=== PATIENT | male | born 1940 | race Caucasian/White ===

== ENCOUNTER → 2017-11-07 15:56 | Outpatient (CLI) | payer MEDICARE, OTHER, SELFPAY ==
[2017-11-07 17:24] LABS: Absolute Lymphocyte Count 2.11 X10^3/ul (0.83-4.51); Absolute Neutrophil Count 5.2 X10^3/uL (2.0-7.7); Basophil# 0.04 X10^3/uL; Basophil% 0.5 % (0-1); Eosinophil# 0.24 X10^3/uL; Eosinophils% 2.9 % (0-5); Hematocrit 46.5 % (40-54); Hemoglobin 14.9 g/dl (13.0-16.5); Lymphocyte # 2.11 X10^3/ul (4.0); Lymphocyte % 25.1 % (19-41); Mean Corpuscular Hgb 30.9 pg (27.0-32.0); Mean Corpuscular Volume 96.5 fL (80-94); Mean Platelet Vol. 9.5 fl (6.2-12.0); Monocyte# 0.76 X10^3/uL; Monocyte% 9.1 % (0-10); Neutrophil # 5.21 X10^3/uL (2.7-7.7); Platelet Count 233 K/mm3 (150-450); RBC Distribution Width CV 13.3 % (11.6-14.6); RBC Distribution Width SD 46.8 fl (35.1-43.9); Red Blood Count 4.82 M/mm3 (4.6-6.2); White Blood Count 8.4 K/mm3 (4.4-11.0)
[2017-11-07 17:25] LABS: POSITIVE COUNT NO; POSITIVE DIFFERENTIAL NO; POSITIVE MORPHOLOGY NO
[2017-11-07 17:57] LABS: ALB/GLOB Ratio 1.1 RATIO (0.9-2.4); AST(SGOT) 28 U/L (15-37); Alanine Aminotransfer ALT/SGPT 36 U/L (16-61); Alkaline Phosphatase 60 U/L (45-117); Anion Gap 10 (5-15); BUN 22 mg/dL (7-18); BUN/Creat Ratio 15.6 RATIO (10-20); Calcium,Total 8.9 mg/dL (8.5-10.1); Chloride 104 mmol/L (98-107); Creatinine, Serum 1.41 mg/dL (0.70-1.30); EST Glomerular Filtration Rate 52 mL/min (>60); Est Glom Filt Rate - Afr Amer 62 mL/min (>60); Globulin 3.5 g/dL (2.2-4.2); Glucose 99 mg/dL (74-106); Potassium 4.7 mmol/L (3.5-5.1); Protein, Total 7.5 g/dL (6.4-8.2); Sodium Level 141 mmol/L (136-145); Thyroid Stim Hormone (TSH) 1.13 uIU/mL (0.358-3.74)
[2017-11-07 19:33] LABS: Vitamin D,25 Hydroxy 5.4 ng/mL (19.95-100.01)
== END ==
PROVIDERS: Family Provider Family Medicine Geriatric Medicine; PCP Family Medicine Geriatric Medicine; Visit Provider Family Medicine Geriatric Medicine
DX: E11.9 Type 2 diabetes mellitus without complications (principal); I10 Essential (primary) hypertension; E55.9 Vitamin D deficiency, unspecified; E23.6 Other disorders of pituitary gland
CPT/HCPCS: 36415; 80053; 82306; 84403; 84443; 85025

== ENCOUNTER → 2018-07-03 10:30 | Outpatient (CLI) | payer MEDICARE, OTHER, SELFPAY ==
[2018-07-03 12:44] LABS: Absolute Lymphocyte Count 1.38 X10^3/ul (0.83-4.51); Absolute Neutrophil Count 4.3 X10^3/uL (2.0-7.7); Basophil# 0.04 X10^3/uL; Basophil% 0.6 % (0-1); Eosinophil# 0.33 X10^3/uL; Hemoglobin 14.7 g/dl (13.0-16.5); Lymphocyte # 1.38 X10^3/ul (4.0); Mean Corp Hgb Conc 33.4 g/gl (32-36); Mean Corpuscular Hgb 31.5 pg (27.0-32.0); Mean Corpuscular Volume 94.4 fL (80-94); Mean Platelet Vol. 9.3 fl (6.2-12.0); Monocyte# 0.44 X10^3/uL; Monocyte% 6.7 % (0-10); Neutrophil # 4.34 X10^3/uL (2.7-7.7); Neutrophil % 66.1 % (47-70); Platelet Count 223 K/mm3 (150-450); RBC Distribution Width CV 13.4 % (11.6-14.6); RBC Distribution Width SD 44.9 fl (35.1-43.9); Red Blood Count 4.66 M/mm3 (4.6-6.2); White Blood Count 6.6 K/mm3 (4.4-11.0)
[2018-07-03 12:50] LABS: POSITIVE COUNT NO; POSITIVE DIFFERENTIAL NO; POSITIVE MORPHOLOGY NO
[2018-07-03 12:59] LABS: Vitamin D,25 Hydroxy 18.7 ng/mL (29.95-100.01)
[2018-07-03 13:13] LABS: AST(SGOT) 30 U/L (15-37); Alanine Aminotransfer ALT/SGPT 30 U/L (16-61); Alkaline Phosphatase 62 U/L (45-117); Anion Gap 8 (5-15); BUN 22 mg/dL (7-18); BUN/Creat Ratio 15.3 RATIO (10-20); Calcium,Total 8.9 mg/dL (8.5-10.1); Chloride 103 mmol/L (98-107); Creatinine, Serum 1.44 mg/dL (0.70-1.30); EST Glomerular Filtration Rate 50 mL/min (>60); Est Glom Filt Rate - Afr Amer 61 mL/min (>60); Glucose 141 mg/dL (74-106); Potassium 4.6 mmol/L (3.5-5.1); Sodium Level 136 mmol/L (136-145); Thyroid Stim Hormone (TSH) 1.03 uIU/mL (0.358-3.74)
== END ==
PROVIDERS: Family Provider Family Medicine Geriatric Medicine; PCP Family Medicine Geriatric Medicine; Visit Provider Family Medicine Geriatric Medicine
DX: E11.9 Type 2 diabetes mellitus without complications (principal); E55.9 Vitamin D deficiency, unspecified; E23.6 Other disorders of pituitary gland; I10 Essential (primary) hypertension
CPT/HCPCS: 36415; 80053; 82306; 84403; 84443; 85025

== ENCOUNTER 2018-07-12 16:39 | Inpatient (IN) | payer MEDICARE, OTHER, SELFPAY ==
[2018-07-12 16:48] VITALS: BP 166/76; PULSE 84; RESP 18; TEMP 36.9; O2SAT 94; BMI 38.0; BMI 38.1
[2018-07-12] MEDS: oxyCODONE 5 MG Tablet PO (19:15)
[2018-07-12 19:49] VITALS: BP 162/73; PULSE 90; RESP 16; TEMP 37.1; O2SAT 95
[2018-07-12 21:16] LABS: Bedside Glucose 186 mg/dL (70-110)
[2018-07-12 22:09] VITALS: BP 162/73; PULSE 90
[2018-07-12] MEDS: Magnesium Oxide 400 MG Tablet PO (22:09)
[2018-07-12] MEDS: Nortriptyline 25 MG Capsule PO (22:09)
[2018-07-12] MEDS: Acetaminophen 500 MG Tablet 1000 MG PO (22:09)
[2018-07-12] MEDS: Senna/Docusate Sodium 1 Tablet 2 TABLET PO (22:09)
[2018-07-12] MEDS: Gabapentin 600 MG Tablet PO (22:09)
[2018-07-12] MEDS: Metoprolol Tartrate 50 MG Tablet PO (22:09)
[2018-07-12] MEDS: Donepezil HCl 10 MG Tablet PO (22:10)
[2018-07-12] MEDS: Atorvastatin Calcium 40 MG Tablet PO (22:10)
[2018-07-12] MEDS: Meclizine HCl 25 MG Tablet PO (22:10)
[2018-07-12] MEDS: LORazepam 1 MG Tablet PO (23:01)
[2018-07-13 06:31] LABS: Bedside Glucose 182 mg/dL (70-110)
[2018-07-13] MEDS: Enoxaparin 40 MG/0.4 ML Syringe SC (06:50)
[2018-07-13] MEDS: Gabapentin 600 MG Tablet PO ×3 (06:51→21:04)
[2018-07-13] MEDS: oxyCODONE 5 MG Tablet PO ×3 (07:31→17:10)
[2018-07-13 07:32] VITALS: PULSE 80
[2018-07-13] MEDS: Metoprolol Tartrate 50 MG Tablet PO ×2 (07:32→21:04)
[2018-07-13] MEDS: Aspirin 81 MG TAB.CHEW PO (07:32)
[2018-07-13] MEDS: Magnesium Oxide 400 MG Tablet PO ×2 (07:33→21:05)
[2018-07-13] MEDS: Escitalopram Oxalate 10 MG Tablet PO (07:34)
[2018-07-13] MEDS: Glimepiride 4 MG Tablet PO ×2 (07:34→17:10)
[2018-07-13] MEDS: Pantoprazole Sodium 20 MG Tablet PO (07:34)
[2018-07-13] MEDS: hydroCHLOROthiazide 25 MG Tablet PO (07:35)
[2018-07-13] MEDS: Clopidogrel Bisulfate 75 MG Tablet PO (07:35)
[2018-07-13 07:36] VITALS: BP 123/64; PULSE 85; RESP 20; TEMP 36.8; O2SAT 95
[2018-07-13] MEDS: Lisinopril 20 MG Tablet PO (07:36)
[2018-07-13] MEDS: Meclizine HCl 25 MG Tablet PO ×2 (07:36→21:04)
[2018-07-13 07:40] LABS: Hematocrit 42.4 % (40-54); Hemoglobin 13.6 g/dl (13.0-16.5); Mean Corp Hgb Conc 32.1 g/gl (32-36); Mean Corpuscular Hgb 30.8 pg (27.0-32.0); Mean Corpuscular Volume 96.1 fL (80-94); Mean Platelet Vol. 8.7 fl (6.2-12.0); Platelet Count 198 K/mm3 (150-450); RBC Distribution Width CV 13.8 % (11.6-14.6); RBC Distribution Width SD 48.5 fl (35.1-43.9); Red Blood Count 4.41 M/mm3 (4.6-6.2); White Blood Count 13.1 K/mm3 (4.4-11.0)
[2018-07-13 07:45] LABS: Scan Indicated on CBC? Y/N NO
[2018-07-13 07:53] VITALS: O2SAT 95
[2018-07-13 08:34] LABS: Anion Gap 13 (5-15); BUN 23 mg/dL (7-18); BUN/Creat Ratio 14.4 RATIO (10-20); Calcium,Total 8.9 mg/dL (8.5-10.1); Chloride 97 mmol/L (98-107); EST Glomerular Filtration Rate 45 mL/min (>60); Est Glom Filt Rate - Afr Amer 54 mL/min (>60); Estimated Creatinine Clearance 43.53 ml/min; Glucose 180 mg/dL (74-106); Potassium 3.9 mmol/L (3.5-5.1); Sodium Level 135 mmol/L (136-145)
[2018-07-13] MEDS: Acetaminophen 500 MG Tablet 1000 MG PO ×2 (09:31→21:04)
[2018-07-13] MEDS: Senna/Docusate Sodium 1 Tablet 2 TABLET PO ×2 (09:31→21:04)
[2018-07-13 12:20] LABS: Bedside Glucose 176 mg/dL (70-110)
--- NOTE | 2018-07-13 15:35 | PCM.HP.STD ---
History of Present Illness Date of Admission: 07/12/18 The patient is a 77 year old male with a history of osteoarthritis as well as hypertension, hyperlipidemia, coronary artery disease, diabetes and peripheral neuropathy as well as obstructive sleep apnea on CPAP, and atrial flutter who presents to the [facility] acute rehab unit for rehabilitation after having undergone a right total knee replacement surgery for osteoarthritis performed by Dr. Cy Perez at [facility] 07/10/18. His hospitalization, surgery and postoperative course was benign. He lives at home with his daughter and son-in-law. The house is a one-story house with a ramp set up. He normally walks with a walker at home but is independent and continues to drive. Goal of therapy is rastafarian of his prior level of functional independence. He denies any complaints of pain at this point, denies any GI or complaints, no fevers, chills or sweats. 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) Medical History: Medical History (Last Reviewed 07/13/18 @ 15:36 by Javy Diop MD) Old myocardial infarction (Resolved) I25.2 NSTEMI 03/24/17 Atherosclerotic heart disease of [place] coronary artery without angina pectoris (Chronic) I25.10 Hypertension (Chronic) I10 Hyperlipemia (Chronic) E78.5 Dyspnea R06.00 Allergies No Known Allergies Allergy (Verified 01/10/18 13:04) Home Medications: Ambulatory Orders Medication Instructions Recorded Aspirin [Aspirin, Baby] 81 mg PO DAILY@0800 07/18/13 Gabapentin [Neurontin] 600 mg PO TID 07/18/13 Lorazepam [Ativan] 1 mg PO QHS 07/18/13 Meclizine HCl [Antivert] 25 mg PO BID 07/18/13 Rosuvastatin Calcium [Crestor] 20 mg PO DAILY 07/18/13 Metformin HCl [Glucophage] 500 mg PO DAILY 01/03/14 Donepezil HCl [Aricept] 10 mg PO QHS 11/16/14 Magnesium Oxide [Mag-Ox 400] 400 mg PO BID 11/16/14 Nortriptyline HCl 25 mg PO QHS 03/16/17 glimepiride 4 mg tablet 4 mg PO BID tab 01/08/18 acetaminophen 500 mg capsule 1,000 mg PO BID 01/10/18 nitroglycerin 0.4 mg sublingual 0.4 mg SUBLINGUAL Q5M PRN #25 tab 01/10/18 tablet Clopidogrel Bisulfate [Clopidogrel] 75 mg PO QDAY 07/12/18 Ergocalciferol [Vitamin D] 50,000 unit PO Q7D 07/12/18 Escitalopram Oxalate [Lexapro] 10 mg PO DAILY 07/12/18 Hyoscyamine Sulfate [Hyoscyamine 0.375 mg PO DAILY 07/12/18 Sulfate Sr] Isosorbide Mononitrate [Imdur] 120 mg PO DAILY 07/12/18 Lisinopril/Hydrochlorothiazide 1 tablet PO DAILY 07/12/18 [Zestoretic Tablet] Metoprolol Tartrate [Lopressor 50 mg PO BID 07/12/18 (beta chyna)] Omeprazole [Prilosec] 20 mg PO DAILY 07/12/18 Surgical History: Surgical History (Last Reviewed 07/13/18 @ 15:36 by Javy Diop MD) Hx of sinus surgery (Resolved) Z98.890 History of prostate surgery (Resolved) Z98.890 H/O repair of rotator cuff (Resolved) Z98.890 x2 H/O percutaneous transluminal coronary angioplasty (Resolved) Z98.61 PTCA of mid RCA 08/06, PTCA/LETICIA to LAD and diag with bifurcating stents 11/26/14 Surgical History: rotator cuff repair, TURP Smoking Status: Never smoker - *Family History Sibling Family History: Family History (Last Reviewed 07/13/18 @ 15:37 by Javy Diop MD) Son CAD (coronary artery disease) Myocardial infarction Mother Heart disease Father Addisons disease History Items: Heart Disease Maternal Family History: Family History (Last Reviewed 07/13/18 @ 15:37 by Javy Diop MD) Son CAD (coronary artery disease) Myocardial infarction Mother Heart disease Father Addisons disease History Items: Diabetes Offspring Family History: Family History (Last Reviewed 07/13/18 @ 15:37 by Javy Diop MD) Son CAD (coronary artery disease) Myocardial infarction Mother Heart disease Father Addisons disease History Items: Heart Disease Review of Systems Constitutional: Denies: Chills, Fever, Night Sweats Eyes: Denies: Blurred vision, Double vision HEENT: Denies: Difficulty Hearing, Head Aches, Sore Throat Cardiovascular: Denies: Chest Pain, Chest Pressure, Light Headedness Respiratory: Denies: Cough, Shortness of Breath Gastrointestinal: Denies: Abdominal Pain, Constipation, Diarrhea, Dyspepsia, Vomiting Genitourinary: Denies: Dysuria, Frequency, Incontinence, Nocturia, Retention, Urgency Musculoskeletal: Reports: Joint Pain - Right knee Neurological: Reports: Balance problems - Chronic due to neuropathy. Denies: Blurred vision, Double vision, Change in Speech, Slurred speech, Confusion, Difficulty swallowing, Focal weakness, Headaches Psychiatric: Denies: Anxiety VTE Information - Inpt Only VTE Present on Admission: Yes VTE Pharm Prophylaxis ordered?: Yes - Physical Exam General: Alert, Oriented x3, Cooperative HEENT: Atraumatic, PERRLA, EOMI, Normocephalic Lungs: Clear to auscultation, Normal air movement Cardiovascular: Regular rate, No murmurs Abdomen: Bowel Sounds Present, Soft, Non Tender, Non-Distended Extremities: No clubbing, No edema, No Calf Tenderness Neurological: Cranial nerves II-XII grossly intact Psych/Mental Status: Normal Affect Vital Signs Temp Pulse Resp BP Pulse Ox 36.8 C 85 20 H 123/64 H 95 07/13/18 07:36 07/13/18 07:36 07/13/18 07:36 07/13/18 07:36 07/13/18 07:53 Oxygen Delivery Method Room Air Weight: 134.6 kg Body Mass Index (BMI) 38.0 Finger Stick Blood Glucose 150 Intake and Output for Last 24 Hours 07/11/18 07/12/18 07/13/18 23:59 23:59 23:59 Output Total 250 / 250 Balance -250 / -250 Laboratory Tests Past 24 Hrs 07/13/18 07/13/18 07:25 07:25 WBC 13.1 H RBC 4.41 L Hgb 13.6 Hct 42.4 MCV 96.1 H MCH 30.8 MCHC 32.1 RDW 13.8 RDW Differential 48.5 H Plt Count 198 MPV 8.7 Sodium 135 L Potassium 3.9 Chloride 97 L Carbon Dioxide 25.0 Anion Gap 13 BUN 23 H Creatinine 1.60 H Estim Creat Clear Calc 43.53 Est GFR (MDRD) Af Amer 54 L Est GFR (MDRD) Non-Af 45 L BUN/Creatinine Ratio 14.4 Glucose 180 H Calcium 8.9 POC Glucose 07/13/18 07/13/18 07/12/18 12:13 06:24 21:09 POC Glucose 176 H 182 H 186 H Current Home Med List Medication Instructions Recorded Confirmed Type Aspirin [Aspirin, Baby] 81 mg PO DAILY@0800 07/18/13 07/12/18 History Gabapentin [Neurontin] 600 mg PO TID 07/18/13 07/12/18 History Lorazepam [Ativan] 1 mg PO QHS 07/18/13 07/12/18 History Meclizine HCl [Antivert] 25 mg PO BID 07/18/13 07/12/18 History Rosuvastatin Calcium [Crestor] 20 mg PO DAILY 07/18/13 07/12/18 History Metformin HCl [Glucophage] 500 mg PO DAILY 01/03/14 07/12/18 History Donepezil HCl [Aricept] 10 mg PO QHS 11/16/14 07/12/18 History Magnesium Oxide [Mag-Ox 400] 400 mg PO BID 11/16/14 07/12/18 History Nortriptyline HCl 25 mg PO QHS 03/16/17 07/12/18 History glimepiride 4 mg tablet 4 mg PO BID tab 01/08/18 07/12/18 History acetaminophen 500 mg capsule 1,000 mg PO BID 01/10/18 07/12/18 History nitroglycerin 0.4 mg sublingual 0.4 mg SUBLINGUAL Q5M PRN #25 tab 01/10/18 07/12/18 Rx tablet Clopidogrel Bisulfate [Clopidogrel] 75 mg PO QDAY 07/12/18 07/12/18 History Ergocalciferol [Vitamin D] 50,000 unit PO Q7D 07/12/18 07/12/18 History Escitalopram Oxalate [Lexapro] 10 mg PO DAILY 07/12/18 07/12/18 History Hyoscyamine Sulfate [Hyoscyamine 0.375 mg PO DAILY 07/12/18 07/12/18 History Sulfate Sr] Isosorbide Mononitrate [Imdur] 120 mg PO DAILY 07/12/18 07/12/18 History Lisinopril/Hydrochlorothiazide 1 tablet PO DAILY 07/12/18 07/12/18 History [Zestoretic Tablet] Metoprolol Tartrate [Lopressor 50 mg PO BID 07/12/18 07/12/18 History (beta chyna)] Omeprazole [Prilosec] 20 mg PO DAILY 07/12/18 07/12/18 History Current Medications Generic Name Dose Route Start Last Admin Trade Name Freq PRN Reason Stop Dose Admin Acetaminophen 1,000 mg 07/12/18 22:00 07/13/18 09:31 Tylenol PO 1,000 mg BID GABRIELA Administration Aspirin 81 mg 07/13/18 08:00 07/13/18 07:32 Aspirin, Baby PO 81 mg DAILY@0800 GABRIELA Administration Atorvastatin Calcium 40 mg 07/12/18 22:00 07/12/18 22:10 Lipitor PO 40 mg QHS [facility] Administration Bisacodyl 10 mg 07/12/18 18:30 Dulcolax RECTAL .PRN X 1 PRN Constipation Clopidogrel Bisulfate 75 mg 07/13/18 10:00 07/13/18 07:35 Plavix PO 75 mg DAILY GABRIELA Administration Donepezil HCl 10 mg 07/12/18 22:00 07/12/18 22:10 Aricept PO 10 mg QHS [facility] Administration Enoxaparin Sodium 40 mg 07/13/18 06:00 07/13/18 06:50 Lovenox SC 40 mg DAILY@0600 [facility] Administration Ergocalciferol 50,000 unit 07/12/18 19:00 07/12/18 22:10 Vitamin D PO 50,000 unit Q7D@1000 GABRIELA Administration Escitalopram Oxalate 10 mg 07/13/18 10:00 07/13/18 07:34 Lexapro PO 10 mg DAILY GABRIELA Administration Gabapentin 600 mg 07/12/18 22:00 07/13/18 13:58 Neurontin PO 600 mg TID GABRIELA Administration Glimepiride 4 mg 07/13/18 08:00 07/13/18 07:34 Amaryl PO 4 mg BIDCM GABRIELA Administration Hydrochlorothiazide 25 mg 07/13/18 10:00 07/13/18 07:35 Hctz PO 25 mg DAILY GABRIELA Administration Hyoscyamine Sulfate 0.375 mg 07/13/18 10:00 07/13/18 07:32 Levsinex PO 0.375 mg DAILY GABRIELA Administration Isosorbide Mononitrate 120 mg 07/13/18 10:00 07/13/18 07:35 Imdur PO 120 mg DAILY GABRIELA Administration Lisinopril 20 mg 07/13/18 10:00 07/13/18 07:36 Zestril PO 20 mg DAILY [facility] Administration Lorazepam 1 mg 07/12/18 22:00 07/12/18 23:01 Ativan PO 1 mg QHS GABRIELA Administration Magnesium Hydroxide 30 ml 07/12/18 18:30 Milk Of Magnesia PO .PRN X 1 PRN Constipation Magnesium Oxide 400 mg 07/12/18 22:00 07/13/18 07:33 Mag-Ox 400 PO 400 mg BID [facility] Administration Meclizine HCl 25 mg 07/12/18 22:00 07/13/18 07:36 Antivert PO 25 mg BID [facility] Administration Metformin HCl 500 mg 07/13/18 08:00 07/13/18 07:33 [facility] Administration Metoprolol Tartrate 50 mg 07/12/18 22:00 07/13/18 07:32 Lopressor (Beta Chyna) PO 50 mg BID [facility] Administration Nitroglycerin 0.4 mg 07/12/18 18:07 Nitrostat SUBLINGUAL Q5M PRN Chest Pain Nortriptyline HCl 25 mg 07/12/18 22:00 07/12/18 22:09 Pamelor PO 25 mg QHS [facility] Administration Oxycodone HCl 5 - 10 mg 07/12/18 18:29 07/13/18 11:39 Oxyir PO 10 mg Q4H PRN PRN Administration SEVERE PAIN (6-10/10) Pantoprazole Sodium 20 mg 07/13/18 10:00 07/13/18 07:34 Protonix PO 20 mg DAILY [facility] Administration Senna/Docusate Sodium 2 tablet 07/12/18 22:00 07/13/18 09:31 Senokot-S, Ana-Colace PO 2 tablet BID GABRIELA Administration Assessment/Plan All Active Problems (Last Updated 01/08/18 @ 08:39 by Nory Jones) Hx of sinus surgery (Resolved) History of prostate surgery (Resolved) H/O repair of rotator cuff (Resolved) H/O percutaneous transluminal coronary angioplasty (Resolved) Old myocardial infarction (Resolved) Unstable angina (Acute) Debility status post right total knee replacement performed 07/10/[address] Perez at [facility]. Complicated by diabetes, peripheral neuropathy, coronary artery disease and obstructive sleep apnea as well as atrial flutter. Goal of rehab is rastafarian of prior level functional independence. Plan: Physical therapy for gait and balance Occupational Therapy for ADLs Continue oral agents for diabetes and monitor sugars Continue antihypertensive therapy Continue home CPAP therapy Bowel protocol PRN analgesics DVT prophylaxis
--- NOTE | 2018-07-13 15:51 | HP.PCM_ITS ---
History of Present Illness Date of Admission: 07/12/18 The patient is a 77 year old male with a history of osteoarthritis as well as hypertension, hyperlipidemia, coronary artery disease, diabetes and peripheral neuropathy as well as obstructive sleep apnea on CPAP, and atrial flutter who presents to the [facility] acute rehab unit for rehabilitation after having undergone a right total knee replacement surgery for osteoarthritis performed by Dr. Cy Perez at [facility] 07/10/18. His hospitalization, surgery and postoperative course was benign. He lives at home with his daughter and son-in-law. The house is a one-story house with a ramp set up. He normally walks with a walker at home but is independent and continues to drive. Goal of therapy is gnosticism of his prior level of functional independence. He denies any complaints of pain at this point, denies any GI or complaints, no fevers, chills or sweats. 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) Medical History: Medical History (Last Reviewed 07/13/18 @ 15:36 by Javy Diop MD) Old myocardial infarction (Resolved) I25.2 NSTEMI 03/24/17 Atherosclerotic heart disease of [place] coronary artery without angina pectoris (Chronic) I25.10 Hypertension (Chronic) I10 Hyperlipemia (Chronic) E78.5 Dyspnea R06.00 Allergies No Known Allergies Allergy (Verified 01/10/18 13:04) Home Medications: Ambulatory Orders Medication Instructions Recorded Aspirin [Aspirin, Baby] 81 mg PO DAILY@0800 07/18/13 Gabapentin [Neurontin] 600 mg PO TID 07/18/13 Lorazepam [Ativan] 1 mg PO QHS 07/18/13 Meclizine HCl [Antivert] 25 mg PO BID 07/18/13 Rosuvastatin Calcium [Crestor] 20 mg PO DAILY 07/18/13 Metformin HCl [Glucophage] 500 mg PO DAILY 01/03/14 Donepezil HCl [Aricept] 10 mg PO QHS 11/16/14 Magnesium Oxide [Mag-Ox 400] 400 mg PO BID 11/16/14 Nortriptyline HCl 25 mg PO QHS 03/16/17 glimepiride 4 mg tablet 4 mg PO BID tab 01/08/18 acetaminophen 500 mg capsule 1,000 mg PO BID 01/10/18 nitroglycerin 0.4 mg sublingual 0.4 mg SUBLINGUAL Q5M PRN #25 tab 01/10/18 tablet Clopidogrel Bisulfate [Clopidogrel] 75 mg PO QDAY 07/12/18 Ergocalciferol [Vitamin D] 50,000 unit PO Q7D 07/12/18 Escitalopram Oxalate [Lexapro] 10 mg PO DAILY 07/12/18 Hyoscyamine Sulfate [Hyoscyamine 0.375 mg PO DAILY 07/12/18 Sulfate Sr] Isosorbide Mononitrate [Imdur] 120 mg PO DAILY 07/12/18 Lisinopril/Hydrochlorothiazide 1 tablet PO DAILY 07/12/18 [Zestoretic Tablet] Metoprolol Tartrate [Lopressor 50 mg PO BID 07/12/18 (beta chyna)] Omeprazole [Prilosec] 20 mg PO DAILY 07/12/18 Surgical History: Surgical History (Last Reviewed 07/13/18 @ 15:36 by Javy Diop MD) Hx of sinus surgery (Resolved) Z98.890 History of prostate surgery (Resolved) Z98.890 H/O repair of rotator cuff (Resolved) Z98.890 x2 H/O percutaneous transluminal coronary angioplasty (Resolved) Z98.61 PTCA of mid RCA 08/06, PTCA/LETICIA to LAD and diag with bifurcating stents 11/26/14 Surgical History: rotator cuff repair, TURP Smoking Status: Never smoker - *Family History Sibling Family History: Family History (Last Reviewed 07/13/18 @ 15:37 by Javy Diop MD) Son CAD (coronary artery disease) Myocardial infarction Mother Heart disease Father Addisons disease History Items: Heart Disease Maternal Family History: Family History (Last Reviewed 07/13/18 @ 15:37 by Javy Diop MD) Son CAD (coronary artery disease) Myocardial infarction Mother Heart disease Father Addisons disease History Items: Diabetes Offspring Family History: Family History (Last Reviewed 07/13/18 @ 15:37 by Javy Diop MD) Son CAD (coronary artery disease) Myocardial infarction Mother Heart disease Father Addisons disease History Items: Heart Disease Review of Systems Constitutional: Denies: Chills, Fever, Night Sweats Eyes: Denies: Blurred vision, Double vision HEENT: Denies: Difficulty Hearing, Head Aches, Sore Throat Cardiovascular: Denies: Chest Pain, Chest Pressure, Light Headedness Respiratory: Denies: Cough, Shortness of Breath Gastrointestinal: Denies: Abdominal Pain, Constipation, Diarrhea, Dyspepsia, Vomiting Genitourinary: Denies: Dysuria, Frequency, Incontinence, Nocturia, Retention, Urgency Musculoskeletal: Reports: Joint Pain - Right knee Neurological: Reports: Balance problems - Chronic due to neuropathy. Denies: Blurred vision, Double vision, Change in Speech, Slurred speech, Confusion, Difficulty swallowing, Focal weakness, Headaches Psychiatric: Denies: Anxiety VTE Information - Inpt Only VTE Present on Admission: Yes VTE Pharm Prophylaxis ordered?: Yes - Physical Exam General: Alert, Oriented x3, Cooperative HEENT: Atraumatic, PERRLA, EOMI, Normocephalic Lungs: Clear to auscultation, Normal air movement Cardiovascular: Regular rate, No murmurs Abdomen: Bowel Sounds Present, Soft, Non Tender, Non-Distended Extremities: No clubbing, No edema, No Calf Tenderness Neurological: Cranial nerves II-XII grossly intact Psych/Mental Status: Normal Affect Vital Signs Temp Pulse Resp BP Pulse Ox 36.8 C 85 20 H 123/64 H 95 07/13/18 07:36 07/13/18 07:36 07/13/18 07:36 07/13/18 07:36 07/13/18 07:53 Oxygen Delivery Method Room Air Weight: 134.6 kg Body Mass Index (BMI) 38.0 Finger Stick Blood Glucose 150 Intake and Output for Last 24 Hours 07/11/18 07/12/18 07/13/18 23:59 23:59 23:59 Output Total 250 / 250 Balance -250 / -250 Laboratory Tests Past 24 Hrs 07/13/18 07/13/18 07:25 07:25 WBC 13.1 H RBC 4.41 L Hgb 13.6 Hct 42.4 MCV 96.1 H MCH 30.8 MCHC 32.1 RDW 13.8 RDW Differential 48.5 H Plt Count 198 MPV 8.7 Sodium 135 L Potassium 3.9 Chloride 97 L Carbon Dioxide 25.0 Anion Gap 13 BUN 23 H Creatinine 1.60 H Estim Creat Clear Calc 43.53 Est GFR (MDRD) Af Amer 54 L Est GFR (MDRD) Non-Af 45 L BUN/Creatinine Ratio 14.4 Glucose 180 H Calcium 8.9 POC Glucose 07/13/18 07/13/18 07/12/18 12:13 06:24 21:09 POC Glucose 176 H 182 H 186 H Current Home Med List Medication Instructions Recorded Confirmed Type Aspirin [Aspirin, Baby] 81 mg PO DAILY@0800 07/18/13 07/12/18 History Gabapentin [Neurontin] 600 mg PO TID 07/18/13 07/12/18 History Lorazepam [Ativan] 1 mg PO QHS 07/18/13 07/12/18 History Meclizine HCl [Antivert] 25 mg PO BID 07/18/13 07/12/18 History Rosuvastatin Calcium [Crestor] 20 mg PO DAILY 07/18/13 07/12/18 History Metformin HCl [Glucophage] 500 mg PO DAILY 01/03/14 07/12/18 History Donepezil HCl [Aricept] 10 mg PO QHS 11/16/14 07/12/18 History Magnesium Oxide [Mag-Ox 400] 400 mg PO BID 11/16/14 07/12/18 History Nortriptyline HCl 25 mg PO QHS 03/16/17 07/12/18 History glimepiride 4 mg tablet 4 mg PO BID tab 01/08/18 07/12/18 History acetaminophen 500 mg capsule 1,000 mg PO BID 01/10/18 07/12/18 History nitroglycerin 0.4 mg sublingual 0.4 mg SUBLINGUAL Q5M PRN #25 tab 01/10/18 07/12/18 Rx tablet Clopidogrel Bisulfate [Clopidogrel] 75 mg PO QDAY 07/12/18 07/12/18 History Ergocalciferol [Vitamin D] 50,000 unit PO Q7D 07/12/18 07/12/18 History Escitalopram Oxalate [Lexapro] 10 mg PO DAILY 07/12/18 07/12/18 History Hyoscyamine Sulfate [Hyoscyamine 0.375 mg PO DAILY 07/12/18 07/12/18 History Sulfate Sr] Isosorbide Mononitrate [Imdur] 120 mg PO DAILY 07/12/18 07/12/18 History Lisinopril/Hydrochlorothiazide 1 tablet PO DAILY 07/12/18 07/12/18 History [Zestoretic Tablet] Metoprolol Tartrate [Lopressor 50 mg PO BID 07/12/18 07/12/18 History (beta chyna)] Omeprazole [Prilosec] 20 mg PO DAILY 07/12/18 07/12/18 History Current Medications Generic Name Dose Route Start Last Admin Trade Name Freq PRN Reason Stop Dose Admin Acetaminophen 1,000 mg 07/12/18 22:00 07/13/18 09:31 Tylenol PO 1,000 mg BID GABRIELA Administration Aspirin 81 mg 07/13/18 08:00 07/13/18 07:32 Aspirin, Baby PO 81 mg DAILY@0800 GABRIELA Administration Atorvastatin Calcium 40 mg 07/12/18 22:00 07/12/18 22:10 Lipitor PO 40 mg QHS [facility] Administration Bisacodyl 10 mg 07/12/18 18:30 Dulcolax RECTAL .PRN X 1 PRN Constipation Clopidogrel Bisulfate 75 mg 07/13/18 10:00 07/13/18 07:35 Plavix PO 75 mg DAILY GABRIELA Administration Donepezil HCl 10 mg 07/12/18 22:00 07/12/18 22:10 Aricept PO 10 mg QHS [facility] Administration Enoxaparin Sodium 40 mg 07/13/18 06:00 07/13/18 06:50 Lovenox SC 40 mg DAILY@0600 [facility] Administration Ergocalciferol 50,000 unit 07/12/18 19:00 07/12/18 22:10 Vitamin D PO 50,000 unit Q7D@1000 GABRIELA Administration Escitalopram Oxalate 10 mg 07/13/18 10:00 07/13/18 07:34 Lexapro PO 10 mg DAILY GABRIELA Administration Gabapentin 600 mg 07/12/18 22:00 07/13/18 13:58 Neurontin PO 600 mg TID GABRIELA Administration Glimepiride 4 mg 07/13/18 08:00 07/13/18 07:34 Amaryl PO 4 mg BIDCM GABRIELA Administration Hydrochlorothiazide 25 mg 07/13/18 10:00 07/13/18 07:35 Hctz PO 25 mg DAILY GABRIELA Administration Hyoscyamine Sulfate 0.375 mg 07/13/18 10:00 07/13/18 07:32 Levsinex PO 0.375 mg DAILY GABRIELA Administration Isosorbide Mononitrate 120 mg 07/13/18 10:00 07/13/18 07:35 Imdur PO 120 mg DAILY GABRIELA Administration Lisinopril 20 mg 07/13/18 10:00 07/13/18 07:36 Zestril PO 20 mg DAILY [facility] Administration Lorazepam 1 mg 07/12/18 22:00 07/12/18 23:01 Ativan PO 1 mg QHS GABRIELA Administration Magnesium Hydroxide 30 ml 07/12/18 18:30 Milk Of Magnesia PO .PRN X 1 PRN Constipation Magnesium Oxide 400 mg 07/12/18 22:00 07/13/18 07:33 Mag-Ox 400 PO 400 mg BID [facility] Administration Meclizine HCl 25 mg 07/12/18 22:00 07/13/18 07:36 Antivert PO 25 mg BID [facility] Administration Metformin HCl 500 mg 07/13/18 08:00 07/13/18 07:33 [facility] Metoprolol Tartrate 50 mg 07/12/18 22:00 07/13/18 07:32 Lopressor (Beta Chyna) PO 50 mg BID [facility] Administration Nitroglycerin 0.4 mg 07/12/18 18:07 Nitrostat SUBLINGUAL Q5M PRN Chest Pain Nortriptyline HCl 25 mg 07/12/18 22:00 07/12/18 22:09 Pamelor PO 25 mg QHS [facility] Administration Oxycodone HCl 5 - 10 mg 07/12/18 18:29 07/13/18 11:39 Oxyir PO 10 mg Q4H PRN PRN Administration SEVERE PAIN (6-10/10) Pantoprazole Sodium 20 mg 07/13/18 10:00 07/13/18 07:34 Protonix PO 20 mg DAILY [facility] Administration Senna/Docusate Sodium 2 tablet 07/12/18 22:00 07/13/18 09:31 Senokot-S, Ana-Colace PO 2 tablet BID [facility]ELA Administration Assessment/Plan All Active Problems (Last Updated 01/08/18 @ 08:39 by Nory Jones) Hx of sinus surgery (Resolved) History of prostate surgery (Resolved) H/O repair of rotator cuff (Resolved) H/O percutaneous transluminal coronary angioplasty (Resolved) Old myocardial infarction (Resolved) Unstable angina (Acute) Debility status post right total knee replacement performed 07/10/[address] Perez at [facility]. Complicated by diabetes, peripheral neuropathy, coronary artery disease and obstructive sleep apnea as well as atrial flutter. Goal of rehab is gnosticism of prior level functional independence. Plan: Physical therapy for gait and balance Occupational Therapy for ADLs Continue oral agents for diabetes and monitor sugars Continue antihypertensive therapy Continue home CPAP therapy Bowel protocol PRN analgesics DVT prophylaxis
--- NOTE | 2018-07-13 15:55 | PCM.RU.PYE ---
Admission Information Status Changes from Prescreening?: No changes Identified Actual Problem List:: Pain, ALteration in Cmfrt, Mobility Impaired, Self Care Deficit, Diabetes, Hyperglycemia, BP, Hypertension, Ineffect.D/C Plan r/t Psy Potential Problem List:: DVT, Bleeding, Infection, UTI, Aspiration, Falls, Skin Integrity, Depression Risk of Complications DVT: LMWH, LACHO Hose, Sequential Compression Device Bleeding: Monitor Lab Values, Nursing to Teach Precautions for anti-coagulation therapy., Wound, if applicable, to be assessed every shift., Stroke patients assessed for lethargy or change in status. Infection: Clinical Staff to Monitor for S/S of infection:, S/S of infection include fever, redness, warmth, etc. Urinary Tract Infection: Monitor for frequency, burning, discomfort, or incontinence., Nursing will obtain urine sample for urinalysis and C&S when ordered. Aspiration: Clinical staff will monitor for coughing, drooling, congestion., Speech will evaluate swallowing and dsyphasia., Nursing will monitor patient swallowing during meals. Falls: Patient will be evaluated for Fall Precautions, Patient will be placed on Fall Precautions as indicated per protocol. Skin Breakdown: Nursing will assess skin daily using assessment tool., Nursing will place on Skin Breakdown Precautions as indicated. Pain: Clinical staff will assess patient's pain level per protocol., Medications will be given, if needed, and the pain level reassessed., Other methods: Massage, distraction, decrease stimulus, etc. used PRN. Plan of Care Patient requires physician specializing in physical medicine and rehab oversight to provide close medical supervision of rehab issues including: Pain Management, Sleep Problems, Bowel and Bladder, Medical and co-morbidity Management, DVT prophylaxis, Rehabilitation Leadership, Coordination of treatment team Patient needs Physical Therapy: For a minimum of 1 hour, At least 5 out of 7 days Patient needs Physical Therapy to improve:: Mobility, Mobility, Mobility, Strengthening, Transfers, Stretching, ROM, Endurance, Stairs, Gait, Balance Patient needs Occupational Therapy: For a minimum of 1 hour, At least 5 out of 7 days Patient needs Occupational Therapy to improve ADL's incl.: Eating, Grooming, Bathing, Dressing, Toileting, Toilet transfers, Community Reintegration, Higher functioning activities, Household tasks, Adaptive Equipment, Splinting, Other activities as determined Patient requires 24/ Rehabilitation Nursing for: Pain Issues, Identifying and preventing risk factors, Monitoring and reporting current medical conditions, Assisting with ambulation, transfer, and all ADL's, Teaching patients about disease process and medications, Family teaching, Providing safe environment, Bowel and Bladder Issues, Skin integrity, Medication Management Patient needs Chief Design Engineer/ Case Management for: Discharge Planning, Arranging Home Equipment or Services, Family Interventions Patient needs Dietary and Nutrition Services for: Adequate Nutrition, Nutritional Supplements, Nutritional Education Goals Patient will remain: free from falls, or injury at time of discharge. Patient will perform bed mobility at: MOD I level of assist. Patient will complete transfers from bed to chair at: MOD I level of assist. Patient will ambulate: 100 feet, with MOD I assist, with LRD Patient will complete upper body dressing at: MOD I level of assist. Patient will complete lower body dressing at: MOD I level of assist. Patient will complete toileting at: MOD I level of assist. Patient will perform bathing at: MOD I level of assist. Patient will complete grooming at: MOD I level of assist. Patient will complete home management skills at: MOD I level of assist. Patient will achieve: 12 stairs, at MOD I assist Patient will have pain level of: of 3 or less Patient's skin will: remain intact, free from infection. Patient will receive: adequate nutrition. Discharge Planning Pt Prognosis for Sig. Practical Improv. w/in Reasonable Time: Good Anticipated D/C Destination: Home with Outpt Therapy Was Preadmission Assessment Accurate?: Yes
--- NOTE | 2018-07-13 16:53 | PCM.PN.HOSP ---
Subjective: 77 yo M with a h/o CAD s/p 6 stents, HTN, HLD, ARMANDO, DM2, BPH presenting from [facility] after a right total knee replacement for rehab. He surgery and post-operative course was benign and he states that he is at his baseline for health. He states that his knee pain is controlled currently. No Chest pain or SOB. Denies fevers, chills. He currently has no complaints. Vitals/I&O's: Vital Signs Temp Pulse Resp BP Pulse Ox 98.2 F 85 20 H 123/64 H 95 07/13/18 07:36 07/13/18 07:36 07/13/18 07:36 07/13/18 07:36 07/13/18 07:53 Oxygen Delivery Method Room Air Weight: 296 lb 11.875 oz Body Mass Index (BMI) 38.0 Finger Stick Blood Glucose 150 Intake and Output for Last 24 Hours 07/11/18 07/12/18 07/13/18 23:59 23:59 23:59 Output Total 250 / 250 Balance -250 / -250 General: Alert, Oriented x3, Cooperative, No apparent distress HEENT: Atraumatic, EOMI, Normocephalic Oral: Moist Mucosa Neck: Supple, No JVD Lungs: Clear to auscultation, Normal air movement, No rhonchi, No wheeze, No rales Cardiovascular: Regular rate, Regular Rhythm, Normal S1, Normal S2, No murmurs Abdomen: Soft, Non Tender, Non-Distended, No Hepato-splenomegaly Extremities: No edema, Capillary Refill Less than 3 Seconds Skin: Incision - CDI with silver dressing in place Neurological: Neuro grossly intact, Sensory exam intact to light touch and pain Psych/Mental Status: Normal Affect, Appropriate Laboratory Results 07/12/18 21:09: POC Glucose 186 H 07/13/18 06:24: POC Glucose 182 H 07/13/18 07:25: WBC 13.1 H, RBC 4.41 L, Hgb 13.6, Hct 42.4, MCV 96.1 H, MCH 30.8, MCHC 32.1, RDW 13.8, RDW Differential 48.5 H, Plt Count 198, MPV 8.7 07/13/18 07:25: Sodium 135 L, Potassium 3.9, Chloride 97 L, Carbon Dioxide 25.0, Anion Gap 13, BUN 23 H, Creatinine 1.60 H, Estim Creat Clear Calc 43.53, Est GFR (MDRD) Af Amer 54 L, Est GFR (MDRD) Non-Af 45 L, BUN/Creatinine Ratio 14.4, Glucose 180 H, Calcium 8.9 07/13/18 12:13: POC Glucose 176 H Current Medications Acetaminophen (Tylenol) 1,000 mg PO BID [facility] Last Admin: 07/13/18 09:31 Dose: 1,000 mg Aspirin (Aspirin, Baby) 81 mg PO DAILY@0800 [facility] Last Admin: 07/13/18 07:32 Dose: 81 mg Atorvastatin Calcium (Lipitor) 40 mg PO QHS [facility] Last Admin: 07/12/18 22:10 Dose: 40 mg Bisacodyl (Dulcolax) 10 mg RECTAL .PRN X 1 PRN PRN Reason: Constipation Clopidogrel Bisulfate (Plavix) 75 mg PO DAILY [facility] Last Admin: 07/13/18 07:35 Dose: 75 mg Donepezil HCl (Aricept) 10 mg PO QHS [facility] Last Admin: 07/12/18 22:10 Dose: 10 mg Enoxaparin Sodium (Lovenox) 40 mg SC DAILY@0600 [facility] Last Admin: 07/13/18 06:50 Dose: 40 mg Ergocalciferol (Vitamin D) 50,000 unit PO Q7D@1000 [facility] Last Admin: 07/12/18 22:10 Dose: 50,000 unit Escitalopram Oxalate (Lexapro) 10 mg PO DAILY [facility] Last Admin: 07/13/18 07:34 Dose: 10 mg Gabapentin (Neurontin) 600 mg PO TID [facility] Last Admin: 07/13/18 13:58 Dose: 600 mg Glimepiride (Amaryl) 4 mg PO BIDCM [facility] Last Admin: 07/13/18 07:34 Dose: 4 mg Hydrochlorothiazide (Hctz) 25 mg PO DAILY [facility] Last Admin: 07/13/18 07:35 Dose: 25 mg Hyoscyamine Sulfate (Levsinex) 0.375 mg PO DAILY [facility] Last Admin: 07/13/18 07:32 Dose: 0.375 mg Isosorbide Mononitrate (Imdur) 120 mg PO DAILY [facility] Last Admin: 07/13/18 07:35 Dose: 120 mg Lisinopril (Zestril) 20 mg PO DAILY [facility] Last Admin: 07/13/18 07:36 Dose: 20 mg Lorazepam (Ativan) 1 mg PO QHS [facility] Last Admin: 07/12/18 23:01 Dose: 1 mg Magnesium Hydroxide (Milk Of Magnesia) 30 ml PO .PRN X 1 PRN PRN Reason: Constipation Magnesium Oxide (Mag-Ox 400) 400 mg PO BID [facility] Last Admin: 07/13/18 07:33 Dose: 400 mg Meclizine HCl (Antivert) 25 mg PO BID [facility] Last Admin: 07/13/18 07:36 Dose: 25 mg [facility] Admin: 07/13/18 07:33 Dose: 500 mg Metoprolol Tartrate (Lopressor (Beta Chyna)) 50 mg PO BID [facility] Last Admin: 07/13/18 07:32 Dose: 50 mg Nitroglycerin (Nitrostat) 0.4 mg SUBLINGUAL Q5M PRN PRN Reason: Chest Pain Nortriptyline HCl (Pamelor) 25 mg PO QHS [facility] Last Admin: 07/12/18 22:09 Dose: 25 mg Oxycodone HCl (Oxyir) 5 - 10 mg PO Q4H PRN PRN PRN Reason: SEVERE PAIN (6-10/10) Last Admin: 07/13/18 11:39 Dose: 10 mg Pantoprazole Sodium (Protonix) 20 mg PO DAILY [facility] Last Admin: 07/13/18 07:34 Dose: 20 mg Senna/Docusate Sodium (Senokot-S, Ana-Colace) 2 tablet PO BID [facility] Last Admin: 07/13/18 09:31 Dose: 2 tablet Medical Necessity - Tobacco Use Smoking Status: Never smoker Assessment/Plan All Active Problems (Last Reviewed 07/13/18 @ 15:36 by Javy Diop MD) Hx of sinus surgery (Resolved) History of prostate surgery (Resolved) H/O repair of rotator cuff (Resolved) H/O percutaneous transluminal coronary angioplasty (Resolved) Old myocardial infarction (Resolved) Unstable angina (Acute) 1. S/p Right total knee on 07/10 - Oxycodone for pain - Dulcolax and sennokot for bowel regimen - PT/OT - Lovenox 40 mg Daily 2. CAD s/p 6 stents/HTN/HLD - c/w asa and plavix - C/w Crestor - C/w Imdur, Lisinopril/HCTZ, and metoprolol - Everything appears stable at the moment 3. 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 Depression/Anxiety - stable - Lexapro and ativan 6. GERD - stable - c/w Prilosec DVT: Lovenox Code Visit Inpatient E&M: [id number] [facility] Hosp L3
--- NOTE | 2018-07-13 16:58 | PN_ITS ---
Subjective: 77 yo M with a h/o CAD s/p 6 stents, HTN, HLD, ARMANDO, DM2, BPH presenting from [facility] after a right total knee replacement for rehab. He surgery and post-operative course was benign and he states that he is at his baseline for health. He states that his knee pain is controlled currently. No Chest pain or SOB. Denies fevers, chills. He currently has no complaints. Vitals/I&O's: Vital Signs Temp Pulse Resp BP Pulse Ox 98.2 F 85 20 H 123/64 H 95 07/13/18 07:36 07/13/18 07:36 07/13/18 07:36 07/13/18 07:36 07/13/18 07:53 Oxygen Delivery Method Room Air Weight: 296 lb 11.875 oz Body Mass Index (BMI) 38.0 Finger Stick Blood Glucose 150 Intake and Output for Last 24 Hours 07/11/18 07/12/18 07/13/18 23:59 23:59 23:59 Output Total 250 / 250 Balance -250 / -250 General: Alert, Oriented x3, Cooperative, No apparent distress HEENT: Atraumatic, EOMI, Normocephalic Oral: Moist Mucosa Neck: Supple, No JVD Lungs: Clear to auscultation, Normal air movement, No rhonchi, No wheeze, No rales Cardiovascular: Regular rate, Regular Rhythm, Normal S1, Normal S2, No murmurs Abdomen: Soft, Non Tender, Non-Distended, No Hepato-splenomegaly Extremities: No edema, Capillary Refill Less than 3 Seconds Skin: Incision - CDI with silver dressing in place Neurological: Neuro grossly intact, Sensory exam intact to light touch and pain Psych/Mental Status: Normal Affect, Appropriate Laboratory Results 07/12/18 21:09: POC Glucose 186 H 07/13/18 06:24: POC Glucose 182 H 07/13/18 07:25: WBC 13.1 H, RBC 4.41 L, Hgb 13.6, Hct 42.4, MCV 96.1 H, MCH 30.8, MCHC 32.1, RDW 13.8, RDW Differential 48.5 H, Plt Count 198, MPV 8.7 07/13/18 07:25: Sodium 135 L, Potassium 3.9, Chloride 97 L, Carbon Dioxide 25.0, Anion Gap 13, BUN 23 H, Creatinine 1.60 H, Estim Creat Clear Calc 43.53, Est GFR (MDRD) Af Amer 54 L, Est GFR (MDRD) Non-Af 45 L, BUN/Creatinine Ratio 14.4, Glucose 180 H, Calcium 8.9 07/13/18 12:13: POC Glucose 176 H Current Medications Acetaminophen (Tylenol) 1,000 mg PO BID [facility] Last Admin: 07/13/18 09:31 Dose: 1,000 mg Aspirin (Aspirin, Baby) 81 mg PO DAILY@0800 [facility] Last Admin: 07/13/18 07:32 Dose: 81 mg Atorvastatin Calcium (Lipitor) 40 mg PO QHS [facility] Last Admin: 07/12/18 22:10 Dose: 40 mg Bisacodyl (Dulcolax) 10 mg RECTAL .PRN X 1 PRN PRN Reason: Constipation Clopidogrel Bisulfate (Plavix) 75 mg PO DAILY [facility] Last Admin: 07/13/18 07:35 Dose: 75 mg Donepezil HCl (Aricept) 10 mg PO QHS [facility] Last Admin: 07/12/18 22:10 Dose: 10 mg Enoxaparin Sodium (Lovenox) 40 mg SC DAILY@0600 [facility] Last Admin: 07/13/18 06:50 Dose: 40 mg Ergocalciferol (Vitamin D) 50,000 unit PO Q7D@1000 [facility] Last Admin: 07/12/18 22:10 Dose: 50,000 unit Escitalopram Oxalate (Lexapro) 10 mg PO DAILY [facility] Last Admin: 07/13/18 07:34 Dose: 10 mg Gabapentin (Neurontin) 600 mg PO TID [facility] Last Admin: 07/13/18 13:58 Dose: 600 mg Glimepiride (Amaryl) 4 mg PO BIDCM [facility] Last Admin: 07/13/18 07:34 Dose: 4 mg Hydrochlorothiazide (Hctz) 25 mg PO DAILY [facility] Last Admin: 07/13/18 07:35 Dose: 25 mg Hyoscyamine Sulfate (Levsinex) 0.375 mg PO DAILY [facility] Last Admin: 07/13/18 07:32 Dose: 0.375 mg Isosorbide Mononitrate (Imdur) 120 mg PO DAILY [facility] Last Admin: 07/13/18 07:35 Dose: 120 mg Lisinopril (Zestril) 20 mg PO DAILY [facility] Last Admin: 07/13/18 07:36 Dose: 20 mg Lorazepam (Ativan) 1 mg PO QHS [facility] Last Admin: 07/12/18 23:01 Dose: 1 mg Magnesium Hydroxide (Milk Of Magnesia) 30 ml PO .PRN X 1 PRN PRN Reason: Constipation Magnesium Oxide (Mag-Ox 400) 400 mg PO BID [facility] Last Admin: 07/13/18 07:33 Dose: 400 mg Meclizine HCl (Antivert) 25 mg PO BID [facility] Last Admin: 07/13/18 07:36 Dose: 25 mg [facility] ([facility]) [facility] Last Admin: 07/13/18 07:33 Dose: 500 mg Metoprolol Tartrate (Lopressor (Beta Chyna)) 50 mg PO BID [facility] Last Admin: 07/13/18 07:32 Dose: 50 mg Nitroglycerin (Nitrostat) 0.4 mg SUBLINGUAL Q5M PRN PRN Reason: Chest Pain Nortriptyline HCl (Pamelor) 25 mg PO QHS [facility] Last Admin: 07/12/18 22:09 Dose: 25 mg Oxycodone HCl (Oxyir) 5 - 10 mg PO Q4H PRN PRN PRN Reason: SEVERE PAIN (6-10/10) Last Admin: 07/13/18 11:39 Dose: 10 mg Pantoprazole Sodium (Protonix) 20 mg PO DAILY [facility] Last Admin: 07/13/18 07:34 Dose: 20 mg Senna/Docusate Sodium (Senokot-S, Ana-Colace) 2 tablet PO BID [facility] Last Admin: 07/13/18 09:31 Dose: 2 tablet Medical Necessity - Tobacco Use Smoking Status: Never smoker Assessment/Plan All Active Problems (Last Reviewed 07/13/18 @ 15:36 by Javy Diop MD) Hx of sinus surgery (Resolved) History of prostate surgery (Resolved) H/O repair of rotator cuff (Resolved) H/O percutaneous transluminal coronary angioplasty (Resolved) Old myocardial infarction (Resolved) Unstable angina (Acute) 1. S/p Right total knee on 07/10 - Oxycodone for pain - Dulcolax and sennokot for bowel regimen - PT/OT - Lovenox 40 mg Daily 2. CAD s/p 6 stents/HTN/HLD - c/w asa and plavix - C/w Crestor - C/w Imdur, Lisinopril/HCTZ, and metoprolol - Everything appears stable at the moment 3. 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 Depression/Anxiety - stable - Lexapro and ativan 6. GERD - stable - c/w Prilosec DVT: Lovenox Code Visit Inpatient E&M: [id number] [facility] Hosp L3
[2018-07-13 17:20] LABS: Bedside Glucose 174 mg/dL (70-110)
[2018-07-13 20:50] VITALS: BP 112/49; PULSE 90; RESP 20; TEMP 36.7; O2SAT 95
[2018-07-13 21:04] VITALS: BP 112/59; PULSE 90
[2018-07-13] MEDS: Atorvastatin Calcium 40 MG Tablet PO (21:04)
[2018-07-13] MEDS: Donepezil HCl 10 MG Tablet PO (21:04)
[2018-07-13] MEDS: Nortriptyline 25 MG Capsule PO (21:05)
[2018-07-13] MEDS: LORazepam 1 MG Tablet PO (21:05)
[2018-07-13 23:10] LABS: Bedside Glucose 175 mg/dL (70-110)
[2018-07-14] MEDS: Enoxaparin 40 MG/0.4 ML Syringe SC (06:03)
[2018-07-14] MEDS: oxyCODONE 5 MG Tablet PO ×4 (06:03→23:07)
[2018-07-14] MEDS: Gabapentin 600 MG Tablet PO ×3 (06:04→20:45)
[2018-07-14 07:44] VITALS: BP 107/57; PULSE 82; RESP 16; TEMP 36.9; O2SAT 96
[2018-07-14 10:12] VITALS: BP 101/62; PULSE 80
[2018-07-14] MEDS: Meclizine HCl 25 MG Tablet PO ×2 (10:23→20:45)
[2018-07-14] MEDS: Acetaminophen 500 MG Tablet 1000 MG PO ×2 (10:23→20:44)
[2018-07-14] MEDS: Aspirin 81 MG TAB.CHEW PO (10:23)
[2018-07-14] MEDS: Pantoprazole Sodium 20 MG Tablet PO (10:24)
[2018-07-14] MEDS: Senna/Docusate Sodium 1 Tablet 2 TABLET PO ×2 (10:24→20:44)
[2018-07-14] MEDS: Magnesium Oxide 400 MG Tablet PO ×2 (10:24→20:45)
[2018-07-14] MEDS: Clopidogrel Bisulfate 75 MG Tablet PO (10:24)
[2018-07-14] MEDS: Glimepiride 4 MG Tablet PO ×2 (10:24→17:36)
[2018-07-14] MEDS: Escitalopram Oxalate 10 MG Tablet PO (10:24)
[2018-07-14 10:47] VITALS: BP 101/62; PULSE 80
[2018-07-14] MEDS: Metoprolol Tartrate 50 MG Tablet PO ×2 (10:47→20:45)
[2018-07-14 12:20] VITALS: O2SAT 94
[2018-07-14 20:38] VITALS: BP 132/79; PULSE 82; RESP 18; TEMP 36.6; O2SAT 95
[2018-07-14 20:45] VITALS: BP 130/79; PULSE 82
[2018-07-14] MEDS: Nortriptyline 25 MG Capsule PO (20:45)
[2018-07-14] MEDS: Atorvastatin Calcium 40 MG Tablet PO (20:45)
[2018-07-14] MEDS: Donepezil HCl 10 MG Tablet PO (20:45)
[2018-07-14] MEDS: LORazepam 1 MG Tablet PO (20:45)
--- NOTE | 2018-07-14 22:39 | NURSING ---
SCDs on. Pt calls out after 30 min that the SCDs were bothering him. SCDs loosened. 15 min later pt states SCDs keep waking him up. SCDs taken off, will let MD know in am. PT remains on daily lovenox and thi hi teds.
[2018-07-15] MEDS: Enoxaparin 40 MG/0.4 ML Syringe SC (06:19)
[2018-07-15] MEDS: oxyCODONE 5 MG Tablet PO ×3 (06:30→17:52)
[2018-07-15] MEDS: Gabapentin 600 MG Tablet PO ×3 (06:31→20:57)
[2018-07-15] MEDS: hydroCHLOROthiazide 25 MG Tablet PO (07:55)
[2018-07-15] MEDS: Aspirin 81 MG TAB.CHEW PO (07:55)
[2018-07-15] MEDS: Glimepiride 4 MG Tablet PO ×2 (07:55→17:50)
[2018-07-15 07:56] VITALS: BP 122/62; PULSE 83
[2018-07-15] MEDS: Lisinopril 20 MG Tablet PO (07:56)
[2018-07-15] MEDS: Escitalopram Oxalate 10 MG Tablet PO (07:56)
[2018-07-15] MEDS: Clopidogrel Bisulfate 75 MG Tablet PO (07:56)
[2018-07-15] MEDS: Pantoprazole Sodium 20 MG Tablet PO (07:56)
[2018-07-15] MEDS: Metoprolol Tartrate 50 MG Tablet PO ×2 (07:56→21:02)
[2018-07-15] MEDS: Meclizine HCl 25 MG Tablet PO ×2 (07:57→20:58)
[2018-07-15] MEDS: Magnesium Oxide 400 MG Tablet PO ×2 (07:57→20:57)
[2018-07-15] MEDS: Senna/Docusate Sodium 1 Tablet 2 TABLET PO ×2 (07:57→20:56)
[2018-07-15] MEDS: Acetaminophen 500 MG Tablet 1000 MG PO ×2 (07:57→20:57)
[2018-07-15 08:13] VITALS: O2SAT 95
--- NOTE | 2018-07-15 09:00 | PCM.PN.NEU ---
Subjective: Patient lying in bed resting from his Physical therapy session. No new complaints. Tolerating therapy, pain is well controlled on current medications. No issues with GI/. - Physical Exam General: Alert, Oriented x3, Cooperative HEENT: Atraumatic, PERRLA, EOMI, Normocephalic Neck: Supple, No JVD, Negative Carotid Bruits Lungs: Clear to auscultation, Normal air movement Cardiovascular: Regular rate, No murmurs Abdomen: Bowel Sounds Present, Soft, Non Tender Extremities: No edema, Capillary Refill Less than 3 Seconds Skin: No rashes, No breakdown Musculoskeletal: No Tenderness to Palpation of Joints or Extremities Neurological: Cranial nerves II-XII grossly intact Psych/Mental Status: Normal Affect, Appropriate, Alert and oriented to time, place, person, mood and affect Vital Signs Temp Pulse Resp BP Pulse Ox 98 F 83 18 122/62 H 95 07/14/18 20:38 07/15/18 07:56 07/14/18 20:38 07/15/18 07:56 07/15/18 08:13 Oxygen Delivery Method Room Air Weight: 134.6 kg Body Mass Index (BMI) 38.0 Finger Stick Blood Glucose 150 Intake and Output for Last 24 Hours 07/13/18 07/14/18 07/15/18 23:59 23:59 23:59 Output Total 250 / 250 325 / 325 Balance -250 / -250 -325 / -325 Active Medications Acetaminophen (Tylenol) 1,000 mg PO BID [facility] Last Admin: 07/15/18 07:57 Dose: 1,000 mg Albuterol Sulfate (Ventolin Aerosols) 2.5 mg INHALATION Q4HWA.RT [facility] Last Admin: 07/15/18 15:18 Dose: Not Given Aspirin (Aspirin, Baby) 81 mg PO DAILY@0800 [facility] Last Admin: 07/15/18 07:55 Dose: 81 mg Atorvastatin Calcium (Lipitor) 40 mg PO QHS [facility] Last Admin: 07/14/18 20:45 Dose: 40 mg Bisacodyl (Dulcolax) 10 mg RECTAL .PRN X 1 PRN PRN Reason: Constipation Clopidogrel Bisulfate (Plavix) 75 mg PO DAILY [facility] Last Admin: 07/15/18 07:56 Dose: 75 mg Donepezil HCl (Aricept) 10 mg PO QHS [facility] Last Admin: 07/14/18 20:45 Dose: 10 mg Enoxaparin Sodium (Lovenox) 40 mg SC DAILY@0600 [facility] Last Admin: 07/15/18 06:19 Dose: 40 mg Ergocalciferol (Vitamin D) 50,000 unit PO Q7D@1000 [facility] Last Admin: 07/12/18 22:10 Dose: 50,000 unit Escitalopram Oxalate (Lexapro) 10 mg PO DAILY [facility] Last Admin: 07/15/18 07:56 Dose: 10 mg Gabapentin (Neurontin) 600 mg PO TID [facility] Last Admin: 07/15/18 13:44 Dose: 600 mg [facility]l) [facility] Last Admin: 07/15/18 07:55 Dose: 4 mg Hydrochlorothiazide (Hctz) 25 mg PO DAILY [facility] Last Admin: 07/15/18 07:55 Dose: 25 mg Hyoscyamine Sulfate (Levsinex) 0.375 mg PO DAILY [facility] Last Admin: 07/15/18 07:55 Dose: 0.375 mg Isosorbide Mononitrate (Imdur) 120 mg PO DAILY [facility] Last Admin: 07/15/18 07:55 Dose: 120 mg Lisinopril (Zestril) 20 mg PO DAILY [facility] Last Admin: 07/15/18 07:56 Dose: 20 mg Lorazepam (Ativan) 1 mg PO QHS [facility] Last Admin: 07/14/18 20:45 Dose: 1 mg Magnesium Hydroxide (Milk Of Magnesia) 30 ml PO .PRN X 1 PRN PRN Reason: Constipation Magnesium Oxide (Mag-Ox 400) 400 mg PO BID [facility] Last Admin: 07/15/18 07:57 Dose: 400 mg Meclizine HCl (Antivert) 25 mg PO BID [facility] Last Admin: 07/15/18 07:57 Dose: 25 mg Metformin [facility] (Glucophage) [facility] Last Admin: 07/15/18 07:55 Dose: 500 mg Metoprolol Tartrate (Lopressor (Beta Chyna)) 50 mg PO BID [facility] Last Admin: 07/15/18 07:56 Dose: 50 mg Nitroglycerin (Nitrostat) 0.4 mg SUBLINGUAL Q5M PRN PRN Reason: Chest Pain Nortriptyline HCl (Pamelor) 25 mg PO QHS [facility] Last Admin: 07/14/18 20:45 Dose: 25 mg Oxycodone HCl (Oxyir) 5 - 10 mg PO Q4H PRN PRN PRN Reason: SEVERE PAIN (6-07/03) Last Admin: 07/15/18 13:46 Dose: 10 mg Pantoprazole Sodium (Protonix) 20 mg PO DAILY [facility] Last Admin: 07/15/18 07:56 Dose: 20 mg Senna/Docusate Sodium (Senokot-S, Ana-Colace) 2 tablet PO BID [facility] Last Admin: 07/15/18 07:57 Dose: 2 tablet Medical Necessity - Tobacco Use Smoking Status: Never smoker Assessment/Plan All Active Problems (Last Reviewed 07/13/18 @ 15:36 by Javy Diop MD) Hx of sinus surgery (Resolved) History of prostate surgery (Resolved) H/O repair of rotator cuff (Resolved) H/O percutaneous transluminal coronary angioplasty (Resolved) Old myocardial infarction (Resolved) Unstable angina (Acute) Debility status post right total knee replacement performed 07/10/[address] Perez at [facility]. Complicated by diabetes, peripheral neuropathy, coronary artery disease and obstructive sleep apnea as well as atrial flutter. Goal of rehab is zoroastrian of prior level functional independence. Plan: Physical therapy for gait and balance Occupational Therapy for ADLs Continue oral agents for diabetes and monitor sugars Continue antihypertensive therapy Continue home CPAP therapy Bowel protocol PRN analgesics DVT prophylaxis
[2018-07-15 09:04] VITALS: BP 122/62; PULSE 83; RESP 18; TEMP 36.5; O2SAT 95
--- NOTE | 2018-07-15 09:10 | RAD_ITS ---
STUDY: X-RAY CHEST REASON FOR EXAM: Male, 77 years old. Shortness of breath, dyspnea. TECHNIQUE: Portable chest upright COMPARISON: 05/04/2017 chest x-ray and 02/07/2016 chest x-ray, 09/11/2014 chest x-ray. FINDINGS: The lungs are clear and expanded. Normal cardiomediastinal silhouette, avelina and pleural margins. No acute osseous or upper abdominal process. RAD/Chest 1 View (Portable) IMPRESSION: No acute cardiopulmonary process. Electronically Signed: Bishop Hutchins, at 12:58 EDT Tel , Service support ,
--- NOTE | 2018-07-15 14:24 | SLEEP ---
Replaced the pt's current home CPAP mask with a brand new set up (cushion, frame, headgear). He wears a medium [employer] full face mask. His current mask was soiled and not usable. Nursing aware. Nursing may call the sleep center and/or respiratory if the pt needs help putting his mask on tonight. I will make the sure the stereotyper sleep staff are aware.
--- NOTE | 2018-07-15 16:30 | CASEMGMT ---
Reviewed and approved case management social worker student attached documentation. Digna UMANZOR, QUALITY CONTROL DIRECTOR
[2018-07-15] MEDS: Nortriptyline 25 MG Capsule PO (20:56)
[2018-07-15] MEDS: Donepezil HCl 10 MG Tablet PO (20:58)
[2018-07-15] MEDS: Atorvastatin Calcium 40 MG Tablet PO (20:58)
[2018-07-15] MEDS: LORazepam 1 MG Tablet PO (21:01)
[2018-07-15 21:02] VITALS: BP 128/76; PULSE 78
[2018-07-15 22:00] VITALS: BP 128/76; PULSE 80; RESP 19; TEMP 36.6; O2SAT 94
[2018-07-16] MEDS: Enoxaparin 40 MG/0.4 ML Syringe SC (05:46)
[2018-07-16] MEDS: Gabapentin 600 MG Tablet PO ×3 (05:46→20:57)
[2018-07-16] MEDS: Glimepiride 4 MG Tablet PO ×2 (07:41→17:53)
[2018-07-16] MEDS: oxyCODONE 5 MG Tablet PO ×2 (07:41→22:14)
[2018-07-16] MEDS: Aspirin 81 MG TAB.CHEW PO (07:42)
[2018-07-16] MEDS: Meclizine HCl 25 MG Tablet PO (07:42)
[2018-07-16] MEDS: hydroCHLOROthiazide 25 MG Tablet PO (07:42)
[2018-07-16 07:43] VITALS: BP 122/74; PULSE 80
[2018-07-16] MEDS: Metoprolol Tartrate 50 MG Tablet PO ×2 (07:43→20:57)
[2018-07-16] MEDS: Pantoprazole Sodium 20 MG Tablet PO (07:43)
[2018-07-16] MEDS: Escitalopram Oxalate 10 MG Tablet PO (07:43)
[2018-07-16] MEDS: Magnesium Oxide 400 MG Tablet PO ×2 (07:43→20:56)
[2018-07-16] MEDS: Clopidogrel Bisulfate 75 MG Tablet PO (07:43)
[2018-07-16] MEDS: Senna/Docusate Sodium 1 Tablet 2 TABLET PO ×2 (07:44→20:57)
[2018-07-16] MEDS: Acetaminophen 500 MG Tablet 1000 MG PO ×2 (07:44→20:59)
[2018-07-16] MEDS: Lisinopril 20 MG Tablet PO (07:44)
[2018-07-16] MEDS: Magnesium Hydroxide 30 ML UDC PO (07:49)
--- NOTE | 2018-07-16 08:00 | NURSING ---
Respiratory tel. asked if breathing tx can be made PRN d/t pt refusing. Pt. denies refusing respiratory tx. Pt stated to this RN that he would take a tx when respiratory comes to administer.
[2018-07-16 08:15] VITALS: PULSE 80; RESP 18
[2018-07-16] MEDS: Albuterol 2.5 MG/3 ML VIAL.NEB. INHALATION (08:15)
[2018-07-16 08:24] VITALS: BP 122/74; PULSE 80; RESP 18; TEMP 36.6; O2SAT 94
--- NOTE | 2018-07-16 13:03 | PCM.PN.NEU ---
Subjective: Patient seen during Physical therapy session, he is doing well and tolerating therapy. Was able to go up and down three steps at contact guard, walked greater than 75 feet with wheel walker at contact guard. No new complaints, pain is well controlled. Incision is C/D/I, no redness or edema noted. - Physical Exam General: Alert, Oriented x3, Cooperative HEENT: Atraumatic, PERRLA, EOMI, Normocephalic Neck: Supple, No JVD, Negative Carotid Bruits Lungs: Clear to auscultation, Normal air movement Cardiovascular: Regular rate, No murmurs Abdomen: Bowel Sounds Present, Soft, Non Tender Extremities: No edema, Capillary Refill Less than 3 Seconds Skin: No rashes, No breakdown Musculoskeletal: No Tenderness to Palpation of Joints or Extremities Neurological: Cranial nerves II-XII grossly intact Psych/Mental Status: Normal Affect, Appropriate, Alert and oriented to time, place, person, mood and affect Vital Signs Temp Pulse Resp BP Pulse Ox 97.8 F 80 18 122/74 H 94 07/16/18 08:24 07/16/18 08:24 07/16/18 08:24 07/16/18 08:24 07/16/18 08:24 Oxygen Delivery Method Room Air Weight: 134.6 kg Body Mass Index (BMI) 38.0 Finger Stick Blood Glucose 150 Intake and Output for Last 24 Hours 07/14/18 07/15/18 07/16/18 23:59 23:59 23:59 Intake Total 440 / 440 Output Total 325 / 325 Balance -325 / -325 440 / 440 Active Medications Acetaminophen (Tylenol) 1,000 mg PO BID [facility] Last Admin: 07/16/18 07:44 Dose: 1,000 mg Albuterol Sulfate (Ventolin Aerosols) 2.5 mg INHALATION Q4HWA.RT PRN PRN Reason: SHORTNESS OF BREATH Aspirin (Aspirin, Baby) 81 mg PO DAILY@0800 [facility] Last Admin: 07/16/18 07:42 Dose: 81 mg Atorvastatin Calcium (Lipitor) 40 mg PO QHS [facility] Last Admin: 07/15/18 20:58 Dose: 40 mg Bisacodyl (Dulcolax) 10 mg RECTAL .PRN X 1 PRN PRN Reason: Constipation Clopidogrel Bisulfate (Plavix) 75 mg PO DAILY [facility] Last Admin: 07/16/18 07:43 Dose: 75 mg Donepezil HCl (Aricept) 10 mg PO QHS [facility] Last Admin: 07/15/18 20:58 Dose: 10 mg Enoxaparin Sodium (Lovenox) 40 mg SC DAILY@0600 [facility] Last Admin: 07/16/18 05:46 Dose: 40 mg Ergocalciferol (Vitamin D) 50,000 unit PO Q7D@1000 [facility] Last Admin: 07/12/18 22:10 Dose: 50,000 unit Escitalopram Oxalate (Lexapro) 10 mg PO DAILY [facility] Last Admin: 07/16/18 07:43 Dose: 10 mg Gabapentin (Neurontin) 600 mg PO TID [facility] Last Admin: 07/16/18 05:46 Dose: 600 [facility] Last Admin: 07/16/18 07:41 Dose: 4 mg Hydrochlorothiazide (Hctz) 25 mg PO DAILY [facility] Last Admin: 07/16/18 07:42 Dose: 25 mg Hyoscyamine Sulfate (Levsinex) 0.375 mg PO DAILY [facility] Last Admin: 07/16/18 07:42 Dose: 0.375 mg Isosorbide Mononitrate (Imdur) 120 mg PO DAILY [facility] Last Admin: 07/16/18 07:42 Dose: 120 mg Lisinopril (Zestril) 20 mg PO DAILY [facility] Last Admin: 07/16/18 07:44 Dose: 20 mg Lorazepam (Ativan) 1 mg PO QHS [facility] Last Admin: 07/15/18 21:01 Dose: 1 mg Magnesium Hydroxide (Milk Of Magnesia) 30 ml PO .PRN X 1 PRN PRN Reason: Constipation Last Admin: 07/16/18 07:49 Dose: 30 ml Magnesium Oxide (Mag-Ox 400) 400 mg PO BID [facility] Last Admin: 07/16/18 07:43 Dose: 400 mg Meclizine HCl (Antivert) 25 mg PO BID [facility] Last Admin: 07/16/18 07:42 Dose: 25 mg Metformin [facility] ([facility]uc[facility]) [facility] Last Admin: 07/16/18 07:42 Dose: 500 mg Metoprolol Tartrate (Lopressor (Beta Chyna)) 50 mg PO BID [facility] Last Admin: 07/16/18 07:43 Dose: 50 mg Nitroglycerin (Nitrostat) 0.4 mg SUBLINGUAL Q5M PRN PRN Reason: Chest Pain Nortriptyline HCl (Pamelor) 25 mg PO QHS [facility] Last Admin: 07/15/18 20:56 Dose: 25 mg Oxycodone HCl (Oxyir) 5 - 10 mg PO Q4H PRN PRN PRN Reason: SEVERE PAIN (6-10/10) Last Admin: 07/16/18 07:41 Dose: 10 mg Pantoprazole Sodium (Protonix) 20 mg PO DAILY [facility] Last Admin: 07/16/18 07:43 Dose: 20 mg Senna/Docusate Sodium (Senokot-S, Ana-Colace) 2 tablet PO BID [facility] Last Admin: 07/16/18 07:44 Dose: 2 tablet Medical Necessity - Tobacco Use Smoking Status: Never smoker Assessment/Plan All Active Problems (Last Reviewed 07/13/18 @ 15:36 by Javy Diop MD) Hx of sinus surgery (Resolved) History of prostate surgery (Resolved) H/O repair of rotator cuff (Resolved) H/O percutaneous transluminal coronary angioplasty (Resolved) Old myocardial infarction (Resolved) Unstable angina (Acute) Debility status post right total knee replacement performed 07/10/[address] Perez at [facility]. Complicated by diabetes, peripheral neuropathy, coronary artery disease and obstructive sleep apnea as well as atrial flutter. Goal of rehab is latter-day of prior level functional independence. Plan: Physical therapy for gait and balance Occupational Therapy for ADLs Continue oral agents for diabetes and monitor sugars Continue antihypertensive therapy Continue home CPAP therapy Bowel protocol PRN analgesics DVT prophylaxis
--- NOTE | 2018-07-16 13:06 | PN.NEURO_ITS ---
Subjective: Patient seen during Physical therapy session, he is doing well and tolerating therapy. Was able to go up and down three steps at contact guard, walked greater than 75 feet with wheel walker at contact guard. No new complaints, pain is well controlled. Incision is C/D/I, no redness or edema noted. - Physical Exam General: Alert, Oriented x3, Cooperative HEENT: Atraumatic, PERRLA, EOMI, Normocephalic Neck: Supple, No JVD, Negative Carotid Bruits Lungs: Clear to auscultation, Normal air movement Cardiovascular: Regular rate, No murmurs Abdomen: Bowel Sounds Present, Soft, Non Tender Extremities: No edema, Capillary Refill Less than 3 Seconds Skin: No rashes, No breakdown Musculoskeletal: No Tenderness to Palpation of Joints or Extremities Neurological: Cranial nerves II-XII grossly intact Psych/Mental Status: Normal Affect, Appropriate, Alert and oriented to time, place, person, mood and affect Vital Signs Temp Pulse Resp BP Pulse Ox 97.8 F 80 18 122/74 H 94 07/16/18 08:24 07/16/18 08:24 07/16/18 08:24 07/16/18 08:24 07/16/18 08:24 Oxygen Delivery Method Room Air Weight: 134.6 kg Body Mass Index (BMI) 38.0 Finger Stick Blood Glucose 150 Intake and Output for Last 24 Hours 07/14/18 07/15/18 07/16/18 23:59 23:59 23:59 Intake Total 440 / 440 Output Total 325 / 325 Balance -325 / -325 440 / 440 Active Medications Acetaminophen (Tylenol) 1,000 mg PO BID [facility] Last Admin: 07/16/18 07:44 Dose: 1,000 mg Albuterol Sulfate (Ventolin Aerosols) 2.5 mg INHALATION Q4HWA.RT PRN PRN Reason: SHORTNESS OF BREATH Aspirin (Aspirin, Baby) 81 mg PO DAILY@0800 [facility] Last Admin: 07/16/18 07:42 Dose: 81 mg Atorvastatin Calcium (Lipitor) 40 mg PO QHS [facility] Last Admin: 07/15/18 20:58 Dose: 40 mg Bisacodyl (Dulcolax) 10 mg RECTAL .PRN X 1 PRN PRN Reason: Constipation Clopidogrel Bisulfate (Plavix) 75 mg PO DAILY [facility] Last Admin: 07/16/18 07:43 Dose: 75 mg Donepezil HCl (Aricept) 10 mg PO QHS [facility] Last Admin: 07/15/18 20:58 Dose: 10 mg Enoxaparin Sodium (Lovenox) 40 mg SC DAILY@0600 [facility] Last Admin: 07/16/18 05:46 Dose: 40 mg Ergocalciferol (Vitamin D) 50,000 unit PO Q7D@1000 [facility] Last Admin: 07/12/18 22:10 Dose: 50,000 unit Escitalopram Oxalate (Lexapro) 10 mg PO DAILY [facility] Last Admin: 07/16/18 07:43 Dose: 10 mg Gabapentin (Neurontin) 600 mg PO TID [facility] Last Admin: 07/16/18 05:46 Dose: 600 mg [facility] ([facility]l) [facility] Last Admin: 07/16/18 07:41 Dose: 4 mg Hydrochlorothiazide (Hctz) 25 mg PO DAILY [facility] Last Admin: 07/16/18 07:42 Dose: 25 mg Hyoscyamine Sulfate (Levsinex) 0.375 mg PO DAILY [facility] Last Admin: 07/16/18 07:42 Dose: 0.375 mg Isosorbide Mononitrate (Imdur) 120 mg PO DAILY [facility] Last Admin: 07/16/18 07:42 Dose: 120 mg Lisinopril (Zestril) 20 mg PO DAILY [facility] Last Admin: 07/16/18 07:44 Dose: 20 mg Lorazepam (Ativan) 1 mg PO QHS [facility] Last Admin: 07/15/18 21:01 Dose: 1 mg Magnesium Hydroxide (Milk Of Magnesia) 30 ml PO .PRN X 1 PRN PRN Reason: Constipation Last Admin: 07/16/18 07:49 Dose: 30 ml Magnesium Oxide (Mag-Ox 400) 400 mg PO BID [facility] Last Admin: 07/16/18 07:43 Dose: 400 mg Meclizine HCl (Antivert) 25 mg PO BID [facility] Last Admin: 07/16/18 07:42 Dose: 25 mg Metformin HCl (Glucophage) [facility] Last Admin: 07/16/18 07:42 Dose: 500 mg Metoprolol Tartrate (Lopressor (Beta Chyna)) 50 mg PO BID [facility] Last Admin: 07/16/18 07:43 Dose: 50 mg Nitroglycerin (Nitrostat) 0.4 mg SUBLINGUAL Q5M PRN PRN Reason: Chest Pain Nortriptyline HCl (Pamelor) 25 mg PO QHS [facility] Last Admin: 07/15/18 20:56 Dose: 25 mg Oxycodone HCl (Oxyir) 5 - 10 mg PO Q4H PRN PRN PRN Reason: SEVERE PAIN (6-10/10) Last Admin: 07/16/18 07:41 Dose: 10 mg Pantoprazole Sodium (Protonix) 20 mg PO DAILY [facility] Last Admin: 07/16/18 07:43 Dose: 20 mg Senna/Docusate Sodium (Senokot-S, Ana-Colace) 2 tablet PO BID [facility] Last Admin: 07/16/18 07:44 Dose: 2 tablet Medical Necessity - Tobacco Use Smoking Status: Never smoker Assessment/Plan All Active Problems (Last Reviewed 07/13/18 @ 15:36 by Javy Diop MD) Hx of sinus surgery (Resolved) History of prostate surgery (Resolved) H/O repair of rotator cuff (Resolved) H/O percutaneous transluminal coronary angioplasty (Resolved) Old myocardial infarction (Resolved) Unstable angina (Acute) Debility status post right total knee replacement performed 07/10/[address] Perez at [facility]. Complicated by diabetes, peripheral neuropathy, coronary artery disease and obstructive sleep apnea as well as atrial flutter. Goal of rehab is confucianism of prior level functional independence. Plan: Physical therapy for gait and balance Occupational Therapy for ADLs Continue oral agents for diabetes and monitor sugars Continue antihypertensive therapy Continue home CPAP therapy Bowel protocol PRN analgesics DVT prophylaxis
--- NOTE | 2018-07-16 16:43 | NURSING ---
Dr. Malone here to see pt. DC'd order for Meclizine will monitor pt.
--- NOTE | 2018-07-16 16:56 | PCM.PN.HOSP ---
Subjective: Feels much better, pain is better Vitals/I&O's: Vital Signs Temp Pulse Resp BP Pulse Ox 97.8 F 80 18 122/74 H 94 07/16/18 08:24 07/16/18 08:24 07/16/18 08:24 07/16/18 08:24 07/16/18 08:24 Oxygen Delivery Method Room Air Weight: 296 lb 11.875 oz Body Mass Index (BMI) 38.0 Finger Stick Blood Glucose 150 Intake and Output for Last 24 Hours 07/14/18 07/15/18 07/16/18 23:59 23:59 23:59 Intake Total 440 / 440 Output Total 325 / 325 Balance -325 / -325 440 / 440 General: Alert, Oriented x3, Cooperative, No apparent distress HEENT: Atraumatic, EOMI, Normocephalic Oral: Moist Mucosa Neck: Supple, No JVD Lungs: Clear to auscultation, Normal air movement, No rhonchi, No wheeze, No rales Cardiovascular: Regular rate, Regular Rhythm, Normal S1, Normal S2, No murmurs Abdomen: Soft, Non Tender, Non-Distended, No Hepato-splenomegaly Extremities: No edema, Capillary Refill Less than 3 Seconds Skin: Incision - CDI with silver dressing in place Neurological: Neuro grossly intact, Sensory exam intact to light touch and pain Psych/Mental Status: Normal Affect, Appropriate Current Medications Acetaminophen (Tylenol) 1,000 mg PO BID [facility] Last Admin: 07/16/18 07:44 Dose: 1,000 mg Albuterol Sulfate (Ventolin Aerosols) 2.5 mg INHALATION Q4HWA.RT PRN PRN Reason: SHORTNESS OF BREATH Aspirin (Aspirin, Baby) 81 mg PO DAILY@0800 [facility] Last Admin: 07/16/18 07:42 Dose: 81 mg Atorvastatin Calcium (Lipitor) 40 mg PO QHS [facility] Last Admin: 07/15/18 20:58 Dose: 40 mg Bisacodyl (Dulcolax) 10 mg RECTAL .PRN X 1 PRN PRN Reason: Constipation Clopidogrel Bisulfate (Plavix) 75 mg PO DAILY [facility] Last Admin: 07/16/18 07:43 Dose: 75 mg Donepezil HCl (Aricept) 10 mg PO QHS [facility] Last Admin: 07/15/18 20:58 Dose: 10 mg Enoxaparin Sodium (Lovenox) 40 mg SC DAILY@0600 [facility] Last Admin: 07/16/18 05:46 Dose: 40 mg Ergocalciferol (Vitamin D) 50,000 unit PO Q7D@1000 [facility] Last Admin: 07/12/18 22:10 Dose: 50,000 unit Escitalopram Oxalate (Lexapro) 10 mg PO DAILY [facility] Last Admin: 07/16/18 07:43 Dose: 10 mg Gabapentin (Neurontin) 600 mg PO TID [facility] Last Admin: 07/16/18 14:49 Dose: 600 mg [facility] ([facility]l) [facility] Last Admin: 07/16/18 07:41 Dose: 4 mg Hydrochlorothiazide (Hctz) 25 mg PO DAILY [facility] Last Admin: 07/16/18 07:42 Dose: 25 mg Hyoscyamine Sulfate (Levsinex) 0.375 mg PO DAILY [facility] Last Admin: 07/16/18 07:42 Dose: 0.375 mg Isosorbide Mononitrate (Imdur) 120 mg PO DAILY [facility] Last Admin: 07/16/18 07:42 Dose: 120 mg Lisinopril (Zestril) 20 mg PO DAILY [facility] Last Admin: 07/16/18 07:44 Dose: 20 mg Lorazepam (Ativan) 1 mg PO QHS [facility] Last Admin: 07/15/18 21:01 Dose: 1 mg Magnesium Hydroxide (Milk Of Magnesia) 30 ml PO .PRN X 1 PRN PRN Reason: Constipation Last Admin: 07/16/18 07:49 Dose: 30 ml Magnesium Oxide (Mag-Ox 400) 400 mg PO BID [facility] Last Admin: 07/16/18 07:43 Dose: 400 mg Metformin [facility] (Glucophage) [facility] Last Admin: 07/16/18 07:42 Dose: 500 mg Metoprolol Tartrate (Lopressor (Beta Chyna)) 50 mg PO BID [facility] Last Admin: 07/16/18 07:43 Dose: 50 mg Nitroglycerin (Nitrostat) 0.4 mg SUBLINGUAL Q5M PRN PRN Reason: Chest Pain Nortriptyline HCl (Pamelor) 25 mg PO QHS [facility] Last Admin: 07/15/18 20:56 Dose: 25 mg Oxycodone HCl (Oxyir) 5 - 10 mg PO Q4H PRN PRN PRN Reason: SEVERE PAIN (-07/03) Last Admin: 07/16/18 07:41 Dose: 10 mg Pantoprazole Sodium (Protonix) 20 mg PO DAILY [facility] Last Admin: 07/16/18 07:43 Dose: 20 mg Senna/Docusate Sodium (Senokot-S, Ana-Colace) 2 tablet PO BID [facility] Last Admin: 07/16/18 07:44 Dose: 2 tablet Medical Necessity - Tobacco Use Smoking Status: Never smoker Assessment/Plan All Active Problems (Last Reviewed 07/13/18 @ 15:36 by Javy Diop MD) Hx of sinus surgery (Resolved) History of prostate surgery (Resolved) H/O repair of rotator cuff (Resolved) H/O percutaneous transluminal coronary angioplasty (Resolved) Old myocardial infarction (Resolved) Unstable angina (Acute) 1. S/p Right total knee on 07/10 - Oxycodone for pain - Dulcolax and sennokot for bowel regimen - PT/OT - Lovenox 40 mg Daily 2. CAD s/p 6 stents/HTN/HLD - c/w asa and plavix - C/w Crestor - C/w Imdur, Lisinopril/HCTZ, and metoprolol - Everything appears stable at the moment 3. 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 Depression/Anxiety - stable - Lexapro and ativan 6. GERD - stable - c/w Prilosec DVT: Lovenox Code Visit Inpatient E&M: 57033 Subs Hosp L2
[2018-07-16 19:11] VITALS: BP 131/85; PULSE 83; RESP 20; TEMP 36.7; O2SAT 96
--- NOTE | 2018-07-16 20:53 | NURSING ---
pt refused suppository till a.m. Pt states he's too tired to mess with that now. BS present in all quadrants and pt is passing gas.
[2018-07-16] MEDS: Donepezil HCl 10 MG Tablet PO (20:56)
[2018-07-16] MEDS: Atorvastatin Calcium 40 MG Tablet PO (20:56)
[2018-07-16] MEDS: LORazepam 1 MG Tablet PO (20:56)
[2018-07-16 20:57] VITALS: BP 114/67; PULSE 83
[2018-07-16] MEDS: Nortriptyline 25 MG Capsule PO (20:58)
--- NOTE | 2018-07-17 03:03 | NURSING ---
Pt repositioned to recliner after having SCDs removed d/t pain to bilat feet. Oxyir PRN provided for pain. Pt had increased anxiety. Pt asked to return to bed within 30 minutes after getting comfortable in recliner. Pt was once again asked about suppository, to possibly to make pt more comfortable. Pt flatly refused. [employer] CABLE & RN repositioned pt in bed. Polar care ice replaced and repositioned to rt knee. Pt fell asleep and resting.
[2018-07-17] MEDS: Enoxaparin 40 MG/0.4 ML Syringe SC (06:08)
[2018-07-17] MEDS: Bisacodyl 10 MG Suppository RECTAL (06:12)
[2018-07-17] MEDS: Gabapentin 600 MG Tablet PO ×3 (06:19→20:30)
--- NOTE | 2018-07-17 06:40 | NURSING ---
Suppository administered to pt. Pt tolerated well and will alert staff with urgency .
[2018-07-17 08:00] VITALS: BP 120/63; PULSE 78; RESP 18; TEMP 36.7; O2SAT 95
[2018-07-17] MEDS: hydroCHLOROthiazide 25 MG Tablet PO (08:12)
[2018-07-17] MEDS: Lisinopril 20 MG Tablet PO (08:12)
[2018-07-17 08:13] VITALS: PULSE 78
[2018-07-17] MEDS: Magnesium Oxide 400 MG Tablet PO ×2 (08:13→20:29)
[2018-07-17] MEDS: Clopidogrel Bisulfate 75 MG Tablet PO (08:13)
[2018-07-17] MEDS: Aspirin 81 MG TAB.CHEW PO (08:13)
[2018-07-17] MEDS: Metoprolol Tartrate 50 MG Tablet PO ×2 (08:13→20:29)
[2018-07-17] MEDS: Pantoprazole Sodium 20 MG Tablet PO (08:13)
[2018-07-17] MEDS: Escitalopram Oxalate 10 MG Tablet PO (08:13)
[2018-07-17] MEDS: Glimepiride 4 MG Tablet PO ×2 (08:13→17:52)
[2018-07-17] MEDS: oxyCODONE 5 MG Tablet PO ×3 (08:14→17:54)
[2018-07-17] MEDS: Senna/Docusate Sodium 1 Tablet 2 TABLET PO (08:14)
--- NOTE | 2018-07-17 09:01 | PCM.PN.NEU ---
Subjective: Continues to make good progress, tolerating therapy. Pain is well controlled on current medications. Incision is C/D/I, Silvadene Mepilex intact. - Physical Exam General: Alert, Oriented x3, Cooperative HEENT: Atraumatic, PERRLA, EOMI, Normocephalic Neck: Supple, No JVD, Negative Carotid Bruits Lungs: Clear to auscultation, Normal air movement Cardiovascular: Regular rate, No murmurs Abdomen: Bowel Sounds Present, Soft, Non Tender Extremities: No edema, Capillary Refill Less than 3 Seconds Skin: No rashes, No breakdown Musculoskeletal: No Tenderness to Palpation of Joints or Extremities Neurological: Cranial nerves II-XII grossly intact Psych/Mental Status: Normal Affect, Appropriate, Alert and oriented to time, place, person, mood and affect Vital Signs Temp Pulse Resp BP Pulse Ox 98.1 F 78 20 H 114/67 96 07/16/18 19:11 07/17/18 08:13 07/16/18 19:11 07/16/18 20:57 07/16/18 19:11 Oxygen Delivery Method CPAP Weight: 134.6 kg Body Mass Index (BMI) 38.0 Finger Stick Blood Glucose 150 Intake and Output for Last 24 Hours 07/15/18 07/16/18 07/17/18 23:59 23:59 23:59 Intake Total 440 / 440 Balance 440 / 440 Active Medications Acetaminophen (Tylenol) 1,000 mg PO BID [facility] Last Admin: 07/16/18 20:59 Dose: 1,000 mg Albuterol Sulfate (Ventolin Aerosols) 2.5 mg INHALATION Q4HWA.RT PRN PRN Reason: SHORTNESS OF BREATH Aspirin (Aspirin, Baby) 81 mg PO DAILY@0800 [facility] Last Admin: 07/17/18 08:13 Dose: 81 mg Atorvastatin Calcium (Lipitor) 40 mg PO QHS [facility] Last Admin: 07/16/18 20:56 Dose: 40 mg Bisacodyl (Dulcolax) 10 mg RECTAL .PRN X 1 PRN PRN Reason: Constipation Last Admin: 07/17/18 06:12 Dose: 10 mg Clopidogrel Bisulfate (Plavix) 75 mg PO DAILY [facility] Last Admin: 07/17/18 08:13 Dose: 75 mg Donepezil HCl (Aricept) 10 mg PO QHS [facility] Last Admin: 07/16/18 20:56 Dose: 10 mg Enoxaparin Sodium (Lovenox) 40 mg SC DAILY@0600 [facility] Last Admin: 07/17/18 06:08 Dose: 40 mg Ergocalciferol (Vitamin D) 50,000 unit PO Q7D@1000 [facility] Last Admin: 07/12/18 22:10 Dose: 50,000 unit Escitalopram Oxalate (Lexapro) 10 mg PO DAILY [facility] Last Admin: 07/17/18 08:13 Dose: 10 mg Gabapentin (Neurontin) 600 mg PO TID [facility] Last Admin: 07/17/18 06:19 Dose: 600 mg [facility]imepiride (Amaryl) [facility] Last Admin: 07/17/18 08:13 Dose: 4 mg Hydrochlorothiazide (Hctz) 25 mg PO DAILY [facility] Last Admin: 07/17/18 08:12 Dose: 25 mg Hyoscyamine Sulfate (Levsinex) 0.375 mg PO DAILY [facility] Last Admin: 07/17/18 08:12 Dose: 0.375 mg Isosorbide Mononitrate (Imdur) 120 mg PO DAILY [facility] Last Admin: 07/17/18 08:12 Dose: 120 mg Lisinopril (Zestril) 20 mg PO DAILY [facility] Last Admin: 07/17/18 08:12 Dose: 20 mg Lorazepam (Ativan) 1 mg PO QHS [facility] Last Admin: 07/16/18 20:56 Dose: 1 mg Magnesium Hydroxide (Milk Of Magnesia) 30 ml PO .PRN X 1 PRN PRN Reason: Constipation Last Admin: 07/16/18 07:49 Dose: 30 ml Magnesium Oxide (Mag-Ox 400) 400 mg PO BID [facility] Last Admin: 07/17/18 08:13 Dose: 400 mg Metformin HCl (Glucophage) [facility] Last Admin: 07/17/18 08:13 Dose: 500 mg Metoprolol Tartrate (Lopressor (Beta Chyna)) 50 mg PO BID [facility] Last Admin: 07/17/18 08:13 Dose: 50 mg Nitroglycerin (Nitrostat) 0.4 mg SUBLINGUAL Q5M PRN PRN Reason: Chest Pain Nortriptyline HCl (Pamelor) 25 mg PO QHS [facility] Last Admin: 07/16/18 20:58 Dose: 25 mg Oxycodone HCl (Oxyir) 5 - 10 mg PO Q4H PRN PRN PRN Reason: SEVERE PAIN (6-07/03) Last Admin: 07/17/18 08:14 Dose: 10 mg Pantoprazole Sodium (Protonix) 20 mg PO DAILY [facility] Last Admin: 07/17/18 08:13 Dose: 20 mg Senna/Docusate Sodium (Senokot-S, Ana-Colace) 2 tablet PO BID [facility] Last Admin: 07/17/18 08:14 Dose: 2 tablet Medical Necessity - Tobacco Use Smoking Status: Never smoker Assessment/Plan All Active Problems (Last Reviewed 07/13/18 @ 15:36 by Javy Diop MD) Hx of sinus surgery (Resolved) History of prostate surgery (Resolved) H/O repair of rotator cuff (Resolved) H/O percutaneous transluminal coronary angioplasty (Resolved) Old myocardial infarction (Resolved) Unstable angina (Acute) Debility status post right total knee replacement performed 07/10/[address] Perez at [facility]. Complicated by diabetes, peripheral neuropathy, coronary artery disease and obstructive sleep apnea as well as atrial flutter. Goal of rehab is methodist of prior level functional independence. Plan: - Physical therapy for gait and balance - Occupational Therapy for ADLs - Continue oral agents for diabetes and monitor sugars - Continue antihypertensive therapy - Continue home CPAP therapy - Bowel protocol - PRN analgesics - DVT prophylaxis - Incision C/D/I, remove Silvadene Mepilex on Friday 07/20
--- NOTE | 2018-07-17 09:06 | PN.NEURO_ITS ---
Subjective: Continues to make good progress, tolerating therapy. Pain is well controlled on current medications. Incision is C/D/I, Silvadene Mepilex intact. - Physical Exam General: Alert, Oriented x3, Cooperative HEENT: Atraumatic, PERRLA, EOMI, Normocephalic Neck: Supple, No JVD, Negative Carotid Bruits Lungs: Clear to auscultation, Normal air movement Cardiovascular: Regular rate, No murmurs Abdomen: Bowel Sounds Present, Soft, Non Tender Extremities: No edema, Capillary Refill Less than 3 Seconds Skin: No rashes, No breakdown Musculoskeletal: No Tenderness to Palpation of Joints or Extremities Neurological: Cranial nerves II-XII grossly intact Psych/Mental Status: Normal Affect, Appropriate, Alert and oriented to time, place, person, mood and affect Vital Signs Temp Pulse Resp BP Pulse Ox 98.1 F 78 20 H 114/67 96 07/16/18 19:11 07/17/18 08:13 07/16/18 19:11 07/16/18 20:57 07/16/18 19:11 Oxygen Delivery Method CPAP Weight: 134.6 kg Body Mass Index (BMI) 38.0 Finger Stick Blood Glucose 150 Intake and Output for Last 24 Hours 07/15/18 07/16/18 07/17/18 23:59 23:59 23:59 Intake Total 440 / 440 Balance 440 / 440 Active Medications Acetaminophen (Tylenol) 1,000 mg PO BID [facility] Last Admin: 07/16/18 20:59 Dose: 1,000 mg Albuterol Sulfate (Ventolin Aerosols) 2.5 mg INHALATION Q4HWA.RT PRN PRN Reason: SHORTNESS OF BREATH Aspirin (Aspirin, Baby) 81 mg PO DAILY@0800 [facility] Last Admin: 07/17/18 08:13 Dose: 81 mg Atorvastatin Calcium (Lipitor) 40 mg PO QHS [facility] Last Admin: 07/16/18 20:56 Dose: 40 mg Bisacodyl (Dulcolax) 10 mg RECTAL .PRN X 1 PRN PRN Reason: Constipation Last Admin: 07/17/18 06:12 Dose: 10 mg Clopidogrel Bisulfate (Plavix) 75 mg PO DAILY [facility] Last Admin: 07/17/18 08:13 Dose: 75 mg Donepezil HCl (Aricept) 10 mg PO QHS [facility] Last Admin: 07/16/18 20:56 Dose: 10 mg Enoxaparin Sodium (Lovenox) 40 mg SC DAILY@0600 [facility] Last Admin: 07/17/18 06:08 Dose: 40 mg Ergocalciferol (Vitamin D) 50,000 unit PO Q7D@1000 [facility] Last Admin: 07/12/18 22:10 Dose: 50,000 unit Escitalopram Oxalate (Lexapro) 10 mg PO DAILY [facility] Last Admin: 07/17/18 08:13 Dose: 10 mg Gabapentin (Neurontin) 600 mg PO TID [facility] Last Admin: 07/17/18 06:19 Dose: 600 mg Glimepiride (Amaryl) [facility] Last Admin: 07/17/18 08:13 Dose: 4 mg Hydrochlorothiazide (Hctz) 25 mg PO DAILY [facility] Last Admin: 07/17/18 08:12 Dose: 25 mg Hyoscyamine Sulfate (Levsinex) 0.375 mg PO DAILY [facility] Last Admin: 07/17/18 08:12 Dose: 0.375 mg Isosorbide Mononitrate (Imdur) 120 mg PO DAILY [facility] Last Admin: 07/17/18 08:12 Dose: 120 mg Lisinopril (Zestril) 20 mg PO DAILY [facility] Last Admin: 07/17/18 08:12 Dose: 20 mg Lorazepam (Ativan) 1 mg PO QHS [facility] Last Admin: 07/16/18 20:56 Dose: 1 mg Magnesium Hydroxide (Milk Of Magnesia) 30 ml PO .PRN X 1 PRN PRN Reason: Constipation Last Admin: 07/16/18 07:49 Dose: 30 ml Magnesium Oxide (Mag-Ox 400) 400 mg PO BID [facility] Last Admin: 07/17/18 08:13 Dose: 400 mg Metformin HCl (Glucophage) [facility] Last Admin: 07/17/18 08:13 Dose: 500 mg Metoprolol Tartrate (Lopressor (Beta Chyna)) 50 mg PO BID [facility] Last Admin: 07/17/18 08:13 Dose: 50 mg Nitroglycerin (Nitrostat) 0.4 mg SUBLINGUAL Q5M PRN PRN Reason: Chest Pain Nortriptyline HCl (Pamelor) 25 mg PO QHS [facility] Last Admin: 07/16/18 20:58 Dose: 25 mg Oxycodone HCl (Oxyir) 5 - 10 mg PO Q4H PRN PRN PRN Reason: SEVERE PAIN (6-07/03) Last Admin: 07/17/18 08:14 Dose: 10 mg Pantoprazole Sodium (Protonix) 20 mg PO DAILY [facility] Last Admin: 07/17/18 08:13 Dose: 20 mg Senna/Docusate Sodium (Senokot-S, Ana-Colace) 2 tablet PO BID [facility] Last Admin: 07/17/18 08:14 Dose: 2 tablet Medical Necessity - Tobacco Use Smoking Status: Never smoker Assessment/Plan All Active Problems (Last Reviewed 07/13/18 @ 15:36 by Javy Diop MD) Hx of sinus surgery (Resolved) History of prostate surgery (Resolved) H/O repair of rotator cuff (Resolved) H/O percutaneous transluminal coronary angioplasty (Resolved) Old myocardial infarction (Resolved) Unstable angina (Acute) Debility status post right total knee replacement performed 07/10/[address] Perez at [facility]. Complicated by diabetes, peripheral neuropathy, coronary artery disease and obstructive sleep apnea as well as atrial flutter. Goal of rehab is jainism of prior level functional independence. Plan: - Physical therapy for gait and balance - Occupational Therapy for ADLs - Continue oral agents for diabetes and monitor sugars - Continue antihypertensive therapy - Continue home CPAP therapy - Bowel protocol - PRN analgesics - DVT prophylaxis - Incision C/D/I, remove Silvadene Mepilex on Friday 07/20
[2018-07-17] MEDS: Acetaminophen 500 MG Tablet 1000 MG PO ×2 (10:03→20:30)
[2018-07-17 20:29] VITALS: BP 125/63; PULSE 79
[2018-07-17] MEDS: LORazepam 1 MG Tablet PO (20:29)
[2018-07-17] MEDS: Donepezil HCl 10 MG Tablet PO (20:29)
[2018-07-17] MEDS: Atorvastatin Calcium 40 MG Tablet PO (20:29)
[2018-07-17] MEDS: Nortriptyline 25 MG Capsule PO (20:30)
[2018-07-17 20:33] VITALS: BP 125/63; PULSE 79; RESP 18; TEMP 36.6; O2SAT 99
--- NOTE | 2018-07-17 20:40 | NURSING ---
upon assessing pt this shift, redness was noted to rt inner knee near incision. redness was noted to be warm. pt temperature within normal limits at this time. this nurse notified RN. RN came to assess- line marked around redness at this time. will continue to monitor.
--- NOTE | 2018-07-17 23:22 | NURSING ---
Reviewed and agree with DESKTOP ENGINEER Documentation and FIMS charting.
[2018-07-18] MEDS: Enoxaparin 40 MG/0.4 ML Syringe SC (05:21)
[2018-07-18] MEDS: Gabapentin 600 MG Tablet PO ×3 (05:22→20:37)
[2018-07-18] MEDS: oxyCODONE 5 MG Tablet PO ×3 (05:22→17:18)
--- NOTE | 2018-07-18 06:24 | NURSING ---
pt incontinent of XL BM in Attends/bed linens. Bed linens changed and staff cleansed pt. Pt dribbled urine on floor and staff cleaned pt and floor of incontinence.
[2018-07-18 07:21] VITALS: BP 155/68; PULSE 86; RESP 20; TEMP 36.2; O2SAT 95
[2018-07-18] MEDS: Glimepiride 4 MG Tablet PO ×2 (08:29→17:18)
[2018-07-18] MEDS: Aspirin 81 MG TAB.CHEW PO (08:29)
[2018-07-18] MEDS: hydroCHLOROthiazide 25 MG Tablet PO (08:29)
[2018-07-18 08:30] VITALS: PULSE 70
[2018-07-18] MEDS: Metoprolol Tartrate 50 MG Tablet PO ×2 (08:30→20:36)
[2018-07-18] MEDS: Clopidogrel Bisulfate 75 MG Tablet PO (08:30)
[2018-07-18] MEDS: Lisinopril 20 MG Tablet PO (08:30)
[2018-07-18] MEDS: Magnesium Oxide 400 MG Tablet PO ×2 (08:30→20:36)
[2018-07-18] MEDS: Pantoprazole Sodium 20 MG Tablet PO (08:30)
[2018-07-18] MEDS: Escitalopram Oxalate 10 MG Tablet PO (08:30)
[2018-07-18] MEDS: Acetaminophen 500 MG Tablet 1000 MG PO ×2 (10:08→20:37)
[2018-07-18] MEDS: LORazepam 0.5 MG Tablet PO (10:08)
--- NOTE | 2018-07-18 10:21 | CASEMGMT ---
Team meeting held. Patient present as well as patient daughter. No discharge date set at this time. Patient to discharge to home where patient daughter lives with patient. Patient to continue with further care and treatment on the Inpatient Rehab Unit at this time. Support given. Plan is to re-team patient next week. Will continue to follow. Digna UMANZOR, PEDIATRIC CRITICAL CARE NURSE
--- NOTE | 2018-07-18 10:28 | PN.NEURO_ITS ---
Subjective: Staffed in team meeting. Family at bedside, questions answered. With Physical therapy, he is able to go from a sitting to a standing position with minimal assistance. He requires moderate assistance with getting in and out of the bed, mostly assistance with his leg. He is walking 135 to 150 feet using a walking, his endurance has improved greatly. He is able to go up and down 3 steps at minimal assistance. With Occupational therapy, he is able to do his upper body dressing and washing without difficulty. He requires assistance with his lower body, he is using adaptive equipment which is helping a great deal, he stills require assistance with putting his shoes on and off. He is able to transfer to the bedside commode with minimal assistance but requires total assistance for toileting hygiene. He requires minimal assistance with getting in and out of the shower for safety reasons. With Nursing, pain is well controlled, he is having an increase in his anxiety level he normally take Ativan twice a day and here he is only taking it at bedtime will add an additional dose in the morning. His incision dressing will be discontinued on Friday 07/20, and he is scheduled with the surgeon on July 25 to have his igor removed, will coordinate with the surgeon for the unit staff to remove the igor. - Physical Exam General: Alert, Oriented x3, Cooperative HEENT: Atraumatic, PERRLA, EOMI, Normocephalic Neck: Supple, No JVD, Negative Carotid Bruits Lungs: Clear to auscultation, Normal air movement Cardiovascular: Regular rate, No murmurs Abdomen: Bowel Sounds Present, Soft, Non Tender Extremities: No edema, Capillary Refill Less than 3 Seconds Skin: No rashes, No breakdown Musculoskeletal: No Tenderness to Palpation of Joints or Extremities Neurological: Cranial nerves II-XII grossly intact Psych/Mental Status: Normal Affect, Appropriate Vital Signs Temp Pulse Resp BP Pulse Ox 97.1 F L 70 20 H 155/68 H 95 07/18/18 07:21 07/18/18 08:30 07/18/18 07:21 07/18/18 07:21 07/18/18 07:21 Oxygen Delivery Method Room Air Weight: 135.624 kg Body Mass Index (BMI) 38.0 Finger Stick Blood Glucose 150 Intake and Output for Last 24 Hours 07/16/18 07/17/18 07/18/18 23:59 23:59 23:59 Intake Total 600 / 600 Balance 600 / 600 Medical Necessity - Tobacco Use Smoking Status: Never smoker Assessment/Plan All Active Problems (Last Reviewed 07/13/18 @ 15:36 by Javy Diop MD) Hx of sinus surgery (Resolved) History of prostate surgery (Resolved) H/O repair of rotator cuff (Resolved) H/O percutaneous transluminal coronary angioplasty (Resolved) Old myocardial infarction (Resolved) Unstable angina (Acute) Debility status post right total knee replacement performed 07/10/[address] Perez at [facility]. Complicated by diabetes, peripheral neuropathy, coronary artery disease and obstructive sleep apnea as well as atrial flutter. Goal of rehab is lutheran of prior level functional independence. Plan: - Physical therapy for gait and balance - Occupational Therapy for ADLs - Continue oral agents for diabetes and monitor sugars - Continue antihypertensive therapy - Continue home CPAP therapy - Bowel protocol - PRN analgesics - DVT prophylaxis - Incision C/D/I, remove Silvadene Mepilex on Friday 07/20 and igor on July 25.
--- NOTE | 2018-07-18 20:30 | NURSING ---
upon assessing pt at hs, the area adjacent to glans of penis noted to be reddened; along with small area of glans reddened. wes care performed at this time. aloe vesta applied, brief left open for hs, will continue to monitor. note left for Ramakrishna to assess in am.
[2018-07-18 20:36] VITALS: BP 146/74; PULSE 77
[2018-07-18] MEDS: Atorvastatin Calcium 40 MG Tablet PO (20:36)
[2018-07-18] MEDS: LORazepam 1 MG Tablet PO (20:36)
[2018-07-18] MEDS: Donepezil HCl 10 MG Tablet PO (20:36)
[2018-07-18] MEDS: Nortriptyline 25 MG Capsule PO (20:37)
[2018-07-18 20:45] VITALS: BP 146/74; PULSE 77; RESP 18; TEMP 36.7; O2SAT 94
--- NOTE | 2018-07-19 03:19 | NURSING ---
REVIEWED AND AGREE WITH MOBILE MANAGER'S FIM AND HANDOFF CHARTING.
[2018-07-19] MEDS: Enoxaparin 40 MG/0.4 ML Syringe SC (05:38)
[2018-07-19] MEDS: Gabapentin 600 MG Tablet PO ×3 (05:38→20:16)
[2018-07-19] MEDS: Glimepiride 4 MG Tablet PO ×2 (07:33→17:17)
[2018-07-19] MEDS: Aspirin 81 MG TAB.CHEW PO (07:33)
[2018-07-19] MEDS: hydroCHLOROthiazide 25 MG Tablet PO (07:34)
[2018-07-19 07:37] VITALS: BP 125/65; PULSE 70
[2018-07-19] MEDS: Escitalopram Oxalate 10 MG Tablet PO (07:37)
[2018-07-19] MEDS: Metoprolol Tartrate 50 MG Tablet PO ×2 (07:37→20:16)
[2018-07-19] MEDS: Magnesium Oxide 400 MG Tablet PO ×2 (07:37→20:15)
[2018-07-19] MEDS: Clopidogrel Bisulfate 75 MG Tablet PO (07:38)
[2018-07-19] MEDS: Pantoprazole Sodium 20 MG Tablet PO (07:38)
[2018-07-19] MEDS: Lisinopril 20 MG Tablet PO (07:38)
[2018-07-19] MEDS: oxyCODONE 5 MG Tablet PO ×2 (07:38→13:11)
[2018-07-19 07:54] VITALS: BP 125/65; PULSE 72; RESP 16; TEMP 36.6; O2SAT 96
[2018-07-19 09:05] VITALS: PULSE 85; RESP 24; O2SAT 94
[2018-07-19] MEDS: Albuterol 2.5 MG/3 ML VIAL.NEB. INHALATION (09:05)
[2018-07-19] MEDS: Acetaminophen 500 MG Tablet 1000 MG PO ×2 (09:46→20:15)
[2018-07-19] MEDS: LORazepam 0.5 MG Tablet PO (09:47)
--- NOTE | 2018-07-19 13:43 | PCM.PN.NEU ---
Subjective: Patient seen, lying quietly in bed, easily aroused. Tolerating therapy, No issues with GI/ - Physical Exam General: Alert, Oriented x3, Cooperative HEENT: Atraumatic, PERRLA, EOMI, Normocephalic Neck: Supple, No JVD, Negative Carotid Bruits Lungs: Clear to auscultation, Normal air movement Cardiovascular: Regular rate, No murmurs Abdomen: Bowel Sounds Present, Soft, Non Tender Extremities: No edema, Capillary Refill Less than 3 Seconds Skin: No rashes, No breakdown Musculoskeletal: No Tenderness to Palpation of Joints or Extremities Neurological: Cranial nerves II-XII grossly intact Psych/Mental Status: Normal Affect, Appropriate, Alert and oriented to time, place, person, mood and affect Vital Signs Temp Pulse Resp BP Pulse Ox 98 F 85 24 H 125/65 H 94 07/19/18 07:54 07/19/18 09:05 07/19/18 09:05 07/19/18 07:54 07/19/18 09:05 Oxygen Delivery Method CPAP Weight: 135.624 kg Body Mass Index (BMI) 38.0 Finger Stick Blood Glucose 150 Intake and Output for Last 24 Hours 07/17/18 07/18/18 07/19/18 23:59 23:59 23:59 Intake Total 600 / 600 600 / 600 480 / 480 Balance 600 / 600 600 / 600 480 / 480 Active Medications Acetaminophen (Tylenol) 1,000 mg PO BID [facility] Last Admin: 07/19/18 09:46 Dose: 1,000 mg Albuterol Sulfate (Ventolin Aerosols) 2.5 mg INHALATION Q4HWA.RT PRN PRN Reason: SHORTNESS OF BREATH Last Admin: 07/19/18 09:05 Dose: 2.5 mg Aspirin (Aspirin, Baby) 81 mg PO DAILY@0800 [facility] Last Admin: 07/19/18 07:33 Dose: 81 mg Atorvastatin Calcium (Lipitor) 40 mg PO QHS [facility] Last Admin: 07/18/18 20:36 Dose: 40 mg Bisacodyl (Dulcolax) 10 mg RECTAL .PRN X 1 PRN PRN Reason: Constipation Last Admin: 07/17/18 06:12 Dose: 10 mg Clopidogrel Bisulfate (Plavix) 75 mg PO DAILY [facility] Last Admin: 07/19/18 07:38 Dose: 75 mg Donepezil HCl (Aricept) 10 mg PO QHS [facility] Last Admin: 07/18/18 20:36 Dose: 10 mg Enoxaparin Sodium (Lovenox) 40 mg SC DAILY@0600 [facility] Last Admin: 07/19/18 05:38 Dose: 40 mg Ergocalciferol (Vitamin D) 50,000 unit PO Q7D@1000 [facility] Last Admin: 07/19/18 07:38 Dose: 50,000 unit Escitalopram Oxalate (Lexapro) 10 mg PO DAILY [facility] Last Admin: 07/19/18 07:37 Dose: 10 mg Gabapentin (Neurontin) 600 mg PO TID [facility] Last Admin: 07/19/18 13:11 Dose: 600 mg [facility] ([facility]l) [facility] Last Admin: 07/19/18 07:33 Dose: 4 mg Hydrochlorothiazide (Hctz) 25 mg PO DAILY [facility] Last Admin: 07/19/18 07:34 Dose: 25 mg Hyoscyamine Sulfate (Levsinex) 0.375 mg PO DAILY [facility] Last Admin: 07/19/18 07:35 Dose: 0.3749 mg Isosorbide Mononitrate (Imdur) 120 mg PO DAILY [facility] Last Admin: 07/19/18 07:34 Dose: 120 mg Lisinopril (Zestril) 20 mg PO DAILY [facility] Last Admin: 07/19/18 07:38 Dose: 20 mg Lorazepam (Ativan) 1 mg PO QHS [facility] Last Admin: 07/18/18 20:36 Dose: 1 mg Lorazepam (Ativan) 0.5 mg PO DAILY [facility] Last Admin: 07/19/18 09:47 Dose: 0.5 mg Magnesium Hydroxide (Milk Of Magnesia) 30 ml PO .PRN X 1 PRN PRN Reason: Constipation Last Admin: 07/16/18 07:49 Dose: 30 ml Magnesium Oxide (Mag-Ox 400) 400 mg PO BID [facility] Last Admin: 07/19/18 07:37 Dose: 400 mg Metformin [facility] (Glucophage) [facility] Last Admin: 07/19/18 07:34 Dose: 500 mg Metoprolol Tartrate (Lopressor (Beta Chyna)) 50 mg PO BID [facility] Last Admin: 07/19/18 07:37 Dose: 50 mg Nitroglycerin (Nitrostat) 0.4 mg SUBLINGUAL Q5M PRN PRN Reason: Chest Pain Nortriptyline HCl (Pamelor) 25 mg PO QHS [facility] Last Admin: 07/18/18 20:37 Dose: 25 mg Oxycodone HCl (Oxyir) 5 - 10 mg PO Q4H PRN PRN PRN Reason: SEVERE PAIN (6-10/10) Last Admin: 07/19/18 13:11 Dose: 10 mg Pantoprazole Sodium (Protonix) 20 mg PO DAILY [facility] Last Admin: 07/19/18 07:38 Dose: 20 mg Senna/Docusate Sodium (Senokot-S, Ana-Colace) 2 tablet PO BID [facility] Last Admin: 07/19/18 07:38 Dose: Not Given Medical Necessity - Tobacco Use Smoking Status: Never smoker Assessment/Plan All Active Problems (Last Reviewed 07/13/18 @ 15:36 by Javy Diop MD) Hx of sinus surgery (Resolved) History of prostate surgery (Resolved) H/O repair of rotator cuff (Resolved) H/O percutaneous transluminal coronary angioplasty (Resolved) Old myocardial infarction (Resolved) Unstable angina (Acute) Debility status post right total knee replacement performed 07/10/[address] Perez at [facility]. Complicated by diabetes, peripheral neuropathy, coronary artery disease and obstructive sleep apnea as well as atrial flutter. Goal of rehab is adventism of prior level functional independence. Plan: - Physical therapy for gait and balance - Occupational Therapy for ADLs - Continue oral agents for diabetes and monitor sugars - Continue antihypertensive therapy - Continue home CPAP therapy - Bowel protocol - PRN analgesics - DVT prophylaxis - Incision C/D/I, remove Silvadene Mepilex on Friday 07/20 and igor on July 25.
[2018-07-19 14:15] LABS: Anion Gap 6 (5-15); BUN 34 mg/dL (7-18); BUN/Creat Ratio 24.1 RATIO (10-20); Calcium,Total 8.8 mg/dL (8.5-10.1); Chloride 100 mmol/L (98-107); Creatinine, Serum 1.41 mg/dL (0.70-1.30); EST Glomerular Filtration Rate 52 mL/min (>60); Est Glom Filt Rate - Afr Amer 62 mL/min (>60); Estimated Creatinine Clearance 49.39 ml/min; Glucose 169 mg/dL (74-106); Potassium 4.7 mmol/L (3.5-5.1); Sodium Level 135 mmol/L (136-145)
--- NOTE | 2018-07-19 17:28 | NURSING ---
small open areas that are reddened to anterior glansarea and behind glands on shaft. 2 small fluid filled blisters noted this am during shift change to anterior glans area, but now reddened without fluid. per patient it comes and goes and was not sure how long he has had these blisters. denies pain to area. 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
[2018-07-19 20:10] VITALS: BP 138/77; PULSE 85; RESP 20; TEMP 36.4; O2SAT 96
[2018-07-19] MEDS: Acyclovir 200 MG Capsule 400 MG PO (20:15)
[2018-07-19] MEDS: LORazepam 1 MG Tablet PO (20:15)
[2018-07-19] MEDS: Atorvastatin Calcium 40 MG Tablet PO (20:15)
[2018-07-19 20:16] VITALS: PULSE 85
[2018-07-19] MEDS: Nortriptyline 25 MG Capsule PO (20:16)
[2018-07-19] MEDS: Donepezil HCl 10 MG Tablet PO (20:16)
[2018-07-20] MEDS: oxyCODONE 5 MG Tablet PO ×2 (06:09→12:12)
[2018-07-20] MEDS: Enoxaparin 40 MG/0.4 ML Syringe SC (06:10)
[2018-07-20] MEDS: Gabapentin 600 MG Tablet PO ×3 (06:10→21:27)
[2018-07-20] MEDS: Acyclovir 200 MG Capsule 400 MG PO ×3 (06:10→21:25)
[2018-07-20] MEDS: Magnesium Oxide 400 MG Tablet PO ×2 (07:38→21:27)
[2018-07-20] MEDS: Clopidogrel Bisulfate 75 MG Tablet PO (07:38)
[2018-07-20] MEDS: Escitalopram Oxalate 10 MG Tablet PO (07:38)
[2018-07-20 07:39] VITALS: BP 138/67; PULSE 82; RESP 16; TEMP 36.4; O2SAT 98
[2018-07-20] MEDS: Glimepiride 4 MG Tablet PO ×2 (07:56→17:11)
[2018-07-20] MEDS: Lisinopril 20 MG Tablet PO (07:56)
[2018-07-20] MEDS: hydroCHLOROthiazide 25 MG Tablet PO (07:56)
[2018-07-20] MEDS: Aspirin 81 MG TAB.CHEW PO (07:56)
[2018-07-20 07:58] VITALS: PULSE 80
[2018-07-20] MEDS: Metoprolol Tartrate 50 MG Tablet PO ×2 (07:58→21:27)
[2018-07-20] MEDS: Pantoprazole Sodium 20 MG Tablet PO (07:58)
[2018-07-20] MEDS: LORazepam 0.5 MG Tablet PO (09:41)
[2018-07-20] MEDS: Acetaminophen 500 MG Tablet 1000 MG PO ×2 (09:41→21:25)
[2018-07-20 21:24] VITALS: BP 154/80; PULSE 90; RESP 19; TEMP 36.6; O2SAT 93
[2018-07-20 21:27] VITALS: BP 154/80; PULSE 90
[2018-07-20] MEDS: Atorvastatin Calcium 40 MG Tablet PO (21:27)
[2018-07-20] MEDS: Nortriptyline 25 MG Capsule PO (21:27)
[2018-07-20] MEDS: LORazepam 1 MG Tablet PO (21:27)
[2018-07-20] MEDS: Donepezil HCl 10 MG Tablet PO (21:28)
[2018-07-21] MEDS: oxyCODONE 5 MG Tablet PO ×2 (06:21→15:15)
[2018-07-21] MEDS: Gabapentin 600 MG Tablet PO ×3 (06:22→22:11)
[2018-07-21] MEDS: Acyclovir 200 MG Capsule 400 MG PO ×3 (06:22→22:09)
[2018-07-21] MEDS: Enoxaparin 40 MG/0.4 ML Syringe SC (06:22)
[2018-07-21 07:03] VITALS: BP 136/70; PULSE 74; RESP 20; TEMP 36.9; O2SAT 94
[2018-07-21] MEDS: Pantoprazole Sodium 20 MG Tablet PO (08:08)
[2018-07-21] MEDS: Aspirin 81 MG TAB.CHEW PO (08:08)
[2018-07-21] MEDS: hydroCHLOROthiazide 25 MG Tablet PO (08:08)
[2018-07-21] MEDS: Clopidogrel Bisulfate 75 MG Tablet PO (08:08)
[2018-07-21] MEDS: Escitalopram Oxalate 10 MG Tablet PO (08:09)
[2018-07-21] MEDS: Glimepiride 4 MG Tablet PO ×2 (08:09→16:53)
[2018-07-21] MEDS: Magnesium Oxide 400 MG Tablet PO ×2 (08:09→22:11)
[2018-07-21] MEDS: LORazepam 0.5 MG Tablet PO (11:04)
[2018-07-21] MEDS: Senna/Docusate Sodium 1 Tablet 2 TABLET PO ×2 (11:05→22:10)
[2018-07-21] MEDS: Acetaminophen 500 MG Tablet 1000 MG PO ×2 (11:05→22:09)
[2018-07-21] MEDS: Lisinopril 20 MG Tablet PO (11:05)
[2018-07-21 11:06] VITALS: PULSE 77
[2018-07-21] MEDS: Metoprolol Tartrate 50 MG Tablet PO ×2 (11:06→22:11)
[2018-07-21 19:58] VITALS: BP 152/78; PULSE 86; RESP 20; TEMP 36.6; O2SAT 95
[2018-07-21 22:11] VITALS: BP 152/78; PULSE 86
[2018-07-21] MEDS: Nortriptyline 25 MG Capsule PO (22:11)
[2018-07-21] MEDS: Atorvastatin Calcium 40 MG Tablet PO (22:11)
[2018-07-21] MEDS: Hydrocortisone 2.5% Crm 1 APPLIC TOPICAL (22:11)
[2018-07-21] MEDS: LORazepam 1 MG Tablet PO (22:12)
[2018-07-21] MEDS: Donepezil HCl 10 MG Tablet PO (22:12)
[2018-07-22] MEDS: Enoxaparin 40 MG/0.4 ML Syringe SC (06:51)
[2018-07-22] MEDS: Acyclovir 200 MG Capsule 400 MG PO ×3 (06:51→20:48)
[2018-07-22] MEDS: Hydrocortisone 2.5% Crm 1 APPLIC TOPICAL ×3 (06:51→20:49)
[2018-07-22] MEDS: Gabapentin 600 MG Tablet PO ×3 (06:51→20:49)
[2018-07-22 07:57] VITALS: BP 155/82; PULSE 82; RESP 20; TEMP 27.7; O2SAT 95
[2018-07-22] MEDS: Pantoprazole Sodium 20 MG Tablet PO (08:23)
[2018-07-22 08:24] VITALS: BP 155/82; PULSE 82
[2018-07-22] MEDS: Senna/Docusate Sodium 1 Tablet 2 TABLET PO ×2 (08:24→20:48)
[2018-07-22] MEDS: Lisinopril 20 MG Tablet PO (08:24)
[2018-07-22] MEDS: Acetaminophen 500 MG Tablet 1000 MG PO ×2 (08:24→20:50)
[2018-07-22] MEDS: Clopidogrel Bisulfate 75 MG Tablet PO (08:24)
[2018-07-22] MEDS: Metoprolol Tartrate 50 MG Tablet PO ×2 (08:24→20:48)
[2018-07-22] MEDS: Glimepiride 4 MG Tablet PO ×2 (08:25→17:41)
[2018-07-22] MEDS: hydroCHLOROthiazide 25 MG Tablet PO (08:25)
[2018-07-22] MEDS: Aspirin 81 MG TAB.CHEW PO (08:25)
[2018-07-22] MEDS: oxyCODONE 5 MG Tablet PO ×2 (08:26→17:41)
[2018-07-22] MEDS: Escitalopram Oxalate 10 MG Tablet PO (08:26)
[2018-07-22] MEDS: Magnesium Oxide 400 MG Tablet PO ×2 (08:26→20:47)
--- NOTE | 2018-07-22 09:38 | PCM.PN.NEU ---
Subjective: Patient seen lying quietly in bed. Tolerating therapy. No new complaints. He feels he is doing well, his pain is controlled, and according to him he is ready to go home. - Physical Exam General: Alert, Oriented x3, Cooperative HEENT: Atraumatic, PERRLA, EOMI, Normocephalic Neck: Supple, No JVD, Negative Carotid Bruits Lungs: Clear to auscultation, Normal air movement Cardiovascular: Regular rate, No murmurs Abdomen: Bowel Sounds Present, Soft, Non Tender Extremities: No edema, Capillary Refill Less than 3 Seconds Skin: No rashes, No breakdown Musculoskeletal: No Tenderness to Palpation of Joints or Extremities Neurological: Cranial nerves II-XII grossly intact Psych/Mental Status: Normal Affect, Appropriate, Alert and oriented to time, place, person, mood and affect Vital Signs Temp Pulse Resp BP Pulse Ox 82 F L 82 20 H 155/82 H 95 07/22/18 07:57 07/22/18 08:24 07/22/18 07:57 07/22/18 08:24 07/22/18 07:57 Oxygen Delivery Method Room Air Weight: 135.624 kg Body Mass Index (BMI) 38.0 Finger Stick Blood Glucose 150 Intake and Output for Last 24 Hours 07/20/18 07/21/18 07/22/18 23:59 23:59 23:59 Intake Total 240 / 240 840 / 840 360 / 360 Balance 240 / 240 840 / 840 360 / 360 Active Medications Acetaminophen (Tylenol) 1,000 mg PO BID [facility] Last Admin: 07/22/18 08:24 Dose: 1,000 mg Acyclovir (Zovirax) 400 mg PO TID [facility] Stop: 07/24/18 22:01 Last Admin: 07/22/18 06:51 Dose: 400 mg Albuterol Sulfate (Ventolin Aerosols) 2.5 mg INHALATION Q4HWA.RT PRN PRN Reason: SHORTNESS OF BREATH Last Admin: 07/19/18 09:05 Dose: 2.5 mg Aspirin (Aspirin, Baby) 81 mg PO DAILY@0800 [facility] Last Admin: 07/22/18 08:25 Dose: 81 mg Atorvastatin Calcium (Lipitor) 40 mg PO QHS [facility] Last Admin: 07/21/18 22:11 Dose: 40 mg Bisacodyl (Dulcolax) 10 mg RECTAL .PRN X 1 PRN PRN Reason: Constipation Last Admin: 07/17/18 06:12 Dose: 10 mg Clopidogrel Bisulfate (Plavix) 75 mg PO DAILY [facility] Last Admin: 07/22/18 08:24 Dose: 75 mg Donepezil HCl (Aricept) 10 mg PO QHS [facility] Last Admin: 07/21/18 22:12 Dose: 10 mg Enoxaparin Sodium (Lovenox) 40 mg SC DAILY@0600 [facility] Last Admin: 07/22/18 06:51 Dose: 40 mg Ergocalciferol (Vitamin D) 50,000 unit PO Q7D@1000 [facility] Last Admin: 07/19/18 07:38 Dose: 50,000 unit Escitalopram Oxalate (Lexapro) 10 mg PO DAILY [facility] Last Admin: 07/22/18 08:26 Dose: 10 mg Gabapentin (Neurontin) 600 mg PO TID [facility] Last Admin: 07/22/18 06:51 Dose: 600 [facility] Last Admin: 07/22/18 08:25 Dose: 4 mg Hydrochlorothiazide (Hctz) 25 mg PO DAILY [facility] Last Admin: 07/22/18 08:25 Dose: 25 mg Hydrocortisone (Hytone) 1 applic TOPICAL TID [facility]; Protocol Last Admin: 07/22/18 06:51 Dose: 1 applicatio Hyoscyamine Sulfate (Levsinex) 0.375 mg PO DAILY [facility] Last Admin: 07/22/18 08:25 Dose: 0.375 mg Isosorbide Mononitrate (Imdur) 120 mg PO DAILY [facility] Last Admin: 07/22/18 08:26 Dose: 120 mg Lisinopril (Zestril) 20 mg PO DAILY [facility] Last Admin: 07/22/18 08:24 Dose: 20 mg Lorazepam (Ativan) 1 mg PO QHS [facility] Last Admin: 07/21/18 22:12 Dose: 1 mg Lorazepam (Ativan) 0.5 mg PO DAILY [facility] Last Admin: 07/21/18 11:04 Dose: 0.5 mg Magnesium Hydroxide (Milk Of Magnesia) 30 ml PO .PRN X 1 PRN PRN Reason: Constipation Last Admin: 07/16/18 07:49 Dose: 30 ml Magnesium Oxide (Mag-Ox 400) 400 mg PO BID [facility] Last Admin: 07/22/18 08:26 Dose: 400 mg [facility] ([facility]) [facility] Last Admin: 07/22/18 08:25 Dose: 500 mg Metoprolol Tartrate (Lopressor (Beta Chyna)) 50 mg PO BID [facility] Last Admin: 07/22/18 08:24 Dose: 50 mg Nitroglycerin (Nitrostat) 0.4 mg SUBLINGUAL Q5M PRN PRN Reason: Chest Pain Nortriptyline HCl (Pamelor) 25 mg PO QHS [facility] Last Admin: 07/21/18 22:11 Dose: 25 mg Oxycodone HCl (Oxyir) 5 - 10 mg PO Q4H PRN PRN PRN Reason: SEVERE PAIN (6-1010) Last Admin: 07/22/18 08:26 Dose: 10 mg Pantoprazole Sodium (Protonix) 20 mg PO DAILY [facility] Last Admin: 07/22/18 08:23 Dose: 20 mg Senna/Docusate Sodium (Senokot-S, Ana-Colace) 2 tablet PO BID [facility] Last Admin: 07/22/18 08:24 Dose: 1 tablet Medical Necessity - Tobacco Use Smoking Status: Never smoker Assessment/Plan All Active Problems (Last Reviewed 07/13/18 @ 15:36 by Javy Diop MD) Hx of sinus surgery (Resolved) History of prostate surgery (Resolved) H/O repair of rotator cuff (Resolved) H/O percutaneous transluminal coronary angioplasty (Resolved) Old myocardial infarction (Resolved) Unstable angina (Acute) Debility status post right total knee replacement performed 07/10/[address] Perez at [facility]. Complicated by diabetes, peripheral neuropathy, coronary artery disease and obstructive sleep apnea as well as atrial flutter. Goal of rehab is voodoo of prior level functional independence. Plan: - Physical therapy for gait and balance - Occupational Therapy for ADLs - Continue oral agents for diabetes and monitor sugars - Continue antihypertensive therapy - Continue home CPAP therapy - Bowel protocol - PRN analgesics - DVT prophylaxis - Incision C/D/I, remove Silvadene Mepilex on Friday 07/20 and igor on July 25. Mepilex was removed on Sunday
--- NOTE | 2018-07-22 09:43 | PN.NEURO_ITS ---
Subjective: Patient seen lying quietly in bed. Tolerating therapy. No new complaints. He feels he is doing well, his pain is controlled, and according to him he is ready to go home. - Physical Exam General: Alert, Oriented x3, Cooperative HEENT: Atraumatic, PERRLA, EOMI, Normocephalic Neck: Supple, No JVD, Negative Carotid Bruits Lungs: Clear to auscultation, Normal air movement Cardiovascular: Regular rate, No murmurs Abdomen: Bowel Sounds Present, Soft, Non Tender Extremities: No edema, Capillary Refill Less than 3 Seconds Skin: No rashes, No breakdown Musculoskeletal: No Tenderness to Palpation of Joints or Extremities Neurological: Cranial nerves II-XII grossly intact Psych/Mental Status: Normal Affect, Appropriate, Alert and oriented to time, place, person, mood and affect Vital Signs Temp Pulse Resp BP Pulse Ox 82 F L 82 20 H 155/82 H 95 07/22/18 07:57 07/22/18 08:24 07/22/18 07:57 07/22/18 08:24 07/22/18 07:57 Oxygen Delivery Method Room Air Weight: 135.624 kg Body Mass Index (BMI) 38.0 Finger Stick Blood Glucose 150 Intake and Output for Last 24 Hours 07/20/18 07/21/18 07/22/18 23:59 23:59 23:59 Intake Total 240 / 240 840 / 840 360 / 360 Balance 240 / 240 840 / 840 360 / 360 Active Medications Acetaminophen (Tylenol) 1,000 mg PO BID [facility] Last Admin: 07/22/18 08:24 Dose: 1,000 mg Acyclovir (Zovirax) 400 mg PO TID [facility] Stop: 07/24/18 22:01 Last Admin: 07/22/18 06:51 Dose: 400 mg Albuterol Sulfate (Ventolin Aerosols) 2.5 mg INHALATION Q4HWA.RT PRN PRN Reason: SHORTNESS OF BREATH Last Admin: 07/19/18 09:05 Dose: 2.5 mg Aspirin (Aspirin, Baby) 81 mg PO DAILY@0800 [facility] Last Admin: 07/22/18 08:25 Dose: 81 mg Atorvastatin Calcium (Lipitor) 40 mg PO QHS [facility] Last Admin: 07/21/18 22:11 Dose: 40 mg Bisacodyl (Dulcolax) 10 mg RECTAL .PRN X 1 PRN PRN Reason: Constipation Last Admin: 07/17/18 06:12 Dose: 10 mg Clopidogrel Bisulfate (Plavix) 75 mg PO DAILY [facility] Last Admin: 07/22/18 08:24 Dose: 75 mg Donepezil HCl (Aricept) 10 mg PO QHS [facility] Last Admin: 07/21/18 22:12 Dose: 10 mg Enoxaparin Sodium (Lovenox) 40 mg SC DAILY@0600 [facility] Last Admin: 07/22/18 06:51 Dose: 40 mg Ergocalciferol (Vitamin D) 50,000 unit PO Q7D@1000 [facility] Last Admin: 07/19/18 07:38 Dose: 50,000 unit Escitalopram Oxalate (Lexapro) 10 mg PO DAILY [facility] Last Admin: 07/22/18 08:26 Dose: 10 mg Gabapentin (Neurontin) 600 mg PO TID [facility] Last Admin: 07/22/18 06:51 Dose: 600 [facility] Admin: 07/22/18 08:25 Dose: 4 mg Hydrochlorothiazide (Hctz) 25 mg PO DAILY [facility] Last Admin: 07/22/18 08:25 Dose: 25 mg Hydrocortisone (Hytone) 1 applic TOPICAL TID [facility]; Protocol Last Admin: 07/22/18 06:51 Dose: 1 applicatio Hyoscyamine Sulfate (Levsinex) 0.375 mg PO DAILY [facility] Last Admin: 07/22/18 08:25 Dose: 0.375 mg Isosorbide Mononitrate (Imdur) 120 mg PO DAILY [facility] Last Admin: 07/22/18 08:26 Dose: 120 mg Lisinopril (Zestril) 20 mg PO DAILY [facility] Last Admin: 07/22/18 08:24 Dose: 20 mg Lorazepam (Ativan) 1 mg PO QHS [facility] Last Admin: 07/21/18 22:12 Dose: 1 mg Lorazepam (Ativan) 0.5 mg PO DAILY [facility] Last Admin: 07/21/18 11:04 Dose: 0.5 mg Magnesium Hydroxide (Milk Of Magnesia) 30 ml PO .PRN X 1 PRN PRN Reason: Constipation Last Admin: 07/16/18 07:49 Dose: 30 ml Magnesium Oxide (Mag-Ox 400) 400 mg PO BID [facility] Last Admin: 07/22/18 08:26 Dose: 400 mg [facility] Last Admin: 07/22/18 08:25 Dose: 500 mg Metoprolol Tartrate (Lopressor (Beta Chyna)) 50 mg PO BID [facility] Last Admin: 07/22/18 08:24 Dose: 50 mg Nitroglycerin (Nitrostat) 0.4 mg SUBLINGUAL Q5M PRN PRN Reason: Chest Pain Nortriptyline HCl (Pamelor) 25 mg PO QHS [facility] Last Admin: 07/21/18 22:11 Dose: 25 mg Oxycodone HCl (Oxyir) 5 - 10 mg PO Q4H PRN PRN PRN Reason: SEVERE PAIN (6-1010) Last Admin: 07/22/18 08:26 Dose: 10 mg Pantoprazole Sodium (Protonix) 20 mg PO DAILY [facility] Last Admin: 07/22/18 08:23 Dose: 20 mg Senna/Docusate Sodium (Senokot-S, Ana-Colace) 2 tablet PO BID [facility] Last Admin: 07/22/18 08:24 Dose: 1 tablet Medical Necessity - Tobacco Use Smoking Status: Never smoker Assessment/Plan All Active Problems (Last Reviewed 07/13/18 @ 15:36 by Javy Diop MD) Hx of sinus surgery (Resolved) History of prostate surgery (Resolved) H/O repair of rotator cuff (Resolved) H/O percutaneous transluminal coronary angioplasty (Resolved) Old myocardial infarction (Resolved) Unstable angina (Acute) Debility status post right total knee replacement performed 07/10/[address] Perez at [facility]. Complicated by diabetes, peripheral neuropathy, coronary artery disease and obstructive sleep apnea as well as atrial flutter. Goal of rehab is gnosticist of prior level functional independence. Plan: - Physical therapy for gait and balance - Occupational Therapy for ADLs - Continue oral agents for diabetes and monitor sugars - Continue antihypertensive therapy - Continue home CPAP therapy - Bowel protocol - PRN analgesics - DVT prophylaxis - Incision C/D/I, remove Silvadene Mepilex on Friday 07/20 and igor on July 25. Mepilex was removed on Sunday
[2018-07-22] MEDS: LORazepam 0.5 MG Tablet PO (10:11)
--- NOTE | 2018-07-22 10:40 | CASEMGMT ---
Social Work Collaborating with team and patient, discharge date set for 07/25/18. Patient plans to discharge to home with daughter at time of discharge. Patient reporting to have a walker already set up within the home. Physical therapy recommending for patient to have continued therapy through outpatient physical therapy. Patient daughter aware of discharge date and plan. Will continue to follow up with patient to set up continued physical therapy. Support given. Proposed discharge date: 07/25/18 PLAN: Discharge to home with daughter and outpatient physical therapy. NOÉ Benedict, MATHEMATICS ACADEMIC CHAIR
--- NOTE | 2018-07-22 16:14 | CHAPLAIN ---
Type of Pastoral Visit _x__ Initial Visit ___ Follow-up Visit ___ On-call Visit ___ General Patient Visit ___ Spiritual Assessment ___ Family Conference ___ Bereavement ___ Rapid Response ___ Code Blue ___ Other (describe below) Pastoral Care Referral From _x__ Patient ___ Family ___ Nurse ___ Physician ___ Building Maintenance Repairer ___ Systematic Theology Professor ___ Other (describe below) Sacrament/Intervention _x__ Active listening ___ Anointing ___ Muslim ___ Bereavement ___ Communion ___ Yvette exploration ___ _x__ Life review _x__ Prayer ___ Reconciliation ___ Sacrament of Sick ___ Supportive presence ___ Wedding ___ Other (describe below) Pastoral Comments met this patient when his was admitted to hospital in 2017; pt remembers visits to and recalls those visits and gives updates on his life since her ; pt has plans to remarry and expresses justin at his future; pt requests prayer for a son that has cancer; pt is very talkative and gives more life story
[2018-07-22 20:41] VITALS: BP 126/63; PULSE 90; RESP 16; TEMP 36.6; O2SAT 96
[2018-07-22] MEDS: LORazepam 1 MG Tablet PO (20:47)
[2018-07-22 20:48] VITALS: BP 126/63; PULSE 90
[2018-07-22] MEDS: Donepezil HCl 10 MG Tablet PO (20:48)
[2018-07-22] MEDS: Atorvastatin Calcium 40 MG Tablet PO (20:48)
[2018-07-22] MEDS: Nortriptyline 25 MG Capsule PO (20:50)
[2018-07-23] MEDS: Acyclovir 200 MG Capsule 400 MG PO ×3 (05:42→20:20)
[2018-07-23] MEDS: Gabapentin 600 MG Tablet PO ×3 (05:43→20:18)
[2018-07-23] MEDS: Hydrocortisone 2.5% Crm 1 APPLIC TOPICAL ×3 (05:43→20:15)
[2018-07-23] MEDS: Enoxaparin 40 MG/0.4 ML Syringe SC (05:43)
[2018-07-23] MEDS: Glimepiride 4 MG Tablet PO ×2 (08:01→17:37)
[2018-07-23] MEDS: Aspirin 81 MG TAB.CHEW PO (08:01)
[2018-07-23] MEDS: Pantoprazole Sodium 20 MG Tablet PO (08:01)
[2018-07-23] MEDS: Magnesium Oxide 400 MG Tablet PO ×2 (08:01→20:17)
[2018-07-23] MEDS: Lisinopril 20 MG Tablet PO (08:01)
[2018-07-23] MEDS: hydroCHLOROthiazide 25 MG Tablet PO (08:01)
[2018-07-23 08:02] VITALS: PULSE 78
[2018-07-23] MEDS: Escitalopram Oxalate 10 MG Tablet PO (08:02)
[2018-07-23] MEDS: Clopidogrel Bisulfate 75 MG Tablet PO (08:02)
[2018-07-23] MEDS: Metoprolol Tartrate 50 MG Tablet PO ×2 (08:02→20:17)
[2018-07-23] MEDS: oxyCODONE 5 MG Tablet PO ×2 (08:05→17:37)
[2018-07-23 09:16] VITALS: BP 128/62; PULSE 84; RESP 16; TEMP 36.8; O2SAT 95
--- NOTE | 2018-07-23 09:35 | PCM.PN.NEU ---
Subjective: Patient seen and examined. No new complaints. Tolerating therapy, he is MOD I today in preparation for discharge home on 07/25 with Outpatient Physical therapy and Occupational therapy. - Physical Exam General: Alert, Oriented x3, Cooperative HEENT: Atraumatic, PERRLA, EOMI, Normocephalic Neck: Supple, No JVD, Negative Carotid Bruits Lungs: Clear to auscultation, Normal air movement Cardiovascular: Regular rate, No murmurs Abdomen: Bowel Sounds Present, Soft, Non Tender Extremities: No edema, Capillary Refill Less than 3 Seconds Skin: No rashes, No breakdown Musculoskeletal: No Tenderness to Palpation of Joints or Extremities Neurological: Cranial nerves II-XII grossly intact Psych/Mental Status: Normal Affect, Appropriate, Alert and oriented to time, place, person, mood and affect Vital Signs Temp Pulse Resp BP Pulse Ox 98.2 F 84 16 128/62 H 95 07/23/18 09:16 07/23/18 09:16 07/23/18 09:16 07/23/18 09:16 07/23/18 09:16 Oxygen Delivery Method Room Air Weight: 135.624 kg Body Mass Index (BMI) 38.0 Finger Stick Blood Glucose 150 Intake and Output for Last 24 Hours 07/21/18 07/22/18 07/23/18 23:59 23:59 23:59 Intake Total 840 / 840 360 / 360 240 / 240 Balance 840 / 840 360 / 360 240 / 240 Laboratory Tests Past 24 Hrs 07/19/18 13:50 Herpes Simplex Culture Active Medications Acetaminophen (Tylenol) 1,000 mg PO BID [facility] Last Admin: 07/22/18 20:50 Dose: 1,000 mg Acyclovir (Zovirax) 400 mg PO TID [facility] Stop: 07/24/18 22:01 Last Admin: 07/23/18 05:42 Dose: 400 mg Albuterol Sulfate (Ventolin Aerosols) 2.5 mg INHALATION Q4HWA.RT PRN PRN Reason: SHORTNESS OF BREATH Last Admin: 07/19/18 09:05 Dose: 2.5 mg Aspirin (Aspirin, Baby) 81 mg PO DAILY@0800 [facility] Last Admin: 07/23/18 08:01 Dose: 81 mg Atorvastatin Calcium (Lipitor) 40 mg PO QHS [facility] Last Admin: 07/22/18 20:48 Dose: 40 mg Bisacodyl (Dulcolax) 10 mg RECTAL .PRN X 1 PRN PRN Reason: Constipation Last Admin: 07/17/18 06:12 Dose: 10 mg Clopidogrel Bisulfate (Plavix) 75 mg PO DAILY [facility] Last Admin: 07/23/18 08:02 Dose: 75 mg Donepezil HCl (Aricept) 10 mg PO QHS [facility] Last Admin: 07/22/18 20:48 Dose: 10 mg Enoxaparin Sodium (Lovenox) 40 mg SC DAILY@0600 [facility] Last Admin: 07/23/18 05:43 Dose: 40 mg Ergocalciferol (Vitamin D) 50,000 unit PO Q7D@1000 [facility] Last Admin: 07/19/18 07:38 Dose: 50,000 unit Escitalopram Oxalate (Lexapro) 10 mg PO DAILY [facility] Last Admin: 07/23/18 08:02 Dose: 10 mg Gabapentin (Neurontin) 600 mg PO TID [facility] Last Admin: 07/23/18 05:43 Dose: 600 mg Glimepiride (Amaryl) 4 mg PO BIDCM [facility] Last Admin: 07/23/18 08:01 Dose: 4 mg Hydrochlorothiazide (Hctz) 25 mg PO DAILY [facility] Last Admin: 07/23/18 08:01 Dose: 25 mg Hydrocortisone (Hytone) 1 applic TOPICAL TID [facility]; Protocol Last Admin: 07/23/18 05:43 Dose: 1 applicatio Hyoscyamine Sulfate (Levsinex) 0.375 mg PO DAILY [facility] Last Admin: 07/23/18 08:01 Dose: 0.375 mg Isosorbide Mononitrate (Imdur) 120 mg PO DAILY [facility] Last Admin: 07/23/18 08:02 Dose: 120 mg Lisinopril (Zestril) 20 mg PO DAILY [facility] Last Admin: 07/23/18 08:01 Dose: 20 mg Lorazepam (Ativan) 1 mg PO QHS [facility] Last Admin: 07/22/18 20:47 Dose: 1 mg Lorazepam (Ativan) 0.5 mg PO DAILY [facility] Last Admin: 07/22/18 10:11 Dose: 0.5 mg Magnesium Hydroxide (Milk Of Magnesia) 30 ml PO .PRN X 1 PRN PRN Reason: Constipation Last Admin: 07/16/18 07:49 Dose: 30 ml Magnesium Oxide (Mag-Ox 400) 400 mg PO BID [facility] Last Admin: 07/23/18 08:01 Dose: 400 mg [facility] Last Admin: 07/23/18 08:01 Dose: 500 mg Metoprolol Tartrate (Lopressor (Beta Chyna)) 50 mg PO BID [facility] Last Admin: 07/23/18 08:02 Dose: 50 mg Nitroglycerin (Nitrostat) 0.4 mg SUBLINGUAL Q5M PRN PRN Reason: Chest Pain Nortriptyline HCl (Pamelor) 25 mg PO QHS [facility] Last Admin: 07/22/18 20:50 Dose: 25 mg Oxycodone HCl (Oxyir) 5 - 10 mg PO Q4H PRN PRN PRN Reason: SEVERE PAIN (6-10/10) Last Admin: 07/23/18 08:05 Dose: 10 mg Pantoprazole Sodium (Protonix) 20 mg PO DAILY [facility] Last Admin: 07/23/18 08:01 Dose: 20 mg Senna/Docusate Sodium (Senokot-S, Ana-Colace) 2 tablet PO BID [facility] Last Admin: 07/22/18 20:48 Dose: 1 tablet Medical Necessity - Tobacco Use Smoking Status: Never smoker Assessment/Plan All Active Problems (Last Reviewed 07/13/18 @ 15:36 by Javy Diop MD) Hx of sinus surgery (Resolved) History of prostate surgery (Resolved) H/O repair of rotator cuff (Resolved) H/O percutaneous transluminal coronary angioplasty (Resolved) Old myocardial infarction (Resolved) Unstable angina (Acute) Debility status post right total knee replacement performed 07/10/[address] Perez at [facility]. Complicated by diabetes, peripheral neuropathy, coronary artery disease and obstructive sleep apnea as well as atrial flutter. Goal of rehab is restorationism of prior level functional independence. Plan: - Physical therapy for gait and balance - Occupational Therapy for ADLs - Continue oral agents for diabetes and monitor sugars - Continue antihypertensive therapy - Continue home CPAP therapy - Bowel protocol - PRN analgesics - DVT prophylaxis - Incision C/D/I, remove Silvadene Mepilex on Friday 07/20 and igor on July 25. Mepilex was removed on Sunday - MOD I in preparation for discharge home home on July 25 with Outpatient Physical therapy and Occupational therapy
[2018-07-23] MEDS: Acetaminophen 500 MG Tablet 1000 MG PO ×2 (09:57→20:18)
[2018-07-23] MEDS: LORazepam 0.5 MG Tablet PO ×2 (09:57→20:24)
[2018-07-23 20:10] VITALS: BP 134/77; PULSE 79; RESP 16; TEMP 37.2; O2SAT 94
[2018-07-23 20:17] VITALS: PULSE 79
[2018-07-23] MEDS: Donepezil HCl 10 MG Tablet PO (20:17)
[2018-07-23] MEDS: Atorvastatin Calcium 40 MG Tablet PO (20:17)
[2018-07-23] MEDS: Nortriptyline 25 MG Capsule PO (20:18)
[2018-07-24] MEDS: Gabapentin 600 MG Tablet PO ×3 (05:47→22:01)
[2018-07-24] MEDS: Enoxaparin 40 MG/0.4 ML Syringe SC (05:47)
[2018-07-24] MEDS: Acyclovir 200 MG Capsule 400 MG PO ×3 (05:48→22:00)
[2018-07-24] MEDS: Hydrocortisone 2.5% Crm 1 APPLIC TOPICAL ×3 (05:48→22:01)
[2018-07-24 07:29] VITALS: BP 124/71; PULSE 79; RESP 18; TEMP 36.6; O2SAT 94
[2018-07-24] MEDS: Lisinopril 20 MG Tablet PO (07:55)
[2018-07-24] MEDS: Glimepiride 4 MG Tablet PO ×2 (07:55→17:14)
[2018-07-24] MEDS: hydroCHLOROthiazide 25 MG Tablet PO (07:55)
[2018-07-24] MEDS: Clopidogrel Bisulfate 75 MG Tablet PO (07:55)
[2018-07-24] MEDS: Pantoprazole Sodium 20 MG Tablet PO (07:55)
[2018-07-24] MEDS: Magnesium Oxide 400 MG Tablet PO ×2 (07:55→22:01)
[2018-07-24] MEDS: Escitalopram Oxalate 10 MG Tablet PO (07:55)
[2018-07-24 07:56] VITALS: PULSE 70
[2018-07-24] MEDS: Aspirin 81 MG TAB.CHEW PO (07:56)
[2018-07-24] MEDS: Metoprolol Tartrate 50 MG Tablet PO ×2 (07:56→22:01)
[2018-07-24] MEDS: Acetaminophen 500 MG Tablet 1000 MG PO ×2 (08:53→22:00)
[2018-07-24] MEDS: oxyCODONE 5 MG Tablet PO ×2 (09:14→13:35)
[2018-07-24] MEDS: LORazepam 0.5 MG Tablet PO (10:21)
--- NOTE | 2018-07-24 11:31 | PCM.PN.NEU ---
Subjective: Patient seen and examined. Is doing well, pain is well controlled. He is MOD I in preparation for d/c home tomorrow July 25. - Physical Exam General: Alert, Oriented x3, Cooperative HEENT: Atraumatic, PERRLA, EOMI, Normocephalic Neck: Supple, No JVD, Negative Carotid Bruits Lungs: Clear to auscultation, Normal air movement Cardiovascular: Regular rate, No murmurs Abdomen: Bowel Sounds Present, Soft, Non Tender Extremities: No edema, Capillary Refill Less than 3 Seconds Skin: No rashes, No breakdown Musculoskeletal: No Tenderness to Palpation of Joints or Extremities Neurological: Cranial nerves II-XII grossly intact Psych/Mental Status: Normal Affect, Appropriate, Alert and oriented to time, place, person, mood and affect Vital Signs Temp Pulse Resp BP Pulse Ox 97.8 F 70 18 124/71 H 94 07/24/18 07:29 07/24/18 07:56 07/24/18 07:29 07/24/18 07:29 07/24/18 07:29 Oxygen Delivery Method Room Air Weight: 134 kg Body Mass Index (BMI) 38.0 Finger Stick Blood Glucose 150 Intake and Output for Last 24 Hours 07/22/18 07/23/18 07/24/18 23:59 23:59 23:59 Intake Total 360 / 360 500 / 500 400 / 400 Balance 360 / 360 500 / 500 400 / 400 Active Medications Acetaminophen (Tylenol) 1,000 mg PO BID [facility] Last Admin: 07/24/18 08:53 Dose: 1,000 mg Acyclovir (Zovirax) 400 mg PO TID [facility] Stop: 07/24/18 22:01 Last Admin: 07/24/18 05:48 Dose: 400 mg Albuterol Sulfate (Ventolin Aerosols) 2.5 mg INHALATION Q4HWA.RT PRN PRN Reason: SHORTNESS OF BREATH Last Admin: 07/19/18 09:05 Dose: 2.5 mg Aspirin (Aspirin, Baby) 81 mg PO DAILY@0800 [facility] Last Admin: 07/24/18 07:56 Dose: 81 mg Atorvastatin Calcium (Lipitor) 40 mg PO QHS [facility] Last Admin: 07/23/18 20:17 Dose: 40 mg Bisacodyl (Dulcolax) 10 mg RECTAL .PRN X 1 PRN PRN Reason: Constipation Last Admin: 07/17/18 06:12 Dose: 10 mg Clopidogrel Bisulfate (Plavix) 75 mg PO DAILY [facility] Last Admin: 07/24/18 07:55 Dose: 75 mg Donepezil HCl (Aricept) 10 mg PO QHS [facility] Last Admin: 07/23/18 20:17 Dose: 10 mg Enoxaparin Sodium (Lovenox) 40 mg SC DAILY@0600 [facility] Last Admin: 07/24/18 05:47 Dose: 40 mg Ergocalciferol (Vitamin D) 50,000 unit PO Q7D@1000 [facility] Last Admin: 07/19/18 07:38 Dose: 50,000 unit Escitalopram Oxalate (Lexapro) 10 mg PO DAILY [facility] Last Admin: 07/24/18 07:55 Dose: 10 mg Gabapentin (Neurontin) 600 mg PO TID [facility] Last Admin: 07/24/18 05:47 Dose: 600 mg Glimepiride (Amaryl) 4 mg PO BIDCM [facility] Last Admin: 07/24/18 07:55 Dose: 4 mg Hydrochlorothiazide (Hctz) 25 mg PO DAILY [facility] Last Admin: 07/24/18 07:55 Dose: 25 mg Hydrocortisone (Hytone) 1 applic TOPICAL TID [facility]; Protocol Last Admin: 07/24/18 05:48 Dose: 1 applicatio Hyoscyamine Sulfate (Levsinex) 0.375 mg PO DAILY [facility] Last Admin: 07/24/18 07:55 Dose: 0.375 mg Isosorbide Mononitrate (Imdur) 120 mg PO DAILY [facility] Last Admin: 07/24/18 07:56 Dose: 120 mg Lisinopril (Zestril) 20 mg PO DAILY [facility] Last Admin: 07/24/18 07:55 Dose: 20 mg Lorazepam (Ativan) 1 mg PO QHS [facility] Last Admin: 07/23/18 22:15 Dose: Not Given Lorazepam (Ativan) 0.5 mg PO DAILY [facility] Last Admin: 07/24/18 10:21 Dose: 0.5 mg Magnesium Hydroxide (Milk Of Magnesia) 30 ml PO .PRN X 1 PRN PRN Reason: Constipation Last Admin: 07/16/18 07:49 Dose: 30 ml Magnesium Oxide (Mag-Ox 400) 400 mg PO BID [facility] Last Admin: 07/24/18 07:55 Dose: 400 mg [facility]) [facility] Admin: 07/24/18 07:56 Dose: 500 mg Metoprolol Tartrate (Lopressor (Beta Chyna)) 50 mg PO BID [facility] Last Admin: 07/24/18 07:56 Dose: 50 mg Nitroglycerin (Nitrostat) 0.4 mg SUBLINGUAL Q5M PRN PRN Reason: Chest Pain Nortriptyline HCl (Pamelor) 25 mg PO QHS [facility] Last Admin: 07/23/18 20:18 Dose: 25 mg Oxycodone HCl (Oxyir) 5 - 10 mg PO Q4H PRN PRN PRN Reason: SEVERE PAIN (6-1010) Last Admin: 07/24/18 09:14 Dose: 5 mg Pantoprazole Sodium (Protonix) 20 mg PO DAILY [facility] Last Admin: 07/24/18 07:55 Dose: 20 mg Senna/Docusate Sodium (Senokot-S, Ana-Colace) 2 tablet PO BID [facility] Last Admin: 07/24/18 07:57 Dose: Not Given Medical Necessity - Tobacco Use Smoking Status: Never smoker Assessment/Plan All Active Problems (Last Reviewed 07/13/18 @ 15:36 by Javy Diop MD) Hx of sinus surgery (Resolved) History of prostate surgery (Resolved) H/O repair of rotator cuff (Resolved) H/O percutaneous transluminal coronary angioplasty (Resolved) Old myocardial infarction (Resolved) Unstable angina (Acute) Debility status post right total knee replacement performed 07/10/[address] Perez at [facility]. Complicated by diabetes, peripheral neuropathy, coronary artery disease and obstructive sleep apnea as well as atrial flutter. Goal of rehab is amish of prior level functional independence. Plan: - Physical therapy for gait and balance - Occupational Therapy for ADLs - Continue oral agents for diabetes and monitor sugars - Continue antihypertensive therapy - Continue home CPAP therapy - Bowel protocol - PRN analgesics - DVT prophylaxis - Incision C/D/I, remove Silvadene Mepilex on Friday 07/20 and igor on July 25. Mepilex was removed on Sunday - MOD I in preparation for discharge home home on July 25 with Outpatient Physical therapy and Occupational therapy - Plan is for discharge home on with outpatient PT/OT
--- NOTE | 2018-07-24 11:36 | PN.NEURO_ITS ---
Subjective: Patient seen and examined. Is doing well, pain is well controlled. He is MOD I in preparation for d/c home tomorrow July 25. - Physical Exam General: Alert, Oriented x3, Cooperative HEENT: Atraumatic, PERRLA, EOMI, Normocephalic Neck: Supple, No JVD, Negative Carotid Bruits Lungs: Clear to auscultation, Normal air movement Cardiovascular: Regular rate, No murmurs Abdomen: Bowel Sounds Present, Soft, Non Tender Extremities: No edema, Capillary Refill Less than 3 Seconds Skin: No rashes, No breakdown Musculoskeletal: No Tenderness to Palpation of Joints or Extremities Neurological: Cranial nerves II-XII grossly intact Psych/Mental Status: Normal Affect, Appropriate, Alert and oriented to time, place, person, mood and affect Vital Signs Temp Pulse Resp BP Pulse Ox 97.8 F 70 18 124/71 H 94 07/24/18 07:29 07/24/18 07:56 07/24/18 07:29 07/24/18 07:29 07/24/18 07:29 Oxygen Delivery Method Room Air Weight: 134 kg Body Mass Index (BMI) 38.0 Finger Stick Blood Glucose 150 Intake and Output for Last 24 Hours 07/22/18 07/23/18 07/24/18 23:59 23:59 23:59 Intake Total 360 / 360 500 / 500 400 / 400 Balance 360 / 360 500 / 500 400 / 400 Active Medications Acetaminophen (Tylenol) 1,000 mg PO BID [facility] Last Admin: 07/24/18 08:53 Dose: 1,000 mg Acyclovir (Zovirax) 400 mg PO TID [facility] Stop: 07/24/18 22:01 Last Admin: 07/24/18 05:48 Dose: 400 mg Albuterol Sulfate (Ventolin Aerosols) 2.5 mg INHALATION Q4HWA.RT PRN PRN Reason: SHORTNESS OF BREATH Last Admin: 07/19/18 09:05 Dose: 2.5 mg Aspirin (Aspirin, Baby) 81 mg PO DAILY@0800 [facility] Last Admin: 07/24/18 07:56 Dose: 81 mg Atorvastatin Calcium (Lipitor) 40 mg PO QHS [facility] Last Admin: 07/23/18 20:17 Dose: 40 mg Bisacodyl (Dulcolax) 10 mg RECTAL .PRN X 1 PRN PRN Reason: Constipation Last Admin: 07/17/18 06:12 Dose: 10 mg Clopidogrel Bisulfate (Plavix) 75 mg PO DAILY [facility] Last Admin: 07/24/18 07:55 Dose: 75 mg Donepezil HCl (Aricept) 10 mg PO QHS [facility] Last Admin: 07/23/18 20:17 Dose: 10 mg Enoxaparin Sodium (Lovenox) 40 mg SC DAILY@0600 [facility] Last Admin: 07/24/18 05:47 Dose: 40 mg Ergocalciferol (Vitamin D) 50,000 unit PO Q7D@1000 [facility] Last Admin: 07/19/18 07:38 Dose: 50,000 unit Escitalopram Oxalate (Lexapro) 10 mg PO DAILY [facility] Last Admin: 07/24/18 07:55 Dose: 10 mg Gabapentin (Neurontin) 600 mg PO TID [facility] Last Admin: 07/24/18 05:47 Dose: 600 mg Glimepiride (Amaryl) 4 mg PO BIDCM [facility] Last Admin: 07/24/18 07:55 Dose: 4 mg Hydrochlorothiazide (Hctz) 25 mg PO DAILY [facility] Last Admin: 07/24/18 07:55 Dose: 25 mg Hydrocortisone (Hytone) 1 applic TOPICAL TID [facility]; Protocol Last Admin: 07/24/18 05:48 Dose: 1 applicatio Hyoscyamine Sulfate (Levsinex) 0.375 mg PO DAILY [facility] Last Admin: 07/24/18 07:55 Dose: 0.375 mg Isosorbide Mononitrate (Imdur) 120 mg PO DAILY [facility] Last Admin: 07/24/18 07:56 Dose: 120 mg Lisinopril (Zestril) 20 mg PO DAILY [facility] Last Admin: 07/24/18 07:55 Dose: 20 mg Lorazepam (Ativan) 1 mg PO QHS [facility] Last Admin: 07/23/18 22:15 Dose: Not Given Lorazepam (Ativan) 0.5 mg PO DAILY [facility] Last Admin: 07/24/18 10:21 Dose: 0.5 mg Magnesium Hydroxide (Milk Of Magnesia) 30 ml PO .PRN X 1 PRN PRN Reason: Constipation Last Admin: 07/16/18 07:49 Dose: 30 ml Magnesium Oxide (Mag-Ox 400) 400 mg PO BID [facility] Last Admin: 07/24/18 07:55 Dose: 400 mg [facility] Last Admin: 07/24/18 07:56 Dose: 500 mg Metoprolol Tartrate (Lopressor (Beta Chyna)) 50 mg PO BID [facility] Last Admin: 07/24/18 07:56 Dose: 50 mg Nitroglycerin (Nitrostat) 0.4 mg SUBLINGUAL Q5M PRN PRN Reason: Chest Pain Nortriptyline HCl (Pamelor) 25 mg PO QHS [facility] Last Admin: 07/23/18 20:18 Dose: 25 mg Oxycodone HCl (Oxyir) 5 - 10 mg PO Q4H PRN PRN PRN Reason: SEVERE PAIN (6-1010) Last Admin: 07/24/18 09:14 Dose: 5 mg Pantoprazole Sodium (Protonix) 20 mg PO DAILY [facility] Last Admin: 07/24/18 07:55 Dose: 20 mg Senna/Docusate Sodium (Senokot-S, Ana-Colace) 2 tablet PO BID [facility] Last Admin: 07/24/18 07:57 Dose: Not Given Medical Necessity - Tobacco Use Smoking Status: Never smoker Assessment/Plan All Active Problems (Last Reviewed 07/13/18 @ 15:36 by Javy Diop MD) Hx of sinus surgery (Resolved) History of prostate surgery (Resolved) H/O repair of rotator cuff (Resolved) H/O percutaneous transluminal coronary angioplasty (Resolved) Old myocardial infarction (Resolved) Unstable angina (Acute) Debility status post right total knee replacement performed 07/10/[address] Perez at [facility]. Complicated by diabetes, peripheral neuropathy, coronary artery disease and obstructive sleep apnea as well as atrial flutter. Goal of rehab is cheondoism of prior level functional independence. Plan: - Physical therapy for gait and balance - Occupational Therapy for ADLs - Continue oral agents for diabetes and monitor sugars - Continue antihypertensive therapy - Continue home CPAP therapy - Bowel protocol - PRN analgesics - DVT prophylaxis - Incision C/D/I, remove Silvadene Mepilex on Friday 07/20 and igor on July 25. Mepilex was removed on Sunday - MOD I in preparation for discharge home home on July 25 with Outpatient Physical therapy and Occupational therapy - Plan is for discharge home on with outpatient PT/OT
--- NOTE | 2018-07-24 12:51 | PN_ITS ---
Subjective: Chief complaint: Follow-up after consultation for medical management after admission to inpatient rehabilitation unit. Patient seen and examined. No acute events overnight. He mentioned his right knee pain is well controlled. Has been doing well with physical therapy. Plan to go home tomorrow morning. His vital signs are stable. - Physical Exam General: Alert, Oriented x3, Cooperative, No apparent distress HEENT: Atraumatic, PERRLA, EOMI, Normocephalic Oral: Moist Mucosa, No Gingival or Mucosal Lesions/ Ulcerations Neck: Supple, No JVD, Negative Carotid Bruits, Trachea Midline, Thyroid Normal Size and Texture Lungs: Clear to auscultation, Normal air movement, No rhonchi, No wheeze, No rales Cardiovascular: Regular rate, Regular Rhythm, Normal S1, Normal S2, PMI Normal Abdomen: Bowel Sounds Present, Soft, Non Tender, Non-Distended, No Hepato- splenomegaly, Obese Extremities: No clubbing, No cyanosis, No edema Skin: No rashes, No breakdown Neurological: Cranial nerves II-XII grossly intact, Motor Exam 5/5 strength throughout Psych/Mental Status: Normal Affect, Appropriate, Alert and oriented to time, place, person, mood and affect Vital Signs Temp Pulse Resp BP Pulse Ox 97.8 F 70 18 124/71 H 94 07/24/18 07:29 07/24/18 07:56 07/24/18 07:29 07/24/18 07:29 07/24/18 07:29 Oxygen Delivery Method Room Air Weight: 295 lb 6.711 oz Body Mass Index (BMI) 38.0 Finger Stick Blood Glucose 150 Intake and Output for Last 24 Hours 07/22/18 07/23/18 07/24/18 23:59 23:59 23:59 Intake Total 360 / 360 500 / 500 400 / 400 Balance 360 / 360 500 / 500 400 / 400 Medical Necessity - Tobacco Use Smoking Status: Never smoker Assessment/Plan This is a 77 years old male patient admitted to inpatient rehabilitation unit after he underwent total right knee replacement and I am seeing this patient for follow-up after consultation for medical management. #1 status post total right knee replacement: Right knee pain is well controlled, patient is doing well with physical therapy. His vital signs are stable. Plan to go home tomorrow morning. #2 CAD status post stents: Stable, no acute issues, continue aspirin, statins, nitrates, Plavix, lisinopril and metoprolol. #3 hypertension: Blood pressure stable, continue HCTZ, isosorbide mononitrate, lisinopril and metoprolol. #4 type 2 diabetes mellitus: Blood sugar stable, continue glimepiride and metformin. #5 hyperlipidemia: Stable, continue statins. #6 GERD: Continue Protonix. #7 DVT prophylaxis: Subcu Lovenox. This note was generated with enymotion dictation software. It may contain incorrect words, spelling, and punctuation that were not noted in checking the note before signing. Code Visit Inpatient E&M: 10854 Subs Hosp L2
--- NOTE | 2018-07-24 14:53 | CASEMGMT ---
Social Work Spoke with patient in room. This social media executive communicating that physical therapy is recommending for patient to have continued services through outpatient physical therapy at time of discharge. Patient voicing understanding and agreeable to recommendation. Patient requesting for outpatient physical therapy to be set up through [facility]. Patient educated that [facility] will contact patient to set up appointment. Patient reporting to already have a walker set up within the home. Patient daughter to provide transportation home for patient. Patient daughter aware and agreeable to all discharge planning. Support given. Will fax order to [facility] when obtained. Proposed discharge date: 07/25/18 PLAN: Discharge to home with daughter and outpatient physical therapy. NOÉ Benedict, SUPPORTIVE EMPLOYMENT CASE MANAGER
[2018-07-24 20:26] VITALS: BP 148/83; PULSE 86; RESP 18; TEMP 36.8; O2SAT 98
[2018-07-24 22:01] VITALS: BP 148/83; PULSE 86
[2018-07-24] MEDS: Nortriptyline 25 MG Capsule PO (22:01)
[2018-07-24] MEDS: Atorvastatin Calcium 40 MG Tablet PO (22:01)
[2018-07-24] MEDS: LORazepam 1 MG Tablet PO (22:02)
[2018-07-24] MEDS: Donepezil HCl 10 MG Tablet PO (22:02)
[2018-07-25] MEDS: Gabapentin 600 MG Tablet PO ×2 (06:27→13:58)
[2018-07-25] MEDS: Hydrocortisone 2.5% Crm 1 APPLIC TOPICAL (06:27)
[2018-07-25] MEDS: Enoxaparin 40 MG/0.4 ML Syringe SC (06:27)
[2018-07-25 07:18] VITALS: BP 114/63; PULSE 72; RESP 16; TEMP 36.4; O2SAT 97
[2018-07-25] MEDS: LORazepam 0.5 MG Tablet PO (07:39)
[2018-07-25] MEDS: Aspirin 81 MG TAB.CHEW PO (07:39)
[2018-07-25] MEDS: hydroCHLOROthiazide 25 MG Tablet PO (07:39)
[2018-07-25] MEDS: Lisinopril 20 MG Tablet PO (07:39)
[2018-07-25] MEDS: Clopidogrel Bisulfate 75 MG Tablet PO (07:39)
[2018-07-25] MEDS: Magnesium Oxide 400 MG Tablet PO (07:39)
[2018-07-25] MEDS: Pantoprazole Sodium 20 MG Tablet PO (07:39)
[2018-07-25 07:40] VITALS: PULSE 72
[2018-07-25] MEDS: Metoprolol Tartrate 50 MG Tablet PO (07:40)
[2018-07-25] MEDS: Glimepiride 4 MG Tablet PO (07:40)
[2018-07-25] MEDS: Escitalopram Oxalate 10 MG Tablet PO (07:40)
[2018-07-25] MEDS: Acetaminophen 500 MG Tablet 1000 MG PO (07:41)
--- NOTE | 2018-07-25 08:35 | PCM.RU.DC ---
Rehab Discharge Summary DATE OF ADMISSION: 07/12/18 DATE OF DISCHARGE: 07/25/18 - Rehab Diagnosis RTKR - Physical Exam Psych/Mental Status: Alert and oriented to time, place, person, mood and affect Vital Signs Temp Pulse Resp BP Pulse Ox 97.6 F L 72 16 114/63 97 07/25/18 07:18 07/25/18 07:40 07/25/18 07:18 07/25/18 07:18 07/25/18 07:18 Oxygen Delivery Method Room Air Weight: 134 kg Body Mass Index (BMI) 38.0 Finger Stick Blood Glucose 150 Intake and Output for Last 24 Hours 07/23/18 07/24/18 07/25/18 23:59 23:59 23:59 Intake Total 500 / 500 1100 / 1100 Balance 500 / 500 1100 / 1100 Active Medications Acetaminophen (Tylenol) 1,000 mg PO BID [facility] Last Admin: 07/25/18 07:41 Dose: 1,000 mg Albuterol Sulfate (Ventolin Aerosols) 2.5 mg INHALATION Q4HWA.RT PRN PRN Reason: SHORTNESS OF BREATH Last Admin: 07/19/18 09:05 Dose: 2.5 mg Aspirin (Aspirin, Baby) 81 mg PO DAILY@0800 [facility] Last Admin: 07/25/18 07:39 Dose: 81 mg Atorvastatin Calcium (Lipitor) 40 mg PO QHS [facility] Last Admin: 07/24/18 22:01 Dose: 40 mg Bisacodyl (Dulcolax) 10 mg RECTAL .PRN X 1 PRN PRN Reason: Constipation Last Admin: 07/17/18 06:12 Dose: 10 mg Clopidogrel Bisulfate (Plavix) 75 mg PO DAILY [facility] Last Admin: 07/25/18 07:39 Dose: 75 mg Donepezil HCl (Aricept) 10 mg PO QHS [facility] Last Admin: 07/24/18 22:02 Dose: 10 mg Enoxaparin Sodium (Lovenox) 40 mg SC DAILY@0600 [facility] Last Admin: 07/25/18 06:27 Dose: 40 mg Ergocalciferol (Vitamin D) 50,000 unit PO Q7D@1000 [facility] Last Admin: 07/19/18 07:38 Dose: 50,000 unit Escitalopram Oxalate (Lexapro) 10 mg PO DAILY [facility] Last Admin: 11/01/18 07:40 Dose: 10 mg Gabapentin (Neurontin) 600 mg PO TID [facility] Last Admin: 07/25/18 06:27 Dose: 600 mg [facility] ([facility]maryl) [facility] Last Admin: 07/25/18 07:40 Dose: 4 mg Hydrochlorothiazide (Hctz) 25 mg PO DAILY [facility] Last Admin: 07/25/18 07:39 Dose: 25 mg Hydrocortisone (Hytone) 1 applic TOPICAL TID [facility]; Protocol Last Admin: 07/25/18 06:27 Dose: 1 applicatio Hyoscyamine Sulfate (Levsinex) 0.375 mg PO DAILY [facility] Last Admin: 07/25/18 07:41 Dose: 0.375 mg Isosorbide Mononitrate (Imdur) 120 mg PO DAILY [facility] Last Admin: 07/25/18 07:39 Dose: 120 mg Lisinopril (Zestril) 20 mg PO DAILY [facility] Last Admin: 07/25/18 07:39 Dose: 20 mg Lorazepam (Ativan) 1 mg PO QHS [facility] Last Admin: 07/24/18 22:02 Dose: 1 mg Lorazepam (Ativan) 0.5 mg PO DAILY [facility] Last Admin: 07/25/18 07:39 Dose: 0.5 mg Magnesium Hydroxide (Milk Of Magnesia) 30 ml PO .PRN X 1 PRN PRN Reason: Constipation Last Admin: 07/16/18 07:49 Dose: 30 ml Magnesium Oxide (Mag-Ox 400) 400 mg PO BID [facility] Last Admin: 07/25/18 07:39 Dose: 400 mg Metformin HCl (Glucophage) [facility] Last Admin: 07/25/18 07:40 Dose: 500 mg Metoprolol Tartrate (Lopressor (Beta Chyna)) 50 mg PO BID [facility] Last Admin: 07/25/18 07:40 Dose: 50 mg Nitroglycerin (Nitrostat) 0.4 mg SUBLINGUAL Q5M PRN PRN Reason: Chest Pain Nortriptyline HCl (Pamelor) 25 mg PO QHS [facility] Last Admin: 07/24/18 22:01 Dose: 25 mg Oxycodone HCl (Oxyir) 5 - 10 mg PO Q4H PRN PRN PRN Reason: SEVERE PAIN (6-10/10) Last Admin: 07/24/18 13:35 Dose: 5 mg Pantoprazole Sodium (Protonix) 20 mg PO DAILY [facility] Last Admin: 07/25/18 07:39 Dose: 20 mg Senna/Docusate Sodium (Senokot-S, Ana-Colace) 2 tablet PO BID [facility] Last Admin: 07/25/18 07:42 Dose: Not Given Discharge Diet: No Restrictions Discharge Activity: May Not Drive, May not drive while taking narcotic pain medications., May Shower, Use Walker, - - Do not soak in a tub bath until cleared by Surgeon Weight Bearing Status: Weight bearing as tolerated Keep extremity elevated above heart level: Right Leg Call your doctor if your incision/area has: Increased Pain/ Swelling, Increased Redness, Foul Smelling Discharge, Swelling at the incision site Call your doctor if you observe: Fever of 101 or Higher, Coldness, Increased Pain, Numbness or Tingling, Change in Color, Inability to urinate, Inability to have a bowel movement, Using more than one pad per hour, Shortness of breath, Dizziness, Fainting spells, Swelling in the ankles, Chest pain, Prolonged hiccoughing, Increased palpitations (irregular heartbeat), Calf discomfort, Uncontrolled pain Home Medications: Medications to take at Discharge Aspirin [Aspirin, Baby] 81 mg PO DAILY@0800 07/18/13 Gabapentin [Neurontin] 600 mg PO TID 07/18/13 Lorazepam [Ativan] 1 mg PO QHS 07/18/13 Meclizine HCl [Antivert] 25 mg PO BID 07/18/13 Rosuvastatin Calcium [Crestor] 20 mg PO DAILY 07/18/13 Metformin HCl [Glucophage] 500 mg PO DAILY 01/03/14 Donepezil HCl [Aricept] 10 mg PO QHS 11/16/14 Magnesium Oxide [Mag-Ox 400] 400 mg PO BID 11/16/14 Nortriptyline HCl 25 mg PO QHS 03/16/17 glimepiride 4 mg tablet 4 mg PO BID tab 01/08/18 acetaminophen 500 mg capsule 1,000 mg PO BID 01/10/18 nitroglycerin 0.4 mg sublingual tablet 0.4 mg SUBLINGUAL Q5M PRN #25 tab 01/10/18 Clopidogrel Bisulfate [Clopidogrel] 75 mg PO QDAY 07/12/18 Ergocalciferol [Vitamin D] 50,000 unit PO Q7D 07/12/18 Escitalopram Oxalate [Lexapro] 10 mg PO DAILY 07/12/18 Hyoscyamine Sulfate [Hyoscyamine Sulfate Sr] 0.375 mg PO DAILY 07/12/18 Isosorbide Mononitrate [Imdur] 120 mg PO DAILY 07/12/18 Lisinopril/Hydrochlorothiazide [Zestoretic 20/25 Tablet] 1 tablet PO DAILY 07/12/18 Metoprolol Tartrate [Lopressor (beta chyna)] 50 mg PO BID 07/12/18 Omeprazole [Prilosec] 20 mg PO DAILY 07/12/18 Hydrocortisone 2.5% Crm [Hytone] 1 applic TOPICAL TID tube 07/24/18 Oxycodone [Oxyir] 5 - 10 mg PO Q4H PRN PRN 7 Days #42 tab 07/24/18 Following Prescrptions Were Given to Patient: Oxycodone [Oxyir] 5 - 10 mg PO Q4H PRN PRN 7 Days #42 tab PRN Reason: Severe Pain (-07/03) Primary Care Physician: Antonio Louis Chi, MD [Primary Care Provider] - Please Follow Up With: Dr. Perez Please Follow Up With: Dr. Perez Please Follow Up With: Antonio Louis Chi, MD Minutes spent on discharge:: 40 Patient Condition:: Good Rehab Course The patient is a 77 year old male with a history of osteoarthritis as well as hypertension, hyperlipidemia, coronary artery disease, diabetes and peripheral neuropathy as well as obstructive sleep apnea on CPAP, and atrial flutter who presents to the [facility] acute rehab unit for rehabilitation after having undergone a right total knee replacement surgery for osteoarthritis performed by Dr. Cy Perez at [facility] 07/10/18. His hospitalization, surgery and postoperative course was benign. He lives at home with his daughter and son-in-law. The house is a one-story house with a ramp set up. He normally walks with a walker at home but is independent and continues to drive. Goal of therapy is pentecostalism of his prior level of functional independence. He denies any complaints of pain at this point, denies any GI or complaints, no fevers, chills or sweats. Summary of care: Debility status post right total knee replacement performed 07/10/[address] Perez at [facility]. Complicated by diabetes, peripheral neuropathy, coronary artery disease and obstructive sleep apnea as well as atrial flutter. Goal of rehab is pentecostalism of prior level functional independence. Plan: - Physical therapy for gait and balance - Occupational Therapy for ADLs - Continue oral agents for diabetes and monitor sugars - Continue antihypertensive therapy - Continue home CPAP therapy - Bowel protocol - PRN analgesics - DVT prophylaxis - Incision C/D/I, remove Silvadene Mepilex on Friday 07/20 and igor on July 25. Mepilex was removed on Sunday - MOD I in preparation for discharge home home on July 25 with Outpatient Physical therapy and Occupational therapy - Plan is for discharge home on with outpatient PT/OT Summary of therapy sessions: With Physical therapy, he is able to go from a sitting to a standing position at stand by assist. He requires no assistance with getting in and out of the bed, he is able to use assistive devices with his leg if he requires help with getting out of bed. He is walking 135 to 150 feet using a cane, he also walked in the community without any difficulty, his endurance has improved greatly. He is able to go up and down 3 steps at stand by assistance. With Occupational therapy, he is able to do his upper body dressing and washing without difficulty. He requires occasional assistance with his lower body, he is using adaptive equipment which is helping a great deal, he stills require assistance with putting his shoes on and off. He is able to transfer to the bedside commode with minimal to no assistance requires no assistance for toileting hygiene. He was able to get in and out of the shower with out any assistance. With Nursing, pain is well controlled, His incision looks good no redness, edema or swelling noted has a follow up appointment with his Surgeon today following his discharge from rehab. He will have Outpatient [facility] at [facility]. Meaningful Use Info Meaningful Use Diagnoses (Choose all that apply): None applicable
--- NOTE | 2018-07-25 08:38 | DS.PCM_ITS ---
Rehab Discharge Summary DATE OF ADMISSION: 07/12/18 DATE OF DISCHARGE: 07/25/18 - Rehab Diagnosis RTKR - Physical Exam Psych/Mental Status: Alert and oriented to time, place, person, mood and affect Vital Signs Temp Pulse Resp BP Pulse Ox 97.6 F L 72 16 114/63 97 07/25/18 07:18 07/25/18 07:40 07/25/18 07:18 07/25/18 07:18 07/25/18 07:18 Oxygen Delivery Method Room Air Weight: 134 kg Body Mass Index (BMI) 38.0 Finger Stick Blood Glucose 150 Intake and Output for Last 24 Hours 07/23/18 07/24/18 07/25/18 23:59 23:59 23:59 Intake Total 500 / 500 1100 / 1100 Balance 500 / 500 1100 / 1100 Active Medications Acetaminophen (Tylenol) 1,000 mg PO BID [facility] Last Admin: 07/25/18 07:41 Dose: 1,000 mg Albuterol Sulfate (Ventolin Aerosols) 2.5 mg INHALATION Q4HWA.RT PRN PRN Reason: SHORTNESS OF BREATH Last Admin: 07/19/18 09:05 Dose: 2.5 mg Aspirin (Aspirin, Baby) 81 mg PO DAILY@0800 [facility] Last Admin: 07/25/18 07:39 Dose: 81 mg Atorvastatin Calcium (Lipitor) 40 mg PO QHS [facility] Last Admin: 07/24/18 22:01 Dose: 40 mg Bisacodyl (Dulcolax) 10 mg RECTAL .PRN X 1 PRN PRN Reason: Constipation Last Admin: 07/17/18 06:12 Dose: 10 mg Clopidogrel Bisulfate (Plavix) 75 mg PO DAILY [facility] Last Admin: 07/25/18 07:39 Dose: 75 mg Donepezil HCl (Aricept) 10 mg PO QHS [facility] Last Admin: 07/24/18 22:02 Dose: 10 mg Enoxaparin Sodium (Lovenox) 40 mg SC DAILY@0600 [facility] Last Admin: 07/25/18 06:27 Dose: 40 mg Ergocalciferol (Vitamin D) 50,000 unit PO Q7D@1000 [facility] Last Admin: 07/19/18 07:38 Dose: 50,000 unit Escitalopram Oxalate (Lexapro) 10 mg PO DAILY [facility] Last Admin: 11/01/18 07:40 Dose: 10 mg Gabapentin (Neurontin) 600 mg PO TID [facility] Last Admin: 07/25/18 06:27 Dose: 600 [facility] Last Admin: 07/25/18 07:40 Dose: 4 mg Hydrochlorothiazide (Hctz) 25 mg PO DAILY [facility] Last Admin: 07/25/18 07:39 Dose: 25 mg Hydrocortisone (Hytone) 1 applic TOPICAL TID [facility]; Protocol Last Admin: 07/25/18 06:27 Dose: 1 applicatio Hyoscyamine Sulfate (Levsinex) 0.375 mg PO DAILY [facility] Last Admin: 07/25/18 07:41 Dose: 0.375 mg Isosorbide Mononitrate (Imdur) 120 mg PO DAILY [facility] Last Admin: 07/25/18 07:39 Dose: 120 mg Lisinopril (Zestril) 20 mg PO DAILY [facility] Last Admin: 07/25/18 07:39 Dose: 20 mg Lorazepam (Ativan) 1 mg PO QHS [facility] Last Admin: 07/24/18 22:02 Dose: 1 mg Lorazepam (Ativan) 0.5 mg PO DAILY [facility] Last Admin: 07/25/18 07:39 Dose: 0.5 mg Magnesium Hydroxide (Milk Of Magnesia) 30 ml PO .PRN X 1 PRN PRN Reason: Constipation Last Admin: 07/16/18 07:49 Dose: 30 ml Magnesium Oxide (Mag-Ox 400) 400 mg PO BID [facility] Last Admin: 07/25/18 07:39 Dose: 400 mg [facility] Last Admin: 07/25/18 07:40 Dose: 500 mg Metoprolol Tartrate (Lopressor (Beta Chyna)) 50 mg PO BID [facility] Last Admin: 07/25/18 07:40 Dose: 50 mg Nitroglycerin (Nitrostat) 0.4 mg SUBLINGUAL Q5M PRN PRN Reason: Chest Pain Nortriptyline HCl (Pamelor) 25 mg PO QHS [facility] Last Admin: 07/24/18 22:01 Dose: 25 mg Oxycodone HCl (Oxyir) 5 - 10 mg PO Q4H PRN PRN PRN Reason: SEVERE PAIN (6-10/10) Last Admin: 07/24/18 13:35 Dose: 5 mg Pantoprazole Sodium (Protonix) 20 mg PO DAILY [facility] Last Admin: 07/25/18 07:39 Dose: 20 mg Senna/Docusate Sodium (Senokot-S, Ana-Colace) 2 tablet PO BID [facility] Last Admin: 07/25/18 07:42 Dose: Not Given Discharge Diet: No Restrictions Discharge Activity: May Not Drive, May not drive while taking narcotic pain medications., May Shower, Use Walker, - - Do not soak in a tub bath until cl eared by Surgeon Weight Bearing Status: Weight bearing as tolerated Keep extremity elevated above heart level: Right Leg Call your doctor if your incision/area has: Increased Pain/ Swelling, Increased Redness, Foul Smelling Discharge, Swelling at the incision site Call your doctor if you observe: Fever of 101 or Higher, Coldness, Increased Pain, Numbness or Tingling, Change in Color, Inability to urinate, Inability to have a bowel movement, Using more than one pad per hour, Shortness of breath, Dizziness, Fainting spells, Swelling in the ankles, Chest pain, Prolonged hiccoughing, Increased palpitations (irregular heartbeat), Calf discomfort, Uncontrolled pain Home Medications: Medications to take at Discharge Aspirin [Aspirin, Baby] 81 mg PO DAILY@0800 07/18/13 Gabapentin [Neurontin] 600 mg PO TID 07/18/13 Lorazepam [Ativan] 1 mg PO QHS 07/18/13 Meclizine HCl [Antivert] 25 mg PO BID 07/18/13 Rosuvastatin Calcium [Crestor] 20 mg PO DAILY 07/18/13 Metformin HCl [Glucophage] 500 mg PO DAILY 01/03/14 Donepezil HCl [Aricept] 10 mg PO QHS 11/16/14 Magnesium Oxide [Mag-Ox 400] 400 mg PO BID 11/16/14 Nortriptyline HCl 25 mg PO QHS 03/16/17 glimepiride 4 mg tablet 4 mg PO BID tab 01/08/18 acetaminophen 500 mg capsule 1,000 mg PO BID 01/10/18 nitroglycerin 0.4 mg sublingual tablet 0.4 mg SUBLINGUAL Q5M PRN #25 tab 01/10/18 Clopidogrel Bisulfate [Clopidogrel] 75 mg PO QDAY 07/12/18 Ergocalciferol [Vitamin D] 50,000 unit PO Q7D 07/12/18 Escitalopram Oxalate [Lexapro] 10 mg PO DAILY 07/12/18 Hyoscyamine Sulfate [Hyoscyamine Sulfate Sr] 0.375 mg PO DAILY 07/12/18 Isosorbide Mononitrate [Imdur] 120 mg PO DAILY 07/12/18 Lisinopril/Hydrochlorothiazide [Zestoretic 20/25 Tablet] 1 tablet PO DAILY 07/12/18 Metoprolol Tartrate [Lopressor (beta chyna)] 50 mg PO BID 07/12/18 Omeprazole [Prilosec] 20 mg PO DAILY 07/12/18 Hydrocortisone 2.5% Crm [Hytone] 1 applic TOPICAL TID tube 07/24/18 Oxycodone [Oxyir] 5 - 10 mg PO Q4H PRN PRN 7 Days #42 tab 07/24/18 Following Prescrptions Were Given to Patient: Oxycodone [Oxyir] 5 - 10 mg PO Q4H PRN PRN 7 Days #42 tab PRN Reason: Severe Pain (-07/03) Primary Care Physician: Antonio Louis Chi, MD [Primary Care Provider] - Please Follow Up With: Dr. Perez Please Follow Up With: Dr. Perez Please Follow Up With: Antonio Louis Chi, MD Minutes spent on discharge:: 40 Patient Condition:: Good Rehab Course The patient is a 77 year old male with a history of osteoarthritis as well as hypertension, hyperlipidemia, coronary artery disease, diabetes and peripheral neuropathy as well as obstructive sleep apnea on CPAP, and atrial flutter who presents to the [facility] acute rehab unit for rehabilitation after having undergone a right total knee replacement surgery for osteoarthritis performed by Dr. Cy Perez at [facility] 07/10/18. His hospitalization, surgery and postoperative course was benign. He lives at home with his daughter and son-in-law. The house is a one-story house with a ramp set up. He normally walks with a walker at home but is independent and continues to drive. Goal of therapy is moravian of his prior level of functional independence. He denies any complaints of pain at this point, denies any GI or complaints, no fevers, chills or sweats. Summary of care: Debility status post right total knee replacement performed 07/10/[address] Perez at [facility]. Complicated by diabetes, peripheral neuropathy, coronary artery disease and obstructive sleep apnea as well as atrial flutter. Goal of rehab is moravian of prior level functional independence. Plan: - Physical therapy for gait and balance - Occupational Therapy for ADLs - Continue oral agents for diabetes and monitor sugars - Continue antihypertensive therapy - Continue home CPAP therapy - Bowel protocol - PRN analgesics - DVT prophylaxis - Incision C/D/I, remove Silvadene Mepilex on Friday 07/20 and igor on July 25. Mepilex was removed on Sunday - MOD I in preparation for discharge home home on July 25 with Outpatient Physical therapy and Occupational therapy - Plan is for discharge home on with outpatient PT/OT Summary of therapy sessions: With Physical therapy, he is able to go from a sitting to a standing position at stand by assist. He requires no assistance with getting in and out of the bed, he is able to use assistive devices with his leg if he requires help with getting out of bed. He is walking 135 to 150 feet using a cane, he also walked in the community without any difficulty, his endurance has improved greatly. He is able to go up and down 3 steps at stand by assistance. With Occupational therapy, he is able to do his upper body dressing and washing without difficulty. He requires occasional assistance with his lower body, he is using adaptive equipment which is helping a great deal, he stills require assistance with putting his shoes on and off. He is able to transfer to the bedside commode with minimal to no assistance requires no assistance for toileting hygiene. He was able to get in and out of the shower with out any assistance. With Nursing, pain is well controlled, His incision looks good no redness, edema or swelling noted has a follow up appointment with his Surgeon today following his discharge from rehab. [facility] Meaningful Use Info Meaningful Use Diagnoses (Choose all that apply): None applicable
--- NOTE | 2018-07-25 08:40 | DCINST_ITS ---
- Discharge Diagnoses Reason(s) for Visit for Discharge Instructions: RTKR You will use the following diet at home:: Regular Your food should be the consistency of: Regular Your liquids should be the consistency of: Regular/Thin Discharge Activity: May Not Drive, May not drive while taking narcotic pain medications., May Shower, Use Walker, - - Do not soak in a tub bath until cleared by Surgeon Weight Bearing Status: Weight bearing as tolerated Keep extremity elevated above heart level: Right Leg Call your doctor if your incision/area has: Increased Pain/ Swelling, Increased Redness, Foul Smelling Discharge, Swelling at the incision site Call your doctor if you observe: Fever of 101 or Higher, Coldness, Increased Pain, Numbness or Tingling, Change in Color, Inability to urinate, Inability to have a bowel movement, Using more than one pad per hour, Shortness of breath, Dizziness, Fainting spells, Swelling in the ankles, Chest pain, Prolonged hiccoughing, Increased palpitations (irregular heartbeat), Calf discomfort, Uncontrolled pain Allergies/Adverse Reactions: Allergies No Known Allergies Allergy (Verified 01/10/18 13:04) Medications to take at Discharge Aspirin [Aspirin, Baby] 81 mg PO DAILY@0800 07/18/13 Gabapentin [Neurontin] 600 mg PO TID 07/18/13 Lorazepam [Ativan] 1 mg PO QHS 07/18/13 Meclizine HCl [Antivert] 25 mg PO BID 07/18/13 Rosuvastatin Calcium [Crestor] 20 mg PO DAILY 07/18/13 Metformin HCl [Glucophage] 500 mg PO DAILY 01/03/14 Donepezil HCl [Aricept] 10 mg PO QHS 11/16/14 Magnesium Oxide [Mag-Ox 400] 400 mg PO BID 11/16/14 Nortriptyline HCl 25 mg PO QHS 03/16/17 glimepiride 4 mg tablet 4 mg PO BID tab 01/08/18 acetaminophen 500 mg capsule 1,000 mg PO BID 01/10/18 nitroglycerin 0.4 mg sublingual tablet 0.4 mg SUBLINGUAL Q5M PRN #25 tab 01/10/18 Clopidogrel Bisulfate [Clopidogrel] 75 mg PO QDAY 07/12/18 Ergocalciferol [Vitamin D] 50,000 unit PO Q7D 07/12/18 Escitalopram Oxalate [Lexapro] 10 mg PO DAILY 07/12/18 Hyoscyamine Sulfate [Hyoscyamine Sulfate Sr] 0.375 mg PO DAILY 07/12/18 Isosorbide Mononitrate [Imdur] 120 mg PO DAILY 07/12/18 Lisinopril/Hydrochlorothiazide [Zestoretic / Tablet] 1 tablet PO DAILY 07/12/18 Metoprolol Tartrate [Lopressor (beta marcin)] 50 mg PO BID 07/12/18 Omeprazole [Prilosec] 20 mg PO DAILY 07/12/18 Hydrocortisone 2.5% Crm [Hytone] 1 applic TOPICAL TID tube 07/24/18 Oxycodone [Oxyir] 5 - 10 mg PO Q4H PRN PRN 7 Days #42 tab 07/24/18 The following prescriptions were given: Oxycodone [Oxyir] 5 - 10 mg PO Q4H PRN PRN 7 Days #42 tab PRN Reason: Severe Pain (6-07/03) Primary Care Physician: Antonio Louis Chi, MD [Primary Care Provider] - Test Results: Test results from this visit will be discussed in further detail at your follow- up appointment, if applicable. Please Follow Up With: Dr. Perez Please Follow Up With: Dr. Perez Please Follow Up With: Antonio Louis Chi, MD Proposed Discharge Date: 07/25/18
--- NOTE | 2018-07-25 10:18 | CASEMGMT ---
Social Work Faxed order for outpatient physical therapy. Proposed discharge date: 07/25/18 PLAN: Discharge to home with daughter. NOÉ Benedict, WELL TESTING OPERATOR
--- NOTE | 2018-07-25 10:18 | CASEMGMT ---
Team meeting held. Patient present. Patient to discharge on 07/25/18 to home with daughter. Patient has needed durable medical equipment and will have outpatient physical therapy. Patient daughter to provide transportation home for patient at time of discharge. Support given. Proposed discharge date: 07/25/18 PLAN: Discharge to home with daughter and outpatient physical therapy. NOÉ Benedict, PROPERTY ADMINISTRATOR
--- NOTE | 2018-07-25 13:59 | NURSING ---
patient and daughter verbalized understanding of discharge instructions, denied any further questions.
== END 2018-07-25 14:03 | disposition home or self-care (01) | DRG 560 ==
PROVIDERS: Family Medicine; Nurse Practitioner Acute Care; Admitting Provider Psychiatry & Neurology Neurology; Family Provider Family Medicine Geriatric Medicine; PCP Family Medicine Geriatric Medicine; Referring Provider Psychiatry & Neurology Neurology; Visit Provider Hospitalist
DX: Z47.1 Aftercare following joint replacement surgery (principal); I48.92 Unspecified atrial flutter; Z96.651 Presence of right artificial knee joint; I25.10 Atherosclerotic heart disease of native coronary artery without angina pectoris; I25.2 Old myocardial infarction; G47.33 Obstructive sleep apnea (adult) (pediatric); E78.5 Hyperlipidemia, unspecified; K21.9 Gastro-esophageal reflux disease without esophagitis; E11.42 Type 2 diabetes mellitus with diabetic polyneuropathy; M19.90 Unspecified osteoarthritis, unspecified site; N40.0 Benign prostatic hyperplasia without lower urinary tract symptoms; F41.9 Anxiety disorder, unspecified; F32.9 Major depressive disorder, single episode, unspecified; I12.9 Hypertensive chronic kidney disease with stage 1 through stage 4 chronic kidney disease, or unspecified chronic kidney disease; E11.22 Type 2 diabetes mellitus with diabetic chronic kidney disease; N18.3 Chronic kidney disease, stage 3 (moderate); Z95.5 Presence of coronary angioplasty implant and graft
CPT/HCPCS: 36415; 71045; 80048; 82962; 85027; 87255; 94640; 97110; 97116; 97162; 97166; 97530; 97535; 97802

== ENCOUNTER 2018-08-31 11:13 | Emergency (ER) | payer MEDICARE, OTHER, SELFPAY ==
[2018-08-31 11:14] VITALS: BP 147/79; PULSE 74; RESP 16; TEMP 36.4; O2SAT 95; BMI 36.6
--- NOTE | 2018-08-31 11:46 | RAD_ITS ---
STUDY: X-RAY - RIGHT KNEE REASON FOR EXAM: Male, 77 years old. Pain since Sunday. Total knee replacement July 10, 2018. No known injury. TECHNIQUE: 4 view(s) of the knee. COMPARISON: 2 views of the right knee December 29, 2014. FINDINGS: Since the previous exam, the patient has undergone right total knee arthroplasty. Metal prostheses overlying the femoral condyles and tibial plateau appear well seated, and in anatomic alignment. Normal visualized proximal fibula. Deformity along the posterior patella related to radiolucent prosthesis at that site. There is no demonstrated destructive osseous lesion or acute fracture. Normal medial femorotibial compartment. Normal lateral femorotibial compartment. There is atypical widening of the medial patellofemoral joint space, producing a laterally angulated position of the patella on the sunrise view. There is a moderate volume joint effusion. There is notable peripatellar soft tissue swelling. There are scattered focal atherosclerotic calcifications. RAD/Knee 4 or More Views IMPRESSION: 1. Status post right total knee arthroplasty, as described. There is expected postsurgical peripatellar soft tissue swelling. 2. [id number] joint effusion present. There is a widened medial femoral patellar joint space producing a laterally angulated position of the patella on the sunrise view. Electronically Signed: Ang Taipa MD at 12:44 EST , Service support ,
[2018-08-31 12:29] LABS: Absolute Lymphocyte Count 1.47 X10^3/ul (0.83-4.51); Absolute Neutrophil Count 4.7 X10^3/uL (2.0-7.7); Basophil# 0.03 X10^3/uL; Basophil% 0.4 % (0-1); Eosinophil# 0.33 X10^3/uL; Eosinophils% 4.6 % (0-5); Erythrocyte Sedimentation Rate 12 mm/hr (0-20); Hematocrit 40.1 % (40-54); Hemoglobin 12.7 g/dl (13.0-16.5); Lymphocyte # 1.47 X10^3/ul (4.0); Lymphocyte % 20.5 % (19-41); Mean Corp Hgb Conc 31.7 g/gl (32-36); Mean Corpuscular Hgb 30.6 pg (27.0-32.0); Mean Corpuscular Volume 96.6 fL (80-94); Mean Platelet Vol. 8.7 fl (6.2-12.0); Monocyte# 0.62 X10^3/uL; Monocyte% 8.6 % (0-10); Neutrophil # 4.72 X10^3/uL (2.7-7.7); Neutrophil % 65.8 % (47-70); POSITIVE COUNT NO; POSITIVE DIFFERENTIAL NO; POSITIVE MORPHOLOGY NO; Platelet Count 191 K/mm3 (150-450); RBC Distribution Width CV 13.7 % (11.6-14.6); RBC Distribution Width SD 48.6 fl (35.1-43.9); Red Blood Count 4.15 M/mm3 (4.6-6.2); White Blood Count 7.2 K/mm3 (4.4-11.0)
[2018-08-31 12:32] LABS: Anion Gap 7 (5-15); BUN 20 mg/dL (7-18); BUN/Creat Ratio 16.8 RATIO (10-20); Calcium,Total 8.8 mg/dL (8.5-10.1); Chloride 107 mmol/L (98-107); Creatinine, Serum 1.19 mg/dL (0.70-1.30); EST Glomerular Filtration Rate 63 mL/min (>60); Est Glom Filt Rate - Afr Amer 76 mL/min (>60); Estimated Creatinine Clearance 58.52 ml/min; Glucose 136 mg/dL (74-106); Potassium 4.5 mmol/L (3.5-5.1); Sodium Level 142 mmol/L (136-145)
--- NOTE | 2018-08-31 13:57 | ED.VISSUMM ---
- ER Visit Summary Date of Service: 08/31/18 Chief Complaint: Right knee pain History of Present Illness: The patient is a [address] Louis, Dr. Pickens, and Dr. Perez. Patient had a right total knee replacement by Dr. Perez on July 10. States that he has done very well following this. He has been using just Tylenol for pain. However, he reports that he began having increasing pain in his right knee 3 days ago. States the pain is now a sharp pain is 6 out of 10 when he stands up and 2 out of 10 when he is at rest. Reports pain is so severe that he cannot even move his leg out of bed himself. Patient denies any recent trauma. No fall or MVA. Review of systems: General: No fever, chills, cold sweats. Cardiovascular: No chest pain, palpitations. Respiratory: No cough, shortness of breath, dyspnea on exertion. Gastrointestinal: No abdominal pain, nausea, vomiting, diarrhea, melena, or hematochezia. Genitourinary: No dysuria, frequency, hematuria. Skin: No rash. Neuro: No headache, numbness, weakness. Physical Examination: Vitals: Stable. Afebrile. General: Well-nourished and well-developed. Head: Normocephalic atraumatic. Neck: Supple, no lymphadenopathy. No JVD. Nontender. Cardiovascular: Regular rate and rhythm. No murmurs. Respiratory: No respiratory distress. Clear to auscultation bilaterally. Abdominal: Soft, nontender, nondistended, normal bowel sounds. No guarding, rebound, or peritoneal signs. Back: Nontender. Extremities: Minimal swelling overlying his right knee with minimal effusion. The incision has approximately 5 mm scab at the top. Otherwise it is well-healed. No erythema. However, it is warm to the touch. Greatly decreased range of motion secondary to pain. He is unable to even lift his leg off to the bed secondary to pain. Skin: Normal color, no rash. Neurologic: Alert and oriented ?3. Cranial nerves II through XII are intact. Normal strength and sensation. Psych: Normal affect. Test Results: CBC is remarkable for hemoglobin of 12.7. Chem-7 is remarkable for a BUN of 20 and glucose 136. Sed rate is 12. Clinical Impression(s) from Imaging Studies Knee X-Ray 08/31/18 11:46 IMPRESSION: 1. Status post right total knee arthroplasty, as described. There is expected postsurgical peripatellar soft tissue swelling. 2. Iigvt-ks-nxytvazn joint effusion present. There is a widened medial femoral patellar joint space producing a laterally angulated position of the patella on the sunrise view. Electronically Signed: Ang Tapia MD at 12:44 EST , Service support , Emergency Department Course and Treatment: Patient is resting comfortably and refused pain medications. Treatment Plan: Patient was discussed with Dr. Perez. Given how fresh this knee replacement is he does not want arthrocentesis performed. He has the patient be transferred to [facility] [place] for further evaluation and treatment. Disposition: Transferred in stable condition. Impression: 1. Right knee pain. 2. Status post right knee total knee arthroplasty July 10, 2018. This note was generated with [employer] dictation software. It may contain incorrect words, spelling, and punctuation that were not noted in review of the chart prior to signing ED Disposition - Plan for ED Patient: Chief Complaint: Lower Extremity Injury Referrals: Antonio Louis Chi, MD [Primary Care Provider] -
--- NOTE | 2018-08-31 14:01 | ED.DCSUM_ITS ---
- ER Visit Summary Date of Service: 08/31/18 Chief Complaint: Right knee pain History of Present Illness: The patient is a [address] Louis, Dr. Pickens, and Dr. Perez. Patient had a right total knee replacement by Dr. Perez on July 10. States that he has done very well following this. He has been using just Tylenol for pain. However, he reports that he began having increasing pain in his right knee 3 days ago. States the pain is now a sharp pain is 6 out of 10 when he stands up and 2 out of 10 when he is at rest. Reports pain is so severe that he cannot even move his leg out of bed himself. Patient denies any recent trauma. No fall or MVA. Review of systems: General: No fever, chills, cold sweats. Cardiovascular: No chest pain, palpitations. Respiratory: No cough, shortness of breath, dyspnea on exertion. Gastrointestinal: No abdominal pain, nausea, vomiting, diarrhea, melena, or hematochezia. Genitourinary: No dysuria, frequency, hematuria. Skin: No rash. Neuro: No headache, numbness, weakness. Physical Examination: Vitals: Stable. Afebrile. General: Well-nourished and well-developed. Head: Normocephalic atraumatic. Neck: Supple, no lymphadenopathy. No JVD. Nontender. Cardiovascular: Regular rate and rhythm. No murmurs. Respiratory: No respiratory distress. Clear to auscultation bilaterally. Abdominal: Soft, nontender, nondistended, normal bowel sounds. No guarding, rebound, or peritoneal signs. Back: Nontender. Extremities: Minimal swelling overlying his right knee with minimal effusion. The incision has approximately 5 mm scab at the top. Otherwise it is well- healed. No erythema. However, it is warm to the touch. Greatly decreased range of motion secondary to pain. He is unable to even lift his leg off to the bed secondary to pain. Skin: Normal color, no rash. Neurologic: Alert and oriented ?3. Cranial nerves II through XII are intact. Normal strength and sensation. Psych: Normal affect. Test Results: CBC is remarkable for hemoglobin of 12.7. Chem-7 is remarkable for a BUN of 20 and glucose 136. Sed rate is 12. Clinical Impression(s) from Imaging Studies Knee X-Ray 08/31/18 11:46 IMPRESSION: 1. Status post right total knee arthroplasty, as described. There is expected postsurgical peripatellar soft tissue swelling. 2. Ctcbs-ph-bkjjfmca joint effusion present. There is a widened medial femoral patellar joint space producing a laterally angulated position of the patella on the sunrise view. Electronically Signed: Ang Tapia MD at 12:44 EST , Service support , Emergency Department Course and Treatment: Patient is resting comfortably and refused pain medications. Treatment Plan: Patient was discussed with Dr. Perez. Given how fresh this knee replacement is he does not want arthrocentesis performed. He has the patient be transferred to [facility] for further evaluation and treatment. Disposition: Transferred in stable condition. Impression: 1. Right knee pain. 2. Status post right knee total knee arthroplasty July 10, 2018. This note was generated with [employer] dictation software. It may contain incorrect words, spelling, and punctuation that were not noted in review of the chart prior to signing ED Disposition - Plan for ED Patient: Chief Complaint: Lower Extremity Injury Referrals: Antonio Louis Chi, MD [Primary Care Provider] -
[2018-08-31 14:37] VITALS: BP 157/72; PULSE 72; RESP 18
== END 2018-08-31 14:56 | disposition short-term general hospital (02) ==
LOC: ED 12:11
PROVIDERS: Emergency Provider Emergency Medicine; Family Provider Family Medicine Geriatric Medicine; PCP Family Medicine Geriatric Medicine
DX: M25.561 Pain in right knee (principal); Z96.651 Presence of right artificial knee joint; G47.33 Obstructive sleep apnea (adult) (pediatric)
CPT/HCPCS: 73564; 80048; 85025; 85652; 99284; A4216

== ENCOUNTER 2018-10-18 09:00 | Outpatient (RCR) | payer MEDICARE, OTHER, SELFPAY ==
--- NOTE | 2018-07-29 08:56 | HP.PTEVAL_ITS ---
Patient's Visit Information MARYANN REYES is a 77 year old M referred to Physical Therapy by Javy Diop MD with a diagnosis of R TKA. Date of Evaluation: 07/29/18 Physical Therapist: Walt Guerrero DPT, OC - Visit Plan Frequency: 3x /Week Duration: 4-6 Weeks Plan: 3x/week for 3-6 weeks for. 1. patellar mobs and R knee ROM. 2. R LE strength. 3. Gait/steps, transfers. 4. Progression of HEP. 5. ice if needed. - Subjective Subjective: 07/10/[address] Perez on R. Hurt it 2.5 yrs ago falling on ice. Has stents in heart in last couple years. Using wh walker to get around and used it prior to surgery for safety. Has 2-3/10 pain. Doesn't anticipate needing walker for ever but will use it in the house for safety. Could go without it at home prior. Was in rehab for 2 weeks. Sleeps well. ROM feels good. Has steps at home, has ramp at main entrance. Two steps out back with rail. Has basement but does not use it. Lives with daughter adn granddaughter. New in 12 days. Dressing self, cooiking and cleaning. In and out of shower tub OK. Put sock and shoe in without difficulty. Drive when doctor OKs him(4-5 weeks). 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 - Pain R knee Pain Intensity (Out of 10): 2 Pain Intensity Range: 0, 4 - Objective Walks with wh walker safe and I with good B knee flexion, Slow but steady without assistive device. Increased pain after 200 feet to 5/10 adn slight SOB, sweaty. Trasnfers chair I with UE. Bed transfers I. Steps needs rail and can use R ascending but painful, descending with L LE only. 0-107 AROM R knee, 0- 118 L knee. r patella stiff in distal movement. Incision is anterior and dry, healing, no signs of exccessive redness or heat or swelling. - homans.SLR with 5 degree ext lag R. Ankle ROM WFL with brace on R LE, strength ankles 4-/5 B. Hip AROM WFL and strengtgh at 4-. - Goals Goal 1:: 0-115 AROM R to facilitate steps without pain. Goal Time Frame: 4-6 Weeks Goal 2:: Walk 200 feet without AD I without SOB ro increased pain. Goal Time Frame: 4-6 Weeks Goal 3:: Exit chair without need for UE Goal Time Frame: 4-6 Weeks Goal 4:: I approp HEP Goal Time Frame: 4-6 Weeks - Rehabilitation Potential Physical Therapy Diagnosis: R TKA Rehabilitation Potential: Good - Anticipated Interventions Patient/Client Instruction: Educate patient on: Condition, Plan of Care For the Purpose of:: To decrease pain, To increase ROM, To increase tolerance to activity/condition/position Therapeutic Exercise to Include: Strength training, Gait and locomotor training, Passive ROM, Active ROM For the Purpose of:: To decrease pain, To increase ROM, To improve gait and locomotor functions Manual Therapy Techniques to Include: Mobilization Comment: patella For the Purpose of:: To increase ROM Cryotherapy (ice pack, ice massage): Yes For the Purpose of:: To decrease swelling/inflammation Thank you for the opportunity to evaluate your patient. For Medicare and Medicare HMO plans, please review the plan of care and approve it. It will need to be FAXED BACK to us at [phone] for Medicare purposes. Please let me know if there are questions or concerns regarding this plan of care. Physician Signature: Date:
--- NOTE | 2018-08-21 09:38 | HP.PTREVAL ---
Javy Diop MD, It has been my pleasure to treat MARYANN REYES over the last 10 visits for R TKA. Please see the progress note below for an update on the physical therapy plan of care! Subjective: Hanging in there. Getting better. Doing more things like 3 flights of steps. Exercises are going smoother. 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 3/10 knee pain. sleep is OK. To doctor Perez in one week. Basic ADLs are going well. Activities Are pretty normal. Pt feels like he needs more PT to get stronger to taek care of . Doing SLR adn ROM at home. Objective/Function: 30 breaths per minute after steps, no SOB after 200 feet walking until we got to steps. Walks well with neuropathic gait pattern but no other asymmetries. Steps are one rail and reciprocal. R knee pain would like it to be lower but it is progressing. AROM R knee 0-120. OVERALL IMPROVING BUT NEEDS TO BE STRONGER TO TAKE CARE OF IF SHE IS TO BE BROUGHT HOME FROM [place]. Plan Plan: 3x/week for 3 weeks to work on Functional LE strength and progress home program and work on compliance. Give pics and list. May use ex bike as patient has one at home. Goals Goal 1:: 0-115 AROM R to facilitate steps without pain. Goal Time Frame: 4-6 Weeks Goal Progress: Goal Met Goal 2:: Walk 200 feet without AD I without SOB ro increased pain. Goal Time Frame: 4-6 Weeks Goal Progress: Goal Met Goal 3:: Exit chair without need for UE Goal Time Frame: 4-6 Weeks Goal Progress: Min A. approp. Goal 4:: I approp HEP Goal Time Frame: 4-6 Weeks Goal Progress: Goal Met Goal 5:: Pt feel strong enough to bring home from [place] Goal Time Frame: 2-4 Weeks Goal Progress: NEW GOAL Anticipated Interventions Patient/Client Instruction: Educate patient on: Condition, Plan of Care For the Purpose of:: To decrease pain, To increase ROM, To increase tolerance to activity/condition/position Therapeutic Exercise to Include: Strength training, Gait and locomotor training, Passive ROM, Active ROM For the Purpose of:: To decrease pain, To increase ROM, To improve gait and locomotor functions Manual Therapy Techniques to Include: Mobilization Comment: patella For the Purpose of:: To increase ROM Cryotherapy (ice pack, ice massage): Yes For the Purpose of:: To decrease swelling/inflammation Please do not hesitate to contact me at [phone] by phone or if you have questions or concerns regarding this new plan of care! Sincerely, Walt Guerrero, DPT, OC
--- NOTE | 2018-10-11 09:33 | HP.PTREVAL_ITS ---
Javy Diop MD, It has been my pleasure to treat MARYANN REYES over the last 14 visits for R TKA. Please see the progress note below for an update on the physical therapy plan of care! Subjective: Pulled R quad muscle walking after last sessipon adn hard to move fter that. Now its been 6 weeks. Just been resting it since. Did go to ER and sent to surgeon who did not see anything wrong with it. No infection and integrity of knee is good. Had some electrical treatment on R quad and therapy at [facility]. Currently is doing leg lifts 10x without issues. Walking is OK but uses walker in house. Outdoors uses a cane. Saw family doctor yesterday who was pleased. Overall had a setback but needs to be stronger now to bring home. No severe pain in two weeks. Been home for about two weeks. Sleep is good. Steps into yard at home and has ramp at home. Objective/Function: Walks using cane and without cane today. slowly with R antalgia, weakness. Steps require a rail and obvious weak on R with poor eccentric control descending adn needing UE to ascend. AROM 0-120 B knees, quads not tender adn flexibility is symmetrical but mod tight B. Patellas move well. Exits chair without UE. still needs to be stronger to bring home and take care of her, this has been a set back. Plan Plan: 3x/week for 3 weeks to increase aggressiveness of R quad and hip strength adn progressto HEP. Work on steps. Work on upper level gait. nWork to recumbent bike as patient has one at home. Goals Goal 1:: 0-115 AROM R to facilitate steps without pain. Goal Time Frame: 4-6 Weeks Goal Progress: Goal Met Goal 2:: Walk 200 feet without AD I without SOB ro increased pain. Goal Time Frame: 4-6 Weeks Goal Progress: Goal Met Goal 3:: Exit chair without need for UE Goal Time Frame: 4-6 Weeks Goal Progress: Goal Met Goal 4:: I approp HEP Goal Time Frame: 4-6 Weeks Goal Progress: needs more aggressive Goal 5:: Pt feel strong enough to bring home from ID Goal Time Frame: 2-4 Weeks Goal Progress: approp again. Goal 6:: Steps recip with one rail Goal Time Frame: 2-4 Weeks Goal Progress: NEW GOAL Anticipated Interventions Patient/Client Instruction: Educate patient on: Condition, Plan of Care For the Purpose of:: To decrease pain, To increase ROM, To increase tolerance to activity/condition/position Therapeutic Exercise to Include: Strength training, Gait and locomotor training, Passive ROM, Active ROM For the Purpose of:: To decrease pain, To increase ROM, To improve gait and locomotor functions Manual Therapy Techniques to Include: Mobilization Comment: patella For the Purpose of:: To increase ROM Cryotherapy (ice pack, ice massage): Yes For the Purpose of:: To decrease swelling/inflammation Please do not hesitate to contact me at [phone] by phone or if you have questions or concerns regarding this new plan of care! Sincerely, Walt Guerrero, DPT, OCS, CSCS
--- NOTE | 2018-11-28 10:53 | HP.PT.NRP ---
HP - Discharge Summary (1) - Patient Information MARYANN REYES was seen in my office for initial evaluation on 07/29/18. The following Plan of Care was established for this patient: Initial Frequency: 3x /Week Initial Duration: 4-6 Weeks - Anticipated Interventions Patient/Client Instruction: Educate patient on: Condition, Plan of Care For the Purpose of:: To decrease pain, To increase ROM, To increase tolerance to activity/condition/position Therapeutic Exercise to Include: Strength training, Gait and locomotor training, Passive ROM, Active ROM For the Purpose of:: To decrease pain, To increase ROM, To improve gait and locomotor functions Manual Therapy Techniques to Include: Mobilization Comment: patella For the Purpose of:: To increase ROM Cryotherapy (ice pack, ice massage): Yes For the Purpose of:: To decrease swelling/inflammation This patient was last seen in our office 10/18/18. Pertinent comments regarding their Physical therapy will appear below: Pt seen for 17 visits and was making fair progress. He cancelled and no showed his last two visits without rescheduling. Notes did show that he was in the ER with flu symptoms around that time. At this point it has been over a month and I will discontinue due to nonattendance. At this point I will be discontinuing this patient from physical therapy. I would be happy to see this patient again in the future if found appropriate by the physician. Thank you! Walt Guerrero, DPT, OCS, CSCS
== END 2018-10-18 17:00 | disposition home or self-care (01) ==
LOC: PT 09:00
PROVIDERS: Family Provider Family Medicine Geriatric Medicine; PCP Family Medicine Geriatric Medicine; Referring Provider Psychiatry & Neurology Neurology; Visit Provider Psychiatry & Neurology Neurology
DX: Z96.651 Presence of right artificial knee joint (principal)
CPT/HCPCS: 97110; 97116; 97162; 97530

== ENCOUNTER 2018-10-21 08:41 | Emergency (ER) | payer MEDICARE, OTHER, SELFPAY ==
[2018-10-21 08:42] VITALS: BP 153/105; PULSE 98; RESP 17; TEMP 36.9; O2SAT 99; BMI 35.9
--- NOTE | 2018-10-21 08:57 | EKG12_ITS ---
Test Reason : N/V Blood Pressure : / mmHG Vent. Rate : 110 BPM Atrial Rate : 110 BPM P-R Int : 218 ms QRS Dur : 132 ms QT Int : 422 ms P-R-T Axes : 071 -89 -27 degrees QTc Int : 571 ms Sinus tachycardia with 1st degree A-V block with Premature atrial complexes Left axis deviation Right bundle branch block Inferior infarct , age undetermined Abnormal ECG Confirmed by RADHA REY, SRIDHAR ([id number]), supervising editor news reel JUAN A PALMA ([id number]) on 10/24/2018 8:13:16 AM Referred By: FRANCES Confirmed By:SRIDHAR GARCIA MD
--- NOTE | 2018-10-21 08:57 | RAD_ITS ---
HISTORY: vomiting x 2 days, weakness EXAM: XR Chest 2 Views: COMPARISON: 07/15/18 chest radiographs. FINDINGS: # of images incl. paperwork: 3 LINES/DEVICES: None. LUNGS: Radiographically clear. No consolidation, edema or effusion. No pneumothorax. MEDIASTINUM AND CARDIOVASCULAR STRUCTURES: Cardiac silhouette not enlarged. Central airways and mediastinal contour are unremarkable. BONES AND SOFT TISSUES: Unremarkable. RAD/Chest PA and Lateral IMPRESSION: No radiographic evidence of acute cardiopulmonary disease. at 1003 Reported and signed by: Gregg Sousa MD Electronically Signed: Gregg Sousa, at 10:02 EST Tel , Service support ,
--- NOTE | 2018-10-21 09:01 | ED.VISSUMM ---
- ER Visit Summary Date of Service: 10/21/18 Chief Complaint: Nausea, vomiting and diarrhea History of Present Illness: The patient is a 77 M history of CAD with 4 cardiac stents, noncemented diabetes and sleep apnea. Patient states yesterday morning he started having nausea, vomiting and diarrhea. No melena. No hematemesis. No fever. No abdominal pain. He was able to hold down p.o. fluids today. He denies any dysuria. Also states recently last several days he has had shortness of breath. He denies any chest pain. No significant cough. No swelling to his legs or calf pain. Physical Examination: Vital signs are stable. He is afebrile. Pulse ox is 99% on room air no signs of hypoxia. He does not look septic or toxic. H EENT exam pupils are reactive light. Moist weeks membranes. Neck nontender. No lymphadenopathy. No JVD. Lungs clear to auscultation bilaterally. Heart regular rhythm rate about 100 no murmur. Patient walked back from the bathroom when I went in to examine him he was short of breath from walking from the bathroom to his room. As he sat down and rested and improved. He denies any chest pain whatsoever. He is moving all 4 extremities. Calves are nontender without edema or cords. He is a brace on his right ankle. Neurologically is awake and alert with no focal motor deficits. Test Results: Chest x-ray read by myself the radiologist showed no acute abnormality. Normal cardiac silhouette. CBC was unremarkable with a white count of 4 and hemoglobin is 16. Chemistries unremarkable other than a creatinine of 1.69 he does have some baseline renal insufficiency. Troponin normal. D-dimer just above normal even was corrected for age of 0.8. EKG is a sinus tach at 110 with a right bundle branch block. Patient was ambulated by nursing staff his pulse ox stayed 95% or better he did have accelerated heart rate when he walked at 130. Due to that his recent hospitalization he was worked up for a PE a CTA of his chest was done which showed no PE or dissection. It was an incidental finding of a nodule. Emergency Department Course and Treatment: Elderly male nausea, vomiting and diarrhea most likely secondary to viral syndrome. He also has a secondary complaint of shortness of breath. We will repeat exams patient is doing well currently at 13 10 PM. Says he feels fine. We went over all his test results. He is comfortable being discharged home. Follow-up with his primary care physician. Treatment Plan: Fluids and rest. Zofran as needed for nausea. Follow-up with his primary care physician. Disposition: Charge Impression: Acute nausea, vomiting and diarrhea secondary to viral gastroenteritis Acute dyspnea uncertain etiology History of CAD with 4 cardiac stents History of nqn-ntnrjrm-uubitiort diabetes This note was generated with [employer] dictation software. It may contain incorrect words, spelling, and punctuation that were not noted in review of the chart prior to signing ED Disposition - Plan for ED Patient: Chief Complaint: Nausea/Vomiting/Diarrhea Referrals: Antonio Louis Chi, MD [Primary Care Provider] -
--- NOTE | 2018-10-21 09:04 | ED.DCSUM_ITS ---
- ER Visit Summary Date of Service: 10/21/18 Chief Complaint: Nausea, vomiting and diarrhea History of Present Illness: The patient is a 77 M history of CAD with 4 cardiac stents, noncemented diabetes and sleep apnea. Patient states yesterday morning he started having nausea, vomiting and diarrhea. No melena. No hematemesis. No fever. No abdominal pain. He was able to hold down p.o. fluids today. He denies any dysuria. Also states recently last several days he has had shortness of breath. He denies any chest pain. No significant cough. No swelling to his legs or calf pain. Physical Examination: Vital signs are stable. He is afebrile. Pulse ox is 99% on room air no signs of hypoxia. He does not look septic or toxic. H EENT exam pupils are reactive light. Moist weeks membranes. Neck nontender. No lymphadenopathy. No JVD. Lungs clear to auscultation bilaterally. Heart regular rhythm rate about 100 no murmur. Patient walked back from the bathroom when I went in to examine him he was short of breath from walking from the bathroom to his room. As he sat down and rested and improved. He denies any chest pain whatsoever. He is moving all 4 extremities. Calves are nontender without edema or cords. He is a brace on his right ankle. Neurologically is awake and alert with no focal motor deficits. Test Results: Chest x-ray read by myself the radiologist showed no acute abnormality. Normal cardiac silhouette. CBC was unremarkable with a white count of 4 and hemoglobin is 16. Chemistries unremarkable other than a creatinine of 1.69 he does have some baseline renal insufficiency. Troponin normal. D-dimer just above normal even was corrected for age of 0.8. EKG is a sinus tach at 110 with a right bundle branch block. Patient was ambulated by nursing staff his pulse ox stayed 95% or better he did have accelerated heart rate when he walked at 130. Due to that his recent hospitalization he was worked up for a PE a CTA of his chest was done which showed no PE or dissection. It was an incidental finding of a nodule. Emergency Department Course and Treatment: Elderly male nausea, vomiting and diarrhea most likely secondary to viral syndrome. He also has a secondary co mplaint of shortness of breath. We will repeat exams patient is doing well currently at 13 10 PM. Says he feels fine. We went over all his test results. He is comfortable being discharged home. Follow-up with his primary care physician. Treatment Plan: Fluids and rest. Zofran as needed for nausea. Follow-up with his primary care physician. Disposition: Charge Impression: Acute nausea, vomiting and diarrhea secondary to viral gastroenteritis Acute dyspnea uncertain etiology History of CAD with 4 cardiac stents History of atf-ntxhnle-ztimzmzuh diabetes This note was generated with [employer] dictation software. It may contain incorrect words, spelling, and punctuation that were not noted in review of the chart prior to signing ED Disposition - Plan for ED Patient: Chief Complaint: Nausea/Vomiting/Diarrhea Referrals: Antonio Louis Chi, MD [Primary Care Provider] -
[2018-10-21] MEDS: 0.9% Normal Saline 1,000 ML 1000 ML IV (09:30)
[2018-10-21 09:31] LABS: Absolute Lymphocyte Count 0.74 X10^3/ul (0.83-4.51); Absolute Neutrophil Count 3.4 X10^3/uL (2.0-7.7); Basophil# 0.01 X10^3/uL; Basophil% 0.2 % (0-1); Eosinophil# 0.01 X10^3/uL; Eosinophils% 0.2 % (0-5); Hematocrit 48.3 % (40-54); Lymphocyte # 0.74 X10^3/ul (4.0); Lymphocyte % 15.5 % (19-41); Mean Corp Hgb Conc 33.1 g/gl (32-36); Mean Corpuscular Hgb 30.7 pg (27.0-32.0); Mean Corpuscular Volume 92.7 fL (80-94); Mean Platelet Vol. 9.2 fl (6.2-12.0); Monocyte# 0.61 X10^3/uL; Monocyte% 12.8 % (0-10); Neutrophil # 3.39 X10^3/uL (2.7-7.7); Neutrophil % 71.1 % (47-70); Platelet Count 176 K/mm3 (150-450); RBC Distribution Width CV 13.4 % (11.6-14.6); RBC Distribution Width SD 45.1 fl (35.1-43.9); Red Blood Count 5.21 M/mm3 (4.6-6.2); White Blood Count 4.8 K/mm3 (4.4-11.0)
[2018-10-21 09:36] LABS: POSITIVE COUNT NO; POSITIVE DIFFERENTIAL NO; POSITIVE MORPHOLOGY NO
[2018-10-21 09:45] LABS: Anion Gap 13 (5-15); BUN 31 mg/dL (7-18); BUN/Creat Ratio 18.3 RATIO (10-20); Chloride 107 mmol/L (98-107); Creatinine, Serum 1.69 mg/dL (0.70-1.30); EST Glomerular Filtration Rate 42 mL/min (>60); Est Glom Filt Rate - Afr Amer 51 mL/min (>60); Estimated Creatinine Clearance 41.21 ml/min; Glucose 159 mg/dL (74-106); Potassium 3.8 mmol/L (3.5-5.1); Sodium Level 141 mmol/L (136-145)
[2018-10-21 11:01] VITALS: PULSE 104; RESP 26; O2SAT 96
--- NOTE | 2018-10-21 11:18 | CT_ITS ---
HISTORY: N/V/D, DYSPNEA, ABN D-DIMER EXAM/TECHNIQUE: CTA Chest WO/W Contrast: 100 cc Isovue-370 administered intravenously. Multiplanar reformats provided. COMPARISON: Chest radiograph same date. FINDINGS: # of images incl. paperwork: 1263 No pulmonary embolus. Respiratory motion artifact creates artifactual irregularity of subsegmental pulmonary arterial branches. No dissection or aneurysm of the thoracic aorta. Heart size normal. Dense atherosclerosis of the coronary arteries, not well evaluated due to cardiac motion. No pneumonia, pulmonary edema, or consolidation. Mild bilateral bronchial wall thickening. Small air-filled cyst posterior to the right hilum. 7 mm nodule posterior aspect left lung base, series 2 image 81 coronal image 228. Calcified granulomas right lung apex. No pneumothorax or pleural effusion. Several small radiopaque gallstones are partially visible in the gallbladder. No acute findings in the upper abdomen. No acute osseous abnormality. CT/CTA Chest W/WO Contrast IMPRESSION: No pulmonary embolus. No acute findings. Coronary artery atherosclerosis. 7 mm nodule left lung base. Individualized dose optimization techniques were used for this CT. at 1203 Reported and signed by: Gregg Sousa MD Electronically Signed: Gregg Sousa, at 12:02 EST Tel , Service support ,
--- NOTE | 2018-10-21 13:11 | ED.DEP ---
ED Disposition - Plan for ED Patient: Disposition: Home or Assisted Living Chief Complaint: Nausea/Vomiting/Diarrhea Instructions: ED Gastroenteritis Viral Prescriptions: Ondansetron [Zofran Odt] 4 mg PO Q8H PRN PRN #10 tab PRN Reason: Nausea Referrals: Antonio Louis Chi, MD [Primary Care Provider] - 3-5 Days if not improving Additional Instructions: Plenty of fluids and rest Zofran as needed for nausea. Return if feeling worse. Follow-up with your doctor if your exertional shortness of breath does not get better.
[2018-10-21 13:19] VITALS: BP 152/81; PULSE 94; RESP 18; O2SAT 94
== END 2018-10-21 13:20 | disposition home or self-care (01) ==
PROVIDERS: Emergency Provider Emergency Medicine; Family Provider Family Medicine Geriatric Medicine; PCP Family Medicine Geriatric Medicine
DX: A08.4 Viral intestinal infection, unspecified (principal); R06.00 Dyspnea, unspecified; I25.10 Atherosclerotic heart disease of native coronary artery without angina pectoris; E11.9 Type 2 diabetes mellitus without complications; G47.30 Sleep apnea, unspecified; Z95.5 Presence of coronary angioplasty implant and graft
CPT/HCPCS: 71046; 71275; 80048; 84484; 85025; 85379; 93005; 96360; 96361; 99285; J7030; Q9967; A4216

== ENCOUNTER 2018-10-27 09:29 | Inpatient (IN) | payer MEDICARE, OTHER, SELFPAY ==
[2018-10-27] VITALS (15 sets, daily range): BP systolic 121–152; BP diastolic 58–84; PULSE 59–67; RESP 17–20; TEMP 36.7–37.1; O2SAT 93–99; BMI 36.5
--- NOTE | 2018-10-27 09:43 | EKG12_ITS ---
Test Reason : CHEST PAIN Blood Pressure : / mmHG Vent. Rate : 066 BPM Atrial Rate : 066 BPM P-R Int : 242 ms QRS Dur : 148 ms QT Int : 440 ms P-R-T Axes : 040 -70 -06 degrees QTc Int : 461 ms Sinus rhythm with 1st degree A-V block Left axis deviation Right bundle branch block Inferior infarct , age undetermined Abnormal ECG Confirmed by EDITA REY, DMITRI ([id number]), assistant production editor JUAN A PALMA ([id number]) on 10/30/2018 1:36:06 PM Referred By: AD Confirmed By:DMITRI KOHLER MD
--- NOTE | 2018-10-27 09:45 | RAD_ITS ---
STUDY: X-RAY CHEST REASON FOR EXAM: Male, 77 years old. Chest pain TECHNIQUE: Frontal view of the chest COMPARISON: 10/21/2018 FINDINGS: The lungs are clear. There are no pleural effusions. There is no pneumothorax. The heart is normal in size. The visualized osseous structures are within normal limits. RAD/Chest 1 View (Portable) IMPRESSION: No acute thoracic pathology. Electronically Signed: Nils Lauren, at 9:58 EST Tel , Service support ,
[2018-10-27 09:52] LABS: Absolute Lymphocyte Count 1.07 X10^3/ul (0.83-4.51); Absolute Neutrophil Count 5.7 X10^3/uL (2.0-7.7); Basophil# 0.06 X10^3/uL; Basophil% 0.8 % (0-1); Eosinophil# 0.34 X10^3/uL; Eosinophils% 4.4 % (0-5); Hematocrit 42.1 % (40-54); Lymphocyte # 1.07 X10^3/ul (4.0); Lymphocyte % 13.7 % (19-41); Mean Corp Hgb Conc 33.3 g/gl (32-36); Mean Corpuscular Hgb 30.7 pg (27.0-32.0); Mean Corpuscular Volume 92.3 fL (80-94); Mean Platelet Vol. 8.9 fl (6.2-12.0); Monocyte# 0.59 X10^3/uL; Monocyte% 7.6 % (0-10); Neutrophil # 5.68 X10^3/uL (2.7-7.7); Neutrophil % 72.6 % (47-70); Platelet Count 223 K/mm3 (150-450); RBC Distribution Width CV 13.2 % (11.6-14.6); RBC Distribution Width SD 43.6 fl (35.1-43.9); Red Blood Count 4.56 M/mm3 (4.6-6.2); White Blood Count 7.8 K/mm3 (4.4-11.0)
[2018-10-27] MEDS: 0.9% Normal Saline 1,000 ML 150 ML IV (09:52)
[2018-10-27] MEDS: morphine 8 MG/ML Syringe IV (09:52)
[2018-10-27] MEDS: Ondansetron 4 MG/2 ML Vial IV (09:52)
[2018-10-27 09:53] LABS: POSITIVE COUNT NO; POSITIVE DIFFERENTIAL NO; POSITIVE MORPHOLOGY NO
--- NOTE | 2018-10-27 10:02 | ED.VISSUMM ---
- ER Visit Summary Date of Service: 10/27/18 Chief Complaint: [] Chest pain yesterday and today History of Present Illness: The patient is a 77 M [] patient was walking to his mailbox yesterday he experienced chest pain, he has history of cardiac stents his cardiovascular status has generally been stable he did not think much of the chest pain that lasted for about 5 or 10 minutes but then it resolved spontaneously. Then today as he was getting ready for jainism he again had anginal type chest pressure with minimal exertion, he took 2 nitros and eventually pain went away and as it was his second episode of chest pain in 2 days he came in for evaluation Had a chronic cough unchanged no fever no abdominal pain normal bowel bladder habits no history of DVT or PE, he seen by Dr. Pickens and in general he reports his cardiovascular health is been very good Physical Examination: [] Vital signs are within normal range General, no distress resting comfortably HEENT is generally unremarkable The neck is supple no adenopathy Cardiovascular, regular rate and rhythm Lungs, clear bilateral Abdomen, soft nontender Extremities, no clubbing cyanosis or edema Neurologic, awake alert answering questions appropriately moving all 4 extremities Test Results: [] Emergency Department Course and Treatment: [] EKG shows a sinus rhythm nothing acute screening labs are obtained pain-free Screening labs chest x-ray unremarkable she was reports at this time given his age and all the above will speak with hospitalist will arrange for admission Treatment Plan: [] Disposition: [] Admit stable Impression: [] Chest pain history of CAD This note was generated with [employer] dictation software. It may contain incorrect words, spelling, and punctuation that were not noted in review of the chart prior to signing ED Disposition - Plan for ED Patient: Referrals: Antonio Louis Chi, MD [Primary Care Provider] -
[2018-10-27 10:09] LABS: Anion Gap 6 (5-15); BUN 13 mg/dL (7-18); BUN/Creat Ratio 10.6 RATIO (10-20); Calcium,Total 8.6 mg/dL (8.5-10.1); Chloride 107 mmol/L (98-107); Creatinine, Serum 1.23 mg/dL (0.70-1.30); EST Glomerular Filtration Rate 60 mL/min (>60); Est Glom Filt Rate - Afr Amer 73 mL/min (>60); Estimated Creatinine Clearance 56.62 ml/min; Glucose 233 mg/dL (74-106); Sodium Level 139 mmol/L (136-145)
[2018-10-27 10:30] LABS: BNP,B-Type NATRIURETIC PEPTIDE 63.7 pg/mL (0-100)
--- NOTE | 2018-10-27 12:31 | PCM.PROGNOTE ---
- Physical Exam Vital Signs Temp Pulse Resp BP Pulse Ox 98.4 F 62 18 131/72 H 99 10/27/18 09:35 10/27/18 11:13 10/27/18 11:13 10/27/18 11:13 10/27/18 11:13 Oxygen Flow Rate (L/min) 2 Oxygen Delivery Method Nasal Cannula Weight: 284 lb 9.868 oz Body Mass Index (BMI) 36.5 Finger Stick Blood Glucose 150 Laboratory Tests Past 24 Hrs 10/27/18 10/27/18 10/27/18 09:34 09:34 09:34 WBC 7.8 RBC 4.56 L Hgb 14.0 Hct 42.1 MCV 92.3 MCH 30.7 MCHC 33.3 RDW 13.2 RDW Differential 43.6 Plt Count 223 MPV 8.9 Immature Gran % (Auto) 0.900 Neut % (Auto) 72.6 H Lymph % (Auto) 13.7 L Bel[place] % (Auto) 7.6 Eos % (Auto) 4.4 Baso % (Auto) 0.8 Absolute Neuts (auto) 5.7 Absolute Lymphs (auto) 1.07 Total Counted Not Reportable Sodium 139 Potassium 4.0 Chloride 107 Carbon Dioxide 26.0 Anion Gap 6 BUN 13 Creatinine 1.23 Estim Creat Clear Calc 56.62 Est GFR (MDRD) Af Amer 73 Est GFR (MDRD) Non-Af 60 BUN/Creatinine Ratio 10.6 Glucose 233 H Calcium 8.6 Troponin I 0.044 B-Natriuretic Peptide 63.7 Medical Necessity - Tobacco Use Smoking Status: Never smoker
--- NOTE | 2018-10-27 12:56 | EKG12_ITS ---
Test Reason : CP Blood Pressure : / mmHG Vent. Rate : 059 BPM Atrial Rate : 059 BPM P-R Int : 246 ms QRS Dur : 128 ms QT Int : 438 ms P-R-T Axes : 039 -42 -11 degrees QTc Int : 433 ms Poor data quality, interpretation may be adversely affected Sinus bradycardia with 1st degree A-V block Left axis deviation Right bundle branch block Abnormal ECG No previous ECGs available Confirmed by EDITA REY, DMITRI ([id number]), editor index JUAN A PALMA ([id number]) on 10/30/2018 2:13:06 PM Referred By: FLORENCIO Confirmed By:DMITRI KOHLER MD
--- NOTE | 2018-10-27 13:09 | PCM.HP.STD ---
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 (2) Paroxysmal atrial flutter Status: Chronic (3) Hypomagnesemia Status: Chronic (4) Atherosclerotic heart disease of [place] coronary artery without angina pectoris Status: Chronic Qualifiers: (5) Hypertension Status: Chronic Qualifiers: (6) Hyperlipemia Status: Chronic Qualifiers: (7) BPH (benign prostatic hyperplasia) Status: Chronic (8) Diabetes mellitus Status: Chronic Qualifiers: Diabetes mellitus type: type 2 (9) ARMANDO on CPAP Status: Chronic (10) Neuropathy Status: Chronic (11) Esophageal reflux Status: Chronic (12) 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 Wynne is a 77 YO male with a PMH of osteoarthritis, hypertension, hyperlipidemia, coronary artery disease, PTCA with stents x6, stage III chronic renal failure, diabetes mellitus type 2, BPH, paroxysmal atrial flutter, ARMANDO on CPAP, GERD, diabetic neuropathy and morbid obesity who presented to the emergency department at [facility] on 10/27/2018 complaining of left chest pain radiating down the left arm. He walked outside to the mailbox last night and got Left chest pain that radiated down his Left arm. It was associated with YATES. He denies diaphoresis, nausea and palpitations. The pain resolved shortly after going back inside and sitting down. Today while he was getting ready for islam he again had Left chest pain that radiated down the left arm associated with SOB. He took a NTG and it did not help. The second NTG started to relieve the pain. All in all the pain lasted about 45 minutes. EKG in the ED shows old IWMI, RBBB, left axis deviation and non-specific ST/T wave changes in the lateral precordial leads....but interpretation is limited by the fact that he has BBB. Vital signs of presentation to the emergency room were temperature 98.4, pulse rate 67, blood pressure 152/80, respiratory rate 20 and he was 95% saturated on room air and 99% saturated on a 2 L nasal cannula. CBC showed a normal white blood cell count, hemoglobin and platelets. Electrolytes were within normal limits and the BUN was 13 with a creatinine of 1.23. Random blood sugar was elevated at 233. BNP was 63.7 and the troponin was 0.044. Chest x-ray showed no pleural effusion, pulmonary vascular congestion or infiltrate. His last stress test was in April of 2017 and it showed evidence of previous basal inferior [place] with no evidence of ischemia. The EF was 73%. The last cath was in 2014. He is being admitted to a monitored bed on PCU for serial cardiac enzymes. Will consult cardiology. Past Medical History Past Medical History (Chronic Problems): Chronic Problems (Last Updated 07/24/18 @ 12:52 by Mika Pineda MD) History of PTCA (Chronic) has 6 stents Morbid obesity (Chronic) RBBB (Chronic) Other [facility] (current) drug therapy (Chronic) Paroxysmal atrial flutter (Chronic) Hypomagnesemia (Chronic) Atherosclerotic heart disease of [place] coronary artery without angina pectoris (Chronic) Hypertension (Chronic) Hyperlipemia (Chronic) BPH (benign prostatic hyperplasia) (Chronic) Diabetes mellitus (Chronic) ARMANDO on CPAP (Chronic) Neuropathy (Chronic) Esophageal reflux (Chronic) 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 (Chronic) Medical History: Medical History (Last Reviewed 10/27/18 @ 13:12 by Camron Huggins DO) Atherosclerotic heart disease of [place] coronary artery without angina pectoris (Chronic) I25.10 Hypertension (Chronic) I10 Hyperlipemia (Chronic) E78.5 Dyspnea R06.00 Allergies No Known Allergies Allergy (Verified 10/27/18 12:14) Home Medications: Ambulatory Orders Medication Instructions Recorded Aspirin [Aspirin, Baby] 81 mg PO DAILY@0800 07/18/13 Gabapentin [Neurontin] 1,200 mg PO TID 07/18/13 Lorazepam [Ativan] 1 mg PO BID PRN 07/18/13 Meclizine HCl [Antivert] 25 mg PO BID 07/18/13 Rosuvastatin Calcium [Crestor] 20 mg PO DAILY 07/18/13 Metformin HCl [Glucophage] 500 mg PO BID 01/03/14 Donepezil HCl [Aricept] 10 mg PO QHS 11/16/14 Magnesium Oxide [Mag-Ox 400] 400 mg PO BID 11/16/14 Nortriptyline HCl 25 mg PO QHS 03/16/17 glimepiride 4 mg tablet 4 mg PO BID tab 01/08/18 acetaminophen 500 mg capsule 1,000 mg PO BID 01/10/18 nitroglycerin 0.4 mg sublingual 0.4 mg SUBLINGUAL Q5M PRN #25 tab 01/10/18 tablet Clopidogrel Bisulfate [Clopidogrel] 75 mg PO QDAY 07/12/18 Ergocalciferol [Vitamin D] 50,000 unit PO Q7D 07/12/18 Escitalopram Oxalate [Lexapro] 10 mg PO DAILY 07/12/18 Isosorbide Mononitrate [Imdur] 60 mg PO BID 07/12/18 Metoprolol Tartrate [Lopressor 50 mg PO BID 07/12/18 (beta marcin)] Omeprazole [Prilosec] 20 mg PO DAILY 07/12/18 Lisinopril 5 mg PO DAILY 10/27/18 Surgical History: rotator cuff repair, TURP Psychiatric History: Anxiety, - - Agoraphobia Lives: With Family Smoking Status: Never smoker Tobacco Use: Non-smoker Alcohol: Rare Drugs: None - *Family History Sibling Family History: Family History (Last Reviewed 10/27/18 @ 13:13 by Camron Huggins DO) Son CAD (coronary artery disease) Myocardial infarction Mother Heart disease Father Addisons disease History Items: Heart Disease Maternal Family History: Family History (Last Reviewed 10/27/18 @ 13:13 by Camron Huggins DO) Son CAD (coronary artery disease) Myocardial infarction Mother Heart disease Father Addisons disease History Items: Diabetes Offspring Family History: Family History (Last Reviewed 10/27/18 @ 13:13 by Camron Huggins DO) Son CAD (coronary artery disease) Myocardial infarction Mother Heart disease Father Addisons disease History Items: Heart Disease Review of Systems Constitutional: Denies: Anorexia, Chills, Fever, Weakness, Weight Change HEENT: Denies: Head Aches, Sinus Congestion, Sinus Drainage Cardiovascular: Reports: Chest Pain. Denies: Edema, Light Headedness, Orthopnea, Palpitations, Syncope Respiratory: Reports: Shortness of breath upon exertion. Denies: Cough, Shortness of breath at rest, Sputum production Gastrointestinal: Denies: Abdominal Pain, Nausea, Vomiting Genitourinary: Denies: Dysuria Musculoskeletal: Denies: Joint Pain, Joint Tenderness Skin: Denies: Rash, Wounds Neurological: Denies: Confusion, Focal weakness, Numbness, Tingling, Seizures Psychiatric: Denies: Anxiety, Depression, Homicidal Ideations, Suicidal Ideations Endocrine: Denies: Change in Body Habitus Hematologic/ Lymphatic: Denies: Easy Bruising, Easy Bleeding, Hx of blood clot VTE Information - Inpt Only VTE Present on Admission: No VTE Mechan Device Prophylaxis: Knee High LACHO Hose VTE Pharm Prophylaxis ordered?: Yes Patient Problems: Active and Suspected Problems (Last Updated 07/24/18 @ 12:52 by Mika Pineda MD) Angina of effort (Acute) - Physical Exam General: Alert, Oriented x3, Cooperative, No apparent distress, Well developed, Well nourished HEENT: Atraumatic, PERRLA, EOMI, Normocephalic Oral: Moist Mucosa Neck: Supple, No JVD, Negative Carotid Bruits, Trachea Midline Lungs: Clear to auscultation, Normal air movement, No rhonchi, No wheeze, No rales Cardiovascular: Regular rate, Regular Rhythm, Normal S1, Normal S2, No murmurs, No Gallop, - - distant heart sounds Abdomen: Bowel Sounds Present, Soft, Non Tender, Non-Distended Extremities: No clubbing, No cyanosis, No edema, Capillary Refill Less than 3 Seconds, No Calf Tenderness Skin: No rashes, No breakdown Musculoskeletal: No Tenderness to Palpation of Joints or Extremities, No Muscle Wasting Neurological: Cranial nerves II-XII grossly intact, Neuro grossly intact Psych/Mental Status: Normal Affect, Appropriate Vital Signs Temp Pulse Resp BP Pulse Ox 98.4 F 59 L 17 122/70 H 94 10/27/18 12:34 10/27/18 12:37 10/27/18 12:37 10/27/18 12:34 10/27/18 12:37 Oxygen Flow Rate (L/min) 2 Oxygen Delivery Method Room Air Weight: 284 lb 9.868 oz Body Mass Index (BMI) 36.5 Finger Stick Blood Glucose 150 Laboratory Tests Past 24 Hrs 10/27/18 10/27/18 10/27/18 09:34 09:34 09:34 WBC 7.8 RBC 4.56 L Hgb 14.0 Hct 42.1 MCV 92.3 MCH 30.7 MCHC 33.3 RDW 13.2 RDW Differential 43.6 Plt Count 223 MPV 8.9 Immature Gran % (Auto) 0.900 Neut % (Auto) 72.6 H Lymph % (Auto) 13.7 L [place] % (Auto) 7.6 Eos % (Auto) 4.4 Baso % (Auto) 0.8 Absolute Neuts (auto) 5.7 Absolute Lymphs (auto) 1.07 Total Counted Not Reportable Sodium 139 Potassium 4.0 Chloride 107 Carbon Dioxide 26.0 Anion Gap 6 BUN 13 Creatinine 1.23 Estim Creat Clear Calc 56.62 Est GFR (MDRD) Af Amer 73 Est GFR (MDRD) Non-Af 60 BUN/Creatinine Ratio 10.6 Glucose 233 H Calcium 8.6 Troponin I 0.044 B-Natriuretic Peptide 63.7 10/27/18 12:41 WBC RBC Hgb Hct MCV MCH MCHC RDW RDW Differential Plt Count MPV Immature Gran % (Auto) Neut % (Auto) Lymph % (Auto) [place] % (Auto) Eos % (Auto) Baso % (Auto) Absolute Neuts (auto) Absolute Lymphs (auto) Total Counted Sodium Potassium Chloride Carbon Dioxide Anion Gap BUN Creatinine Estim Creat Clear Calc Est GFR (MDRD) Af Amer Est GFR (MDRD) Non-Af BUN/Creatinine Ratio Glucose Calcium Troponin I Pending B-Natriuretic Peptide Assessment/Plan All Active Problems (Last Updated 07/24/18 @ 12:52 by Mika Pineda MD) Angina of effort (Acute) Impressions 1. angina with exertion 2. hx of CAD with PTCA X 6 in the past 3. Hypertension 4. Diabetes mellitus type 2 5. Hyperlipidemia 6. Chronic renal failure stage III 7. ARMANDO on CPAP 8. Panic attacks with agoraphobia 9. BPH 10. Paroxysmal atrial flutter 11. Chronic hypomagnesemia 12. Neuropathy 13. Right bundle branch block 14. First-degree AV block 15. Morbid obesity 16. GERD Admit to a monitored bed on PCU ASA 81 mg PO daily. Continue Plavix 75 mg daily SL NTG 0.4 mg PRN chest pain Serial Cardiac Enzymes Stat EKG PRN CP Chest XRAY-no acute processes Chemical nuclear stress test in the AM if the cardiac enzymes are negative Consult Dr. Child Lipid panel in the AM Check HGBA1C DVT prophylaxis ordered Code Visit OBSV E&M: 25388 Initial observation care L3
--- NOTE | 2018-10-27 13:13 | HP.PCM_ITS ---
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 (2) Paroxysmal atrial flutter Status: Chronic (3) Hypomagnesemia Status: Chronic (4) Atherosclerotic heart disease of [place] coronary artery without angina pecto ris Status: Chronic Qualifiers: (5) Hypertension Status: Chronic Qualifiers: (6) Hyperlipemia Status: Chronic Qualifiers: (7) BPH (benign prostatic hyperplasia) Status: Chronic (8) Diabetes mellitus Status: Chronic Qualifiers: Diabetes mellitus type: type 2 (9) ARMANDO on CPAP Status: Chronic (10) Neuropathy Status: Chronic (11) Esophageal reflux Status: Chronic (12) 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 Wynne is a 77 YO male with a PMH of osteoarthritis, hypertension, hyperlipidemia, coronary artery disease, PTCA with stents x6, stage III chronic renal failure, diabetes mellitus type 2, BPH, paroxysmal atrial flutter, ARMANDO on CPAP, GERD, diabetic neuropathy and morbid obesity who presented to the emergency department at [facility] on 10/27/2018 complaining of left chest pain radiating down the left arm. He walked outside to the mailbox last night and got Left chest pain that radiated down his Left arm. It was associated with YATES. He denies diaphoresis, nausea and palpitations. The pain resolved shortly after going back inside and sitting down. Today while he was getting ready for scientology he again had Left chest pain that radiated down the left arm associated with SOB. He took a NTG and it did not help. The second NTG started to relieve the pain. All in all the pain lasted about 45 minutes. EKG in the ED shows old IWMI, RBBB, left axis deviation and non-specific ST/T wave changes in the lateral precordial leads....but interpretation is limited by the fact that he has BBB. Vital signs of presentation to the emergency room w ere temperature 98.4, pulse rate 67, blood pressure 152/80, respiratory rate 20 and he was 95% saturated on room air and 99% saturated on a 2 L nasal cannula. CBC showed a normal white blood cell count, hemoglobin and platelets. Electrolytes were within normal limits and the BUN was 13 with a creatinine of 1.23. Random blood sugar was elevated at 233. BNP was 63.7 and the troponin was 0.044. Chest x-ray showed no pleural effusion, pulmonary vascular congestion or infiltrate. His last stress test was in April of 2017 and it showed evidence of previous basal inferior [place] with no evidence of ischemia. The EF was 73%. The last cath was in 2014. He is being admitted to a monitored bed on PCU for serial cardiac enzymes. Will consult cardiology. 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 (Chronic) Paroxysmal atrial flutter (Chronic) Hypomagnesemia (Chronic) Atherosclerotic heart disease of [place] coronary artery without angina pectoris (Chronic) Hypertension (Chronic) Hyperlipemia (Chronic) BPH (benign prostatic hyperplasia) (Chronic) Diabetes mellitus (Chronic) ARMANDO on CPAP (Chronic) Neuropathy (Chronic) Esophageal reflux (Chronic) 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 (Chronic) Medical History: Medical History (Last Reviewed 10/27/18 @ 13:12 by Camron Huggins DO) Atherosclerotic heart disease of [place] coronary artery without angina pectoris (Chronic) I25.10 Hypertension (Chronic) I10 Hyperlipemia (Chronic) E78.5 Dyspnea R06.00 Allergies No Known Allergies Allergy (Verified 10/27/18 12:14) Home Medications: Ambulatory Orders Medication Instructions Recorded Aspirin [Aspirin, Baby] 81 mg PO DAILY@0800 07/18/13 Gabapentin [Neurontin] 1,200 mg PO TID 07/18/13 Lorazepam [Ativan] 1 mg PO BID PRN 07/18/13 Meclizine HCl [Antivert] 25 mg PO BID 07/18/13 Rosuvastatin Calcium [Crestor] 20 mg PO DAILY 07/18/13 Metformin HCl [Glucophage] 500 mg PO BID 01/03/14 Donepezil HCl [Aricept] 10 mg PO QHS 11/16/14 Magnesium Oxide [Mag-Ox 400] 400 mg PO BID 11/16/14 Nortriptyline HCl 25 mg PO QHS 03/16/17 glimepiride 4 mg tablet 4 mg PO BID tab 01/08/18 acetaminophen 500 mg capsule 1,000 mg PO BID 01/10/18 nitroglycerin 0.4 mg sublingual 0.4 mg SUBLINGUAL Q5M PRN #25 tab 01/10/18 tablet Clopidogrel Bisulfate [Clopidogrel] 75 mg PO QDAY 07/12/18 Ergocalciferol [Vitamin D] 50,000 unit PO Q7D 07/12/18 Escitalopram Oxalate [Lexapro] 10 mg PO DAILY 07/12/18 Isosorbide Mononitrate [Imdur] 60 mg PO BID 07/12/18 Metoprolol Tartrate [Lopressor 50 mg PO BID 07/12/18 (beta marcin)] Omeprazole [Prilosec] 20 mg PO DAILY 07/12/18 Lisinopril 5 mg PO DAILY 10/27/18 Surgical History: rotator cuff repair, TURP Psychiatric History: Anxiety, - - Agoraphobia Lives: With Family Smoking Status: Never smoker Tobacco Use: Non-smoker Alcohol: Rare Drugs: None - *Family History Sibling Family History: Family History (Last Reviewed 10/27/18 @ 13:13 by Camron Huggins DO) Son CAD (coronary artery disease) Myocardial infarction Mother Heart disease Father Addisons disease History Items: Heart Disease Maternal Family History: Family History (Last Reviewed 10/27/18 @ 13:13 by Camron Huggins DO) Son CAD (coronary artery disease) Myocardial infarction Mother Heart disease Father Addisons disease History Items: Diabetes Offspring Family History: Family History (Last Reviewed 10/27/18 @ 13:13 by Camron Huggins DO) Son CAD (coronary artery disease) Myocardial infarction Mother Heart disease Father Addisons disease History Items: Heart Disease Review of Systems Constitutional: Denies: Anorexia, Chills, Fever, Weakness, Weight Change HEENT: Denies: Head Aches, Sinus Congestion, Sinus Drainage Cardiovascular: Reports: Chest Pain. Denies: Edema, Light Headedness, Orthopnea, Palpitations, Syncope Respiratory: Reports: Shortness of breath upon exertion. Denies: Cough, Shortness of breath at rest, Sputum production Gastrointestinal: Denies: Abdominal Pain, Nausea, Vomiting Genitourinary: Denies: Dysuria Musculoskeletal: Denies: Joint Pain, Joint Tenderness Skin: Denies: Rash, Wounds Neurological: Denies: Confusion, Focal weakness, Numbness, Tingling, Seizures Psychiatric: Denies: Anxiety, Depression, Homicidal Ideations, Suicidal Ideations Endocrine: Denies: Change in Body Habitus Hematologic/ Lymphatic: Denies: Easy Bruising, Easy Bleeding, Hx of blood clot VTE Information - Inpt Only VTE Present on Admission: No VTE Mechan Device Prophylaxis: Knee High LACHO Hose VTE Pharm Prophylaxis ordered?: Yes Patient Problems: Active and Suspected Problems (Last Updated 07/24/18 @ 12:52 by Mika Pineda MD) Angina of effort (Acute) - Physical Exam General: Alert, Oriented x3, Cooperative, No apparent distress, Well developed, Well nourished HEENT: Atraumatic, PERRLA, EOMI, Normocephalic Oral: Moist Mucosa Neck: Supple, No JVD, Negative Carotid Bruits, Trachea Midline Lungs: Clear to auscultation, Normal air movement, No rhonchi, No wheeze, No rales Cardiovascular: Regular rate, Regular Rhythm, Normal S1, Normal S2, No murmurs, No Gallop, - - distant heart sounds Abdomen: Bowel Sounds Present, Soft, Non Tender, Non-Distended Extremities: No clubbing, No cyanosis, No edema, Capillary Refill Less than 3 Seconds, No Calf Tenderness Skin: No rashes, No breakdown Musculoskeletal: No Tenderness to Palpation of Joints or Extremities, No Muscle Wasting Neurological: Cranial nerves II-XII grossly intact, Neuro grossly intact Psych/Mental Status: Normal Affect, Appropriate Vital Signs Temp Pulse Resp BP Pulse Ox 98.4 F 59 L 17 122/70 H 94 10/27/18 12:34 10/27/18 12:37 10/27/18 12:37 10/27/18 12:34 10/27/18 12:37 Oxygen Flow Rate (L/min) 2 Oxygen Delivery Method Room Air Weight: 284 lb 9.868 oz Body Mass Index (BMI) 36.5 Finger Stick Blood Glucose 150 Laboratory Tests Past 24 Hrs 10/27/18 10/27/18 10/27/18 09:34 09:34 09:34 WBC 7.8 RBC 4.56 L Hgb 14.0 Hct 42.1 MCV 92.3 MCH 30.7 MCHC 33.3 RDW 13.2 RDW Differential 43.6 Plt Count 223 MPV 8.9 Immature Gran % (Auto) 0.900 Neut % (Auto) 72.6 H Lymph % (Auto) 13.7 L [place] % (Auto) 7.6 Eos % (Auto) 4.4 Baso % (Auto) 0.8 Absolute Neuts (auto) 5.7 Absolute Lymphs (auto) 1.07 Total Counted Not Reportable Sodium 139 Potassium 4.0 Chloride 107 Carbon Dioxide 26.0 Anion Gap 6 BUN 13 Creatinine 1.23 Estim Creat Clear Calc 56.62 Est GFR (MDRD) Af Amer 73 Est GFR (MDRD) Non-Af 60 BUN/Creatinine Ratio 10.6 Glucose 233 H Calcium 8.6 Troponin I 0.044 B-Natriuretic Peptide 63.7 10/27/18 12:41 WBC RBC Hgb Hct MCV MCH MCHC RDW RDW Differential Plt Count MPV Immature Gran % (Auto) Neut % (Auto) Lymph % (Auto) [place] % (Auto) Eos % (Auto) Baso % (Auto) Absolute Neuts (auto) Absolute Lymphs (auto) Total Counted Sodium Potassium Chloride Carbon Dioxide Anion Gap BUN Creatinine Estim Creat Clear Calc Est GFR (MDRD) Af Amer Est GFR (MDRD) Non-Af BUN/Creatinine Ratio Glucose Calcium Troponin I Pending B-Natriuretic Peptide Assessment/Plan All Active Problems (Last Updated 07/24/18 @ 12:52 by Mika Pineda MD) Angina of effort (Acute) Impressions 1. angina with exertion 2. hx of CAD with PTCA X 6 in the past 3. Hypertension 4. Diabetes mellitus type 2 5. Hyperlipidemia 6. Chronic renal failure stage III 7. ARMANDO on CPAP 8. Panic attacks with agoraphobia 9. BPH 10. Paroxysmal atrial flutter 11. Chronic hypomagnesemia 12. Neuropathy 13. Right bundle branch block 14. First-degree AV block 15. Morbid obesity 16. GERD Admit to a monitored bed on PCU ASA 81 mg PO daily. Continue Plavix 75 mg daily SL NTG 0.4 mg PRN chest pain Serial Cardiac Enzymes Stat EKG PRN CP Chest XRAY-no acute processes Chemical nuclear stress test in the AM if the cardiac enzymes are negative Consult Dr. Child Lipid panel in the AM Check HGBA1C DVT prophylaxis ordered Code Visit OBSV E&M: 13779 Initial observation care L3
[2018-10-27 13:28] LABS: AST(SGOT) 18 U/L (15-37); Alanine Aminotransfer ALT/SGPT 26 U/L (16-61); Albumin, Serum 3.4 g/dL (3.2-5.0); Alkaline Phosphatase 79 U/L (45-117); Bilirubin, Direct 0.26 mg/dL (0.00-0.30); Globulin 3.6 g/dL (2.2-4.2); Magnesium 1.6 mg/dL (1.6-2.6); Phosphorus 2.2 mg/dL (2.5-4.9)
[2018-10-27] MEDS: Enoxaparin 40 MG/0.4 ML Syringe SC (13:56)
[2018-10-27 16:44] LABS: Hemoglobin A1c 6.9 % (4.2-6.3)
[2018-10-27 16:46] LABS: Bedside Glucose 99 mg/dL (70-110)
[2018-10-27] MEDS: Glimepiride 4 MG Tablet PO (17:21)
[2018-10-27] MEDS: Magnesium Oxide 400 MG Tablet PO (17:21)
[2018-10-27] MEDS: Gabapentin 800 MG Tablet PO (17:21)
[2018-10-27] MEDS: HEPARIN/D5w 25,000 UNITS 25,000 UNITS/250 ML IV.SOLN. 17 UNITS IV (20:37)
[2018-10-27] MEDS: Nitroglycerin Oint 1 INCH PACKET TRANSDERM. (20:38)
[2018-10-27] MEDS: Heparin Injection (Vial) 5,000 UNIT/ML VIAL 10500 UNIT IV (20:39)
[2018-10-27] MEDS: Metoprolol Tartrate 50 MG Tablet PO (21:08)
[2018-10-27 21:09] LABS: International Normalized Ratio 1.1
[2018-10-27] MEDS: Nortriptyline 25 MG Capsule PO (21:09)
[2018-10-27] MEDS: Atorvastatin Calcium 40 MG Tablet PO (21:09)
[2018-10-27] MEDS: Meclizine HCl 25 MG Tablet PO (21:09)
[2018-10-27 21:10] LABS: Partial Thromboplast Time 28.6 Seconds (24.1-36.2)
[2018-10-27] MEDS: LORazepam 1 MG Tablet PO (21:15)
[2018-10-27 21:21] LABS: Bedside Glucose 106 mg/dL (70-110)
[2018-10-28] VITALS (17 sets, daily range): BP systolic 117–145; BP diastolic 61–77; PULSE 57–81; RESP 17–19; TEMP 36.4–36.7; O2SAT 91–95
[2018-10-28 02:41] LABS: Absolute Lymphocyte Count 2.15 X10^3/ul (0.83-4.51); Absolute Neutrophil Count 4.7 X10^3/uL (2.0-7.7); Basophil# 0.04 X10^3/uL; Basophil% 0.5 % (0-1); Eosinophil# 0.52 X10^3/uL; Eosinophils% 6.4 % (0-5); Hematocrit 40.7 % (40-54); Hemoglobin 13.1 g/dl (13.0-16.5); Lymphocyte # 2.15 X10^3/ul (4.0); Lymphocyte % 26.4 % (19-41); Mean Corp Hgb Conc 32.2 g/gl (32-36); Mean Corpuscular Volume 93.3 fL (80-94); Mean Platelet Vol. 8.9 fl (6.2-12.0); Monocyte# 0.67 X10^3/uL; Monocyte% 8.2 % (0-10); Neutrophil # 4.66 X10^3/uL (2.7-7.7); Neutrophil % 57.3 % (47-70); POSITIVE COUNT NO; POSITIVE DIFFERENTIAL NO; POSITIVE MORPHOLOGY NO; Platelet Count 201 K/mm3 (150-450); RBC Distribution Width CV 13.4 % (11.6-14.6); RBC Distribution Width SD 45.3 fl (35.1-43.9); Red Blood Count 4.36 M/mm3 (4.6-6.2); White Blood Count 8.1 K/mm3 (4.4-11.0)
[2018-10-28 02:47] LABS: Partial Thromboplast Time 105.4 Seconds (24.1-36.2)
[2018-10-28 02:48] LABS: International Normalized Ratio 1.1; Prothrombin Time (Protime)PT. 14.2 SECONDS (11.7-14.9)
[2018-10-28 03:08] LABS: Anion Gap 8 (5-15); BUN 14 mg/dL (7-18); BUN/Creat Ratio 14.1 RATIO (10-20); Calcium,Total 8.3 mg/dL (8.5-10.1); Chloride 108 mmol/L (98-107); Creatinine, Serum 0.99 mg/dL (0.70-1.30); EST Glomerular Filtration Rate 77 mL/min (>60); Est Glom Filt Rate - Afr Amer 93 mL/min (>60); Estimated Creatinine Clearance 70.35 ml/min; Glucose 120 mg/dL (74-106); Potassium 4.3 mmol/L (3.5-5.1); Sodium Level 140 mmol/L (136-145); Thyroid Stim Hormone (TSH) 2.89 uIU/mL (0.358-3.74)
[2018-10-28 04:42] LABS: Bacteria 0 SEEN /hpf (None Seen); Mucous, Urine 0 SEEN /hpf (<or=2+); White Blood Cells 0 SEEN /hpf (0-5)
[2018-10-28 04:44] LABS: Color, Urine Yellow (Yellow); Glucose, Dipstick Normal (Normal); Ketone-Dipstick Negative (Negative); Leukocyte Esterase-Dipstick Negative /ul (Negative); Nitrite-Dipstick Negative (Negative); Occult Blood-Urine 150 /ul (Negative); Protein-Dipstick Negative (Negative); Urine Bilirubin Dipstick Negative (Negative); Urine Clarity Clear (Clear); Urine Urobilinogen Normal (Normal)
[2018-10-28 04:58] LABS: Red Blood Cells-Urine 0-5 SEEN /hpf (0-5); Squamous Epithelial Cells - UA 0-5 SEEN /hpf (0-5)
[2018-10-28] MEDS: Nitroglycerin Oint 1 INCH PACKET TRANSDERM. ×3 (05:43→17:24)
[2018-10-28] MEDS: Metoprolol Tartrate 50 MG Tablet PO ×2 (05:44→21:38)
[2018-10-28] MEDS: Aspirin 81 MG TAB.CHEW PO (05:44)
[2018-10-28] MEDS: Lisinopril 5 MG Tablet PO (05:45)
[2018-10-28] MEDS: 0.9% NaCl Peripheral Flush Adult/Peds IV ×2 (05:45→14:19)
[2018-10-28] MEDS: Clopidogrel Bisulfate 75 MG Tablet PO (05:45)
--- NOTE | 2018-10-28 05:55 | EKG12_ITS ---
Test Reason : AM Blood Pressure : / mmHG Vent. Rate : 061 BPM Atrial Rate : 030 BPM P-R Int : 000 ms QRS Dur : 116 ms QT Int : 694 ms P-R-T Axes : 000 -72 -21 degrees QTc Int : 698 ms Atrial fibrillation with a competing junctional pacemaker Left axis deviation Right bundle branch block Inferior infarct , age undetermined Abnormal ECG When compared with ECG of 27-OCT-2018 09:41, MANUAL COMPARISON REQUIRED, DATA IS UNCONFIRMED Confirmed by EDITA REY, DMITRI ([id number]), art editor JUAN A PALMA ([id number]) on 10/30/2018 2:12:33 PM Referred By: Confirmed By:DMITRI KOHLER MD
[2018-10-28 06:01] LABS: Bedside Glucose 122 mg/dL (70-110)
--- NOTE | 2018-10-28 08:52 | ECHOD_ITS ---
Reason For Study: CAD/ASHD Procedure This was a 2D Doppler, Color Flow transthoracic echocardiogram. Technically difficult due to pt body habitus. No Parasternal images, SAX images were taken from subcostal view. Exam performed portable in patient room. Left Ventricle Normal size and thickness. The estimated ejection fraction is 65 %. Stage 1 diastolic dysfunction. No regional wall motion abnormalities noted. Right Ventricle Mildly dilated right ventricle. Normal systolic function. Atria Normal left atrium. The right atrium is mildly enlarged. Normal atrial septum. Mitral Valve The mitral valve is structurally normal. No prolapse or stenosis seen. Trivial mitral valve insufficiency. Tricuspid Valve Normal tricuspid valve. Trivial tricuspid valve insufficiency. Right ventricular systolic pressure estimated to be 35 mmHg. Aortic Valve Trisinus/trileaflet aortic valve. Mild diffuse aortic valve thickening. Trivial aortic valve insufficiency. Pulmonic Valve Normal pulmonic valve. Great Vessels Normal aortic root. Mild atherosclerosis of the aortic arch. Normal inferior vena cava. Inferior vena cava collapse with sniff. Pericardium/Pleural No pericardial effusion. MMode/2D Measurements & Calculations LAV(MOD-sp4): 45.3 ml LA A4 area: 16.6 cm2 RA A4 area: 21.8 cm2 Time Measurements MV dec time: 0.27 sec Doppler Measurements & Calculations MV E max mir: 90.2 cm/sec Lat Peak E' Mir: 13.0 cm/sec Med Peak E' Mir: 8.5 cm/sec MV A max mir: 112.5 cm/sec E/E' lat: 6.9 E/E' med: 10.6 MV E/A: 0.80 MV V2 max: 118.5 cm/sec MV P1/2t max mir: 105.0 cm/sec Ao V2 max: 125.1 cm/sec MV max P.6 mmHg MV P1/2t: 67.3 msec Ao max P.3 mmHg MV V2 mean: 67.9 cm/sec MV dec slope: 456.6 cm/sec2 Ao V2 mean: 84.0 cm/sec MV mean P.2 mmHg MVA(P1/2t): 3.3 cm2 Ao mean P.2 mmHg MV V2 VTI: 35.4 cm Ao V2 VTI: 26.3 cm LV V1 max: 91.9 cm/sec PA V2 max: 115.4 cm/sec TR max mir: 272.1 cm/sec LV V1 max P.4 mmHg TR max P.6 mmHg LV V1 mean P.8 mmHg LV V1 mean: 61.6 cm/sec LV V1 VTI: 17.8 cm Interpretation Summary The estimated ejection fraction is 65 %. Stage 1 diastolic dysfunction. Mildly dilated right ventricle. The right atrium is mildly enlarged. Trivial mitral valve insufficiency. Trivial tricuspid valve insufficiency. Right ventricular systolic pressure estimated to be 35 mmHg. Trivial aortic valve insufficiency. Compared to echo report dated 03/24/2017, LV function has remained the same. The study was technically difficult. The study was technically limited. Ordering Physician: Nikko Martinez Performed By: Tristan Licona RCS
[2018-10-28] MEDS: Clopidogrel Bisulfate 300 MG Tablet PO (09:40)
[2018-10-28] MEDS: Gabapentin 800 MG Tablet PO ×2 (09:41→17:24)
[2018-10-28] MEDS: Magnesium Oxide 400 MG Tablet PO ×2 (09:41→17:23)
[2018-10-28] MEDS: Meclizine HCl 25 MG Tablet PO ×2 (09:42→21:39)
[2018-10-28] MEDS: Pantoprazole Sodium 20 MG Tablet PO (09:42)
[2018-10-28] MEDS: Glimepiride 4 MG Tablet PO ×2 (09:42→17:23)
[2018-10-28] MEDS: Escitalopram Oxalate 10 MG Tablet PO (09:42)
--- NOTE | 2018-10-28 10:31 | CASEMGMT ---
Addendum entered by Michael Mclain 10/28/18 10:36: Pt states he has [facility] active at home. Will need to resume on discharge. Anisa MAN Original Note: RN CM Assessment Presentation: chest pain radiating to L arm. Pt states prior to admission he was independent at home. Had been to ER last Sunday for GI symptoms. Intro role of CM and purpose of RN CM assessment. PCP: Dr. Louis Preferred Pharmacy: [facility] Insurance: [facility] Prescription Benefit: yes LNOK: ( in group home), stepdaughter Jolanta Zelaya Living Arrangements: Duplex, ramp into home. Pt states he is independent with ADL's, does not require assistance. Pt did say he has to find new place to live by mid November and plans to find apartment. Transportation: Pt drives. DME: Shower chair, cane crutches, grab bars, walker, w/c, Cpap only. Denies oxygen equipment at home. No oxygen use in hospital at this time. HHC: none DC PLAN: Home on discharge. Denies needs. Anisa MAN
[2018-10-28 11:36] LABS: Bedside Glucose 228 mg/dL (70-110)
[2018-10-28] MEDS: Insulin Lispro 100 UNIT/ML INSULN.PEN SC (12:51)
[2018-10-28 14:07] LABS: Partial Thromboplast Time 36.4 Seconds (24.1-36.2)
[2018-10-28] MEDS: Heparin Injection (Vial) 5,000 UNIT/ML VIAL IV (14:17)
--- NOTE | 2018-10-28 15:53 | CHAPLAIN ---
Type of Pastoral Visit _x__ Initial Visit ___ Follow-up Visit ___ On-call Visit ___ General Patient Visit ___ Spiritual Assessment ___ Family Conference ___ Bereavement ___ Rapid Response ___ Code Blue ___ Other (describe below) Pastoral Care Referral From _x__ Patient ___ Family ___ Nurse ___ Physician ___ Axle Inspector ___ Freelance Interpreter/Translator ___ Other (describe below) Sacrament/Intervention _x__ Active listening ___ Anointing ___ Bahai ___ Bereavement ___ Communion ___ Yvette exploration ___ _x__ Life review _x__ Prayer ___ Reconciliation ___ Sacrament of Sick _x__ Supportive presence ___ Wedding ___ Other (describe below) Pastoral Comments
[2018-10-28 16:21] LABS: Bedside Glucose 77 mg/dL (70-110)
[2018-10-28 16:21] LABS: Bedside Glucose 69 mg/dL (70-110)
--- NOTE | 2018-10-28 17:45 | PCM.PN.HOSP ---
Patient Problems: Active and Suspected Problems (Last Reviewed 10/27/18 @ 13:12 by Camron Huggins DO) Angina of effort (Acute) Subjective: Feeling better than when he came in, his arm pain has completely resolved and his chest pain has improved significantly Vitals/I&O's: Vital Signs Temp Pulse Resp BP Pulse Ox 97.9 F 66 19 H 138/77 H 95 10/28/18 15:50 10/28/18 15:50 10/28/18 15:50 10/28/18 15:50 10/28/18 15:50 Oxygen Flow Rate (L/min) 2 Oxygen Delivery Method Room Air Weight: 284 lb 9.868 oz Body Mass Index (BMI) 36.5 Finger Stick Blood Glucose 150 Intake and Output for Last 24 Hours 10/26/18 10/27/18 10/28/18 23:59 23:59 23:59 Intake Total 960 / 960 2137.4 / 2137.4 Output Total 1775 / 1775 Balance 960 / 960 362.4 / 362.4 General: Alert, Oriented x3, Cooperative, No apparent distress HEENT: Atraumatic, EOMI, Normocephalic Oral: Moist Mucosa Neck: Supple, No JVD, Trachea Midline Lungs: Clear to auscultation, Normal air movement, No rhonchi, No wheeze, No rales Cardiovascular: Regular rate, Regular Rhythm, Normal S1, Normal S2, No murmurs, No rub noted, No Gallop Abdomen: Soft, Non Tender, Non-Distended, No Hepato-splenomegaly Extremities: No edema, Capillary Refill Less than 3 Seconds Skin: No rashes, No breakdown Neurological: Neuro grossly intact, Sensory exam intact to light touch and pain Psych/Mental Status: Normal Affect, Appropriate Laboratory Results 10/27/18 18:30: Troponin I 4.880 H* 10/27/18 20:10: PT 14.0, INR 1.1, APTT 28.6 10/27/18 21:06: POC Glucose 106 10/27/18 22:55: Urine Color Yellow, Urine Clarity Clear, Urine pH 6.0, Ur Specific Irma 1.010, Urine Protein Negative, Urine Glucose (UA) Normal, Urine Ketones Negative, Urine Occult Blood 150 H, Urine Nitrite Negative, Urine Bilirubin Negative, Urine Urobilinogen Normal, Ur Leukocyte Esterase Negative, Urine RBC 0-5 SEEN, Urine WBC 0 SEEN, Ur Squamous Epith Cells 0-5 SEEN, Urine Bacteria 0 SEEN, Urine Mucus 0 SEEN 10/28/18 02:25: Sodium 140, Potassium 4.3, Chloride 108 H, Carbon Dioxide 24.0, Anion Gap 8, BUN 14, Creatinine 0.99, Estim Creat Clear Calc 70.35, Est GFR (MDRD) Af Amer 93, Est GFR (MDRD) Non-Af 77, BUN/Creatinine Ratio 14.1, Glucose 120 H, Calcium 8.3 L, TSH 2.89 10/28/18 02:25: APTT 105.4 H* 10/28/18 02:25: WBC 8.1, RBC 4.36 L, Hgb 13.1, Hct 40.7, MCV 93.3, MCH 30.0, MCHC 32.2, RDW 13.4, RDW Differential 45.3 H, Plt Count 201, MPV 8.9, Immature Gran % (Auto) 1.200 H, Neut % (Auto) 57.3, Lymph % (Auto) 26.4, [place] % (Auto) 8.2, Eos % (Auto) 6.4 H, Baso % (Auto) 0.5, Absolute Neuts (auto) 4.7, Absolute Lymphs (auto) 2.15, Total Counted Not Reportable 10/28/18 02:25: PT 14.2, INR 1.1 10/28/18 05:53: POC Glucose 122 H 10/28/18 11:27: POC Glucose 228 H 10/28/18 13:43: APTT 36.4 H 10/28/18 15:56: POC Glucose 69 L 10/28/18 16:18: POC Glucose 77 Current Medications Aspirin (Aspirin, Baby) 81 mg PO DAILY@0800 [facility] Last Admin: 10/28/18 05:44 Dose: 81 mg Atorvastatin Calcium (Lipitor) 40 mg PO DAILY@2200 [facility] Last Admin: 10/27/18 21:09 Dose: 40 mg Clopidogrel Bisulfate (Plavix) 75 mg PO DAILY [facility] Last Admin: 10/28/18 05:45 Dose: 75 mg Diphenhydramine HCl (Benadryl) 50 mg PO X1 ONE Stop: 10/29/18 07:01 Ergocalciferol (Vitamin D) 50,000 unit PO Q7D [facility] Last Admin: 10/27/18 17:19 Dose: 50,000 unit Escitalopram Oxalate (Lexapro) 10 mg PO DAILY [facility] Last Admin: 10/28/18 09:42 Dose: 10 mg Gabapentin (Neurontin) 800 mg PO TIDCM [facility] Last Admin: 10/28/18 17:24 Dose: 800 mg Glimepiride (Amaryl) [facility] Last Admin: 10/28/18 17:23 Dose: 4 mg Heparin Sodium (Porcine) (Heparin Na) 0 unit IV UD PRN; Protocol Last Admin: 10/28/18 14:17 Dose: 3,000 unit Sodium Chloride () 1,000 mls @ 0 mls/hr IV .Q0M [facility] Last Admin: 10/27/18 09:52 Dose: 150 mls/hr Heparin Sodium/Dextrose () 25,000 units in 250 mls @ 17 mls/hr IV .[id number] [facility]; Protocol Last Admin: 10/28/18 12:51 Dose: Not Given Sodium Chloride () 1,000 mls @ 0 mls/hr IV .Q0M [facility] Sodium Chloride () 1,000 mls @ 15 mls/hr IV .Q48H [facility] Insulin Human Lispro (Humalog Kwikpen (Bkc)) 0 unit SC ACHS [facility]; Protocol Last Admin: 10/28/18 16:04 Dose: Not Given Lisinopril (Zestril) 5 mg PO DAILY [facility] Last Admin: 10/28/18 05:45 Dose: 5 mg Lorazepam (Ativan) 1 mg PO BID PRN PRN Reason: ANXIETY Last Admin: 10/27/18 21:15 Dose: 1 mg Magnesium Hydroxide (Milk Of Magnesia) 30 ml PO DAILY PRN PRN Reason: Constipation Magnesium Oxide (Mag-Ox 400) [facility] Last Admin: 10/28/18 17:23 Dose: 400 mg Meclizine HCl (Antivert) 25 mg PO BID [facility] Last Admin: 10/28/18 09:42 Dose: 25 mg Metoprolol Tartrate (Lopressor (Beta Chyna)) 50 mg PO BID [facility] Last Admin: 10/28/18 05:44 Dose: 50 mg Nitroglycerin (Nitrostat) 0.4 mg SUBLINGUAL Q5M PRN PRN Reason: Chest Pain Nitroglycerin (Nitrobid) 1 inch TRANSDERM. Q6 [facility] Last Admin: 10/28/18 17:24 Dose: 1 inch Nortriptyline HCl (Pamelor) 25 mg PO QHS [facility] Last Admin: 10/27/18 21:09 Dose: 25 mg Pantoprazole Sodium (Protonix) 20 mg PO DAILY [facility] Last Admin: 10/28/18 09:42 Dose: 20 mg Sodium Chloride () 5 - 15 ml IV UD PRN PRN Reason: SALINE FLUSH Last Admin: 10/28/18 14:19 Dose: 10 ml Medical Necessity - Tobacco Use Smoking Status: Never smoker Tobacco Use: Non-smoker Assessment/Plan All Active Problems (Last Reviewed 10/27/18 @ 13:12 by Camron Huggins DO) Angina of effort (Acute) 1. NSTEMI/CAD status post 6 stents/HTN/HLD/paroxysmal atrial flutter/morbid obesity -Consult to cardiology on admission, troponin courtney to 4.88 -Echo today with a normal EF of 65% and a stage I diastolic dysfunction, echo remains unchanged -Continue with the heparin drip, he received a loading dose of Plavix plan for cardiac cath in the morning -He has been out of his Plavix for the last couple of days and does have financial difficulties with continuing a lot of his medications -We will discuss with case management for options going forward after discharge -Continue with aspirin -Discussed diet and exercise as well as other lifestyle modifications -Continue with KIRA inhibitor, Lipitor, and beta-chyna 2. DM 2 with neuropathy/CKD 3 -A1c is 6.9 -He is on metformin and omeprazole, will hold -Continue with sliding scale insulin -Continue with nortriptyline and gabapentin 3. Anxiety/depression -Continue with Ativan as needed -Continue with Lexapro -Stable 4. GERD -Stable -Continue with Protonix DVT: Heparin drip Code Visit Inpatient E&M: 75147 [facility] Hosp L2
[2018-10-28] MEDS: HEPARIN/D5w 25,000 UNITS 25,000 UNITS/250 ML IV.SOLN. 17 UNITS IV (19:04)
[2018-10-28] MEDS: Nortriptyline 25 MG Capsule PO (21:37)
[2018-10-28] MEDS: Atorvastatin Calcium 40 MG Tablet PO (21:38)
[2018-10-28] MEDS: LORazepam 1 MG Tablet PO (21:41)
[2018-10-29] VITALS (30 sets, daily range): BP systolic 95–162; BP diastolic 56–98; PULSE 56–73; RESP 15–21; TEMP 36.4–36.9; O2SAT 93–99
[2018-10-29 00:16] LABS: Bedside Glucose 159 mg/dL (70-110)
[2018-10-29] MEDS: Nitroglycerin Oint 1 INCH PACKET TRANSDERM. ×2 (00:18→06:13)
[2018-10-29 03:33] LABS: Absolute Lymphocyte Count 1.64 X10^3/ul (0.83-4.51); Absolute Neutrophil Count 3.9 X10^3/uL (2.0-7.7); Basophil# 0.04 X10^3/uL; Basophil% 0.6 % (0-1); Eosinophil# 0.43 X10^3/uL; Eosinophils% 6.3 % (0-5); Hematocrit 40.7 % (40-54); Hemoglobin 13.4 g/dl (13.0-16.5); Lymphocyte # 1.64 X10^3/ul (4.0); Mean Corp Hgb Conc 32.9 g/gl (32-36); Mean Corpuscular Hgb 30.9 pg (27.0-32.0); Mean Corpuscular Volume 93.8 fL (80-94); Monocyte# 0.67 X10^3/uL; Monocyte% 9.8 % (0-10); Neutrophil # 3.92 X10^3/uL (2.7-7.7); Neutrophil % 57.5 % (47-70); Platelet Count 217 K/mm3 (150-450); RBC Distribution Width CV 13.2 % (11.6-14.6); RBC Distribution Width SD 43.8 fl (35.1-43.9); Red Blood Count 4.34 M/mm3 (4.6-6.2); White Blood Count 6.8 K/mm3 (4.4-11.0)
[2018-10-29 03:35] LABS: POSITIVE COUNT NO; POSITIVE DIFFERENTIAL NO; POSITIVE MORPHOLOGY NO
[2018-10-29 03:36] LABS: International Normalized Ratio 1.1; Prothrombin Time (Protime)PT. 13.7 SECONDS (11.7-14.9)
[2018-10-29 03:37] LABS: Partial Thromboplast Time 51.2 Seconds (24.1-36.2)
[2018-10-29 03:42] LABS: Anion Gap 11 (5-15); BUN 15 mg/dL (7-18); BUN/Creat Ratio 14.2 RATIO (10-20); Calcium,Total 8.4 mg/dL (8.5-10.1); Chloride 108 mmol/L (98-107); Creatinine, Serum 1.06 mg/dL (0.70-1.30); EST Glomerular Filtration Rate 72 mL/min (>60); Est Glom Filt Rate - Afr Amer 87 mL/min (>60); Glucose 119 mg/dL (74-106); Potassium 4.1 mmol/L (3.5-5.1); Sodium Level 142 mmol/L (136-145)
[2018-10-29] MEDS: Aspirin 81 MG TAB.CHEW PO (06:13)
[2018-10-29] MEDS: Metoprolol Tartrate 50 MG Tablet PO ×2 (06:13→22:17)
[2018-10-29] MEDS: Lisinopril 5 MG Tablet PO (06:13)
[2018-10-29] MEDS: Clopidogrel Bisulfate 75 MG Tablet PO (06:13)
[2018-10-29] MEDS: 0.9% Normal Saline 1,000 ML 15 ML IV (06:14)
[2018-10-29] MEDS: DiphenhydrAMINE 25 MG Capsule 50 MG PO (06:55)
[2018-10-29 07:11] LABS: Bedside Glucose 132 mg/dL (70-110)
--- NOTE | 2018-10-29 08:20 | NURSING ---
Report called to receiving KAREN Carey in ICU. Lidya JONES
[2018-10-29 08:31] LABS: ACT Activated Clotting Time 180 sec (74-137)
--- NOTE | 2018-10-29 08:31 | CL.I_ITS ---
Patient Name: MARYANN REYES Study Date: 10/29/2018 Performing: Nikko Martinez MD Ht: 74.01 inches 188 cm : 1940 Wt: 284.4 lbs 129 kg Age: 77 Gender: male BSA: 2.52 PROCEDURE(S) PERFORMED UY48-[id number]/COR/LV LE20-KGE W OR WO PTCA, SINGLE CORONARY ARTERY CLINICAL PROFILE AND CO-MORBIDITIES Indications: ACS > 24 hrs, New Onset Angina <= 2 months, Stable Known CAD Heart Failure: None Stress/Imaging Stress/Image Study Performed: No Angina Classification Anginal Classification w/in 2 Weeks: CCS III CAD Presentations: Unstable angina. Non-STEMI. Symptom onset Date/Time: 10/27/2018 Time Not Availa ble Comorbidities/Risk Factors: Hypertension Dyslipidemia Prior PCI Diabetes Mellitus: Diabetes Therapy: Insulin Diabetes Mellitus: Diabetes Therapy: Oral CONCLUSIONS Perserved Left Ventricular systolic function with normal EDP LVEF: by LV gram 65 % Non obstructive coronary arteries Single vessel CAD of the LAD Successful PTCA/LETICIA proximal LAD with a 3.5 x 16 Promus Synergy, post dilated with a 3.75 x 8 NC Ball oon throughout; 85%-->0%, no dissection. RECOMMENDATIONS Referred for immediate PCI Highly recommend quitting all tobacco products Follow up with primary cat swamper Risk factor modification ASA Indefinitley Plavix for at least 12 months Routine post interventional care Refer for Outpatient Cardiac Rehab Manual sheath removal per protocol Successful Mynx closure Follow up with Dr. Martinez DESCRIPTION OF PROCEDURE The patient arrived to the procedure lab. The risks and benefits of the procedure as well as a full d escription of our services here and lack of surgical backup were fully explained to the patient and/o r their significant other prior to the catheterization. The Timeout was completed, verifying the hussein ect patient and procedure. The patient's procedural site was prepped and draped in the usual fashion. Local anesthetic was given subcutaneously to right groin region with Lidocaine 2%. Using a modified Seldinger technique, arterial access was obtained via the right femoral artery, a 4Fr sheath was inse rted. Left Coronary Artery selective angiography was performed in multiple views using a 4 Fr. JL5 c atheter. Right Coronary Artery selective angiography was then performed in multiple views using a 4 F r. 3DRC catheter. Left Ventriculography was performed in LOZADA projection using a 4 Fr. Pigtail cathete r. LV to AO pullback pressures were then recordedThe images were reviewed and options discussed. A decision was then made to proceed with an Intervention, IVUS or other adjunct procedure. Arterial sheath was exchanged for a 6fr 55cm sheath EBU 3.75 Guide catheter was inserted and enga ged into the LCA. BMW Guide wire was advanced to the LAD. Angiogram performed pre balloon dilatation. Emerge 2.00x8 Balloon catheter was inserted. PTCA balloon inflated at 8 atms for 13 secs. Angiogram performed post balloon dilatation. Synergy 3.50x16 Drug Eluting stent was inserted. Angiogram perform ed post stent deployment. NC Emerge 3.75x8 Balloon catheter was inserted. PTCA balloon inflated at 12 atms for 11 secs. PTCA balloon inflated at 12 atms for 11 secs. PTCA balloon inflated at 10 atms for 18 secs. Angiogram performed post balloon dilatation. Contrast was injected through the sheath and t he Right Iliac and Femoral artery were assessed for possible closure device. The arterial sheath was pulled and a Mynx closure device was deployed for hemostasis CORONARY ANGIOGRAPHY DOMINANCE: Right Dominant LEFT HEART ASSESSMENT Left Ventricular Ejection Fraction: by LV Gram 65 % Normal Left Ventricular systolic function LVEDP: 10 mmHg Normal Left Ventricular End Diastolic Pressure Normal LV wall motion LEFT MAIN: Non-obstructive LEFT ANTERIOR DECENDING ARTERY: PROX LAD: Instent restenosis 85 % DIAGONAL 1: Proximal - Instent restenosis 10 % CIRCUMFLEX ARTERY: Mild luminal irregularities less than 30% RIGHT CORONARY ARTERY: MID RCA: Previously placed stent is patent INTERVENTION INFORMATION LESION SITE: LAD (Proximal) Lesion Complexity: High/C, lesion at bifurcation: Yes, thrombus present: No, lesion length: 16 mm, cu lprit lesion: Yes, In-stent restenosis: Yes Pre Stenosis: 85 % Pre intervention BETO flow: 3 PROCEDURE: Drug Eluting Stent with pre and post dilatation Post Stenosis: 0 % Post intervention BETO flow: 3 COMPLICATIONS No Complications PROCEDURE MEDICATIONS Oxygen: 2 L/min via nasal cannula Heparin 6000 unit(s) IV 10/29/2018 07:51:21 Nitro 200 mcg IC 10/29/2018 08:01:28 IV Bolus: .9 NaCl 500 ml total 10/29/2018 07:51:54 SUMMARY OF HEMODYNAMIC DATA Time AIR REST ECG 07:21:45 AO 122/68 (92) SA 07:42:45 LV 136/-15, 10 07:49:00 LV 136/-16, 13 07:49:07 LVp 140/-13, 11 07:49:12 AOp 137/58 (93) 07:49:17 Signed By Nikko Martinez MD On 10/29/2018 08:29:55 Nikko Martinez MD
--- NOTE | 2018-10-29 08:55 | PCM.PN.HOSP ---
Patient Problems: Active and Suspected Problems (Last Reviewed 10/27/18 @ 13:12 by Camron Huggins DO) Angina of effort (Acute) Subjective: Doing well, tolerated the cath procedure. Pain has essentially resolved. Vitals/I&O's: Vital Signs Temp Pulse Resp BP Pulse Ox 97.9 F 57 L 17 152/58 H 98 10/29/18 08:45 10/29/18 08:45 10/29/18 08:45 10/29/18 08:45 10/29/18 08:45 Oxygen Flow Rate (L/min) 2 Oxygen Delivery Method Room Air Weight: 284 lb 9.868 oz Body Mass Index (BMI) 36.5 Finger Stick Blood Glucose 150 Intake and Output for Last 24 Hours 10/27/18 10/28/18 10/29/18 23:59 23:59 23:59 Intake Total 960 / 960 2137.4 / 2137.4 483 / 483 Output Total 1775 / 1775 800 / 800 Balance 960 / 960 362.4 / 362.4 -317 / -317 General: Alert, Oriented x3, Cooperative, No apparent distress HEENT: Atraumatic, EOMI, Normocephalic Oral: Moist Mucosa Neck: Supple, No JVD, Trachea Midline Lungs: Clear to auscultation, Normal air movement, No rhonchi, No wheeze, No rales Cardiovascular: Regular rate, Regular Rhythm, Normal S1, Normal S2, No murmurs, No rub noted, No Gallop Abdomen: Soft, Non Tender, Non-Distended, No Hepato-splenomegaly Extremities: No edema, Capillary Refill Less than 3 Seconds Skin: No rashes, No breakdown Neurological: Neuro grossly intact, Sensory exam intact to light touch and pain Psych/Mental Status: Normal Affect, Appropriate Laboratory Results 10/28/18 02:25: PT Cancelled, INR Cancelled, APTT 105.4 H* 10/28/18 11:27: POC Glucose 228 H 10/28/18 13:43: APTT 36.4 H 10/28/18 15:56: POC Glucose 69 L 10/28/18 16:18: POC Glucose 77 10/28/18 20:31: APTT 48.0 H 10/28/18 21:36: POC Glucose 159 H 10/29/18 03:14: WBC 6.8, RBC 4.34 L, Hgb 13.4, Hct 40.7, MCV 93.8, MCH 30.9, MCHC 32.9, RDW 13.2, RDW Differential 43.8, Plt Count 217, MPV 9.0, Immature Gran % (Auto) 1.800 H, Neut % (Auto) 57.5, Lymph % (Auto) 24.0, [place] % (Auto) 9.8, Eos % (Auto) 6.3 H, Baso % (Auto) 0.6, Absolute Neuts (auto) 3.9, Absolute Lymphs (auto) 1.64, Total Counted Not Reportable 10/29/18 03:14: Sodium 142, Potassium 4.1, Chloride 108 H, Carbon Dioxide 23.0, Anion Gap 11, BUN 15, Creatinine 1.06, Estim Creat Clear Calc 65.70, Est GFR (MDRD) Af Amer 87, Est GFR (MDRD) Non-Af 72, BUN/Creatinine Ratio 14.2, Glucose 119 H, Calcium 8.4 L 10/29/18 03:14: PT 13.7, INR 1.1, APTT 51.2 H 10/29/18 06:18: POC Glucose 132 H 10/29/18 08:09: Activated Clotting Time 180 H Current Medications Acetaminophen (Tylenol) 650 mg PO Q6H PRN PRN PRN Reason: Mild Pain (0-2/10) Aspirin (Aspirin, Baby) 81 mg PO DAILY@0800 [facility] Last Admin: 10/29/18 06:13 Dose: 81 mg Atorvastatin Calcium (Lipitor) 40 mg PO DAILY@2200 [facility] Last Admin: 10/28/18 21:38 Dose: 40 mg Atropine Sulfate () 0.5 mg IV UD PRN PRN Reason: HR <50 bpm Clopidogrel Bisulfate (Plavix) 75 mg PO DAILY [facility] Last Admin: 10/29/18 06:13 Dose: 75 mg Ergocalciferol (Vitamin D) 50,000 unit PO Q7D [facility] Last Admin: 10/27/18 17:19 Dose: 50,000 unit Escitalopram Oxalate (Lexapro) 10 mg PO DAILY [facility] Last Admin: 10/28/18 09:42 Dose: 10 mg Gabapentin (Neurontin) 800 mg PO TIDCM [facility] Last Admin: 10/28/18 17:24 Dose: 800 mg [facility] ([facility]l) [facility] Last Admin: 10/28/18 17:23 Dose: 4 mg Heparin Sodium (Beef Lung) (Heparin 500 Unit/5 Ml (100/Ml)) 500 unit IV UD PRN PRN Reason: HEPARIN FLUSH Sodium Chloride () 1,000 mls @ 0 mls/hr IV .Q0M [facility] Last Admin: 10/27/18 09:52 Dose: 150 mls/hr Sodium Chloride () 1,000 mls @ 0 mls/hr IV .Q0M [facility] Sodium Chloride () 1,000 mls @ 15 mls/hr IV .Q48H [facility] Last Admin: 10/29/18 06:14 Dose: 15 mls/hr Sodium Chloride () 1,000 mls @ 150 mls/hr IV .Q6H40M [facility] Stop: 10/29/18 15:19 Insulin Human Lispro (Humalog Kwikpen (Bkc)) 0 unit SC [facility]; Protocol Last Admin: 10/29/18 07:37 Dose: Not Given Labetalol HCl (Trandate) 5 mg IV X1 PRN PRN Reason: SBP > 160 when pulling sheath Lisinopril (Zestril) 5 mg PO DAILY [facility] Last Admin: 10/29/18 06:13 Dose: 5 mg Lorazepam (Ativan) 1 mg PO BID PRN PRN Reason: ANXIETY Last Admin: 10/28/18 21:41 Dose: 1 mg Lorazepam (Ativan) 1 mg PO Q6H PRN PRN PRN Reason: BACK SPASMS/ANXIETY Magnesium Hydroxide (Milk Of Magnesia) 30 ml PO DAILY PRN PRN Reason: Constipation Magnesium Oxide ([facility]-Ox 400) [facility] Last Admin: 10/28/18 17:23 Dose: 400 mg Meclizine HCl (Antivert) 25 mg PO BID [facility] Last Admin: 10/28/18 21:39 Dose: 25 mg Metoclopramide HCl (Reglan) 5 mg IV Q6 PRN PRN Reason: NAUSEA/VOMITING Metoprolol Tartrate (Lopressor (Beta Chyna)) 50 mg PO BID [facility] Last Admin: 10/29/18 06:13 Dose: 50 mg Morphine Sulfate () 2 mg IV Q4H PRN PRN PRN Reason: Mild back pain (0-2/10) Nitroglycerin (Nitrostat) 0.4 mg SUBLINGUAL Q5M PRN PRN Reason: Chest Pain Nortriptyline HCl (Pamelor) 25 mg PO QHS [facility] Last Admin: 10/28/18 21:37 Dose: 25 mg Pantoprazole Sodium (Protonix) 20 mg PO DAILY [facility] Last Admin: 10/28/18 09:42 Dose: 20 mg Sodium Chloride () 5 - 15 ml IV UD PRN PRN Reason: SALINE FLUSH Last Admin: 10/28/18 14:19 Dose: 10 ml Sodium Chloride () 500 ml IV BOLUS PRN PRN Reason: VASO-VAGAL PROTOCOL Medical Necessity - Tobacco Use Smoking Status: Never smoker Tobacco Use: Non-smoker Assessment/Plan All Active Problems (Last Reviewed 10/27/18 @ 13:12 by Camron Huggins DO) Angina of effort (Acute) 1. NSTEMI/CAD status post 6 stents/HTN/HLD/paroxysmal atrial flutter/morbid obesity -Consult to cardiology on admission, troponin courtney to 4.88 -Echo with a normal EF of 65% and a stage I diastolic dysfunction, echo remains unchanged -Underwent cardiac cath today and had a stent placed -He has been out of his Plavix for the last couple of days and does have financial difficulties with continuing a lot of his medications -We will discuss with case management for options going forward after discharge -Continue with aspirin -Discussed diet and exercise as well as other lifestyle modifications -Continue with KIRA inhibitor, Lipitor, and beta-chyna 2. DM 2 with neuropathy/CKD 3 -A1c is 6.9 -He is on metformin and omeprazole, will hold -Continue with sliding scale insulin -Continue with nortriptyline and gabapentin 3. Anxiety/depression -Continue with Ativan as needed -Continue with Lexapro -Stable 4. GERD -Stable -Continue with Protonix DVT: SCDs Code Visit Inpatient E&M: 28345 [facility] Hosp L2
--- NOTE | 2018-10-29 08:59 | PN_ITS ---
Patient Problems: Active and Suspected Problems (Last Reviewed 10/27/18 @ 13:12 by Camron Huggins DO) Angina of effort (Acute) Subjective: Doing well, tolerated the cath procedure. Pain has essentially resolved. Vitals/I&O's: Vital Signs Temp Pulse Resp BP Pulse Ox 97.9 F 57 L 17 152/58 H 98 10/29/18 08:45 10/29/18 08:45 10/29/18 08:45 10/29/18 08:45 10/29/18 08:45 Oxygen Flow Rate (L/min) 2 Oxygen Delivery Method Room Air Weight: 284 lb 9.868 oz Body Mass Index (BMI) 36.5 Finger Stick Blood Glucose 150 Intake and Output for Last 24 Hours 10/27/18 10/28/18 10/29/18 23:59 23:59 23:59 Intake Total 960 / 960 2137.4 / 2137.4 483 / 483 Output Total 1775 / 1775 800 / 800 Balance 960 / 960 362.4 / 362.4 -317 / -317 General: Alert, Oriented x3, Cooperative, No apparent distress HEENT: Atraumatic, EOMI, Normocephalic Oral: Moist Mucosa Neck: Supple, No JVD, Trachea Midline Lungs: Clear to auscultation, Normal air movement, No rhonchi, No wheeze, No rales Cardiovascular: Regular rate, Regular Rhythm, Normal S1, Normal S2, No murmurs, No rub noted, No Gallop Abdomen: Soft, Non Tender, Non-Distended, No Hepato-splenomegaly Extremities: No edema, Capillary Refill Less than 3 Seconds Skin: No rashes, No breakdown Neurological: Neuro grossly intact, Sensory exam intact to light touch and pain Psych/Mental Status: Normal Affect, Appropriate Laboratory Results 10/28/18 02:25: PT Cancelled, INR Cancelled, APTT 105.4 H* 10/28/18 11:27: POC Glucose 228 H 10/28/18 13:43: APTT 36.4 H 10/28/18 15:56: POC Glucose 69 L 10/28/18 16:18: POC Glucose 77 10/28/18 20:31: APTT 48.0 H 10/28/18 21:36: POC Glucose 159 H 10/29/18 03:14: WBC 6.8, RBC 4.34 L, Hgb 13.4, Hct 40.7, MCV 93.8, MCH 30.9, MCHC 32.9, RDW 13.2, RDW Differential 43.8, Plt Count 217, MPV 9.0, Immature Gran % (Auto) 1.800 H, Neut % (Auto) 57.5, Lymph % (Auto) 24.0, [place] % (Auto) 9.8, Eos % (Auto) 6.3 H, Baso % (Auto) 0.6, Absolute Neuts (auto) 3.9, Absolute Lymphs (auto) 1.64, Total Counted Not Reportable 10/29/18 03:14: Sodium 142, Potassium 4.1, Chloride 108 H, Carbon Dioxide 23.0, Anion Gap 11, BUN 15, Creatinine 1.06, Estim Creat Clear Calc 65.70, Est GFR (MDRD) Af Amer 87, Est GFR (MDRD) Non-Af 72, BUN/Creatinine Ratio 14.2, Glucose 119 H, Calcium 8.4 L 10/29/18 03:14: PT 13.7, INR 1.1, APTT 51.2 H 10/29/18 06:18: POC Glucose 132 H 10/29/18 08:09: Activated Clotting Time 180 H Current Medications Acetaminophen (Tylenol) 650 mg PO Q6H PRN PRN PRN Reason: Mild Pain (0-2/10) Aspirin (Aspirin, Baby) 81 mg PO DAILY@0800 [facility] Last Admin: 10/29/18 06:13 Dose: 81 mg Atorvastatin Calcium (Lipitor) 40 mg PO DAILY@2200 [facility] Last Admin: 10/28/18 21:38 Dose: 40 mg Atropine Sulfate () 0.5 mg IV UD PRN PRN Reason: HR <50 bpm Clopidogrel Bisulfate (Plavix) 75 mg PO DAILY [facility] Last Admin: 10/29/18 06:13 Dose: 75 mg Ergocalciferol (Vitamin D) 50,000 unit PO Q7D [facility] Last Admin: 10/27/18 17:19 Dose: 50,000 unit Escitalopram Oxalate (Lexapro) 10 mg PO DAILY [facility] Last Admin: 10/28/18 09:42 Dose: 10 mg Gabapentin (Neurontin) 800 mg PO TIDCM [facility] Last Admin: 10/28/18 17:24 Dose: 800 mg [facility]) [facility] Last Admin: 10/28/18 17:23 Dose: 4 mg Heparin Sodium (Beef Lung) (Heparin 500 Unit/5 Ml (100/Ml)) 500 unit IV UD PRN PRN Reason: HEPARIN FLUSH Sodium Chloride () 1,000 mls @ 0 mls/hr IV .Q0M [facility] Last Admin: 10/27/18 09:52 Dose: 150 mls/hr Sodium Chloride () 1,000 mls @ 0 mls/hr IV .Q0M [facility] Sodium Chloride () 1,000 mls @ 15 mls/hr IV .Q48H [facility] Last Admin: 10/29/18 06:14 Dose: 15 mls/hr Sodium Chloride () 1,000 mls @ 150 mls/hr IV .Q6H40M [facility] Stop: 10/29/18 15:19 Insulin Human Lispro (Humalog Kwikpen (Bkc)) 0 unit SC [facility]; Protocol Last Admin: 10/29/18 07:37 Dose: Not Given Labetalol HCl (Trandate) 5 mg IV X1 PRN PRN Reason: SBP > 160 when pulling sheath Lisinopril (Zestril) 5 mg PO DAILY [facility] Last Admin: 10/29/18 06:13 Dose: 5 mg Lorazepam (Ativan) 1 mg PO BID PRN PRN Reason: ANXIETY Last Admin: 10/28/18 21:41 Dose: 1 mg Lorazepam (Ativan) 1 mg PO Q6H PRN PRN PRN Reason: BACK SPASMS/ANXIETY Magnesium Hydroxide (Milk Of Magnesia) 30 ml PO DAILY PRN PRN Reason: Constipation Magnesium Oxide (Mag-Ox 400) [facility] Last Admin: 10/28/18 17:23 Dose: 400 mg Meclizine HCl (Antivert) 25 mg PO BID [facility] Last Admin: 10/28/18 21:39 Dose: 25 mg Metoclopramide HCl (Reglan) 5 mg IV Q6 PRN PRN Reason: NAUSEA/VOMITING Metoprolol Tartrate (Lopressor (Beta Chyna)) 50 mg PO BID [facility] Last Admin: 10/29/18 06:13 Dose: 50 mg Morphine Sulfate () 2 mg IV Q4H PRN PRN PRN Reason: Mild back pain (0-2/10) Nitroglycerin (Nitrostat) 0.4 mg SUBLINGUAL Q5M PRN PRN Reason: Chest Pain Nortriptyline HCl (Pamelor) 25 mg PO QHS [facility] Last Admin: 10/28/18 21:37 Dose: 25 mg Pantoprazole Sodium (Protonix) 20 mg PO DAILY [facility] Last Admin: 10/28/18 09:42 Dose: 20 mg Sodium Chloride () 5 - 15 ml IV UD PRN PRN Reason: SALINE FLUSH Last Admin: 10/28/18 14:19 Dose: 10 ml Sodium Chloride () 500 ml IV BOLUS PRN PRN Reason: VASO-VAGAL PROTOCOL Medical Necessity - Tobacco Use Smoking Status: Never smoker Tobacco Use: Non-smoker Assessment/Plan All Active Problems (Last Reviewed 10/27/18 @ 13:12 by Camron Huggins DO) Angina of effort (Acute) 1. NSTEMI/CAD status post 6 stents/HTN/HLD/paroxysmal atrial flutter/morbid obes ity -Consult to cardiology on admission, troponin courtney to 4.88 -Echo with a normal EF of 65% and a stage I diastolic dysfunction, echo remains unchanged -Underwent cardiac cath today and had a stent placed -He has been out of his Plavix for the last couple of days and does have financial difficulties with continuing a lot of his medications -We will discuss with case management for options going forward after discharge -Continue with aspirin -Discussed diet and exercise as well as other lifestyle modifications -Continue with KIRA inhibitor, Lipitor, and beta-chyna 2. DM 2 with neuropathy/CKD 3 -A1c is 6.9 -He is on metformin and omeprazole, will hold -Continue with sliding scale insulin -Continue with nortriptyline and gabapentin 3. Anxiety/depression -Continue with Ativan as needed -Continue with Lexapro -Stable 4. GERD -Stable -Continue with Protonix DVT: SCDs Code Visit Inpatient E&M: 49214 [facility] Hosp L2
--- NOTE | 2018-10-29 10:00 | EKG12_ITS ---
Test Reason : POST PCI Blood Pressure : / mmHG Vent. Rate : 058 BPM Atrial Rate : 058 BPM P-R Int : 254 ms QRS Dur : 130 ms QT Int : 450 ms P-R-T Axes : 062 -61 116 degrees QTc Int : 441 ms Sinus bradycardia with 1st degree A-V block with Premature supraventricular complexes Left axis deviation Right bundle branch block Inferior infarct , age undetermined T wave abnormality, consider lateral ischemia Abnormal ECG Confirmed by EDITA REY, DMITRI ([id number]), staff editor JUAN A PALMA ([id number]) on 11/07/2018 1:10:53 PM Referred By: RACIEL Confirmed By:DMITRI KOHLER MD
[2018-10-29] MEDS: 0.9% Normal Saline 1,000 ML 150 ML IV (10:40)
[2018-10-29] MEDS: Magnesium Oxide 400 MG Tablet PO ×2 (11:13→17:20)
[2018-10-29] MEDS: Meclizine HCl 25 MG Tablet PO ×2 (11:13→22:17)
[2018-10-29] MEDS: Pantoprazole Sodium 20 MG Tablet PO (11:14)
[2018-10-29] MEDS: Escitalopram Oxalate 10 MG Tablet PO (11:14)
[2018-10-29] MEDS: Gabapentin 800 MG Tablet PO ×2 (11:15→17:20)
--- NOTE | 2018-10-29 11:18 | CRPHASE1 ---
Patient Data/Charges Reason Not Completed:: PREVIOUS CARDIAC REHABE PT Risk Factors/Lifestyle Family History: Family History (Last Reviewed 10/27/18 @ 13:13 by Camron Huggins DO) Son CAD (coronary artery disease) Myocardial infarction Mother Heart disease Father Addisons disease Laboratory Values: Cardiac Rehab Phase I Labs Hemoglobin A1c 6.9 % (4.2-6.3) H 10/27/18 15:45
--- NOTE | 2018-10-29 11:20 | CRPH1.INSTRU ---
General Education CAD and cardiac anatomy and function:: Not instructed Explanation of diagnoses and procedures:: Not instructed Sign/Symptoms of NC:: Not instructed Antiplatelet therapy: Not instructed Proper use of NTG-SL: Not instructed Emergency procedures and activation of EMS: Not instructed Compliance of all prescribed medications: Not instructed - PT WAS A PREVIOUS CARDIAC REHAB PATIENT
[2018-10-29 11:21] LABS: Bedside Glucose 110 mg/dL (70-110)
[2018-10-29 16:16] LABS: Bedside Glucose 141 mg/dL (70-110)
[2018-10-29] MEDS: Glimepiride 4 MG Tablet PO (17:20)
[2018-10-29] MEDS: Nortriptyline 25 MG Capsule PO (22:17)
[2018-10-29] MEDS: Atorvastatin Calcium 40 MG Tablet PO (22:18)
[2018-10-30] VITALS (13 sets, daily range): BP systolic 125–164; BP diastolic 49–75; PULSE 56–78; RESP 13–20; TEMP 36.6–36.7; O2SAT 94–100
[2018-10-30 02:51] LABS: Bedside Glucose 137 mg/dL (70-110)
[2018-10-30 04:42] LABS: Hematocrit 43.1 % (40-54); Hemoglobin 13.7 g/dl (13.0-16.5); Mean Corp Hgb Conc 31.8 g/gl (32-36); Mean Corpuscular Volume 94.3 fL (80-94); Platelet Count 207 K/mm3 (150-450); RBC Distribution Width CV 13.6 % (11.6-14.6); RBC Distribution Width SD 46.6 fl (35.1-43.9); Red Blood Count 4.57 M/mm3 (4.6-6.2); White Blood Count 7.3 K/mm3 (4.4-11.0)
[2018-10-30 04:43] LABS: Anion Gap 7 (5-15); BUN 14 mg/dL (7-18); BUN/Creat Ratio 11.9 RATIO (10-20); Calcium,Total 8.6 mg/dL (8.5-10.1); Chloride 107 mmol/L (98-107); Cholesterol 126 mg/dL (200); Creatinine, Serum 1.18 mg/dL (0.70-1.30); EST Glomerular Filtration Rate 63 mL/min (>60); Est Glom Filt Rate - Afr Amer 76 mL/min (>60); Estimated Creatinine Clearance 59.02 ml/min; Glucose 169 mg/dL (74-106); High Density Lipoprotein 36 mg/dL; Potassium 3.9 mmol/L (3.5-5.1); Scan Indicated on CBC? Y/N NO; Sodium Level 142 mmol/L (136-145); Triglycerides 146 mg/dL; Very Low Density Lipoprotein 29 mg/dL (5-40)
[2018-10-30] MEDS: Insulin Lispro 100 UNIT/ML INSULN.PEN SC (07:43)
[2018-10-30] MEDS: Glimepiride 4 MG Tablet PO (07:44)
[2018-10-30] MEDS: Meclizine HCl 25 MG Tablet PO (07:44)
[2018-10-30] MEDS: Clopidogrel Bisulfate 75 MG Tablet PO (07:44)
[2018-10-30] MEDS: Aspirin 81 MG TAB.CHEW PO (07:45)
[2018-10-30] MEDS: Gabapentin 800 MG Tablet PO (07:45)
[2018-10-30] MEDS: Lisinopril 5 MG Tablet PO (07:45)
[2018-10-30] MEDS: Magnesium Oxide 400 MG Tablet PO (07:45)
[2018-10-30] MEDS: Escitalopram Oxalate 10 MG Tablet PO (07:46)
[2018-10-30] MEDS: Pantoprazole Sodium 20 MG Tablet PO (07:46)
[2018-10-30] MEDS: Metoprolol Tartrate 50 MG Tablet PO (07:46)
--- NOTE | 2018-10-30 08:40 | EKG12_ITS ---
Test Reason : AM EKG Blood Pressure : / mmHG Vent. Rate : 061 BPM Atrial Rate : 060 BPM P-R Int : 000 ms QRS Dur : 134 ms QT Int : 406 ms P-R-T Axes : 000 -41 058 degrees QTc Int : 408 ms Normal sinus rhythm Left axis deviation Right bundle branch block T wave abnormality, consider lateral ischemia Abnormal ECG Confirmed by EDITA REY, DMITRI ([id number]), editor book JUAN A PALMA ([id number]) on 11/04/2018 11:28:41 AM Referred By: HANNAH Confirmed By:DMITRI KOHLER MD
--- NOTE | 2018-10-30 09:07 | DCINST_ITS ---
- Discharge Diagnoses Current Active Problems: Current Active and Chronic Problems (Last Reviewed 10/27/18 @ 13:12 by Camron Huggins DO) Stented coronary artery (Chronic 10/29/18) LETICIA to proximal LAD (3.5X16 Promus Synergy) per Dr. Martinez @ [facility] 10/29/2018 LETICIA to Proximal to Mid 2nd diagonal (2.5 X 24 Promus Premier); LETICIA to mid LAD (4.0 X 38 mm Promus Premier)per Dr. Martinez @ [facility] 11/26/2014 LETICIA to mid RCA (3.5 X16 Promus), FFR of LAD + 0.84 on 07/31/[address] Martinez @ [facility] Morbid obesity (Chronic) RBBB (Chronic) Angina of effort (Acute) You will use the following diet at home:: Calorie/Carbohydrate Controlled (specify 1200, 1400, etc), Cardiac Your food should be the consistency of: Regular Your liquids should be the consistency of: Regular/Thin Discharge Activity: Return to Normal Activity Call your doctor if your incision/area has: Increased Pain/ Swelling, Increased Redness Call your doctor if you observe: Shortness of breath, Dizziness, Fainting spells, Chest pain, Increased palpitations (irregular heartbeat) Allergies/Adverse Reactions: Allergies No Known Allergies Allergy (Verified 10/27/18 12:14) Medications to take at Discharge Aspirin [Aspirin, Baby] 81 mg PO DAILY@0800 07/18/13 Gabapentin [Neurontin] 1,200 mg PO TID 07/18/13 Lorazepam [Ativan] 1 mg PO BID PRN 07/18/13 Meclizine HCl [Antivert] 25 mg PO BID 07/18/13 Rosuvastatin Calcium [Crestor] 20 mg PO DAILY 07/18/13 Metformin HCl [Glucophage] 500 mg PO BID 01/03/14 Donepezil HCl [Aricept] 10 mg PO QHS 11/16/14 Magnesium Oxide [Mag-Ox 400] 400 mg PO BID 11/16/14 Nortriptyline HCl 25 mg PO QHS 03/16/17 glimepiride 4 mg tablet 4 mg PO BID tab 01/08/18 acetaminophen 500 mg capsule 1,000 mg PO BID 01/10/18 nitroglycerin 0.4 mg sublingual tablet 0.4 mg SUBLINGUAL Q5M PRN #25 tab 01/10/18 Clopidogrel Bisulfate [Clopidogrel] 75 mg PO QDAY 07/12/18 Ergocalciferol [Vitamin D] 50,000 unit PO Q7D 07/12/18 Escitalopram Oxalate [Lexapro] 10 mg PO DAILY 07/12/18 Isosorbide Mononitrate [Imdur] 60 mg PO BID 07/12/18 Metoprolol Tartrate [Lopressor (beta marcin)] 50 mg PO BID 07/12/18 Omeprazole [Prilosec] 20 mg PO DAILY 07/12/18 Lisinopril 5 mg PO DAILY 10/27/18 Orders to be completed after discharge: Phase II, Outpatient Cardiac Rehab Location: None Selected Primary Care Physician: Antonio Louis Chi, MD [Primary Care Provider] - Please follow up with your Primary Care Physician in: 3-5 days Test Results: Test results from this visit will be discussed in further detail at your follow- up appointment, if applicable.
--- NOTE | 2018-10-30 09:08 | PCM.DC.SUM ---
Discharge Date and Diagnosis - Problem List Patient Problems: Active and Suspected Problems (Last Reviewed 10/27/18 @ 13:12 by Camron Huggins DO) Angina of effort (Acute) Date of Admission: 10/27/18 Date of Discharge: 10/30/18 - Primary Discharge Diagnosis Active and Suspected Problems (Last Reviewed 10/27/18 @ 13:12 by Camron Huggins DO) Angina of effort (Acute) - Secondary Discharge Diagnosis Chronic Problems (Last Reviewed 10/27/18 @ 13:12 by Camron Huggins DO) Stented coronary artery (Chronic 10/29/18) LETICIA to proximal LAD (3.5X16 Promus Synergy) per Dr. Martinez @ [facility] 10/29/2018 LETICIA to Proximal to Mid 2nd diagonal (2.5 X 24 Promus Premier); LETICAI to mid LAD (4.0 X 38 mm Promus Premier)per Dr. Martinez @ [facility] 11/26/2014 LETICIA to mid RCA (3.5 X16 Promus), FFR of LAD + 0.84 on 07/31/[address] 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 Stage 1 diastolic dysfunction. Mildly dilated right ventricle. The right atrium is mildly enlarged. Trivial mitral valve insufficiency. Trivial tricuspid valve insufficiency. Right ventricular systolic pressure estimated to be 35 mmHg. Trivial aortic valve insufficiency. Compared to echo report dated 03/24/2017, LV function has remained the same. The study was technically difficult. The study was technically limited., Cardiac catheterization - CONCLUSIONS Perserved Left Ventricular systolic function with normal EDP LVEF: by LV gram 65 % Non obstructive coronary arteries Single vessel CAD of the LAD Successful PTCA/LETICIA proximal LAD with a 3.5 x 16 Promus Synergy, post dilated with a 3.75 x 8 NC Balloon throughout; 85%-->0%, no dissection. RECOMMENDATIONS Referred for immediate PCI Highly recommend quitting all tobacco products Follow up with primary hydrographical technical officer Risk factor modification ASA Indefinitley Plavix for at least 12 months Routine post interventional care Refer for Outpatient Cardiac Rehab Manual sheath removal per protocol Successful Mynx closure Follow up with Dr. Martinez Summary of Care Provided: Per HPI: Mr. Wynne is a 77 YO male with a PMH of osteoarthritis, hypertension, hyperlipidemia, coronary artery disease, PTCA with stents x6, stage III chronic renal failure, diabetes mellitus type 2, BPH, paroxysmal atrial flutter, ARMANDO on CPAP, GERD, diabetic neuropathy and morbid obesity who presented to the emergency department at [facility] on 10/27/2018 complaining of left chest pain radiating down the left arm. He walked outside to the mailbox last night and got Left chest pain that radiated down his Left arm. It was associated with YATES. He denies diaphoresis, nausea and palpitations. The pain resolved shortly after going back inside and sitting down. Today while he was getting ready for buddhism he again had Left chest pain that radiated down the left arm associated with SOB. He took a NTG and it did not help. The second NTG started to relieve the pain. All in all the pain lasted about 45 minutes. EKG in the ED shows old IWMI, RBBB, left axis deviation and non-specific ST/T wave changes in the lateral precordial leads....but interpretation is limited by the fact that he has BBB. Vital signs of presentation to the emergency room were temperature 98.4, pulse rate 67, blood pressure 152/80, respiratory rate 20 and he was 95% saturated on room air and 99% saturated on a 2 L nasal cannula. CBC showed a normal white blood cell count, hemoglobin and platelets. Electrolytes were within normal limits and the BUN was 13 with a creatinine of 1.23. Random blood sugar was elevated at 233. BNP was 63.7 and the troponin was 0.044. Chest x-ray showed no pleural effusion, pulmonary vascular congestion or infiltrate. His last stress test was in April of 2017 and it showed evidence of previous basal inferior NE with no evidence of ischemia. The EF was 73%. The last cath was in 2014. He is being admitted to a monitored bed on PCU for serial cardiac enzymes. Will consult cardiology. Hospital Course: 1. NSTEMI/CAD status post 6 stents/HTN/HLD/morbid [id number] male with multiple significant comorbidities presenting with chest pain. He was found to have a troponin elevation which courtney to 4.88, without any EKG changes. He had an echo with a normal EF and a stage I diastolic dysfunction which is unchanged from his previous. He did have a cardiac catheter during this stay and had a stent placed for a re-in-stent stenosis from a previous PCI. Reason for this reason stent stenosis is because he did not take his Plavix for a couple of days, and he continues to smoke. There were no changes to his medications as he is on all medications that he is supposed to be on. [facility] and therefore on review of his medication list he qualifies for multiple drugs are on the $4 list. He is to follow-up with cardiology as an outpatient in a couple weeks. I discussed with him the necessity of never stopping the Plavix and the need to quit smoking completely which he states he understands. We also discussed lifestyle modifications for management of his cardiac issues as well as his diabetes which she states he understands 2. His other medical diagnoses were evaluated and his home medications were continued were appropriate Patient Problems: Active and Suspected Problems (Last Reviewed 10/27/18 @ 13:12 by Camron Huggins DO) Angina of effort (Acute) Objective: General: Alert, Oriented x3, Cooperative, No apparent distress HEENT: Atraumatic, EOMI, Normocephalic Oral: Moist Mucosa Neck: Supple, No JVD, Trachea Midline Lungs: Clear to auscultation, Normal air movement, No rhonchi, No wheeze, No rales Cardiovascular: Regular rate, Regular Rhythm, Normal S1, Normal S2, No murmurs, No rub noted, No Gallop Abdomen: Soft, Non Tender, Non-Distended, No Hepato-splenomegaly Extremities: No edema, Capillary Refill Less than 3 Seconds Skin: No rashes, No breakdown, cath dressing is clean dry and intact Neurological: Neuro grossly intact, Sensory exam intact to light touch and pain Psych/Mental Status: Normal Affect, Appropriate - Physical Exam Vital Signs Temp Pulse Resp BP Pulse Ox 98.1 F 70 18 145/65 H 100 10/30/18 04:00 10/30/18 07:46 10/30/18 07:26 10/30/18 07:46 10/30/18 07:26 Oxygen Flow Rate (L/min) 2 Oxygen Delivery Method Room Air Weight: 271 lb 9.752 oz Body Mass Index (BMI) 36.5 Finger Stick Blood Glucose 150 Intake and Output for Last 24 Hours 10/28/18 10/29/18 10/30/18 23:59 23:59 23:59 Intake Total 2137.4 / 2137.4 1594 / 1594 780 / 780 Output Total 1775 / 1775 1550 / 1550 675 / 675 Balance 362.4 / 362.4 44 / 44 105 / 105 Laboratory Tests Past 24 Hrs 10/30/18 10/30/18 04:20 04:20 WBC 7.3 RBC 4.57 L Hgb 13.7 Hct 43.1 MCV 94.3 H MCH 30.0 MCHC 31.8 L RDW 13.6 RDW Differential 46.6 H Plt Count 207 MPV 9.0 Sodium 142 Potassium 3.9 Chloride 107 Carbon Dioxide 28.0 Anion Gap 7 BUN 14 Creatinine 1.18 Estim Creat Clear Calc 59.02 Est GFR (MDRD) Af Amer 76 Est GFR (MDRD) Non-Af 63 BUN/Creatinine Ratio 11.9 Glucose 169 H Calcium 8.6 Triglycerides 146 Cholesterol 126 LDL Cholesterol 61 VLDL Cholesterol 29 HDL Cholesterol 36 L POC Glucose 10/29/18 10/29/18 10/29/18 22:19 16:11 11:09 POC Glucose 137 H 141 H 110 Discharge Activity: Return to Normal Activity Call your doctor if your incision/area has: Increased Pain/ Swelling, Increased Redness Call your doctor if you observe: Shortness of breath, Dizziness, Fainting spells, Chest pain, Increased palpitations (irregular heartbeat) Home Medications: Medications to take at Discharge Aspirin [Aspirin, Baby] 81 mg PO DAILY@0800 07/18/13 Gabapentin [Neurontin] 1,200 mg PO TID 07/18/13 Lorazepam [Ativan] 1 mg PO BID PRN 07/18/13 Meclizine HCl [Antivert] 25 mg PO BID 07/18/13 Rosuvastatin Calcium [Crestor] 20 mg PO DAILY 07/18/13 Metformin HCl [Glucophage] 500 mg PO BID 01/03/14 Donepezil HCl [Aricept] 10 mg PO QHS 11/16/14 Magnesium Oxide [Mag-Ox 400] 400 mg PO BID 11/16/14 Nortriptyline HCl 25 mg PO QHS 03/16/17 glimepiride 4 mg tablet 4 mg PO BID tab 01/08/18 acetaminophen 500 mg capsule 1,000 mg PO BID 01/10/18 nitroglycerin 0.4 mg sublingual tablet 0.4 mg SUBLINGUAL Q5M PRN #25 tab 01/10/18 Clopidogrel Bisulfate [Clopidogrel] 75 mg PO QDAY 07/12/18 Ergocalciferol [Vitamin D] 50,000 unit PO Q7D 07/12/18 Escitalopram Oxalate [Lexapro] 10 mg PO DAILY 07/12/18 Isosorbide Mononitrate [Imdur] 60 mg PO BID 07/12/18 Metoprolol Tartrate [Lopressor (beta chyna)] 50 mg PO BID 07/12/18 Omeprazole [Prilosec] 20 mg PO DAILY 07/12/18 Lisinopril 5 mg PO DAILY 10/27/18 Other Amb Orders: Phase II, Outpatient Cardiac Rehab Location: None Selected Primary Care Physician: Antonio Louis Chi, MD [Primary Care Provider] - Please follow up with your Primary Care Physician in: 3-5 days Please Follow Up With: Nikko Martinez MD When: 2-4 weeks Disposition: Home Minutes spent on discharge:: 35 Patient Condition:: Stable Medical Necessity - Tobacco Use Smoking Status: Never smoker Tobacco Use: Non-smoker Meaningful Use Info Meaningful Use Diagnoses (Choose all that apply): AMI - AMI Aspirin given w/in 24hrs of arrival?: Yes ASA at discharge?: Yes Statins at discharge?: Yes Luis/ARB at discharge?: Yes Beta Chyna at discharge?: Yes Done w/ Acute NE measure.: Yes Code Visit Inpatient E&M: 97763 Disch Hosp
--- NOTE | 2018-10-30 09:13 | DS.PCM_ITS ---
Discharge Date and Diagnosis - Problem List Patient Problems: Active and Suspected Problems (Last Reviewed 10/27/18 @ 13:12 by Camron Huggins DO) Angina of effort (Acute) Date of Admission: 10/27/18 Date of Discharge: 10/30/18 - Primary Discharge Diagnosis Active and Suspected Problems (Last Reviewed 10/27/18 @ 13:12 by Camron Huggins DO) Angina of effort (Acute) - Secondary Discharge Diagnosis Chronic Problems (Last Reviewed 10/27/18 @ 13:12 by Camron Huggins DO) Stented coronary artery (Chronic 10/29/18) LETICIA to proximal LAD (3.5X16 Promus Synergy) per Dr. Martinez @ [facility] 10/29/2018 LETICIA to Proximal to Mid 2nd diagonal (2.5 X 24 Promus Premier); LETICIA to mid LAD (4.0 X 38 mm Promus Premier)per Dr. Martinez @ [facility] 11/26/2014 LETICIA to mid RCA (3.5 X16 Promus), FFR of LAD + 0.84 on 07/31/[address] 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 Stage 1 diastolic dysfunction. Mildly dilated right ventricle. The right atrium is mildly enlarged. Trivial mitral valve insufficiency. Trivial tricuspid valve insufficiency. Right ventricular systolic pressure estimated to be 35 mmHg. Trivial aortic valve insufficiency. Compared to echo report dated 03/24/2017, LV function has remained the same. The study was technically difficult. The study was technically limited., Cardiac catheterization - CONCLUSIONS Perserved Left Ventricular systolic function with normal EDP LVEF: by LV gram 65 % Non obstructive coronary arteries Single vessel CAD of the LAD Successful PTCA/LETICIA proximal LAD with a 3.5 x 16 Promus Synergy, post dilated with a 3.75 x 8 NC Balloon throughout; 85%-->0%, no dissection. RECOMMENDATIONS Referred for immediate PCI Highly recommend quitting all tobacco products Follow up with primary binder cutter hand Risk factor modification ASA Indefinitley Plavix for at least 12 months Routine post interventional care Refer for Outpatient Cardiac Rehab Manual sheath removal per protocol Successful Mynx closure Follow up with Dr. Martinez Summary of Care Provided: Per HPI: Mr. Wynne is a 77 YO male with a PMH of osteoarthritis, hypertension, hyperlipidemia, coronary artery disease, PTCA with stents x6, stage III chronic renal failure, diabetes mellitus type 2, BPH, paroxysmal atrial flutter, ARMANDO on CPAP, GERD, diabetic neuropathy and morbid obesity who presented to the emergency department at [facility] on 10/27/2018 complaining of l eft chest pain radiating down the left arm. He walked outside to the mailbox last night and got Left chest pain that radiated down his Left arm. It was associated with YATES. He denies diaphoresis, nausea and palpitations. The pain resolved shortly after going back inside and sitting down. Today while he was getting ready for evangelical he again had Left chest pain that radiated down the left arm associated with SOB. He took a NTG and it did not help. The second NTG started to relieve the pain. All in all the pain lasted about 45 minutes. EKG in the ED shows old IWMI, RBBB, left axis deviation and non-specific ST/T wave changes in the lateral precordial leads....but interpretation is limited by the fact that he has BBB. Vital signs of presentation to the emergency room were temperature 98.4, pulse rate 67, blood pressure 152/80, respiratory rate 20 and he was 95% saturated on room air and 99% saturated on a 2 L nasal cannula. CBC showed a normal white blood cell count, hemoglobin and platelets. Electrolytes were within normal limits and the BUN was 13 with a creatinine of 1.23. Random blood sugar was elevated at 233. BNP was 63.7 and the troponin was 0.044. Chest x-ray showed no pleural effusion, pulmonary vascular congestion or infiltrate. His last stress test was in April of 2017 and it showed evidence of previous basal inferior [place] with no evidence of ischemia. The EF was 73%. The last cath was in 2014. He is being admitted to a monitored bed on PCU for serial cardiac enzymes. Will consult cardiology. Hospital Course: 1. NSTEMI/CAD status post 6 stents/HTN/HLD/morbid [id number] male with multiple significant comorbidities presenting with chest pain. He was found to have a troponin elevation which courtney to 4.88, without any EKG changes. He had an echo with a normal EF and a stage I diastolic dysfunction which is unchanged from his previous. He did have a cardiac catheter during this stay and had a stent placed for a re-in-stent stenosis from a previous PCI. Reason for this reason stent stenosis is because he did not take his Plavix for a couple of days, and he continues to smoke. There were no changes to his medications as he is on all medications that he is supposed to be on. He also goes to [facility] and therefore on review of his medication list he qualifies for multiple drugs are on the $4 list. He is to follow-up with cardiology as an outpatient in a couple weeks. I discussed with him the necessity of never stopping the Plavix and the need to quit smoking completely which he states he understands. We also discussed lifestyle modifications for management of his cardiac issues as well as his diabetes which she states he understands 2. His other medical diagnoses were evaluated and his home medications were continued were appropriate Patient Problems: Active and Suspected Problems (Last Reviewed 10/27/18 @ 13:12 by Camron Huggins DO) Angina of effort (Acute) Objective: General: Alert, Oriented x3, Cooperative, No apparent distress HEENT: Atraumatic, EOMI, Normocephalic Oral: Moist Mucosa Neck: Supple, No JVD, Trachea Midline Lungs: Clear to auscultation, Normal air movement, No rhonchi, No wheeze, No rales Cardiovascular: Regular rate, Regular Rhythm, Normal S1, Normal S2, No murmurs, No rub noted, No Gallop Abdomen: Soft, Non Tender, Non-Distended, No Hepato-splenomegaly Extremities: No edema, Capillary Refill Less than 3 Seconds Skin: No rashes, No breakdown, cath dressing is clean dry and intact Neurological: Neuro grossly intact, Sensory exam intact to light touch and pain Psych/Mental Status: Normal Affect, Appropriate - Physical Exam Vital Signs Temp Pulse Resp BP Pulse Ox 98.1 F 70 18 145/65 H 100 10/30/18 04:00 10/30/18 07:46 10/30/18 07:26 10/30/18 07:46 10/30/18 07:26 Oxygen Flow Rate (L/min) 2 Oxygen Delivery Method Room Air Weight: 271 lb 9.752 oz Body Mass Index (BMI) 36.5 Finger Stick Blood Glucose 150 Intake and Output for Last 24 Hours 10/28/18 10/29/18 10/30/18 23:59 23:59 23:59 Intake Total 2137.4 / 2137.4 1594 / 1594 780 / 780 Output Total 1775 / 1775 1550 / 1550 675 / 675 Balance 362.4 / 362.4 44 / 44 105 / 105 Laboratory Tests Past 24 Hrs 10/30/18 10/30/18 04:20 04:20 WBC 7.3 RBC 4.57 L Hgb 13.7 Hct 43.1 MCV 94.3 H MCH 30.0 MCHC 31.8 L RDW 13.6 RDW Differential 46.6 H Plt Count 207 MPV 9.0 Sodium 142 Potassium 3.9 Chloride 107 Carbon Dioxide 28.0 Anion Gap 7 BUN 14 Creatinine 1.18 Estim Creat Clear Calc 59.02 Est GFR (MDRD) Af Amer 76 Est GFR (MDRD) Non-Af 63 BUN/Creatinine Ratio 11.9 Glucose 169 H Calcium 8.6 Triglycerides 146 Cholesterol 126 LDL Cholesterol 61 VLDL Cholesterol 29 HDL Cholesterol 36 L POC Glucose 10/29/18 10/29/18 10/29/18 22:19 16:11 11:09 POC Glucose 137 H 141 H 110 Discharge Activity: Return to Normal Activity Call your doctor if your incision/area has: Increased Pain/ Swelling, Increased Redness Call your doctor if you observe: Shortness of breath, Dizziness, Fainting spells, Chest pain, Increased palpitations (irregular heartbeat) Home Medications: Medications to take at Discharge Aspirin [Aspirin, Baby] 81 mg PO DAILY@0800 07/18/13 Gabapentin [Neurontin] 1,200 mg PO TID 07/18/13 Lorazepam [Ativan] 1 mg PO BID PRN 07/18/13 Meclizine HCl [Antivert] 25 mg PO BID 07/18/13 Rosuvastatin Calcium [Crestor] 20 mg PO DAILY 07/18/13 Metformin HCl [Glucophage] 500 mg PO BID 01/03/14 Donepezil HCl [Aricept] 10 mg PO QHS 11/16/14 Magnesium Oxide [Mag-Ox 400] 400 mg PO BID 11/16/14 Nortriptyline HCl 25 mg PO QHS 03/16/17 glimepiride 4 mg tablet 4 mg PO BID tab 01/08/18 acetaminophen 500 mg capsule 1,000 mg PO BID 01/10/18 nitroglycerin 0.4 mg sublingual tablet 0.4 mg SUBLINGUAL Q5M PRN #25 tab 01/10/18 Clopidogrel Bisulfate [Clopidogrel] 75 mg PO QDAY 07/12/18 Ergocalciferol [Vitamin D] 50,000 unit PO Q7D 07/12/18 Escitalopram Oxalate [Lexapro] 10 mg PO DAILY 07/12/18 Isosorbide Mononitrate [Imdur] 60 mg PO BID 07/12/18 Metoprolol Tartrate [Lopressor (beta chyna)] 50 mg PO BID 07/12/18 Omeprazole [Prilosec] 20 mg PO DAILY 07/12/18 Lisinopril 5 mg PO DAILY 10/27/18 Other Amb Orders: Phase II, Outpatient Cardiac Rehab Location: None Selected Primary Care Physician: Antonio Louis Chi, MD [Primary Care Provider] - Please follow up with your Primary Care Physician in: 3-5 days Please Follow Up With: Nikko Martinez MD When: 2-4 weeks Disposition: Home Minutes spent on discharge:: 35 Patient Condition:: Stable Medical Necessity - Tobacco Use Smoking Status: Never smoker Tobacco Use: Non-smoker Meaningful Use Info Meaningful Use Diagnoses (Choose all that apply): AMI - AMI Aspirin given w/in 24hrs of arrival?: Yes ASA at discharge?: Yes Statins at discharge?: Yes Luis/ARB at discharge?: Yes Beta Chyna at discharge?: Yes Done w/ Acute NJ measure.: Yes Code Visit Inpatient E&M: 57170 Disch Hosp
--- NOTE | 2018-10-30 10:01 | PCM.PN.CARD ---
Subjectve: Patient doing very well overnight, no chest pain whatsoever and in fact feels much better. Right groin is clean/dry/intact, without any thrills, bruits or hematoma. 2+ DP and PT pulses bilaterally. EKG shows normal sinus rhythm with right bundle branch block and previously noted T wave inversion, no acute changes. Telemetry negative. Hemoglobin and creatinine within nominal limits. Objective: Vital Signs Temp Pulse Resp BP Pulse Ox 98.1 F 67 16 125/49 H 98 10/30/18 04:00 10/30/18 09:00 10/30/18 09:00 10/30/18 09:00 10/30/18 09:00 Oxygen Flow Rate (L/min) 2 Oxygen Delivery Method Room Air Weight: 271 lb 9.752 oz Body Mass Index (BMI) 36.5 Finger Stick Blood Glucose 150 Intake and Output for Last 24 Hours 10/28/18 10/29/18 10/30/18 23:59 23:59 23:59 Intake Total 2137.4 / 2137.4 1594 / 1594 780 / 780 Output Total 1775 / 1775 1550 / 1550 675 / 675 Balance 362.4 / 362.4 44 / 44 105 / 105 General: Awake, Alert, Oriented x 3 HEENT: PERRL, EOMI, Sclera Non Icteric Neck: Supple, Good ROM, No Lymph Node Enlargement Lungs: Clear to auscultation Cardiovascular: Regular Rhythm, Normal S1, Normal S2, No Murmurs, No Rubs, No Gallops Vascular: No Carotid Bruits, Normal Femoral Pulses, Normal Radial Pulses, Normal Dorsalis Pedal Pulse, Normal Posterior Tibial Pulses Abdomen: Bowel Sounds Present, Soft, Non Tender, No HSM, No Organomegaly Extremities: No Cyanosis, No Clubbing, No edema Neurological: No Focal Motor or Sensory Deficit 10/30/18 04:20: WBC 7.3, RBC 4.57 L, Hgb 13.7, Hct 43.1, MCV 94.3 H, MCH 30.0, MCHC 31.8 L, RDW 13.6, RDW Differential 46.6 H, Plt Count 207, MPV 9.0 10/30/18 04:20: Sodium 142, Potassium 3.9, Chloride 107, Carbon Dioxide 28.0, Anion Gap 7, BUN 14, Creatinine 1.18, Est GFR (MDRD) Af Amer 76, Est GFR (MDRD) Non-Af 63, BUN/Creatinine Ratio 11.9, Glucose 169 H, Calcium 8.6, Triglycerides 146, Cholesterol 126, LDL Cholesterol 61, VLDL Cholesterol 29, HDL Cholesterol 36 L Rhythm: EKG: ECHO: Stress Test: Cardiac Cath: PCI: CT Surgery: Holter monitor: EPS: PPM: CXR: Chest CT Scan: Medical Necessity - Tobacco Use Smoking Status: Never smoker Tobacco Use: Non-smoker Assessment/Plan 1. Coronary artery disease: The patient presented yesterday with unstable angina, and evidence of severe in-stent restenosis of his proximal LAD stent. He underwent successful angioplasty and drug-eluting stenting to his proximal LAD with a 3.5X 16 Promus Synergy, postdilated to 3.75 mm. Patient symptoms have completely resolved. He has no further indications for PCI going forward. This point I would recommend continuing his antihypertensive medications as outlined in the [facility]. Patient will follow-up in our office in 1 week's time for a groin check followed by introduction of cardiac rehab assuming it is okay with his physical therapy for his recent knee replacement. Patient will follow-up with Dr. Pickens going forward. 2. Patient may be discharged home. Code Visit Inpatient E&M: 06447 Subs Hosp L2
--- NOTE | 2018-10-31 16:35 | CASEMGMT ---
KAREN CAMPA Discharge Follow-up Phone Call: CHANDAN: Tonya Strata: 4 Call Date: 10/31/18 Discharge Date: 10/30/18 Time of Call: 1615 Duration: 4 minutes ? Admitting Diagnosis: NSTEMI This RN KATHERYN contacted pt via phone regarding discharge follow-up. Pt denies any continued chest pain and states his groin site is without bleeding. Pt states he was able to obtain his prescriptions. Reviewed his follow-up appointments. Pt denied any questions or concerns. Jacquelyn Hooper RN
== END 2018-10-30 10:45 | disposition home or self-care (01) | DRG 247 ==
LOC: ED 10:25 → PCU 11:43 → ICU 10-29 08:14
PROVIDERS: Internal Medicine Cardiovascular Disease; Admitting Provider Internal Medicine; Emergency Provider Emergency Medicine; Family Provider Family Medicine Geriatric Medicine; PCP Family Medicine Geriatric Medicine; Visit Provider Family Medicine
DX: I21.4 Non-ST elevation (NSTEMI) myocardial infarction (principal); T82.858A Stenosis of other vascular prosthetic devices, implants and grafts, initial encounter; I25.10 Atherosclerotic heart disease of native coronary artery without angina pectoris; N40.0 Benign prostatic hyperplasia without lower urinary tract symptoms; E78.5 Hyperlipidemia, unspecified; E11.40 Type 2 diabetes mellitus with diabetic neuropathy, unspecified; E66.01 Morbid (severe) obesity due to excess calories; I12.9 Hypertensive chronic kidney disease with stage 1 through stage 4 chronic kidney disease, or unspecified chronic kidney disease; E11.22 Type 2 diabetes mellitus with diabetic chronic kidney disease; N18.3 Chronic kidney disease, stage 3 (moderate); G47.33 Obstructive sleep apnea (adult) (pediatric); I44.0 Atrioventricular block, first degree; I45.10 Unspecified right bundle-branch block; K21.9 Gastro-esophageal reflux disease without esophagitis; Z68.36 Body mass index [BMI] 36.0-36.9, adult; Z95.5 Presence of coronary angioplasty implant and graft; Z79.84 Long term (current) use of oral hypoglycemic drugs
CPT/HCPCS: 36415; 71045; 80048; 80061; 80076; 81001; 82962; 83036; 83735; 83880; 84100; 84443; 84484; 85025; 85027; 85347; 85610; 85730; 92928; 93005; 93306; 93458; 97802; 99285; C1760; J7030; Q9967; A4216; C1725; C1769; C1874; C1887; C1894; C9600; J2405

== ENCOUNTER → 2018-11-07 15:05 | Outpatient (CLI) | payer MEDICARE, SELFPAY ==
[2018-10-27 12:19] VITALS: BMI 36.5
[2018-11-07 17:02] LABS: Absolute Neutrophil Count 4.8 X10^3/uL (2.0-7.7); Basophil# 0.04 X10^3/uL; Basophil% 0.6 % (0-1); Eosinophil# 0.39 X10^3/uL; Eosinophils% 5.5 % (0-5); Hematocrit 42.4 % (40-54); Hemoglobin 13.2 g/dl (13.0-16.5); Lymphocyte % 18.3 % (19-41); Mean Corp Hgb Conc 31.1 g/gl (32-36); Mean Corpuscular Hgb 29.9 pg (27.0-32.0); Mean Corpuscular Volume 96.1 fL (80-94); Mean Platelet Vol. 9.2 fl (6.2-12.0); Monocyte# 0.52 X10^3/uL; Monocyte% 7.3 % (0-10); Neutrophil # 4.83 X10^3/uL (2.7-7.7); POSITIVE COUNT NO; POSITIVE DIFFERENTIAL NO; POSITIVE MORPHOLOGY NO; Platelet Count 244 K/mm3 (150-450); RBC Distribution Width CV 13.8 % (11.6-14.6); RBC Distribution Width SD 48.4 fl (35.1-43.9); Red Blood Count 4.41 M/mm3 (4.6-6.2); White Blood Count 7.1 K/mm3 (4.4-11.0)
[2018-11-07 17:15] LABS: Vitamin D,25 Hydroxy 41.2 ng/mL (29.95-100.01)
[2018-11-07 17:31] LABS: ALB/GLOB Ratio 0.9 RATIO (0.9-2.4); AST(SGOT) 14 U/L (15-37); Alanine Aminotransfer ALT/SGPT 24 U/L (16-61); Albumin, Serum 3.5 g/dL (3.2-5.0); Alkaline Phosphatase 81 U/L (45-117); BUN 19 mg/dL (7-18); BUN/Creat Ratio 15.3 RATIO (10-20); Calcium,Total 8.8 mg/dL (8.5-10.1); Chloride 105 mmol/L (98-107); Creatinine, Serum 1.24 mg/dL (0.70-1.30); EST Glomerular Filtration Rate 60 mL/min (>60); Est Glom Filt Rate - Afr Amer 72 mL/min (>60); Globulin 3.8 g/dL (2.2-4.2); Glucose 195 mg/dL (74-106); Potassium 4.5 mmol/L (3.5-5.1); Protein, Total 7.3 g/dL (6.4-8.2); Sodium Level 141 mmol/L (136-145); Uric Acid 6.6 mg/dL (3.5-7.2)
[2018-11-07 17:32] LABS: Anion Gap 12 (5-15)
== END ==
PROVIDERS: Family Provider Family Medicine Geriatric Medicine; PCP Family Medicine Geriatric Medicine; Visit Provider Family Medicine Geriatric Medicine
DX: E11.9 Type 2 diabetes mellitus without complications (principal); E55.9 Vitamin D deficiency, unspecified; E23.6 Other disorders of pituitary gland; I10 Essential (primary) hypertension; M10.9 Gout, unspecified
CPT/HCPCS: 36415; 80053; 82306; 84403; 84443; 84550; 85025

== ENCOUNTER 2018-12-07 18:18 | Inpatient (IN) | payer MEDICARE, OTHER, SELFPAY ==
[2018-11-13 14:50] VITALS: BMI 35.6
[2018-12-07 18:21] VITALS: BP 162/77; PULSE 69; RESP 16; TEMP 36.9; O2SAT 95; BMI 35.3
[2018-12-07 18:28] VITALS: PULSE 72; RESP 21
--- NOTE | 2018-12-07 18:30 | ED.RN ---
pt is chatting, carrying on a conversation, joking.
--- NOTE | 2018-12-07 18:40 | CT_ITS ---
STUDY: CT BRAIN WITHOUT CONTRAST REASON FOR EXAM: Male, 77 years old. Possible seizure RADIATION DOSAGE (If Supplied By Facility): CTDIvol = ( 44.99 ) mGy, DLP = ( 829.85 ) mGycm TECHNIQUE: Transaxial CT imaging of the brain was performed without administration of intravenous contrast material. Individualized dose optimization techniques were used for this CT. COMPARISON: 02/07/2016 FINDINGS: Normal soft tissue structures. Normal calvarium. There are mild central and cortical involutional changes. There are mild periventricular hypodensities unchanged. Normal basal ganglia and thalami. Normal brainstem. Normal cerebellum. There is no intracranial hemorrhage. There are no findings of an acute ischemic infarction. There is mild mucosal thickening within the paranasal sinuses. CT/Brain/Head without Contrast IMPRESSION: Mild central and cortical involutional changes Old mild small vessel ischemic changes Mild inflammatory changes paranasal sinuses Electronically Signed: Emerson Jefferson, at 20:32 EDT Tel , Service support ,
--- NOTE | 2018-12-07 18:40 | EKG12_ITS ---
Test Reason : SEIZURE Blood Pressure : / mmHG Vent. Rate : 070 BPM Atrial Rate : 070 BPM P-R Int : 256 ms QRS Dur : 138 ms QT Int : 424 ms P-R-T Axes : 069 -65 000 degrees QTc Int : 457 ms Sinus rhythm with 1st degree A-V block with Premature atrial complexes Left axis deviation Right bundle branch block Abnormal ECG Confirmed by EDITA REY, DMITRI ([id number]), senior technical editor FABIÁN SNOWDEN ([id number] on 12/09/2018 4:23:55 PM Referred By: RAUL Confirmed By:DMITRI KOHLER MD
[2018-12-07 18:41] VITALS: O2SAT 95
--- NOTE | 2018-12-07 19:35 | RAD_ITS ---
STUDY: X-RAY CHEST REASON FOR EXAM: Male, 77 years old. Hypertension. Possible seizure. TECHNIQUE: Single frontal view of the chest. COMPARISON: October 27, 2018 FINDINGS: There is low volume inspiration. There is no demonstrated pleural abnormality. There is stable cardiomegaly. Normal mediastinum and avelina. Normal visualized pulmonary arteries. Normal visualized aortic arch and descending thoracic aorta. Normal visualized thoracic spine. Normal visualized ribs, clavicles, and shoulders. There is no demonstrated abnormality of the visualized soft tissue structures of the upper abdomen. RAD/Chest 1 View IMPRESSION: No active or acute cardiopulmonary disease. Electronically Signed: Leobardo Jarvis MD at 20:22 EDT , Service support ,
[2018-12-07 20:11] LABS: Absolute Lymphocyte Count 1.61 X10^3/ul (0.83-4.51); Absolute Neutrophil Count 4.3 X10^3/uL (2.0-7.7); Basophil# 0.04 X10^3/uL; Basophil% 0.6 % (0-1); Eosinophil# 0.45 X10^3/uL; Eosinophils% 6.6 % (0-5); Hematocrit 41.6 % (40-54); Hemoglobin 13.1 g/dl (13.0-16.5); Lymphocyte # 1.61 X10^3/ul (4.0); Lymphocyte % 23.5 % (19-41); Mean Corp Hgb Conc 31.5 g/gl (32-36); Mean Corpuscular Hgb 29.8 pg (27.0-32.0); Mean Corpuscular Volume 94.5 fL (80-94); Mean Platelet Vol. 8.7 fl (6.2-12.0); Monocyte# 0.43 X10^3/uL; Monocyte% 6.3 % (0-10); Neutrophil % 62.7 % (47-70); Platelet Count 178 K/mm3 (150-450); RBC Distribution Width CV 13.5 % (11.6-14.6); RBC Distribution Width SD 46.5 fl (35.1-43.9); White Blood Count 6.9 K/mm3 (4.4-11.0)
[2018-12-07 20:16] LABS: POSITIVE COUNT NO; POSITIVE DIFFERENTIAL NO; POSITIVE MORPHOLOGY NO
[2018-12-07 20:20] VITALS: BP 141/76; PULSE 71; RESP 17; O2SAT 94
[2018-12-07 20:28] LABS: Anion Gap 5 (5-15); BUN 20 mg/dL (7-18); BUN/Creat Ratio 14.3 RATIO (10-20); Calcium,Total 8.5 mg/dL (8.5-10.1); Chloride 106 mmol/L (98-107); EST Glomerular Filtration Rate 52 mL/min (>60); Est Glom Filt Rate - Afr Amer 63 mL/min (>60); Estimated Creatinine Clearance 49.74 ml/min; Glucose 141 mg/dL (74-106); Sodium Level 140 mmol/L (136-145)
[2018-12-07 20:34] LABS: International Normalized Ratio 1.1; Prothrombin Time (Protime)PT. 13.9 SECONDS (11.7-14.9)
[2018-12-07 20:35] LABS: Partial Thromboplast Time 27.3 Seconds (24.1-36.2)
[2018-12-07 22:20] VITALS: BP 150/63; PULSE 64; RESP 16; O2SAT 96
--- NOTE | 2018-12-07 23:08 | PCM.HP.STD ---
Problem List (1) Seizure Status: Suspected (2) CKD (chronic kidney disease) stage 3, GFR 30-59 ml/min Status: Chronic (3) Stented coronary artery Status: Chronic Comment: LETICIA to proximal LAD (3.5X16 Promus Synergy) per Dr. Martinez @ [facility] 10/29/2018 LETICIA to Proximal to Mid 2nd diagonal (2.5 X 24 Promus Premier); LETICIA to mid LAD (4.0 X 38 mm Promus Premier)per Dr. Martinez @ [facility] 11/26/2014 LETICIA to mid RCA (3.5 X16 Promus), FFR of LAD + 0.84 on 07/31/[address] Martinez @ [facility] (4) Paroxysmal atrial flutter Status: Chronic (5) Atherosclerotic heart disease of [place] coronary artery without angina pectoris Status: Chronic Qualifiers: [place] vs. transplanted heart: [place] heart Qualified Code(s): I25.10 - Atherosclerotic heart disease of [place] coronary artery without angina pectoris (6) Hypertension Status: Chronic Qualifiers: Hypertension type: essential hypertension Qualified Code(s): I10 - Essential (primary) hypertension (7) Hyperlipemia Status: Chronic Qualifiers: Hyperlipidemia type: pure hypercholesterolemia Qualified Code(s): E78.00 - Pure hypercholesterolemia, unspecified; E78.0 - Pure hypercholesterolemia (8) BPH (benign prostatic hyperplasia) Status: Chronic Qualifiers: Lower urinary tract symptom presence: unspecified whether lower urinary tract symptoms present Qualified Code(s): N40.0 - Benign prostatic hyperplasia without lower urinary tract symptoms (9) Diabetes mellitus Status: Chronic Qualifiers: Diabetes mellitus type: type 2 Diabetes mellitus penitentiary insulin use: without penitentiary use Diabetes mellitus complication status: with unspecified complications Qualified Code(s): E11.8 - Type 2 diabetes mellitus with unspecified complications (10) ARMANDO on CPAP Status: Chronic (11) Neuropathy Status: Chronic (12) Esophageal reflux Status: Chronic Qualifiers: Esophagitis presence: esophagitis presence not specified Qualified Code(s): K21.9 - Gastro-esophageal reflux disease without esophagitis History of Present Illness Date of Admission: 12/07/18 Chief Complaint: ? Seizure versus syncopal event The patient is a 77 y/o M w/ PMHx: Obesity, CAD s/p PCI, HTN, HLD, CKD stage III, ARMANDO on q HS BIPAP, Diabetes mellitus type II, BPH, GERD, Anxiety and Depression who presents to the [facility] ED on 12/07/18 with history during dinner of eating upright in his chair, suddenly without any symptoms leading up including no lightheadedness, dizziness, tunnel vision, vision changes, odd smells, immediately fell backwards against his chair with eyes rolling upwards, not responsive to family questions, held his RUE up in the air and was noted to start shaking without no loss of bowel or bladder nor tongue bitting which stopped spontaneously after ~ 5 minutes with mild confusion for 5-10 minutes following event. Family witnessed the event and description given per family. Patient does admit that he has been under extreme stress lately as they need to move from their apartment and he has had difficulty having anyone accept him and currently his stepdaughter and her son also lives with him. In the ED work-up included T 98.5, heart rate 69, BP 162/77, respiratory rate 16, 95% on room air, CBC with WBC 6.9, heme globin 13.1, platelet 178 without left shift, unremarkable coags, BUN/Cr 20/1.40, glucose 141, trop < 0.015, EKG with acute evidence of ischemia with chronic RBBB, chest x-ray with no acute cardiopulmonary disease, CT of the head with mild central and cortical involutional changes with mild old small vessel ischemic changes and mild inflammatory changes of the paranasal sinuses. ED discussed the patient with the neurologist given concerns for possible seizure activity with recommendation for admission and given first time seizure, unprovoked no indication to initiate antiepileptic medications. Past Medical History Past Medical History (Chronic Problems): Chronic Problems (Last Reviewed 10/27/18 @ 13:12 by Camron Huggins DO) CKD (chronic kidney disease) stage 3, GFR 30-59 ml/min (Chronic) Stented coronary artery (Chronic 10/29/18) LETICIA to proximal LAD (3.5X16 Promus Synergy) per Dr. Martinez @ [facility] 10/29/2018 LETICIA to Proximal to Mid 2nd diagonal (2.5 X 24 Promus Premier); LETICIA to mid LAD (4.0 X 38 mm Promus Premier)per Dr. Martinez @ [facility] 11/26/2014 LETICIA to mid RCA (3.5 X16 Promus), FFR of LAD + 0.84 on 07/31/[address] 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) Medical History: Medical History (Last Reviewed 10/27/18 @ 13:12 by Camron Huggins DO) Atherosclerotic heart disease of [place] coronary artery without angina pectoris (Chronic) I25.10 Hypertension (Chronic) I10 Hyperlipemia (Chronic) E78.5 Dyspnea R06.00 Allergies No Known Allergies Allergy (Verified 11/13/18 14:54) Home Medications: Ambulatory Orders Medication Instructions Recorded Aspirin [Aspirin, Baby] 81 mg PO DAILY@0800 07/18/13 Gabapentin [Neurontin] 1,200 mg PO TID 07/18/13 Lorazepam [Ativan] 1 mg PO BID PRN 07/18/13 Meclizine HCl [Antivert] 25 mg PO BID 07/18/13 Rosuvastatin Calcium [Crestor] 20 mg PO DAILY 07/18/13 Metformin HCl [Glucophage] 500 mg PO BID 01/03/14 Donepezil HCl [Aricept] 10 mg PO QHS 11/16/14 Magnesium Oxide [Mag-Ox 400] 400 mg PO BID 11/16/14 Nortriptyline HCl 25 mg PO QHS 03/16/17 glimepiride 4 mg tablet 4 mg PO BID tab 01/08/18 acetaminophen 500 mg capsule 1,000 mg PO BID 01/10/18 nitroglycerin 0.4 mg sublingual 0.4 mg SUBLINGUAL Q5M PRN #25 tab 01/10/18 tablet Clopidogrel Bisulfate [Clopidogrel] 75 mg PO QDAY 07/12/18 Ergocalciferol [Vitamin D] 50,000 unit PO Q7D 07/12/18 Escitalopram Oxalate [Lexapro] 10 mg PO DAILY 07/12/18 Isosorbide Mononitrate [Imdur] 60 mg PO BID 07/12/18 Metoprolol Tartrate [Lopressor 50 mg PO BID 07/12/18 (beta marcin)] Omeprazole [Prilosec] 20 mg PO DAILY 07/12/18 Lisinopril 5 mg PO DAILY 10/27/18 Surgical History: Surgical History (Last Updated 10/29/18 @ 17:55 by Xiao Manzo) Stented coronary artery (Chronic) Onset Date: 10/29/18 Z95.5 LETICIA to proximal LAD (3.5X16 Promus Synergy) per Dr. Martinez @ [facility] 10/29/2018 LETICIA to Proximal to Mid 2nd diagonal (2.5 X 24 Promus Premier); LETICIA to mid LAD (4.0 X 38 mm Promus Premier)per Dr. Martinez @ [facility] 11/26/2014 LETICIA to mid RCA (3.5 X16 Promus), FFR of LAD + 0.84 on 07/31/[address] Martinez @ [facility] Surgical History: - - PCI, right total knee replacement, right foot surgery, sinus surgery, rotator cuff surgery, TURP. Psychiatric History: Anxiety, Depression, - - Agoraphobia Lives: With Family - Patient lives currently in an apartment with his stepdaughter and her son, attempting to move currently. Smoking Status: Never smoker Tobacco Use: Non-smoker Alcohol: None Drugs: None - *Family History Sibling Family History: Family History (Last Reviewed 10/27/18 @ 13:13 by Camron Huggins DO) Son CAD (coronary artery disease) Myocardial infarction Mother Heart disease Father Addisons disease History Items: Heart Disease Maternal Family History: Family History (Last Reviewed 10/27/18 @ 13:13 by Camron Huggins DO) Son CAD (coronary artery disease) Myocardial infarction Mother Heart disease Father Addisons disease History Items: Diabetes Offspring Family History: Family History (Last Reviewed 10/27/18 @ 13:13 by Camron Huggins DO) Son CAD (coronary artery disease) Myocardial infarction Mother Heart disease Father Addisons disease History Items: Heart Disease, - - Father with also history of Runnels's disease. Review of Systems Constitutional: Reports: Fatigue. Denies: Chills, Fever, Weight Change HEENT: Denies: Head Aches, Sinus Congestion, Sinus Drainage Cardiovascular: Reports: Syncope. Denies: Chest Pain, Palpitations Respiratory: Denies: Cough, Shortness of breath at rest, Sputum production Gastrointestinal: Denies: Abdominal Pain, Nausea, Vomiting Genitourinary: Denies: Dysuria Musculoskeletal: Reports: Back Pain, Joint Pain. Denies: Joint Tenderness Skin: Denies: Rash, Wounds Neurological: Reports: Confusion, Seizures. Denies: Focal weakness, Numbness, Tingling Psychiatric: Reports: Anxiety, Depression. Denies: Homicidal Ideations, Suicidal Ideations Hematologic/ Lymphatic: Reports: Easy Bruising, Easy Bleeding VTE Information - Inpt Only VTE Present on Admission: No VTE Mechan Device Prophylaxis: SCD's VTE Pharm Prophylaxis ordered?: Yes Patient Problems: Active and Suspected Problems (Last Reviewed 10/27/18 @ 13:12 by Camron Huggins DO) Seizure (Suspected) Subjective: Seated upright in ED bed, fatigued appearing, no acute distress. Objective: Physical Examination: General: awake, alert, oriented x 3 and cooperative, seated upright in the ED bed in no apparent distress. Skin: normal color, turgor, no icterus, cyanosis. HEENT: AT/NC, EOMI, PERRLA, moderately dry MM, no carotid bruits or JVD noted; however, very thickened neck makes examination difficult. Lungs: CTA bilaterally, moderate effort, mild decrease BL bases, no rales, ronchi or wheezing. Heart: Regular rate and rhythm; no gallop, rub audible. Abdomen: soft, NTTP, ND, normal BS, no HSM; her habitus makes examination difficult. Extremities: no cyanosis, clubbing, right foot brace in place status post history of pinning of the fifth metatarsal with retained fragment. Neurological: patient awake, alert, oriented x 3; cognitive function currently appropriate and suspect baseline intact, improved from prior; pupils equally reactive to light and accomodation; cranial nerves II-XII grossly normal, moving all 4 extremities, no focal deficits, strength moderately globally decreased secondary to acute presentation. Psychiatric: affect appears fatigued, no acute evidence of depressive or anxiety feelings. - Physical Exam Vital Signs Temp Pulse Resp BP Pulse Ox 98.5 F 64 16 150/63 H 96 12/07/18 18:21 12/07/18 22:20 12/07/18 22:20 12/07/18 22:20 12/07/18 22:20 Oxygen Delivery Method Room Air Weight: 275 lb Body Mass Index (BMI) 35.3 Finger Stick Blood Glucose 150 Laboratory Tests Past 24 Hrs 12/07/18 12/07/18 12/07/18 20:00 20:00 20:00 WBC 6.9 RBC 4.40 L Hgb 13.1 Hct 41.6 MCV 94.5 H MCH 29.8 MCHC 31.5 L RDW 13.5 RDW Differential 46.5 H Plt Count 178 MPV 8.7 Immature Gran % (Auto) 0.300 Neut % (Auto) 62.7 Lymph % (Auto) 23.5 Adams % (Auto) 6.3 Eos % (Auto) 6.6 H Baso % (Auto) 0.6 Absolute Neuts (auto) 4.3 Absolute Lymphs (auto) 1.61 Total Counted Not Reportable PT 13.9 INR 1.1 APTT 27.3 Sodium 140 Potassium 4.0 Chloride 106 Carbon Dioxide 29.0 Anion Gap 5 BUN 20 H Creatinine 1.40 H Estim Creat Clear Calc 49.74 Est GFR (MDRD) Af Amer 63 Est GFR (MDRD) Non-Af 52 L BUN/Creatinine Ratio 14.3 Glucose 141 H Calcium 8.5 Troponin I < 0.015 Assessment/Plan All Active Problems (Last Reviewed 10/27/18 @ 13:12 by Camron Huggins DO) Angina of effort (Acute) The patient is a 77 y/o M w/ PMHx: Obesity, CAD s/p PCI, HTN, HLD, CKD stage III, ARMANDO on q HS BIPAP, Diabetes mellitus type II, BPH, GERD, Anxiety and Depression who presents to the [facility] ED on 12/07/18 with history during dinner of eating upright in his chair, suddenly without any symptoms leading up including no lightheadedness, dizziness, tunnel vision, vision changes, odd smells, immediately fell backwards against his chair with eyes rolling upwards, not responsive to family questions, held his RUE up in the air and was noted to start shaking without no loss of bowel or bladder nor tongue bitting which stopped spontaneously after ~ 5 minutes with mild confusion for 5-10 minutes following event. (1) Suspected new-onset seizure versus atypical syncopal event: ED work-up included T 98.5, heart rate 69, BP 162/77, respiratory rate 16, 95% on room air, CBC with WBC 6.9, heme globin 13.1, platelet 178 without left shift, unremarkable coags, BUN/Cr 20/1.40, glucose 141, trop < 0.015, EKG with acute evidence of ischemia with chronic RBBB, chest x-ray with no acute cardiopulmonary disease, CT of the head with mild central and cortical involutional changes with mild old small vessel ischemic changes and mild inflammatory changes of the paranasal sinuses. Will admit to PCU, maintain on telemetry in PCU on seizure precautions, obtain EEG, obtain brain MRI, obtain TSH, mag, UDS, cardiac enzyme trending, repeat EKG in AM, obtain orthostatic VS, obtain carotid US as well as ECHO as extremely unclear specific event. Neurology consultation. PRN ativan IV for seizure activity. (2) CAD: s/p PCI, continue home regimen aspirin, Plavix, statin, metoprolol, lisinopril. (3) Hypertension: Continue home regimen including isosorbide, lisinopril, metoprolol, PRN hydralazine. (4) Hyperlipidemia: Continue home statin regimen. (5) CKD stage III: Admission BUN/Cr 20/1.40, baseline renal function 1.2-1.4, repeat BMP in AM. (6) Diabetes mellitus type II: Hold oral home regimen, ADA diet, accu checks w/ ISS, patient consultation for education and teaching. (7) Anxiety and Depression: Maintain on home Lexapro regimen as well as low-dose oral twice daily Ativan. (8) Psychosocial: Notable extreme stress from need to move from his apartment, has his stepdaughter and her son living with him, will request case management/social work consultation to assist with these matters if possible. (9) BPH: Noted history, from current regiment not on any Flomax or Proscar. (10) Obesity: Weight loss and lifestyle changes encouraged, nutrition consulted. (11) ARMANDO: Maintain on q HS BIPAP. (12) GERD: PPI. (13) DVT prophylaxis: SCDs, renally dose Lovenox. Code Visit Inpatient E&M: 15707 Init Hosp L3
--- NOTE | 2018-12-07 23:11 | HP.PCM_ITS ---
Problem List (1) Seizure Status: Suspected (2) CKD (chronic kidney disease) stage 3, GFR 30-59 ml/min Status: Chronic (3) Stented coronary artery Status: Chronic Comment: LETICIA to proximal LAD (3.5X16 Promus Synergy) per Dr. Martinez @ [facility] 10/29/2018 LETICIA to Proximal to Mid 2nd diagonal (2.5 X 24 Promus Premier); LETICIA to mid LAD (4.0 X 38 mm Promus Premier)per Dr. Martinez @ [facility] 11/26/2014 ELTICIA to mid RCA (3.5 X16 Promus), FFR of LAD + 0.84 on 07/31/[address] Martinez @ [facility] (4) Paroxysmal atrial flutter Status: Chronic (5) Atherosclerotic heart disease of [place] coronary artery without angina pectoris Status: Chronic Qualifiers: [place] vs. transplanted heart: [place] heart Qualified Code(s): I25.10 - Atherosclerotic heart disease of [place] coronary artery without angina pectoris (6) Hypertension Status: Chronic Qualifiers: Hypertension type: essential hypertension Qualified Code(s): I10 - Essential (primary) hypertension (7) Hyperlipemia Status: Chronic Qualifiers: Hyperlipidemia type: pure hypercholesterolemia Qualified Code(s): E78.00 - Pure hypercholesterolemia, unspecified; E78.0 - Pure hypercholesterolemia (8) BPH (benign prostatic hyperplasia) Status: Chronic Qualifiers: Lower urinary tract symptom presence: unspecified whether lower urinary tract symptoms present Qualified Code(s): N40.0 - Benign prostatic hyperplasia without lower urinary tract symptoms (9) Diabetes mellitus Status: Chronic Qualifiers: Diabetes mellitus type: type 2 Diabetes mellitus prison insulin use: without prison use Diabetes mellitus complication status: with unspecified complications Qualified Code(s): E11.8 - Type 2 diabetes mellitus with unspecified complications (10) ARMANDO on CPAP Status: Chronic (11) Neuropathy Status: Chronic (12) Esophageal reflux Status: Chronic Qualifiers: Esophagitis presence: esophagitis presence not specified Qualified Code(s): K21.9 - Gastro-esophageal reflux disease without esophagitis History of Present Illness Date of Admission: 12/07/18 Chief Complaint: ? Seizure versus syncopal event The patient is a 77 y/o M w/ PMHx: Obesity, CAD s/p PCI, HTN, HLD, CKD stage III, ARMANDO on q HS BIPAP, Diabetes mellitus type II, BPH, GERD, Anxiety and Depression who presents to the [facility] ED on 12/07/18 with history during dinner of eating upright in his chair, suddenly without any symptoms leading up including no lightheadedness, dizziness, tunnel vision, vision changes, odd smells, immediately fell backwards against his chair with eyes rolling upwards, not responsive to family questions, held his RUE up in the air and was noted to st art shaking without no loss of bowel or bladder nor tongue bitting which stopped spontaneously after ~ 5 minutes with mild confusion for 5-10 minutes following event. Family witnessed the event and description given per family. Patient does admit that he has been under extreme stress lately as they need to move from their apartment and he has had difficulty having anyone accept him and currently his stepdaughter and her son also lives with him. In the ED work-up included T 98.5, heart rate 69, BP 162/77, respiratory rate 16, 95% on room air, CBC with WBC 6.9, heme globin 13.1, platelet 178 without left shift, unremarkable coags, BUN/Cr 20/1.40, glucose 141, trop < 0.015, EKG with acute evidence of ischemia with chronic RBBB, chest x-ray with no acute cardiopulmonary disease, CT of the head with mild central and cortical involutional changes with mild old small vessel ischemic changes and mild inflammatory changes of the paranasal sinuses. ED discussed the patient with the neurologist given concerns for possible seizure activity with recommendation for admission and given first time seizure, unprovoked no indication to initiate antiepileptic medications. Past Medical History Past Medical History (Chronic Problems): Chronic Problems (Last Reviewed 10/27/18 @ 13:12 by Camron Huggins DO) CKD (chronic kidney disease) stage 3, GFR 30-59 ml/min (Chronic) Stented coronary artery (Chronic 10/29/18) LETICIA to proximal LAD (3.5X16 Promus Synergy) per Dr. Martinez @ [facility] 10/29/2018 LETICIA to Proximal to Mid 2nd diagonal (2.5 X 24 Promus Premier); LETICIA to mid LAD (4.0 X 38 mm Promus Premier)per Dr. Martinez @ [facility] 11/26/2014 LETICIA to mid RCA (3.5 X16 Promus), FFR of LAD + 0.84 on 07/31/[address] 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) Medical History: Medical History (Last Reviewed 10/27/18 @ 13:12 by Camron Huggins DO) Atherosclerotic heart disease of [place] coronary artery without angina pectoris (Chronic) I25.10 Hypertension (Chronic) I10 Hyperlipemia (Chronic) E78.5 Dyspnea R06.00 Allergies No Known Allergies Allergy (Verified 11/13/18 14:54) Home Medications: Ambulatory Orders Medication Instructions Recorded Aspirin [Aspirin, Baby] 81 mg PO DAILY@0800 07/18/13 Gabapentin [Neurontin] 1,200 mg PO TID 07/18/13 Lorazepam [Ativan] 1 mg PO BID PRN 07/18/13 Meclizine HCl [Antivert] 25 mg PO BID 07/18/13 Rosuvastatin Calcium [Crestor] 20 mg PO DAILY 07/18/13 Metformin HCl [Glucophage] 500 mg PO BID 01/03/14 Donepezil HCl [Aricept] 10 mg PO QHS 11/16/14 Magnesium Oxide [Mag-Ox 400] 400 mg PO BID 11/16/14 Nortriptyline HCl 25 mg PO QHS 03/16/17 glimepiride 4 mg tablet 4 mg PO BID tab 01/08/18 acetaminophen 500 mg capsule 1,000 mg PO BID 01/10/18 nitroglycerin 0.4 mg sublingual 0.4 mg SUBLINGUAL Q5M PRN #25 tab 01/10/18 tablet Clopidogrel Bisulfate [Clopidogrel] 75 mg PO QDAY 07/12/18 Ergocalciferol [Vitamin D] 50,000 unit PO Q7D 07/12/18 Escitalopram Oxalate [Lexapro] 10 mg PO DAILY 07/12/18 Isosorbide Mononitrate [Imdur] 60 mg PO BID 07/12/18 Metoprolol Tartrate [Lopressor 50 mg PO BID 07/12/18 (beta marcin)] Omeprazole [Prilosec] 20 mg PO DAILY 07/12/18 Lisinopril 5 mg PO DAILY 10/27/18 Surgical History: Surgical History (Last Updated 10/29/18 @ 17:55 by Xiao Manzo) Stented coronary artery (Chronic) Onset Date: 10/29/18 Z95.5 LETICIA to proximal LAD (3.5X16 Promus Synergy) per Dr. Martinez @ [facility] 10/29/2018 LETICIA to Proximal to Mid 2nd diagonal (2.5 X 24 Promus Premier); LETICIA to mid LAD (4.0 X 38 mm Promus Premier)per Dr. Martinez @ [facility] 11/26/2014 LETICIA to mid RCA (3.5 X16 Promus), FFR of LAD + 0.84 on 07/31/[address] Martinez @ [facility] Surgical History: - - PCI, right total knee replacement, right foot surgery, sinus surgery, rotator cuff surgery, TURP. Psychiatric History: Anxiety, Depression, - - Agoraphobia Lives: With Family - Patient lives currently in an apartment with his stepdaughter and her son, attempting to move currently. Smoking Status: Never smoker Tobacco Use: Non-smoker Alcohol: None Drugs: None - *Family History Sibling Family History: Family History (Last Reviewed 10/27/18 @ 13:13 by Camron Huggins DO) Son CAD (coronary artery disease) Myocardial infarction Mother Heart disease Father Addisons disease History Items: Heart Disease Maternal Family History: Family History (Last Reviewed 10/27/18 @ 13:13 by Camron Huggins DO) Son CAD (coronary artery disease) Myocardial infarction Mother Heart disease Father Addisons disease History Items: Diabetes Offspring Family History: Family History (Last Reviewed 10/27/18 @ 13:13 by Camron Huggins DO) Son CAD (coronary artery disease) Myocardial infarction Mother Heart disease Father Addisons disease History Items: Heart Disease, - - Father with also history of [place]'s disease. Review of Systems Constitutional: Reports: Fatigue. Denies: Chills, Fever, Weight Change HEENT: Denies: Head Aches, Sinus Congestion, Sinus Drainage Cardiovascular: Reports: Syncope. Denies: Chest Pain, Palpitations Respiratory: Denies: Cough, Shortness of breath at rest, Sputum production Gastrointestinal: Denies: Abdominal Pain, Nausea, Vomiting Genitourinary: Denies: Dysuria Musculoskeletal: Reports: Back Pain, Joint Pain. Denies: Joint Tenderness Skin: Denies: Rash, Wounds Neurological: Reports: Confusion, Seizures. Denies: Focal weakness, Numbness, Tingling Psychiatric: Reports: Anxiety, Depression. Denies: Homicidal Ideations, Suicidal Ideations Hematologic/ Lymphatic: Reports: Easy Bruising, Easy Bleeding VTE Information - Inpt Only VTE Present on Admission: No VTE Mechan Device Prophylaxis: SCD's VTE Pharm Prophylaxis ordered?: Yes Patient Problems: Active and Suspected Problems (Last Reviewed 10/27/18 @ 13:12 by Camron Huggins DO) Seizure (Suspected) Subjective: Seated upright in ED bed, fatigued appearing, no acute distress. Objective: Physical Examination: General: awake, alert, oriented x 3 and cooperative, seated upright in the ED bed in no apparent distress. Skin: normal color, turgor, no icterus, cyanosis. HEENT: AT/NC, EOMI, PERRLA, moderately dry MM, no carotid bruits or JVD noted; however, very thickened neck makes examination difficult. Lungs: CTA bilaterally, moderate effort, mild decrease BL bases, no rales, ronchi or wheezing. Heart: Regular rate and rhythm; no gallop, rub audible. Abdomen: soft, NTTP, ND, normal BS, no HSM; her habitus makes examination difficult. Extremities: no cyanosis, clubbing, right foot brace in place status post history of pinning of the fifth metatarsal with retained fragment. Neurological: patient awake, alert, oriented x 3; cognitive function currently appropriate and suspect baseline intact, improved from prior; pupils equally reactive to light and accomodation; cranial nerves II-XII grossly normal, moving all 4 extremities, no focal deficits, strength moderately globally decreased secondary to acute presentation. Psychiatric: affect appears fatigued, no acute evidence of depressive or anxiety feelings. - Physical Exam Vital Signs Temp Pulse Resp BP Pulse Ox 98.5 F 64 16 150/63 H 96 12/07/18 18:21 12/07/18 22:20 12/07/18 22:20 12/07/18 22:20 12/07/18 22:20 Oxygen Delivery Method Room Air Weight: 275 lb Body Mass Index (BMI) 35.3 Finger Stick Blood Glucose 150 Laboratory Tests Past 24 Hrs 12/07/18 12/07/18 12/07/18 20:00 20:00 20:00 WBC 6.9 RBC 4.40 L Hgb 13.1 Hct 41.6 MCV 94.5 H MCH 29.8 MCHC 31.5 L RDW 13.5 RDW Differential 46.5 H Plt Count 178 MPV 8.7 Immature Gran % (Auto) 0.300 Neut % (Auto) 62.7 Lymph % (Auto) 23.5 Mcdonald % (Auto) 6.3 Eos % (Auto) 6.6 H Baso % (Auto) 0.6 Absolute Neuts (auto) 4.3 Absolute Lymphs (auto) 1.61 Total Counted Not Reportable PT 13.9 INR 1.1 APTT 27.3 Sodium 140 Potassium 4.0 Chloride 106 Carbon Dioxide 29.0 Anion Gap 5 BUN 20 H Creatinine 1.40 H Estim Creat Clear Calc 49.74 Est GFR (MDRD) Af Amer 63 Est GFR (MDRD) Non-Af 52 L BUN/Creatinine Ratio 14.3 Glucose 141 H Calcium 8.5 Troponin I < 0.015 Assessment/Plan All Active Problems (Last Reviewed 10/27/18 @ 13:12 by Camron Huggins DO) Angina of effort (Acute) The patient is a 77 y/o M w/ PMHx: Obesity, CAD s/p PCI, HTN, HLD, CKD stage III, ARMANDO on q HS BIPAP, Diabetes mellitus type II, BPH, GERD, Anxiety and Depression who presents to the [facility] ED on 12/07/18 with history during dinner of eating upright in his chair, suddenly without any symptoms leading up including no lightheadedness, dizziness, tunnel vision, vision changes, odd smells, immediately fell backwards against his chair with eyes rolling upwards, not responsive to family questions, held his RUE up in the air and was noted to start shaking without no loss of bowel or bladder nor tongue bitting which stopped spontaneously after ~ 5 minutes with mild confusion for 5-10 minutes following event. (1) Suspected new-onset seizure versus atypical syncopal event: ED work-up included T 98.5, heart rate 69, BP 162/77, respiratory rate 16, 95% on room air, CBC with WBC 6.9, heme globin 13.1, platelet 178 without left shift, unremarkable coags, BUN/Cr 20/1.40, glucose 141, trop < 0.015, EKG with acute evidence of ischemia with chronic RBBB, chest x-ray with no acute cardiopulmonary disease, CT of the head with mild central and cortical involutional changes with mild old small vessel ischemic changes and mild inf lammatory changes of the paranasal sinuses. Will admit to PCU, maintain on telemetry in PCU on seizure precautions, obtain EEG, obtain brain MRI, obtain TSH, mag, UDS, cardiac enzyme trending, repeat EKG in AM, obtain orthostatic VS, obtain carotid US as well as ECHO as extremely unclear specific event. Neurology consultation. PRN ativan IV for seizure activity. (2) CAD: s/p PCI, continue home regimen aspirin, Plavix, statin, metoprolol, lisinopril. (3) Hypertension: Continue home regimen including isosorbide, lisinopril, metoprolol, PRN hydralazine. (4) Hyperlipidemia: Continue home statin regimen. (5) CKD stage III: Admission BUN/Cr 20/1.40, baseline renal function 1.2-1.4, repeat BMP in AM. (6) Diabetes mellitus type II: Hold oral home regimen, ADA diet, accu checks w/ ISS, patient consultation for education and teaching. (7) Anxiety and Depression: Maintain on home Lexapro regimen as well as low-dose oral twice daily Ativan. (8) Psychosocial: Notable extreme stress from need to move from his apartment, has his stepdaughter and her son living with him, will request case management/social work consultation to assist with these matters if possible. (9) BPH: Noted history, from current regiment not on any Flomax or Proscar. (10) Obesity: Weight loss and lifestyle changes encouraged, nutrition consulted. (11) ARMANDO: Maintain on q HS BIPAP. (12) GERD: PPI. (13) DVT prophylaxis: SCDs, renally dose Lovenox. Code Visit Inpatient E&M: 50070 Init Hosp L3
[2018-12-07 23:18] VITALS: BP 149/58; PULSE 69; RESP 16; O2SAT 96
--- NOTE | 2018-12-07 23:19 | ED.VISSUMM ---
- ER Visit Summary Date of Service: 12/07/18 Chief Complaint: Possible seizure History of Present Illness: The patient is a 77 M who was eating dinner this evening with his family. They said that they heard him making a noise. They noted his eyes rolled back in his head. He was holding his right arm up in the air and leaning backwards. He started shaking. He was unresponsive for several seconds. He did not remember the event, and he was confused for about 5 minutes afterwards. Nothing like this has ever happened to him before. He denies any recent illness although he has been undergoing some stress recently. He does have a history of coronary disease, a flutter, diabetes, hypertension, hyperlipidemia. Physical Examination: Afebrile and vital signs unremarkable. Alert and oriented. Head and neck atraumatic. Cranial nerves grossly intact. Normal strength and sensation. Heart regular. Lungs clear. abdomen soft. Test Results: EKG showed sinus rhythm at a rate of 70 with a PAC and first-degree AV block. CBC normal. Glucose 141, BUN 20, creatinine 1.40. Coags normal. Troponin normal. Chest x-ray unremarkable and CT brain showed chronic changes. Emergency Department Course and Treatment: Patient was monitored. He had IV access and seizure precautions. No further loss of consciousness or seizure activity. His workup was all fairly unremarkable. Patient was discussed with neurology. I suspect this is a seizure. If this is a first-time seizure and unprovoked, there is no indication to start seizure medications. He will need EEG. I spoke with the hospitalist who will admit for further care. Treatment Plan: As above Disposition: Admission Impression: 1. Seizure This note was generated with [employer] dictation software. It may contain incorrect words, spelling, and punctuation that were not noted in review of the chart prior to signing ED Disposition - Plan for ED Patient: Referrals: Antonio Louis Chi, MD [Primary Care Provider] -
--- NOTE | 2018-12-07 23:23 | ED.DCSUM_ITS ---
- ER Visit Summary Date of Service: 12/07/18 Chief Complaint: Possible seizure History of Present Illness: The patient is a 77 M who was eating dinner this evening with his family. They said that they heard him making a noise. They noted his eyes rolled back in his head. He was holding his right arm up in the air and leaning backwards. He started shaking. He was unresponsive for several seconds. He did not remember the event, and he was confused for about 5 minutes afterwards. Nothing like this has ever happened to him before. He denies any recent illness although he has been undergoing some stress recently. He does have a history of coronary disease, a flutter, diabetes, hypertension, hype rlipidemia. Physical Examination: Afebrile and vital signs unremarkable. Alert and oriented. Head and neck atraumatic. Cranial nerves grossly intact. Normal strength and sensation. Heart regular. Lungs clear. abdomen soft. Test Results: EKG showed sinus rhythm at a rate of 70 with a PAC and first- degree AV block. CBC normal. Glucose 141, BUN 20, creatinine 1.40. Coags normal. Troponin normal. Chest x-ray unremarkable and CT brain showed chronic changes. Emergency Department Course and Treatment: Patient was monitored. He had IV access and seizure precautions. No further loss of consciousness or seizure activity. His workup was all fairly unremarkable. Patient was discussed with neurology. I suspect this is a seizure. If this is a first-time seizure and unprovoked, there is no indication to start seizure medications. He will need EEG. I spoke with the hospitalist who will admit for further care. Treatment Plan: As above Disposition: Admission Impression: 1. Seizure This note was generated with [employer] dictation software. It may contain incorrect words, spelling, and punctuation that were not noted in review of the chart prior to signing ED Disposition - Plan for ED Patient: Referrals: Antonio Louis Chi, MD [Primary Care Provider] -
[2018-12-08] VITALS (14 sets, daily range): BP systolic 146–178; BP diastolic 62–81; PULSE 60–84; RESP 12–25; TEMP 36.4–37.1; O2SAT 95–99; BMI 35.2
--- NOTE | 2018-12-08 00:36 | MRI_ITS ---
STUDY: MRI BRAIN WITHOUT CONTRAST REASON FOR EXAM: Male, 77 years old. Syncope. TECHNIQUE: Standardized multiplanar fat and water weighted pulse sequences were obtained. COMPARISON: CT head without contrast 12/07/2018. FINDINGS: No restricted diffusion to suspect acute or subacute ischemic infarct. Normal size of the ventricles and extra-axial spaces for the patient's age. Normal white matter tracts of the supratentorial brain. Normal bilateral basal ganglia. Normal thalami. There is no extra-axial fluid accumulation. Normal flow voids within the major intracranial circulation suggesting patency by spin echo criteria. Normal sella turcica, pituitary gland, infundibular stalk, optic chiasm and hypothalamus. Normal tectal plate and pineal gland. Normal midbrain, kiara and medulla. Normal cerebellum. Normal basal cisterns. Normal bilateral temporal bones. Normal bilateral internal auditory canals. No demonstrated orbital abnormality, within the constraints of a routine brain study. Mucosal thickening of the maxillary sinuses with sclerotic wall thickening due to chronic sinusitis. Normal calvarium and skull base. Normal visualized soft tissue structures. Normal visualized upper cervical spine. MRI/Brain without Contrast IMPRESSION: 1. No MRI evidence of acute or subacute ischemic infarct. 2. No MRI evidence of remote cortical-based ischemic infarct or old lacunar ischemic infarct. 3. Mucosal thickening in the maxillary sinuses with sclerotic wall thickening due to chronic maxillary sinusitis. 4. No significant interval changes when compared to CT head scan of 12/07/2018. Electronically Signed: Rogers Armendariz MD at 14:02 EDT , Service support ,
[2018-12-08] MEDS: 0.9% Normal Saline 1,000 ML 100 ML IV (01:16)
[2018-12-08 01:28] LABS: Hemoglobin A1c 6.5 % (4.2-6.3)
[2018-12-08 01:29] LABS: Magnesium 2.1 mg/dL (1.6-2.6); Thyroid Stim Hormone (TSH) 0.85 uIU/mL (0.358-3.74)
[2018-12-08] MEDS: Magnesium Oxide 400 MG Tablet PO ×2 (03:12→08:26)
[2018-12-08] MEDS: Meclizine HCl 25 MG Tablet PO ×2 (03:13→08:27)
[2018-12-08] MEDS: Metoprolol Tartrate 50 MG Tablet PO ×2 (03:14→08:31)
[2018-12-08 03:22] LABS: Absolute Lymphocyte Count 1.49 X10^3/ul (0.83-4.51); Absolute Neutrophil Count 4.4 X10^3/uL (2.0-7.7); Basophil# 0.04 X10^3/uL; Basophil% 0.6 % (0-1); Eosinophil# 0.38 X10^3/uL; Eosinophils% 5.5 % (0-5); Hematocrit 41.3 % (40-54); Hemoglobin 13.2 g/dl (13.0-16.5); Lymphocyte # 1.49 X10^3/ul (4.0); Lymphocyte % 21.5 % (19-41); Mean Corpuscular Hgb 29.9 pg (27.0-32.0); Mean Corpuscular Volume 93.4 fL (80-94); Mean Platelet Vol. 8.9 fl (6.2-12.0); Monocyte# 0.56 X10^3/uL; Monocyte% 8.1 % (0-10); Neutrophil # 4.44 X10^3/uL (2.7-7.7); Neutrophil % 64.2 % (47-70); Platelet Count 181 K/mm3 (150-450); RBC Distribution Width CV 13.5 % (11.6-14.6); RBC Distribution Width SD 46.6 fl (35.1-43.9); Red Blood Count 4.42 M/mm3 (4.6-6.2); White Blood Count 6.9 K/mm3 (4.4-11.0)
[2018-12-08 03:29] LABS: POSITIVE COUNT NO; POSITIVE DIFFERENTIAL NO; POSITIVE MORPHOLOGY NO
[2018-12-08 03:40] LABS: ALB/GLOB Ratio 1.1 RATIO (0.9-2.4); AST(SGOT) 16 U/L (15-37); Alanine Aminotransfer ALT/SGPT 22 U/L (16-61); Albumin, Serum 3.5 g/dL (3.2-5.0); Alkaline Phosphatase 73 U/L (45-117); Anion Gap 7 (5-15); BUN 22 mg/dL (7-18); Calcium,Total 8.4 mg/dL (8.5-10.1); Chloride 108 mmol/L (98-107); Creatinine, Serum 1.22 mg/dL (0.70-1.30); EST Glomerular Filtration Rate 61 mL/min (>60); Est Glom Filt Rate - Afr Amer 74 mL/min (>60); Estimated Creatinine Clearance 57.08 ml/min; Globulin 3.3 g/dL (2.2-4.2); Glucose 126 mg/dL (74-106); Potassium 4.1 mmol/L (3.5-5.1); Protein, Total 6.8 g/dL (6.4-8.2); Sodium Level 141 mmol/L (136-145)
--- NOTE | 2018-12-08 05:55 | EKG12_ITS ---
Test Reason : AM Blood Pressure : / mmHG Vent. Rate : 065 BPM Atrial Rate : 065 BPM P-R Int : 246 ms QRS Dur : 128 ms QT Int : 428 ms P-R-T Axes : -03 -61 -06 degrees QTc Int : 445 ms Sinus rhythm with 1st degree A-V block Left axis deviation Right bundle branch block Inferior infarct , age undetermined Abnormal ECG When compared with ECG of 07-DEC-2018 18:48, MANUAL COMPARISON REQUIRED, DATA IS UNCONFIRMED Confirmed by EDITA REY, DMITRI ([id number]), tape editor FABIÁN SNOWDEN ([id number] on 12/11/2018 1:20:24 PM Referred By: Confirmed By:DMITRI KOHLER MD
[2018-12-08] MEDS: Gabapentin 600 MG Tablet 1200 MG PO ×2 (06:52→13:05)
[2018-12-08 06:56] LABS: Bedside Glucose 145 mg/dL (70-110)
[2018-12-08] MEDS: Lisinopril 5 MG Tablet PO (08:26)
[2018-12-08] MEDS: Aspirin 81 MG TAB.CHEW PO (08:27)
[2018-12-08] MEDS: Isosorbide Mononitrate 60 MG Tablet PO (08:27)
[2018-12-08] MEDS: Enoxaparin 30 MG/0.3 ML Syringe SC (08:27)
[2018-12-08] MEDS: Clopidogrel Bisulfate 75 MG Tablet PO (08:27)
[2018-12-08] MEDS: Escitalopram Oxalate 10 MG Tablet PO (08:27)
[2018-12-08] MEDS: Pantoprazole Sodium 20 MG Tablet PO (08:28)
--- NOTE | 2018-12-08 11:05 | EEG ---
- Electroencephalogram Date of service 04/19/2018 History EEG is being done in this 75 yr M to rule out seizures EEG Description: This is an 18 channel EEG with 10-20 lead placement system. Bipolar montages, Referential montages were reviewed. Photic stimulation and Hyperventilation were performed. The posterior dominant rhythm is 8 HZ synchronous, symmetric, reacting to eye opening and closing. Photo stimulation elicited normal driving response but no abnormal photoparoxysmal response, Hyperventilation did not elicit any abnormal photoparoxysmal response. Sleep was identified. There is no abnormal background slowing noted. There was no epileptiform discharges or electrographic seizures noted during this recording. EEG Interpretation This is a normal awake and asleep EEG. There is no epileptiform discharges or electrographic seizures noted during the record.
[2018-12-08 11:25] LABS: Bedside Glucose 172 mg/dL (70-110)
--- NOTE | 2018-12-08 11:47 | PCM.CONS.GEN ---
Problem List (1) Seizure Status: Suspected Reason for Consult Date of Consultation: 12/08/18 Reason for Consultation: Seizures History of Present Illness: The patient is a 77 year old M [facility] HTN, HLD, DM, DM neuropathy, CKD, paroxysmal atrial flutter (not on anticoagulation), CAD, ARMANDO on CPAP, BPH, anxiety and depression admitted with possible seizures. History obtained from medical records documentation as well as from the patient. Per patient he was having supper yesterday 12/07/2018, when he suddenly had an episode where he held his right upper extremity up in the air and per documentation was noted to shake with eyes rolling upwards, per patient does not remember the event he is not sure if he passed out, was unaware of the event, but denies any tongue bite or urinary incontinence, per patient the whole event may have lasted for a few seconds and probably was confused after the event per documentation. Per patient he was aware of the paramedics being in the room after the event. At present he denies any headache dizziness, focal motor weakness, sensory loss, visual disturbance or speech disturbances. Per patient he never had any seizure episodes in the past. Denies any history of syncope. Per patient he has been under a lot of stress recently as he has been asked to move out of his apartment which is renting. He currently lives with his stepdaughter and her son. Per patient his is in the group home, he does drive denies any frequent falls, does not use a cane or walker to ambulate, and does not need any assistance with his ADLs. CT head done on admission did not show anything acute. [] Past Medical History Past Medical History (Chronic Problems): Chronic Problems (Last Reviewed 10/27/18 @ 13:12 by Camron Huggins DO) CKD (chronic kidney disease) stage 3, GFR 30-59 ml/min (Chronic) Stented coronary artery (Chronic 10/29/18) LETICIA to proximal LAD (3.5X16 Promus Synergy) per Dr. Martinez @ [facility] 10/29/2018 LETICIA to Proximal to Mid 2nd diagonal (2.5 X 24 Promus Premier); LETICIA to mid LAD (4.0 X 38 mm Promus Premier)per Dr. Martinez @ [facility] 11/26/2014 LETICIA to mid RCA (3.5 X16 Promus), FFR of LAD + 0.84 on 07/31/[address] 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) Medical History: Medical History (Last Reviewed 10/27/18 @ 13:12 by Camron Huggins DO) Atherosclerotic heart disease of [place] coronary artery without angina pectoris (Chronic) I25.10 Hypertension (Chronic) I10 Hyperlipemia (Chronic) E78.5 Dyspnea R06.00 Allergies No Known Allergies Allergy (Verified 11/13/18 14:54) Home Medications: Ambulatory Orders Medication Instructions Recorded Aspirin [Aspirin, Baby] 81 mg PO DAILY@0800 07/18/13 Gabapentin [Neurontin] 1,200 mg PO TID 07/18/13 Lorazepam [Ativan] 1 mg PO BID PRN 07/18/13 Meclizine HCl [Antivert] 25 mg PO BID 07/18/13 Rosuvastatin Calcium [Crestor] 20 mg PO DAILY 07/18/13 Metformin HCl [Glucophage] 500 mg PO BID 01/03/14 Donepezil HCl [Aricept] 10 mg PO QHS 11/16/14 Magnesium Oxide [Mag-Ox 400] 400 mg PO BID 11/16/14 Nortriptyline HCl 25 mg PO DAILY 03/16/17 glimepiride 4 mg tablet 4 mg PO BID tab 01/08/18 acetaminophen 500 mg capsule 1,000 mg PO BID 01/10/18 nitroglycerin 0.4 mg sublingual 0.4 mg SUBLINGUAL Q5M PRN #25 tab 01/10/18 tablet Clopidogrel Bisulfate [Clopidogrel] 75 mg PO DAILY 07/12/18 Ergocalciferol [Vitamin D] 50,000 unit PO Q7D 07/12/18 Escitalopram Oxalate [Lexapro] 10 mg PO DAILY 07/12/18 Isosorbide Mononitrate [Imdur] 60 mg PO BID 07/12/18 Metoprolol Tartrate [Lopressor 50 mg PO BID 07/12/18 (beta marcin)] Lisinopril 5 mg PO DAILY 10/27/18 Famotidine [Pepcid] 40 mg PO DAILY 12/08/18 Surgical History: Surgical History (Last Updated 10/29/18 @ 17:55 by Xiao Manzo) Stented coronary artery (Chronic) Onset Date: 10/29/18 Z95.5 LETICIA to proximal LAD (3.5X16 Promus Synergy) per Dr. Martinez @ [facility] 10/29/2018 LETICIA to Proximal to Mid 2nd diagonal (2.5 X 24 Promus Premier); LETICIA to mid LAD (4.0 X 38 mm Promus Premier)per Dr. Martinez @ [facility] 11/26/2014 LETICIA to mid RCA (3.5 X16 Promus), FFR of LAD + 0.84 on 07/31/[address] Martinez @ [facility] Surgical History: - - PCI, right total knee replacement, right foot surgery, sinus surgery, rotator cuff surgery, TURP. Psychiatric History: Anxiety, Depression, - - Agoraphobia Lives: With Family - Patient lives currently in an apartment with his stepdaughter and her son, attempting to move currently. Smoking Status: Never smoker Tobacco Use: Non-smoker Alcohol: None Drugs: None - *Family History Sibling Family History: Family History (Last Reviewed 10/27/18 @ 13:13 by Camron Huggins DO) Son CAD (coronary artery disease) Myocardial infarction Mother Heart disease Father Addisons disease History Items: Heart Disease Maternal Family History: Family History (Last Reviewed 10/27/18 @ 13:13 by Camron Huggins DO) Son CAD (coronary artery disease) Myocardial infarction Mother Heart disease Father Addisons disease History Items: Diabetes Offspring Family History: Family History (Last Reviewed 10/27/18 @ 13:13 by Camron Huggins DO) Son CAD (coronary artery disease) Myocardial infarction Mother Heart disease Father Addisons disease History Items: Heart Disease, - - Father with also history of Ja's disease. Review of Systems Constitutional: Reports: - - Complete ROS negative except as documented in HPI. Patient Problems: Active and Suspected Problems (Last Reviewed 10/27/18 @ 13:12 by Camron Huggins DO) Seizure (Suspected) - Physical Exam General: Alert HEENT: Normocephalic Neck: Supple Lungs: Normal air movement Cardiovascular: Normal S1, Normal S2 Abdomen: Bowel Sounds Present Extremities: No cyanosis Neurological: Cranial nerves II-XII grossly intact, Deep Tendon Reflexes 2+/4 and Symmetrical, Neuro grossly intact, Motor Exam 5/5 strength throughout, Muscle tone normal, Sensory exam intact to light touch and pain, Coordination normal Psych/Mental Status: Normal Affect Vital Signs Temp Pulse Resp BP Pulse Ox 97.6 F L 60 16 146/78 H 97 12/08/18 08:30 12/08/18 11:05 12/08/18 08:30 12/08/18 08:31 12/08/18 08:30 Oxygen Delivery Method Room Air Weight: 124.5 kg Body Mass Index (BMI) 35.2 Finger Stick Blood Glucose 150 Orthostatic Vital Signs Start: 12/08/18 02:58 Freq: q24h Status: Active Protocol: Activity Type Activity Date Activity User E-Sign Co-Sign Detail Recorded Client Recorded Date Recorded By Document 12/08/18 02:58 MLS [id number] 12/08/18 03:11 MLS 12/08/18 02:58 Orthostatic Vitals Standing -Blood Pressure (90/60-120/80) 156/74 H -Extremity Use Right Arm -Pulse Rate (60-100) 84 Sitting -Blood Pressure (90/60-120/80) 169/80 H -Extremity Use Right Arm -Pulse Rate (60-100) 71 Lying -Blood Pressure (90/60-120/80) 178/81 H -Extremity Use Right Arm -Pulse Rate (60-100) 73 Intake and Output for Last 24 Hours 12/06/18 12/07/18 12/08/18 23:59 23:59 23:59 Intake Total 509 / 509 Output Total 500 / 500 Balance Laboratory Tests Past 24 Hrs 12/07/18 12/07/18 12/07/18 20:00 20:00 20:00 WBC 6.9 RBC 4.40 L Hgb 13.1 Hct 41.6 MCV 94.5 H MCH 29.8 MCHC 31.5 L RDW 13.5 RDW Differential 46.5 H Plt Count 178 MPV 8.7 Immature Gran % (Auto) 0.300 Neut % (Auto) 62.7 Lymph % (Auto) 23.5 [place] % (Auto) 6.3 Eos % (Auto) 6.6 H Baso % (Auto) 0.6 Absolute Neuts (auto) 4.3 Absolute Lymphs (auto) 1.61 Total Counted Not Reportable PT 13.9 INR 1.1 APTT 27.3 Sodium 140 Potassium 4.0 Chloride 106 Carbon Dioxide 29.0 Anion Gap 5 BUN 20 H Creatinine 1.40 H Estim Creat Clear Calc 49.74 Est GFR (MDRD) Af Amer 63 Est GFR (MDRD) Non-Af 52 L BUN/Creatinine Ratio 14.3 Glucose 141 H Hemoglobin A1c Calcium 8.5 Magnesium Total Bilirubin AST ALT Alkaline Phosphatase Troponin I < 0.015 Total Protein Albumin Globulin Albumin/Globulin Ratio TSH 12/07/18 12/07/18 12/08/18 20:00 20:00 02:50 WBC RBC Hgb Hct MCV MCH MCHC RDW RDW Differential Plt Count MPV Immature Gran % (Auto) Neut % (Auto) Lymph % (Auto) [place] % (Auto) Eos % (Auto) Baso % (Auto) Absolute Neuts (auto) Absolute Lymphs (auto) Total Counted PT INR APTT Sodium 141 Potassium 4.1 Chloride 108 H Carbon Dioxide 26.0 Anion Gap 7 BUN 22 H Creatinine 1.22 Estim Creat Clear Calc 57.08 Est GFR (MDRD) Af Amer 74 Est GFR (MDRD) Non-Af 61 BUN/Creatinine Ratio 18.0 Glucose 126 H Hemoglobin A1c 6.5 H Calcium 8.4 L Magnesium 2.1 Total Bilirubin 1.10 H AST 16 ALT 22 Alkaline Phosphatase 73 Troponin I < 0.015 Total Protein 6.8 Albumin 3.5 Globulin 3.3 Albumin/Globulin Ratio 1.1 TSH 0.85 12/08/18 12/08/18 12/08/18 02:50 05:00 08:28 WBC 6.9 RBC 4.42 L Hgb 13.2 Hct 41.3 MCV 93.4 MCH 29.9 MCHC 32.0 RDW 13.5 RDW Differential 46.6 H Plt Count 181 MPV 8.9 Immature Gran % (Auto) 0.100 Neut % (Auto) 64.2 Lymph % (Auto) 21.5 [place] % (Auto) 8.1 Eos % (Auto) 5.5 H Baso % (Auto) 0.6 Absolute Neuts (auto) 4.4 Absolute Lymphs (auto) 1.49 Total Counted Not Reportable PT INR APTT Sodium Potassium Chloride Carbon Dioxide Anion Gap BUN Creatinine Estim Creat Clear Calc Est GFR (MDRD) Af Amer Est GFR (MDRD) Non-Af BUN/Creatinine Ratio Glucose Hemoglobin A1c Calcium Magnesium Total Bilirubin AST ALT Alkaline Phosphatase Troponin I < 0.015 < 0.015 Total Protein Albumin Globulin Albumin/Globulin Ratio TSH POC Glucose 12/08/18 12/08/18 11:17 06:48 POC Glucose 172 H 145 H Assessment/Plan All Active Problems (Last Reviewed 10/27/18 @ 13:12 by Camron Huggins DO) Angina of effort (Acute) The patient is a 77 year old M [facility] HTN, HLD, DM, DM neuropathy, CKD, paroxysmal atrial flutter (not on anticoagulation), CAD, ARMANDO on CPAP, BPH, anxiety and depression admitted with possible seizures. History obtained from medical records documentation as well as from the patient. Per patient he was having supper yesterday 12/07/2018, when he suddenly had an episode where he held his right upper extremity up in the air and per documentation was noted to shake with eyes rolling upwards, per patient does not remember the event he is not sure if he passed out, was unaware of the event, but denies any tongue bite or urinary incontinence, per patient the whole event may have lasted for a few seconds and probably was confused after the event per documentation. Per patient he was aware of the paramedics being in the room after the event. At present he denies any headache dizziness, focal motor weakness, sensory loss, visual disturbance or speech disturbances. Per patient he never had any seizure episodes in the past. Denies any history of syncope. Per patient he has been under a lot of stress recently as he has been asked to move out of his apartment which is renting. He currently lives with his stepdaughter and her son. Per patient his is in the group home, he does drive denies any frequent falls, does not use a cane or walker to ambulate, and does not need any assistance with his ADLs. CT head done on admission did not show anything acute. Impression Possible seizure?first episode Plan ?Check MRI brain without contrast ?Labs reviewed. Check UA ?At present given that this is the first event will hold off AEDs at present. If has recurrent seizure then may need AED ?EEG?normal ?Seizure precautions discussed in detail with the patient. ?Patient counseled not to drive for 6 months following the last seizure event. -Orthostatic vitals positive, increase IV fluids, compression stockings, patient denies any symptoms though, will defer further management to hospitalist team ?Further medical management per hospitalist team. ?GI/DVT prophylaxis ?Fall precautions ?Follow-up with neurology as an outpatient in 4-6 weeks ?Please call with questions if any ?Thank you for allowing us to participate in patient's care and management Code Visit Inpatient E&M: [id number] Init Hosp L3
--- NOTE | 2018-12-08 11:53 | CON.PCM_ITS ---
Problem List (1) Seizure Status: Suspected Reason for Consult Date of Consultation: 12/08/18 Reason for Consultation: Seizures History of Present Illness: The patient is a 77 year old M [facility] HTN, HLD, DM, DM neuropathy, CKD, paroxysmal atrial flutter (not on anticoagulation), CAD, ARMANDO on CPAP, BPH, anxiety and depression admitted with possible seizures. History obtained from medical records documentation as well as from the patient. Per patient he was having supper yesterday 12/07/2018, when he suddenly had an episode where he held his right upper extremity up in the air and per documentation was noted to shake with eyes rolling upwards, per patient does not remember the event he is not sure if he passed out, was unaware of the event, but denies any tongue bite or urinary incontinence, per patient the whole event may have lasted for a few seconds and probably was confused after the event per documentation. Per patient he was aware of the paramedics being in the room after the event. At present he denies any headache dizziness, focal motor weakness, sensory loss, visual disturbance or speech disturbances. Per patient he never had any seizure episodes in the past. Denies any history of syncope. Per patient he has been under a lot of stress recently as he has been asked to move out of his apartment which is renting. He currently lives with his stepdaughter and her son. Per patient his is [place] the [place], he does drive denies any frequent falls, does not use a cane or walker to ambulate, and does not need any assistance with his ADLs. CT head done on admission did not show anything acute. [] Past Medical History Past Medical History (Chronic Problems): Chronic Problems (Last Reviewed 10/27/18 @ 13:12 by Camron Huggins DO) CKD (chronic kidney disease) stage 3, GFR 30-59 ml/min (Chronic) Stented coronary artery (Chronic 10/29/18) LETICIA to proximal LAD (3.5X16 Promus Synergy) per Dr. Martinez @ [facility] 10/29/2018 LETICIA to Proximal to Mid 2nd diagonal (2.5 X 24 Promus Premier); LETICIA to mid LAD (4.0 X 38 mm Promus Premier)per Dr. Martinez @ [facility] 11/26/2014 LETICIA to mid RCA (3.5 X16 Promus), FFR of LAD + 0.84 on 07/31/[address] Sweeney on @ 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) Medical History: Medical History (Last Reviewed 10/27/18 @ 13:12 by Camron Huggins DO) Atherosclerotic heart disease of [place] coronary artery without angina pectoris (Chronic) I25.10 Hypertension (Chronic) I10 Hyperlipemia (Chronic) E78.5 Dyspnea R06.00 Allergies No Known Allergies Allergy (Verified 11/13/18 14:54) Home Medications: Ambulatory Orders Medication Instructions Recorded Aspirin [Aspirin, Baby] 81 mg PO DAILY@0800 07/18/13 Gabapentin [Neurontin] 1,200 mg PO TID 07/18/13 Lorazepam [Ativan] 1 mg PO BID PRN 07/18/13 Meclizine HCl [Antivert] 25 mg PO BID 07/18/13 Rosuvastatin Calcium [Crestor] 20 mg PO DAILY 07/18/13 Metformin HCl [Glucophage] 500 mg PO BID 01/03/14 Donepezil HCl [Aricept] 10 mg PO QHS 11/16/14 Magnesium Oxide [Mag-Ox 400] 400 mg PO BID 11/16/14 Nortriptyline HCl 25 mg PO DAILY 03/16/17 glimepiride 4 mg tablet 4 mg PO BID tab 01/08/18 acetaminophen 500 mg capsule 1,000 mg PO BID 01/10/18 nitroglycerin 0.4 mg sublingual 0.4 mg SUBLINGUAL Q5M PRN #25 tab 01/10/18 tablet Clopidogrel Bisulfate [Clopidogrel] 75 mg PO DAILY 07/12/18 Ergocalciferol [Vitamin D] 50,000 unit PO Q7D 07/12/18 Escitalopram Oxalate [Lexapro] 10 mg PO DAILY 07/12/18 Isosorbide Mononitrate [Imdur] 60 mg PO BID 10/19/18 Metoprolol Tartrate [Lopressor 50 mg PO BID 07/12/18 (beta marcin)] Lisinopril 5 mg PO DAILY 10/27/18 Famotidine [Pepcid] 40 mg PO DAILY 12/08/18 Surgical History: Surgical History (Last Updated 10/29/18 @ 17:55 by Xiao Manzo) Stented coronary artery (Chronic) Onset Date: 10/29/18 Z95.5 LETICIA to proximal LAD (3.5X16 Promus Synergy) per Dr. Martinez @ [facility] 10/29/2018 LETICIA to Proximal to Mid 2nd diagonal (2.5 X 24 Promus Premier); LETICIA to mid LAD (4.0 X 38 mm Promus Premier)per Dr. Martinez @ [facility] 11/26/2014 LETICIA to mid RCA (3.5 X16 Promus), FFR of LAD + 0.84 on 07/31/[address] Martinez @ [facility] Surgical History: - - PCI, right total knee replacement, right foot surgery, sinus surgery, rotator cuff surgery, TURP. Psychiatric History: Anxiety, Depression, - - Agoraphobia Lives: With Family - Patient lives currently in an apartment with his stepdaughter and her son, attempting to move currently. Smoking Status: Never smoker Tobacco Use: Non-smoker Alcohol: None Drugs: None - *Family History Sibling Family History: Family History (Last Reviewed 10/27/18 @ 13:13 by Camron Huggins DO) Son CAD (coronary artery disease) Myocardial infarction Mother Heart disease Father Addisons disease History Items: Heart Disease Maternal Family History: Family History (Last Reviewed 10/27/18 @ 13:13 by Camron Huggins DO) Son CAD (coronary artery disease) Myocardial infarction Mother Heart disease Father Addisons disease History Items: Diabetes Offspring Family History: Family History (Last Reviewed 10/27/18 @ 13:13 by Camron Huggins DO) Son CAD (coronary artery disease) Myocardial infarction Mother Heart disease Father Addisons disease History Items: Heart Disease, - - Father with also history of [place]'s disease. Review of Systems Constitutional: Reports: - - Complete ROS negative except as documented in HPI. Patient Problems: Active and Suspected Problems (Last Reviewed 10/27/18 @ 13:12 by CHUCK Kenny Seizure (Suspected) - Physical Exam General: Alert HEENT: Normocephalic Neck: Supple Lungs: Normal air movement Cardiovascular: Normal S1, Normal S2 Abdomen: Bowel Sounds Present Extremities: No cyanosis Neurological: Cranial nerves II-XII grossly intact, Deep Tendon Reflexes 2+/4 and Symmetrical, Neuro grossly intact, Motor Exam 5/5 strength throughout, Muscle tone normal, Sensory exam intact to light touch and pain, Coordination normal Psych/Mental Status: Normal Affect Vital Signs Temp Pulse Resp BP Pulse Ox 97.6 F L 60 16 146/78 H 97 12/08/18 08:30 12/08/18 11:05 12/08/18 08:30 12/08/18 08:31 12/08/18 08:30 Oxygen Delivery Method Room Air Weight: 124.5 kg Body Mass Index (BMI) 35.2 Finger Stick Blood Glucose 150 Orthostatic Vital Signs Start: 12/08/18 02:58 Freq: q24h Status: Active Protocol: Activity Type Activity Date Activity User E-Sign Co-Sign Detail Recorded Client Recorded Date Recorded By Document 12/08/18 02:58 MLS [id number] 12/08/18 03:11 MLS 12/08/18 02:58 Orthostatic Vitals Standing -Blood Pressure (90/60-120/80) 156/74 H -Extremity Use Right Arm -Pulse Rate (60-100) 84 Sitting -Blood Pressure (90/60-120/80) 169/80 H -Extremity Use Right Arm -Pulse Rate (60-100) 71 Lying -Blood Pressure (90/60-120/80) 178/81 H -Extremity Use Right Arm -Pulse Rate (60-100) 73 Intake and Output for Last 24 Hours 12/06/18 12/07/18 12/08/18 23:59 23:59 23:59 Intake Total 509 / 509 Output Total 500 / 500 Balance Laboratory Tests Past 24 Hrs 12/07/18 12/07/18 12/07/18 20:00 20:00 20:00 WBC 6.9 RBC 4.40 L Hgb 13.1 Hct 41.6 MCV 94.5 H MCH 29.8 MCHC 31.5 L RDW 13.5 RDW Differential 46.5 H Plt Count 178 MPV 8.7 Immature Gran % (Auto) 0.300 Neut % (Auto) 62.7 Lymph % (Auto) 23.5 Bee % (Auto) 6.3 Eos % (Auto) 6.6 H Baso % (Auto) 0.6 Absolute Neuts (auto) 4.3 Absolute Lymphs (auto) 1.61 Total Counted Not Reportable PT 13.9 INR 1.1 APTT 27.3 Sodium 140 Potassium 4.0 Chloride 106 Carbon Dioxide 29.0 Anion Gap 5 BUN 20 H Creatinine 1.40 H Estim Creat Clear Calc 49.74 Est GFR (MDRD) Af Amer 63 Est GFR (MDRD) Non-Af 52 L BUN/Creatinine Ratio 14.3 Glucose 141 H Hemoglobin A1c Calcium 8.5 Magnesium Total Bilirubin AST ALT Alkaline Phosphatase Troponin I < 0.015 Total Protein Albumin Globulin Albumin/Globulin Ratio TSH 12/07/18 12/07/18 12/08/18 20:00 20:00 02:50 WBC RBC Hgb Hct MCV MCH MCHC RDW RDW Differential Plt Count MPV Immature Gran % (Auto) Neut % (Auto) Lymph % (Auto) Bee % (Auto) Eos % (Auto) Baso % (Auto) Absolute Neuts (auto) Absolute Lymphs (auto) Total Counted PT INR APTT Sodium 141 Potassium 4.1 Chloride 108 H Carbon Dioxide 26.0 Anion Gap 7 BUN 22 H Creatinine 1.22 Estim Creat Clear Calc 57.08 Est GFR (MDRD) Af Amer 74 Est GFR (MDRD) Non-Af 61 BUN/Creatinine Ratio 18.0 Glucose 126 H Hemoglobin A1c 6.5 H Calcium 8.4 L Magnesium 2.1 Total Bilirubin 1.10 H AST 16 ALT 22 Alkaline Phosphatase 73 Troponin I < 0.015 Total Protein 6.8 Albumin 3.5 Globulin 3.3 Albumin/Globulin Ratio 1.1 TSH 0.85 12/08/18 12/08/18 12/08/18 02:50 05:00 08:28 WBC 6.9 RBC 4.42 L Hgb 13.2 Hct 41.3 MCV 93.4 MCH 29.9 MCHC 32.0 RDW 13.5 RDW Differential 46.6 H Plt Count 181 MPV 8.9 Immature Gran % (Auto) 0.100 Neut % (Auto) 64.2 Lymph % (Auto) 21.5 Bee % (Auto) 8.1 Eos % (Auto) 5.5 H Baso % (Auto) 0.6 Absolute Neuts (auto) 4.4 Absolute Lymphs (auto) 1.49 Total Counted Not Reportable PT INR APTT Sodium Potassium Chloride Carbon Dioxide Anion Gap BUN Creatinine Estim Creat Clear Calc Est GFR (MDRD) Af Amer Est GFR (MDRD) Non-Af BUN/Creatinine Ratio Glucose Hemoglobin A1c Calcium Magnesium Total Bilirubin AST ALT Alkaline Phosphatase Troponin I < 0.015 < 0.015 Total Protein Albumin Globulin Albumin/Globulin Ratio TSH POC Glucose 12/08/18 12/08/18 11:17 06:48 POC Glucose 172 H 145 H Assessment/Plan All Active Problems (Last Reviewed 10/27/18 @ 13:12 by Camron Huggins DO) Angina of effort (Acute) The patient is a 77 year old M [facility] HTN, HLD, DM, DM neuropathy, CKD, paroxysmal atrial flutter (not on anticoagulation), CAD, ARMANDO on CPAP, BPH, anxiety and depression admitted with possible seizures. History obtained from medical records documentation as well as from the patient. Per patient he was having supper yesterday 12/07/2018, when he suddenly had an episode where he held his right upper extremity up in the air and per documentation was noted to shake with eyes rolling upwards, per patient does not remember the event he is not sure if he passed out, was unaware of the event, but denies any tongue bite or urinary incontinence, per patient the whole event may have lasted for a few seconds and probably was confused after the event per documentation. Per patient he was aware of the paramedics being in the room after the event. At present he denies any headache dizziness, focal motor weakness, sensory loss, visual disturbance or speech disturbances. Per patient he never had any seizure episodes in the past. Denies any history of syncope. Per patient he has been under a lot of stress recently as he has been asked to move out of his apartment which is renting. He currently lives with his stepdaughter and her son. Per patient his is in the [place], he does drive denies any frequent falls, does not use a cane or walker to ambulate, and does not need any assistance with his ADLs. CT head done on admission did not show anything acute. Impression Possible seizure?first episode Plan ?Check MRI brain without contrast ?Labs reviewed. Check UA ?At present given that this is the first event will hold off AEDs at present. If has recurrent seizure then may need AED ?EEG?normal ?Seizure precautions discussed in detail with the patient. ?Patient counseled not to drive for 6 months following the last seizure event. -Orthostatic vitals positive, increase IV fluids, compression stockings, patient denies any symptoms though, will defer further management to hospitalist team ?Further medical management per hospitalist team. ?GI/DVT prophylaxis ?Fall precautions ?Follow-up with neurology as an outpatient in 4-6 weeks ?Please call with questions if any ?Thank you for allowing us to participate in patient's care and management Code Visit Inpatient E&M: [id number] Init Hosp L3
--- NOTE | 2018-12-08 12:25 | PN_ITS ---
Patient Problems: Active and Suspected Problems (Last Reviewed 10/27/18 @ 13:12 by Camron Huggins DO) Seizure (Suspected) Subjective: The patient is a 77-year-old male with a past medical history of chronic renal failure stage III, coronary artery disease with stents in the past, morbid obesity, diabetes mellitus type 2, right bundle branch block, chronic anticoagulation, paroxysmal atrial flutter, hypomagnesemia, hypertension, hyperlipidemia, BPH, ARMANDO on CPAP, diabetic peripheral neuropathy and GERD who was brought to the emergency department at [facility] on 12/07/2018 after falling back in his chair while eating dinner with his eyes rolled up in his head. He was unresponsive and shaking per the family. CT of the head showed mild central and cortical involutional changes with mild old small vessel ischemic change but no acute findings. He was admitted to a monitored bed on PCU with a diagnosis of new onset seizure disorder. Dr. Perez was consulted. All events of the past 24 hours of been reviewed Afebrile since admission. Vital signs are stable, systolic blood pressure is mildly increased. Pulse ox is 97% on room air. White blood cell count and differential are within normal limits. Hemoglobin and platelets are normal. BUN is increased at 22 but the creatinine is down to 1.22 from 1.40 at admission following IV fluids. Hemoglobin A1c is 6.5. Serial cardiac enzymes have been negative. LFTs are unremarkable with the exception of a mildly increased bilirubin at 1.1. TSH was normal at 0.85. EEG was done and is a normal awake and asleep EEG. He was seen by Dr. Perez today and I reviewed his consult. No AED's at this time. Await the results of the MRI done last night. - Physical Exam Vital Signs Temp Pulse Resp BP Pulse Ox 97.6 F L 60 16 146/78 H 97 12/08/18 08:30 12/08/18 11:05 12/08/18 08:30 12/08/18 08:31 12/08/18 08:30 Oxygen Delivery Method Room Air Weight: 274 lb 7.608 oz Body Mass Index (BMI) 35.2 Finger Stick Blood Glucose 150 Orthostatic Vital Signs Start: 12/08/18 02:58 Freq: q24h Status: Active Protocol: Activity Type Activity Date Activity User E-Sign Co-Sign Detail Recorded Client Recorded Date Recorded By Document 12/08/18 02:58 MLS [id number] 12/08/18 03:11 MLS 12/08/18 02:58 Orthostatic Vitals Standing -Blood Pressure (90/60-120/80 mm Hg) 156/74 H -Extremity Use Right Arm -Pulse Rate (60-100 beats/min) 84 Sitting -Blood Pressure (90/60-120/80 mm Hg) 169/80 H -Extremity Use Right Arm -Pulse Rate (60-100 beats/min) 71 Lying -Blood Pressure (90/60-120/80 mm Hg) 178/81 H -Extremity Use Right Arm -Pulse Rate (60-100 beats/min) 73 Intake and Output for Last 24 Hours 12/06/18 12/07/18 12/08/18 23:59 23:59 23:59 Intake Total 509 / 509 Output Total 500 / 500 Balance Laboratory Tests Past 24 Hrs 12/07/18 12/07/18 12/07/18 20:00 20:00 20:00 WBC 6.9 RBC 4.40 L Hgb 13.1 Hct 41.6 MCV 94.5 H MCH 29.8 MCHC 31.5 L RDW 13.5 RDW Differential 46.5 H Plt Count 178 MPV 8.7 Immature Gran % (Auto) 0.300 Neut % (Auto) 62.7 Lymph % (Auto) 23.5 [place] % (Auto) 6.3 Eos % (Auto) 6.6 H Baso % (Auto) 0.6 Absolute Neuts (auto) 4.3 Absolute Lymphs (auto) 1.61 Total Counted Not Reportable PT 13.9 INR 1.1 APTT 27.3 Sodium 140 Potassium 4.0 Chloride 106 Carbon Dioxide 29.0 Anion Gap 5 BUN 20 H Creatinine 1.40 H Estim Creat Clear Calc 49.74 Est GFR (MDRD) Af Amer 63 Est GFR (MDRD) Non-Af 52 L BUN/Creatinine Ratio 14.3 Glucose 141 H Hemoglobin A1c Calcium 8.5 Magnesium Total Bilirubin AST ALT Alkaline Phosphatase Troponin I < 0.015 Total Protein Albumin Globulin Albumin/Globulin Ratio TSH 12/07/18 12/07/18 12/08/18 20:00 20:00 02:50 WBC RBC Hgb Hct MCV MCH MCHC RDW RDW Differential Plt Count MPV Immature Gran % (Auto) Neut % (Auto) Lymph % (Auto) [place] % (Auto) Eos % (Auto) Baso % (Auto) Absolute Neuts (auto) Absolute Lymphs (auto) Total Counted PT INR APTT Sodium 141 Potassium 4.1 Chloride 108 H Carbon Dioxide 26.0 Anion Gap 7 BUN 22 H Creatinine 1.22 Estim Creat Clear Calc 57.08 Est GFR (MDRD) Af Amer 74 Est GFR (MDRD) Non-Af 61 BUN/Creatinine Ratio 18.0 Glucose 126 H Hemoglobin A1c 6.5 H Calcium 8.4 L Magnesium 2.1 Total Bilirubin 1.10 H AST 16 ALT 22 Alkaline Phosphatase 73 Troponin I < 0.015 Total Protein 6.8 Albumin 3.5 Globulin 3.3 Albumin/Globulin Ratio 1.1 TSH 0.85 12/08/18 12/08/18 12/08/18 02:50 05:00 08:28 WBC 6.9 RBC 4.42 L Hgb 13.2 Hct 41.3 MCV 93.4 MCH 29.9 MCHC 32.0 RDW 13.5 RDW Differential 46.6 H Plt Count 181 MPV 8.9 Immature Gran % (Auto) 0.100 Neut % (Auto) 64.2 Lymph % (Auto) 21.5 [place] % (Auto) 8.1 Eos % (Auto) 5.5 H Baso % (Auto) 0.6 Absolute Neuts (auto) 4.4 Absolute Lymphs (auto) 1.49 Total Counted Not Reportable PT INR APTT Sodium Potassium Chloride Carbon Dioxide Anion Gap BUN Creatinine Estim Creat Clear Calc Est GFR (MDRD) Af Amer Est GFR (MDRD) Non-Af BUN/Creatinine Ratio Glucose Hemoglobin A1c Calcium Magnesium Total Bilirubin AST ALT Alkaline Phosphatase Troponin I < 0.015 < 0.015 Total Protein Albumin Globulin Albumin/Globulin Ratio TSH POC Glucose 12/08/18 12/08/18 11:17 06:48 POC Glucose 172 H 145 H Medical Necessity - Tobacco Use Smoking Status: Never smoker Tobacco Use: Non-smoker Assessment/Plan All Active Problems (Last Reviewed 10/27/18 @ 13:12 by Camron Huggins DO) Angina of effort (Acute)
[2018-12-08 13:10] LABS: Bedside Glucose 124 mg/dL (70-110)
--- NOTE | 2018-12-08 16:26 | DCINST_ITS ---
- Discharge Diagnoses Current Active Problems: Current Active and Chronic Problems (Last Reviewed 10/27/18 @ 13:12 by Camron Huggins DO) CKD (chronic kidney disease) stage 3, GFR 30-59 ml/min (Chronic) You will use the following diet at home:: Other - Resume previous diet Your food should be the consistency of: Regular Your liquids should be the consistency of: Regular/Thin Discharge Activity: May Not Drive - until seen in the neurology clinic in 4-6 weeks Call your doctor if you observe: Fever of 101 or Higher, Shortness of breath, Dizziness, Fainting spells, Swelling in the ankles, Chest pain, - - altered mental status, seizure activity Instructions: Epilepsy: How Seizures Affect the Body Additional Instructions: The EEG, or brain wave study, was negative for seizures. The MRI did not show a stroke. Everything has checked out OK. I am not sure you had a seizure so we are not sending you home on an anti-seizure medication. If it happens again you will need to take an anti-epileptic drug. Make sure you are not missing meals and that your blood sugars are not too low......a low blood sugar can cause a seizure. You should not drive until you see Dr. Perez in the neurology office in 4-6 weeks. Allergies/Adverse Reactions: Allergies No Known Allergies Allergy (Verified 11/13/18 14:54) Medications to take at Discharge Aspirin [Aspirin, Baby] 81 mg PO DAILY@0800 07/18/13 Gabapentin [Neurontin] 1,200 mg PO TID 07/18/13 Lorazepam [Ativan] 1 mg PO BID PRN 07/18/13 Meclizine HCl [Antivert] 25 mg PO BID 07/18/13 Rosuvastatin Calcium [Crestor] 20 mg PO DAILY 07/18/13 Metformin HCl [Glucophage] 500 mg PO BID 01/03/14 Donepezil HCl [Aricept] 10 mg PO QHS 11/16/14 Magnesium Oxide [Mag-Ox 400] 400 mg PO BID 11/16/14 Nortriptyline HCl 25 mg PO DAILY 03/16/17 glimepiride 4 mg tablet 4 mg PO BID tab 01/08/18 acetaminophen 500 mg capsule 1,000 mg PO BID 01/10/18 nitroglycerin 0.4 mg sublingual tablet 0.4 mg SUBLINGUAL Q5M PRN #25 tab 01/10/18 Clopidogrel Bisulfate [Clopidogrel] 75 mg PO DAILY 07/12/18 Ergocalciferol [Vitamin D] 50,000 unit PO Q7D 07/12/18 Escitalopram Oxalate [Lexapro] 10 mg PO DAILY 07/12/18 Isosorbide Mononitrate [Imdur] 60 mg PO BID 07/12/18 Metoprolol Tartrate [Lopressor (beta marcin)] 50 mg PO BID 07/12/18 Lisinopril 5 mg PO DAILY 10/27/18 Famotidine [Pepcid] 40 mg PO DAILY 12/08/18 Primary Care Physician: Antonio Louis Chi, MD [Primary Care Provider] - Please follow up with your Primary Care Physician in: this week Test Results: Test results from this visit will be discussed in further detail at your follow- up appointment, if applicable. Please Follow Up With: Breanna Perez MD When: 4-6 weeks Proposed Discharge Date: 12/08/18
--- NOTE | 2018-12-08 16:28 | PCM.DC.SUM ---
Discharge Date and Diagnosis - Problem List Patient Problems: Active and Suspected Problems (Last Reviewed 10/27/18 @ 13:12 by Camron Huggins DO) Seizure (Suspected) Date of Admission: 12/07/18 Date of Discharge: 12/08/18 - Primary Discharge Diagnosis Active and Suspected Problems (Last Reviewed 10/27/18 @ 13:12 by Camron Huggins DO) Possible Seizure-EEG negative - Secondary Discharge Diagnosis Chronic Problems (Last Reviewed 10/27/18 @ 13:12 by Camron Huggins DO) CKD (chronic kidney disease) stage 3, GFR 30-59 ml/min (Chronic) Stented coronary artery (Chronic 10/29/18) ELTICIA to proximal LAD (3.5X16 Promus Synergy) per Dr. Martinez @ [facility] 10/29/2018 LETICIA to Proximal to Mid 2nd diagonal (2.5 X 24 Promus Premier); LETICIA to mid LAD (4.0 X 38 mm Promus Premier)per Dr. Martinez @ [facility] 11/26/2014 LETICIA to mid RCA (3.5 X16 Promus), FFR of LAD + 0.84 on 07/31/[address] 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 Electronically Signed: Leobardo Jarvis MD at 20:22 EDT , Service support , Brain MRI 12/08/18 00:36 IMPRESSION: 1. No MRI evidence of acute or subacute ischemic infarct. 2. No MRI evidence of remote cortical-based ischemic infarct or old lacunar ischemic infarct. 3. Mucosal thickening in the maxillary sinuses with sclerotic wall thickening due to chronic maxillary sinusitis. 4. No significant interval changes when compared to CT head scan of 12/07/2018. Electronically Signed: Rogers Armendariz MD at 14:02 EDT , Service support , Laboratory Tests 12/08/18 12/08/18 12/08/18 Range/Units 13:03 11:17 08:28 WBC (4.4-11.0) K/mm3 RBC (4.6-6.2) M/mm3 Hgb (13.0-16.5) g/dl Hct (40-54) % MCV (80-94) fL MCH (27.0-32.0) pg MCHC (32-36) g/gl RDW (11.6-14.6) % RDW Differential (35.1-43.9) fl Plt Count (150-450) K/mm3 MPV (6.2-12.0) fl Immature Gran % (Auto) (0.0-0.9) % Neut % (Auto) (47-70) % Lymph % (Auto) (19-41) % Grant % (Auto) (0-10) % Eos % (Auto) (0-5) % Baso % (Auto) (0-1) % Absolute Neuts (auto) (2.0-7.7) X10^3/uL Absolute Lymphs (auto) (0.83-4.51) X10^3/ul Total Counted PT (11.7-14.9) SECONDS INR APTT (24.1-36.2) Seconds Sodium (136-145) mmol/L Potassium (3.5-5.1) mmol/L Chloride (98-107) mmol/L Carbon Dioxide (21.0-32.0) mmol/L Anion Gap (5-15) BUN (7-18) mg/dL Creatinine (0.70-1.30) mg/dL Estim Creat Clear Calc ml/min Est GFR (MDRD) Af Amer (>60) mL/min Est GFR (MDRD) Non-Af (>60) mL/min BUN/Creatinine Ratio (10-20) RATIO Glucose (74-106) mg/dL Hemoglobin A1c (4.2-6.3) % Calcium (8.5-10.1) mg/dL Magnesium (1.6-2.6) mg/dL Total Bilirubin (0.20-1.00) mg/dL AST (15-37) U/L ALT (16-61) U/L Alkaline Phosphatase (45-117) U/L Troponin I < 0.015 (<0.045) ng/mL Total Protein (6.4-8.2) g/dL Albumin (3.2-5.0) g/dL Globulin (2.2-4.2) g/dL Albumin/Globulin Ratio (0.9-2.4) RATIO TSH (0.358-3.74) uIU/mL POC Glucose 124 H 172 H (70-110) mg/dL 12/08/18 12/08/18 12/08/18 Range/Units 06:48 05:00 02:50 WBC 6.9 (4.4-11.0) K/mm3 RBC 4.42 L (4.6-6.2) M/mm3 Hgb 13.2 (13.0-16.5) g/dl Hct 41.3 (40-54) % MCV 93.4 (80-94) fL MCH 29.9 (27.0-32.0) pg MCHC 32.0 (32-36) g/gl RDW 13.5 (11.6-14.6) % RDW Differential 46.6 H (35.1-43.9) fl Plt Count 181 (150-450) K/mm3 MPV 8.9 (6.2-12.0) fl Immature Gran % (Auto) 0.100 (0.0-0.9) % Neut % (Auto) 64.2 (47-70) % Lymph % (Auto) 21.5 (19-41) % Grant % (Auto) 8.1 (0-10) % Eos % (Auto) 5.5 H (0-5) % Baso % (Auto) 0.6 (0-1) % Absolute Neuts (auto) 4.4 (2.0-7.7) X10^3/uL Absolute Lymphs (auto) 1.49 (0.83-4.51) X10^3/ul Total Counted Not Reportable PT (11.7-14.9) SECONDS INR APTT (24.1-36.2) Seconds Sodium (136-145) mmol/L Potassium (3.5-5.1) mmol/L Chloride (98-107) mmol/L Carbon Dioxide (21.0-32.0) mmol/L Anion Gap (5-15) BUN (7-18) mg/dL Creatinine (0.70-1.30) mg/dL Estim Creat Clear Calc ml/min Est GFR (MDRD) Af Amer (>60) mL/min Est GFR (MDRD) Non-Af (>60) mL/min BUN/Creatinine Ratio (10-20) RATIO Glucose (74-106) mg/dL Hemoglobin A1c (4.2-6.3) % Calcium (8.5-10.1) mg/dL Magnesium (1.6-2.6) mg/dL Total Bilirubin (0.20-1.00) mg/dL AST (15-37) U/L ALT (16-61) U/L Alkaline Phosphatase (45-117) U/L Troponin I < 0.015 (<0.045) ng/mL Total Protein (6.4-8.2) g/dL Albumin (3.2-5.0) g/dL Globulin (2.2-4.2) g/dL Albumin/Globulin Ratio (0.9-2.4) RATIO TSH (0.358-3.74) uIU/mL POC Glucose 145 H (70-110) mg/dL 12/08/18 12/07/18 12/07/18 Range/Units 02:50 20:00 20:00 WBC (4.4-11.0) K/mm3 RBC (4.6-6.2) M/mm3 Hgb (13.0-16.5) g/dl Hct (40-54) % MCV (80-94) fL MCH (27.0-32.0) pg MCHC (32-36) g/gl RDW (11.6-14.6) % RDW Differential (35.1-43.9) fl Plt Count (150-450) K/mm3 MPV (6.2-12.0) fl Immature Gran % (Auto) (0.0-0.9) % Neut % (Auto) (47-70) % Lymph % (Auto) (19-41) % Grant % (Auto) (0-10) % Eos % (Auto) (0-5) % Baso % (Auto) (0-1) % Absolute Neuts (auto) (2.0-7.7) X10^3/uL Absolute Lymphs (auto) (0.83-4.51) X10^3/ul Total Counted PT (11.7-14.9) SECONDS INR APTT (24.1-36.2) Seconds Sodium 141 (136-145) mmol/L Potassium 4.1 (3.5-5.1) mmol/L Chloride 108 H (98-107) mmol/L Carbon Dioxide 26.0 (21.0-32.0) mmol/L Anion Gap 7 (5-15) BUN 22 H (7-18) mg/dL Creatinine 1.22 (0.70-1.30) mg/dL Estim Creat Clear Calc 57.08 ml/min Est GFR (MDRD) Af Amer 74 (>60) mL/min Est GFR (MDRD) Non-Af 61 (>60) mL/min BUN/Creatinine Ratio 18.0 (10-20) RATIO Glucose 126 H (74-106) mg/dL Hemoglobin A1c 6.5 H (4.2-6.3) % Calcium 8.4 L (8.5-10.1) mg/dL Magnesium 2.1 (1.6-2.6) mg/dL Total Bilirubin 1.10 H (0.20-1.00) mg/dL AST 16 (15-37) U/L ALT 22 (16-61) U/L Alkaline Phosphatase 73 (45-117) U/L Troponin I < 0.015 (<0.045) ng/mL Total Protein 6.8 (6.4-8.2) g/dL Albumin 3.5 (3.2-5.0) g/dL Globulin 3.3 (2.2-4.2) g/dL Albumin/Globulin Ratio 1.1 (0.9-2.4) RATIO TSH 0.85 (0.358-3.74) uIU/mL POC Glucose (70-110) mg/dL 12/07/18 12/07/18 12/07/18 Range/Units 20:00 20:00 20:00 WBC 6.9 (4.4-11.0) K/mm3 RBC 4.40 L (4.6-6.2) M/mm3 Hgb 13.1 (13.0-16.5) g/dl Hct 41.6 (40-54) % MCV 94.5 H (80-94) fL MCH 29.8 (27.0-32.0) pg MCHC 31.5 L (32-36) g/gl RDW 13.5 (11.6-14.6) % RDW Differential 46.5 H (35.1-43.9) fl Plt Count 178 (150-450) K/mm3 MPV 8.7 (6.2-12.0) fl Immature Gran % (Auto) 0.300 (0.0-0.9) % Neut % (Auto) 62.7 (47-70) % Lymph % (Auto) 23.5 (19-41) % Grant % (Auto) 6.3 (0-10) % Eos % (Auto) 6.6 H (0-5) % Baso % (Auto) 0.6 (0-1) % Absolute Neuts (auto) 4.3 (2.0-7.7) X10^3/uL Absolute Lymphs (auto) 1.61 (0.83-4.51) X10^3/ul Total Counted Not Reportable PT 13.9 (11.7-14.9) SECONDS INR 1.1 APTT 27.3 (24.1-36.2) Seconds Sodium 140 (136-145) mmol/L Potassium 4.0 (3.5-5.1) mmol/L Chloride 106 (98-107) mmol/L Carbon Dioxide 29.0 (21.0-32.0) mmol/L Anion Gap 5 (5-15) BUN 20 H (7-18) mg/dL Creatinine 1.40 H (0.70-1.30) mg/dL Estim Creat Clear Calc 49.74 ml/min Est GFR (MDRD) Af Amer 63 (>60) mL/min Est GFR (MDRD) Non-Af 52 L (>60) mL/min BUN/Creatinine Ratio 14.3 (10-20) RATIO Glucose 141 H (74-106) mg/dL Hemoglobin A1c (4.2-6.3) % Calcium 8.5 (8.5-10.1) mg/dL Magnesium (1.6-2.6) mg/dL Total Bilirubin (0.20-1.00) mg/dL AST (15-37) U/L ALT (16-61) U/L Alkaline Phosphatase (45-117) U/L Troponin I < 0.015 (<0.045) ng/mL Total Protein (6.4-8.2) g/dL Albumin (3.2-5.0) g/dL Globulin (2.2-4.2) g/dL Albumin/Globulin Ratio (0.9-2.4) RATIO TSH (0.358-3.74) uIU/mL POC Glucose (70-110) mg/dL Dr. Perez-neurology Operations: None Procedures: Electroencephalogram - EEG Interpretation This is a normal awake and asleep EEG. There is no epileptiform discharges or electrographic seizures noted during the record. Summary of Care Provided: The patient is a 77-year-old male with a past medical history of chronic renal failure stage III, coronary artery disease with stents in the past, morbid obesity, diabetes mellitus type 2, right bundle branch block, chronic anticoagulation, paroxysmal atrial flutter, hypomagnesemia, hypertension, hyperlipidemia, BPH, ARMANDO on CPAP, diabetic peripheral neuropathy and GERD who was brought to the emergency department at [facility] on 12/07/2018 after falling back in his chair while eating dinner with his eyes rolled up in his head. He was unresponsive and shaking per the family. CT of the head showed mild central and cortical involutional changes with mild old small vessel ischemic change but no acute findings. Vital signs at presentation to the emergency room were temperature 98.5, pulse rate 69, blood pressure 162/77, respiratory rate 16 and he was 95% saturated on room air. CBC showed a normal white blood cell count at 6.9 with an unremarkable differential. Hemoglobin and platelets were within normal limits. BMP was remarkable for an elevated BUN at 20 and a creatinine of 1.40. Hemoglobin A1c was 6.5. He was admitted to a monitored bed on PCU with a diagnosis of new onset seizure disorder. Stroke protocol was initiated and Dr. Perez was consulted. An EEG done on 12/08/2018 showed a normal awake and asleep study. MRI showed no MR evidence of acute or subacute ischemic infarct. There were changes consistent with chronic maxillary sinusitis. Review of telemetry shows normal sinus rhythm with a single 3 beat run of nonsustained V. tach and the patient was asymptomatic. He denied chest pain, shortness of breath, palpitations, lightheadedness, nausea, vomiting, abdominal pain on the day of discharge. He was not started on an antiepileptic drug because it is not clear that he had a seizure. He was discharged home and will follow up in the neurology clinic in 4-[address] Perez. He was instructed not to drive until he sees Dr. Perez in the neurology clinic. He will follow-up with his primary care physician Dr. Louis sometime this week. PHYSICAL EXAM: GENERAL: alert, oriented X 3, Cooperative, NAD ORAL: moist mucosa, no mucosal lesions NECK: No JVD, supple, trachea midline LUNGS: CTA, symmetric chest expansion, diminished HEART: RRR, Normal S1 and S2, no rub, no gallop ABDOMEN: soft, NT, ND, BS present, no guarding with palpation, obese EXTREMITIES: no edema, no cyanosis, no calf tenderness SKIN: No rashes, no breakdown NEUROLOGIC: no focal neurologic deficits PSYCH: appropriate, normal affect, pleasant This note was generated with [employer] dictation software. It may contain incorrect words, spelling, and punctuation that were not noted in checking the note before signing. Patient Problems: Active and Suspected Problems (Last Reviewed 10/27/18 @ 13:12 by Camron Huggins DO) Seizure (Suspected) - Physical Exam Vital Signs Temp Pulse Resp BP Pulse Ox 98.0 F 60 16 146/67 H 99 12/08/18 14:30 12/08/18 15:04 12/08/18 14:30 12/08/18 14:30 12/08/18 14:30 Oxygen Delivery Method Room Air Weight: 274 lb 7.608 oz Body Mass Index (BMI) 35.2 Finger Stick Blood Glucose 150 Orthostatic Vital Signs Start: 12/08/18 02:58 Freq: q24h Status: Active Protocol: Activity Type Activity Date Activity User E-Sign Co-Sign Detail Recorded Client Recorded Date Recorded By Document 12/08/18 02:58 MLS [id number] 12/08/18 03:11 MLS 12/08/18 02:58 Orthostatic Vitals Standing -Blood Pressure (90/60-120/80 mm Hg) 156/74 H -Extremity Use Right Arm -Pulse Rate (60-100 beats/min) 84 Sitting -Blood Pressure (90/60-120/80 mm Hg) 169/80 H -Extremity Use Right Arm -Pulse Rate (60-100 beats/min) 71 Lying -Blood Pressure (90/60-120/80 mm Hg) 178/81 H -Extremity Use Right Arm -Pulse Rate (60-100 beats/min) 73 Intake and Output for Last 24 Hours 12/06/18 12/07/18 12/08/18 23:59 23:59 23:59 Intake Total 1209 / 1209 Output Total 700 / 700 Balance 509 / 509 Laboratory Tests Past 24 Hrs 12/07/18 12/07/18 12/07/18 20:00 20:00 20:00 WBC 6.9 RBC 4.40 L Hgb 13.1 Hct 41.6 MCV 94.5 H MCH 29.8 MCHC 31.5 L RDW 13.5 RDW Differential 46.5 H Plt Count 178 MPV 8.7 Immature Gran % (Auto) 0.300 Neut % (Auto) 62.7 Lymph % (Auto) 23.5 Grant % (Auto) 6.3 Eos % (Auto) 6.6 H Baso % (Auto) 0.6 Absolute Neuts (auto) 4.3 Absolute Lymphs (auto) 1.61 Total Counted Not Reportable PT 13.9 INR 1.1 APTT 27.3 Sodium 140 Potassium 4.0 Chloride 106 Carbon Dioxide 29.0 Anion Gap 5 BUN 20 H Creatinine 1.40 H Estim Creat Clear Calc 49.74 Est GFR (MDRD) Af Amer 63 Est GFR (MDRD) Non-Af 52 L BUN/Creatinine Ratio 14.3 Glucose 141 H Hemoglobin A1c Calcium 8.5 Magnesium Total Bilirubin AST ALT Alkaline Phosphatase Troponin I < 0.015 Total Protein Albumin Globulin Albumin/Globulin Ratio TSH 12/07/18 12/07/18 12/08/18 20:00 20:00 02:50 WBC RBC Hgb Hct MCV MCH MCHC RDW RDW Differential Plt Count MPV Immature Gran % (Auto) Neut % (Auto) Lymph % (Auto) Grant % (Auto) Eos % (Auto) Baso % (Auto) Absolute Neuts (auto) Absolute Lymphs (auto) Total Counted PT INR APTT Sodium 141 Potassium 4.1 Chloride 108 H Carbon Dioxide 26.0 Anion Gap 7 BUN 22 H Creatinine 1.22 Estim Creat Clear Calc 57.08 Est GFR (MDRD) Af Amer 74 Est GFR (MDRD) Non-Af 61 BUN/Creatinine Ratio 18.0 Glucose 126 H Hemoglobin A1c 6.5 H Calcium 8.4 L Magnesium 2.1 Total Bilirubin 1.10 H AST 16 ALT 22 Alkaline Phosphatase 73 Troponin I < 0.015 Total Protein 6.8 Albumin 3.5 Globulin 3.3 Albumin/Globulin Ratio 1.1 TSH 0.85 12/08/18 12/08/18 12/08/18 02:50 05:00 08:28 WBC 6.9 RBC 4.42 L Hgb 13.2 Hct 41.3 MCV 93.4 MCH 29.9 MCHC 32.0 RDW 13.5 RDW Differential 46.6 H Plt Count 181 MPV 8.9 Immature Gran % (Auto) 0.100 Neut % (Auto) 64.2 Lymph % (Auto) 21.5 Grant % (Auto) 8.1 Eos % (Auto) 5.5 H Baso % (Auto) 0.6 Absolute Neuts (auto) 4.4 Absolute Lymphs (auto) 1.49 Total Counted Not Reportable PT INR APTT Sodium Potassium Chloride Carbon Dioxide Anion Gap BUN Creatinine Estim Creat Clear Calc Est GFR (MDRD) Af Amer Est GFR (MDRD) Non-Af BUN/Creatinine Ratio Glucose Hemoglobin A1c Calcium Magnesium Total Bilirubin AST ALT Alkaline Phosphatase Troponin I < 0.015 < 0.015 Total Protein Albumin Globulin Albumin/Globulin Ratio TSH POC Glucose 12/08/18 12/08/18 12/08/18 13:03 11:17 06:48 POC Glucose 124 H 172 H 145 H Discharge Activity: May Not Drive - until seen in the neurology clinic in 4-6 weeks Call your doctor if you observe: Fever of 101 or Higher, Shortness of breath, Dizziness, Fainting spells, Swelling in the ankles, Chest pain, - - altered mental status, seizure activity Home Medications: Medications to take at Discharge Aspirin [Aspirin, Baby] 81 mg PO DAILY@0800 07/18/13 Gabapentin [Neurontin] 1,200 mg PO TID 07/18/13 Lorazepam [Ativan] 1 mg PO BID PRN 07/18/13 Meclizine HCl [Antivert] 25 mg PO BID 07/18/13 Rosuvastatin Calcium [Crestor] 20 mg PO DAILY 07/18/13 Metformin HCl [Glucophage] 500 mg PO BID 01/03/14 Donepezil HCl [Aricept] 10 mg PO QHS 11/16/14 Magnesium Oxide [Mag-Ox 400] 400 mg PO BID 11/16/14 Nortriptyline HCl 25 mg PO DAILY 03/16/17 glimepiride 4 mg tablet 4 mg PO BID tab 01/08/18 acetaminophen 500 mg capsule 1,000 mg PO BID 01/10/18 nitroglycerin 0.4 mg sublingual tablet 0.4 mg SUBLINGUAL Q5M PRN #25 tab 01/10/18 Clopidogrel Bisulfate [Clopidogrel] 75 mg PO DAILY 07/12/18 Ergocalciferol [Vitamin D] 50,000 unit PO Q7D 07/12/18 Escitalopram Oxalate [Lexapro] 10 mg PO DAILY 07/12/18 Isosorbide Mononitrate [Imdur] 60 mg PO BID 07/12/18 Metoprolol Tartrate [Lopressor (beta marcin)] 50 mg PO BID 07/12/18 Lisinopril 5 mg PO DAILY 10/27/18 Famotidine [Pepcid] 40 mg PO DAILY 12/08/18 Primary Care Physician: Antonio Louis Chi, MD [Primary Care Provider] - Please follow up with your Primary Care Physician in: this week Please Follow Up With: Breanna Perez MD When: 4-6 weeks Patient Instructions: Epilepsy: How Seizures Affect the Body Disposition: Home Minutes spent on discharge:: 30 Patient Condition:: Good Medical Necessity - Tobacco Use Smoking Status: Never smoker Tobacco Use: Non-smoker Meaningful Use Info Meaningful Use Diagnoses (Choose all that apply): None applicable Code Visit Inpatient E&M: 61312 Disch Hosp
--- NOTE | 2018-12-08 16:32 | DS.PCM_ITS ---
Discharge Date and Diagnosis - Problem List Patient Problems: Active and Suspected Problems (Last Reviewed 10/27/18 @ 13:12 by Camron Huggins DO) Seizure (Suspected) Date of Admission: 12/07/18 Date of Discharge: 12/08/18 - Primary Discharge Diagnosis Active and Suspected Problems (Last Reviewed 10/27/18 @ 13:12 by Camron Huggins DO) Possible Seizure-EEG negative - Secondary Discharge Diagnosis Chronic Problems (Last Reviewed 10/27/18 @ 13:12 by Camron Huggins DO) CKD (chronic kidney disease) stage 3, GFR 30-59 ml/min (Chronic) Stented coronary artery (Chronic 10/29/18) LETICIA to proximal LAD (3.5X16 Promus Synergy) per Dr. Martinez @ [facility] 10/29/2018 LETICIA to Proximal to Mid 2nd diagonal (2.5 X 24 Promus Premier); LETICIA to mid LAD (4.0 X 38 mm Promus Premier)per Dr. Martinez @ [facility] 11/26/2014 LETICIA to mid RCA (3.5 X16 Promus), FFR of LAD + 0.84 on 07/31/[address] 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 Electronically Signed: Leobardo Jarvis MD at 20:22 EDT , Service support , Brain MRI 12/08/18 00:36 IMPRESSION: 1. No MRI evidence of acute or subacute ischemic infarct. 2. No MRI evidence of remote cortical-based ischemic infarct or old lacunar ischemic infarct. 3. Mucosal thickening in the maxillary sinuses with sclerotic wall thickening due to chronic maxillary sinusitis. 4. No significant interval changes when compared to CT head scan of 12/07/2018. Electronically Signed: Rogers Armendariz MD at 14:02 EDT , Service support , Laboratory Tests 12/08/18 12/08/18 12/08/18 Range/Units 13:03 11:17 08:28 WBC (4.4-11.0) K/mm3 RBC (4.6-6.2) M/mm3 Hgb (13.0-16.5) g/dl Hct (40-54) % MCV (80-94) fL MCH (27.0-32.0) pg MCHC (32-36) g/gl RDW (11.6-14.6) % RDW Differential (35.1-43.9) fl Plt Count (150-450) K/mm3 MPV (6.2-12.0) fl Immature Gran % (Auto) (0.0-0.9) % Neut % (Auto) (47-70) % Lymph % (Auto) (19-41) % [place] % (Auto) (0-10) % Eos % (Auto) (0-5) % Baso % (Auto) (0-1) % Absolute Neuts (auto) (2.0-7.7) X10^3/uL Absolute Lymphs (auto) (0.83-4.51) X10^3/ul Total Counted PT (11.7-14.9) SECONDS INR APTT (24.1-36.2) Seconds Sodium (136-145) mmol/L Potassium (3.5-5.1) mmol/L Chloride (98-107) mmol/L Carbon Dioxide (21.0-32.0) mmol/L Anion Gap (5-15) BUN (7-18) mg/dL Creatinine (0.70-1.30) mg/dL Estim Creat Clear Calc ml/min Est GFR (MDRD) Af Amer (>60) mL/min Est GFR (MDRD) Non-Af (>60) mL/min BUN/Creatinine Ratio (10-20) RATIO Glucose (74-106) mg/dL Hemoglobin A1c (4.2-6.3) % Calcium (8.5-10.1) mg/dL Magnesium (1.6-2.6) mg/dL Total Bilirubin (0.20-1.00) mg/dL AST (15-37) U/L ALT (16-61) U/L Alkaline Phosphatase (45-117) U/L Troponin I < 0.015 (<0.045) ng/mL Total Protein (6.4-8.2) g/dL Albumin (3.2-5.0) g/dL Globulin (2.2-4.2) g/dL Albumin/Globulin Ratio (0.9-2.4) RATIO TSH (0.358-3.74) uIU/mL POC Glucose 124 H 172 H (70-110) mg/dL 12/08/18 12/08/18 12/08/18 Range/Units 06:48 05:00 02:50 WBC 6.9 (4.4-11.0) K/mm3 RBC 4.42 L (4.6-6.2) M/mm3 Hgb 13.2 (13.0-16.5) g/dl Hct 41.3 (40-54) % MCV 93.4 (80-94) fL MCH 29.9 (27.0-32.0) pg MCHC 32.0 (32-36) g/gl RDW 13.5 (11.6-14.6) % RDW Differential 46.6 H (35.1-43.9) fl Plt Count 181 (150-450) K/mm3 MPV 8.9 (6.2-12.0) fl Immature Gran % (Auto) 0.100 (0.0-0.9) % Neut % (Auto) 64.2 (47-70) % Lymph % (Auto) 21.5 (19-41) % [place] % (Auto) 8.1 (0-10) % Eos % (Auto) 5.5 H (0-5) % Baso % (Auto) 0.6 (0-1) % Absolute Neuts (auto) 4.4 (2.0-7.7) X10^3/uL Absolute Lymphs (auto) 1.49 (0.83-4.51) X10^3/ul Total Counted Not Reportable PT (11.7-14.9) SECONDS INR APTT (24.1-36.2) Seconds Sodium (136-145) mmol/L Potassium (3.5-5.1) mmol/L Chloride (98-107) mmol/L Carbon Dioxide (21.0-32.0) mmol/L Anion Gap (5-15) BUN (7-18) mg/dL Creatinine (0.70-1.30) mg/dL Estim Creat Clear Calc ml/min Est GFR (MDRD) Af Amer (>60) mL/min Est GFR (MDRD) Non-Af (>60) mL/min BUN/Creatinine Ratio (10-20) RATIO Glucose (74-106) mg/dL Hemoglobin A1c (4.2-6.3) % Calcium (8.5-10.1) mg/dL Magnesium (1.6-2.6) mg/dL Total Bilirubin (0.20-1.00) mg/dL AST (15-37) U/L ALT (16-61) U/L Alkaline Phosphatase (45-117) U/L Troponin I < 0.015 (<0.045) ng/mL Total Protein (6.4-8.2) g/dL Albumin (3.2-5.0) g/dL Globulin (2.2-4.2) g/dL Albumin/Globulin Ratio (0.9-2.4) RATIO TSH (0.358-3.74) uIU/mL POC Glucose 145 H (70-110) mg/dL 12/08/18 12/07/18 12/07/18 Range/Units 02:50 20:00 20:00 WBC (4.4-11.0) K/mm3 RBC (4.6-6.2) M/mm3 Hgb (13.0-16.5) g/dl Hct (40-54) % MCV (80-94) fL MCH (27.0-32.0) pg MCHC (32-36) g/gl RDW (11.6-14.6) % RDW Differential (35.1-43.9) fl Plt Count (150-450) K/mm3 MPV (6.2-12.0) fl Immature Gran % (Auto) (0.0-0.9) % Neut % (Auto) (47-70) % Lymph % (Auto) (19-41) % [place] % (Auto) (0-10) % Eos % (Auto) (0-5) % Baso % (Auto) (0-1) % Absolute Neuts (auto) (2.0-7.7) X10^3/uL Absolute Lymphs (auto) (0.83-4.51) X10^3/ul Total Counted PT (11.7-14.9) SECONDS INR APTT (24.1-36.2) Seconds Sodium 141 (136-145) mmol/L Potassium 4.1 (3.5-5.1) mmol/L Chloride 108 H (98-107) mmol/L Carbon Dioxide 26.0 (21.0-32.0) mmol/L Anion Gap 7 (5-15) BUN 22 H (7-18) mg/dL Creatinine 1.22 (0.70-1.30) mg/dL Estim Creat Clear Calc 57.08 ml/min Est GFR (MDRD) Af Amer 74 (>60) mL/min Est GFR (MDRD) Non-Af 61 (>60) mL/min BUN/Creatinine Ratio 18.0 (10-20) RATIO Glucose 126 H (74-106) mg/dL Hemoglobin A1c 6.5 H (4.2-6.3) % Calcium 8.4 L (8.5-10.1) mg/dL Magnesium 2.1 (1.6-2.6) mg/dL Total Bilirubin 1.10 H (0.20-1.00) mg/dL AST 16 (15-37) U/L ALT 22 (16-61) U/L Alkaline Phosphatase 73 (45-117) U/L Troponin I < 0.015 (<0.045) ng/mL Total Protein 6.8 (6.4-8.2) g/dL Albumin 3.5 (3.2-5.0) g/dL Globulin 3.3 (2.2-4.2) g/dL Albumin/Globulin Ratio 1.1 (0.9-2.4) RATIO TSH 0.85 (0.358-3.74) uIU/mL POC Glucose (70-110) mg/dL 12/07/18 12/07/18 12/07/18 Range/Units 20:00 20:00 20:00 WBC 6.9 (4.4-11.0) K/mm3 RBC 4.40 L (4.6-6.2) M/mm3 Hgb 13.1 (13.0-16.5) g/dl Hct 41.6 (40-54) % MCV 94.5 H (80-94) fL MCH 29.8 (27.0-32.0) pg MCHC 31.5 L (32-36) g/gl RDW 13.5 (11.6-14.6) % RDW Differential 46.5 H (35.1-43.9) fl Plt Count 178 (150-450) K/mm3 MPV 8.7 (6.2-12.0) fl Immature Gran % (Auto) 0.300 (0.0-0.9) % Neut % (Auto) 62.7 (47-70) % Lymph % (Auto) 23.5 (19-41) % [place] % (Auto) 6.3 (0-10) % Eos % (Auto) 6.6 H (0-5) % Baso % (Auto) 0.6 (0-1) % Absolute Neuts (auto) 4.3 (2.0-7.7) X10^3/uL Absolute Lymphs (auto) 1.61 (0.83-4.51) X10^3/ul Total Counted Not Reportable PT 13.9 (11.7-14.9) SECONDS INR 1.1 APTT 27.3 (24.1-36.2) Seconds Sodium 140 (136-145) mmol/L Potassium 4.0 (3.5-5.1) mmol/L Chloride 106 (98-107) mmol/L Carbon Dioxide 29.0 (21.0-32.0) mmol/L Anion Gap 5 (5-15) BUN 20 H (7-18) mg/dL Creatinine 1.40 H (0.70-1.30) mg/dL Estim Creat Clear Calc 49.74 ml/min Est GFR (MDRD) Af Amer 63 (>60) mL/min Est GFR (MDRD) Non-Af 52 L (>60) mL/min BUN/Creatinine Ratio 14.3 (10-20) RATIO Glucose 141 H (74-106) mg/dL Hemoglobin A1c (4.2-6.3) % Calcium 8.5 (8.5-10.1) mg/dL Magnesium (1.6-2.6) mg/dL Total Bilirubin (0.20-1.00) mg/dL AST (15-37) U/L ALT (16-61) U/L Alkaline Phosphatase (45-117) U/L Troponin I < 0.015 (<0.045) ng/mL Total Protein (6.4-8.2) g/dL Albumin (3.2-5.0) g/dL Globulin (2.2-4.2) g/dL Albumin/Globulin Ratio (0.9-2.4) RATIO TSH (0.358-3.74) uIU/mL POC Glucose (70-110) mg/dL Dr. Perez-neurology Operations: None Procedures: Electroencephalogram - EEG Interpretation This is a normal awake and asleep EEG. There is no epileptiform discharges or electrographic seizures noted during the record. Summary of Care Provided: The patient is a 77-year-old male with a past medical history of chronic renal failure stage III, coronary artery disease with stents in the past, morbid obesity, diabetes mellitus type 2, right bundle branch block, chronic anticoagulation, paroxysmal atrial flutter, hypomagnesemia, hypertension, hyperlipidemia, BPH, ARMANDO on CPAP, diabetic peripheral neuropathy and GERD who was brought to the emergency department at [facility] on 12/07/2018 after falling back in his chair while eating dinner with his eyes rolled up in his head. He was unresponsive and shaking per the family. CT of the head showed mild central and cortical involutional changes with mild old small vessel ischemic change but no acute findings. Vital signs at presentation to the emergency room were temperature 98.5, pulse rate 69, blood pressure 162/77, respiratory rate 16 and he was 95% saturated on room air. CBC showed a normal white blood cell count at 6.9 with an unremarkable differential. Hemoglobin and platelets were within normal limits. BMP was remarkable for an elevated BUN at 20 and a creatinine of 1.40. Hemoglobin A1c was 6.5. He was admitted to a monitored bed on PCU with a diagnosis of new onset seizure disorder. Stroke protocol was initiated and Dr. Perez was consulted. An EEG done on 12/08/2018 showed a normal awake and asleep study. MRI showed no MR evidence of acute or subacute ischemic infarct. There were changes consistent with chronic maxillary sinusitis. Review of telemetry shows normal sinus rhythm with a single 3 beat run of nonsustained V. tach and the patient was asymptomatic. He denied chest pain, shortness of breath, palpitations, lightheadedness, nausea, vomiting, abdominal pain on the day of discharge. He was not started on an antiepileptic drug because it is not clear that he had a seizure. He was discharged home and will follow up in the neurology clinic in 4-[address] Perez. He was instructed not to drive until he sees Dr. Perez in the neurology clinic. He will follow-up with his primary care physician Dr. Louis sometime this week. PHYSICAL EXAM: GENERAL: alert, oriented X 3, Cooperative, NAD ORAL: moist mucosa, no mucosal lesions NECK: No JVD, supple, trachea midline LUNGS: CTA, symmetric chest expansion, diminished HEART: RRR, Normal S1 and S2, no rub, no gallop ABDOMEN: soft, NT, ND, BS present, no guarding with palpation, obese EXTREMITIES: no edema, no cyanosis, no calf tenderness SKIN: No rashes, no breakdown NEUROLOGIC: no focal neurologic deficits PSYCH: appropriate, normal affect, pleasant This note was generated with [employer] dictation software. It may contain incorrect words, spelling, and punctuation that were not noted in checking the note before signing. Patient Problems: Active and Suspected Problems (Last Reviewed 10/27/18 @ 13:12 by Camron Huggins DO) Seizure (Suspected) - Physical Exam Vital Signs Temp Pulse Resp BP Pulse Ox 98.0 F 60 16 146/67 H 99 12/08/18 14:30 12/08/18 15:04 12/08/18 14:30 12/08/18 14:30 12/08/18 14:30 Oxygen Delivery Method Room Air Weight: 274 lb 7.608 oz Body Mass Index (BMI) 35.2 Finger Stick Blood Glucose 150 Orthostatic Vital Signs Start: 12/08/18 02:58 Freq: q24h Status: Active Protocol: Activity Type Activity Date Activity User E-Sign Co-Sign Detail Recorded Client Recorded Date Recorded By Document 12/08/18 02:58 MLS [id number] 12/08/18 03:11 MLS 12/08/18 02:58 Orthostatic Vitals Standing -Blood Pressure (90/60-120/80 mm Hg) 156/74 H -Extremity Use Right Arm -Pulse Rate (60-100 beats/min) 84 Sitting -Blood Pressure (90/60-120/80 mm Hg) 169/80 H -Extremity Use Right Arm -Pulse Rate (60-100 beats/min) 71 Lying -Blood Pressure (90/60-120/80 mm Hg) 178/81 H -Extremity Use Right Arm -Pulse Rate (60-100 beats/min) 73 Intake and Output for Last 24 Hours 12/06/18 12/07/18 12/08/18 23:59 23:59 23:59 Intake Total 1209 / 1209 Output Total 700 / 700 Balance 509 / 509 Laboratory Tests Past 24 Hrs 12/07/18 12/07/18 12/07/18 20:00 20:00 20:00 WBC 6.9 RBC 4.40 L Hgb 13.1 Hct 41.6 MCV 94.5 H MCH 29.8 MCHC 31.5 L RDW 13.5 RDW Differential 46.5 H Plt Count 178 MPV 8.7 Immature Gran % (Auto) 0.300 Neut % (Auto) 62.7 Lymph % (Auto) 23.5 [place] % (Auto) 6.3 Eos % (Auto) 6.6 H Baso % (Auto) 0.6 Absolute Neuts (auto) 4.3 Absolute Lymphs (auto) 1.61 Total Counted Not Reportable PT 13.9 INR 1.1 APTT 27.3 Sodium 140 Potassium 4.0 Chloride 106 Carbon Dioxide 29.0 Anion Gap 5 BUN 20 H Creatinine 1.40 H Estim Creat Clear Calc 49.74 Est GFR (MDRD) Af Amer 63 Est GFR (MDRD) Non-Af 52 L BUN/Creatinine Ratio 14.3 Glucose 141 H Hemoglobin A1c Calcium 8.5 Magnesium Total Bilirubin AST ALT Alkaline Phosphatase Troponin I < 0.015 Total Protein Albumin Globulin Albumin/Globulin Ratio TSH 12/07/18 12/07/18 12/08/18 20:00 20:00 02:50 WBC RBC Hgb Hct MCV MCH MCHC RDW RDW Differential Plt Count MPV Immature Gran % (Auto) Neut % (Auto) Lymph % (Auto) [place] % (Auto) Eos % (Auto) Baso % (Auto) Absolute Neuts (auto) Absolute Lymphs (auto) Total Counted PT INR APTT Sodium 141 Potassium 4.1 Chloride 108 H Carbon Dioxide 26.0 Anion Gap 7 BUN 22 H Creatinine 1.22 Estim Creat Clear Calc 57.08 Est GFR (MDRD) Af Amer 74 Est GFR (MDRD) Non-Af 61 BUN/Creatinine Ratio 18.0 Glucose 126 H Hemoglobin A1c 6.5 H Calcium 8.4 L Magnesium 2.1 Total Bilirubin 1.10 H AST 16 ALT 22 Alkaline Phosphatase 73 Troponin I < 0.015 Total Protein 6.8 Albumin 3.5 Globulin 3.3 Albumin/Globulin Ratio 1.1 TSH 0.85 12/08/18 12/08/18 12/08/18 02:50 05:00 08:28 WBC 6.9 RBC 4.42 L Hgb 13.2 Hct 41.3 MCV 93.4 MCH 29.9 MCHC 32.0 RDW 13.5 RDW Differential 46.6 H Plt Count 181 MPV 8.9 Immature Gran % (Auto) 0.100 Neut % (Auto) 64.2 Lymph % (Auto) 21.5 [place] % (Auto) 8.1 Eos % (Auto) 5.5 H Baso % (Auto) 0.6 Absolute Neuts (auto) 4.4 Absolute Lymphs (auto) 1.49 Total Counted Not Reportable PT INR APTT Sodium Potassium Chloride Carbon Dioxide Anion Gap BUN Creatinine Estim Creat Clear Calc Est GFR (MDRD) Af Amer Est GFR (MDRD) Non-Af BUN/Creatinine Ratio Glucose Hemoglobin A1c Calcium Magnesium Total Bilirubin AST ALT Alkaline Phosphatase Troponin I < 0.015 < 0.015 Total Protein Albumin Globulin Albumin/Globulin Ratio TSH POC Glucose 12/08/18 12/08/18 12/08/18 13:03 11:17 06:48 POC Glucose 124 H 172 H 145 H Discharge Activity: May Not Drive - until seen in the neurology clinic in 4-6 weeks Call your doctor if you observe: Fever of 101 or Higher, Shortness of breath, Dizziness, Fainting spells, Swelling in the ankles, Chest pain, - - altered mental status, seizure activity Home Medications: Medications to take at Discharge Aspirin [Aspirin, Baby] 81 mg PO DAILY@0800 07/18/13 Gabapentin [Neurontin] 1,200 mg PO TID 07/18/13 Lorazepam [Ativan] 1 mg PO BID PRN 07/18/13 Meclizine HCl [Antivert] 25 mg PO BID 07/18/13 Rosuvastatin Calcium [Crestor] 20 mg PO DAILY 07/18/13 Metformin HCl [Glucophage] 500 mg PO BID 01/03/14 Donepezil HCl [Aricept] 10 mg PO QHS 11/16/14 Magnesium Oxide [Mag-Ox 400] 400 mg PO BID 11/16/14 Nortriptyline HCl 25 mg PO DAILY 03/16/17 glimepiride 4 mg tablet 4 mg PO BID tab 01/08/18 acetaminophen 500 mg capsule 1,000 mg PO BID 01/10/18 nitroglycerin 0.4 mg sublingual tablet 0.4 mg SUBLINGUAL Q5M PRN #25 tab 01/10/18 Clopidogrel Bisulfate [Clopidogrel] 75 mg PO DAILY 07/12/18 Ergocalciferol [Vitamin D] 50,000 unit PO Q7D 07/12/18 Escitalopram Oxalate [Lexapro] 10 mg PO DAILY 07/12/18 Isosorbide Mononitrate [Imdur] 60 mg PO BID 07/12/18 Metoprolol Tartrate [Lopressor (beta marcin)] 50 mg PO BID 07/12/18 Lisinopril 5 mg PO DAILY 10/27/18 Famotidine [Pepcid] 40 mg PO DAILY 12/08/18 Primary Care Physician: Atnonio Louis Chi, MD [Primary Care Provider] - Please follow up with your Primary Care Physician in: this week Please Follow Up With: Breanna Perez MD When: 4-6 weeks Patient Instructions: Epilepsy: How Seizures Affect the Body Disposition: Home Minutes spent on discharge:: 30 Patient Condition:: Good Medical Necessity - Tobacco Use Smoking Status: Never smoker Tobacco Use: Non-smoker Meaningful Use Info Meaningful Use Diagnoses (Choose all that apply): None applicable Code Visit Inpatient E&M: 51854 Disch Hosp
--- NOTE | 2018-12-10 12:39 | CASEMGMT ---
Addendum entered by Luis A Garcia 12/10/18 12:51: Correction: Strata is 4. Original Note: KAREN CAMPA Discharge Follow-Up Phone Call. Brenda: 12 Strata: 3 Discharge Date: 12/08/18 Adm Dx: New Onset Seizure Call to pt to inquire about how he has been doing since being discharged from the hospital. Pt stated, I'm doing pretty good. I haven't had any problems. Pt states he thinks his episode was from choking and that he has changed some of his eating habits, stating, I sit more upright now than I used to when I'm eating. Discussed discharge instructions with pt and he was made aware he is to follow up with Dr Perez, neurologist, in 4-6 weeks and also with his PCP this week. Pt states, I wasn't aware of that. Pt stated he will call them to make appts. Pt given both Dr Louis's and Dr Perez's phone numbers. Pt also made aware instructions say he is not to drive for at least 4-6 weeks until seen by Dr Perez. Pt stated he was not aware of that either and stated, Well I'm sorry to say, but I will still be driving. Reinforced with pt the importance that he does not drive as per instructed by physician. Offered to give pt [facility] transportation contact information but he declined. He stated, I won't have any problems getting there. Pt stated he is still going through headache of having to move. Pt stated he has been making calls and filling out paperwork. He states his daughter is assisting him as well. Pt denies having any questions or concerns about other discharge instructions and medications. Advised pt if he does, to contact Dr Louis's office. Pt voiced understanding. KAREN CAMPA thanked pt for choosing [facility]. Lyubov VILLALOBOS RN, CM
== END 2018-12-08 16:38 | disposition home or self-care (01) | DRG 101 ==
LOC: ED 18:56 → PCU 12-08 00:07
PROVIDERS: Admitting Provider Family Medicine; Emergency Provider Emergency Medicine; Family Provider Family Medicine Geriatric Medicine; PCP Family Medicine Geriatric Medicine; Visit Provider Internal Medicine
DX: G40.909 Epilepsy, unspecified, not intractable, without status epilepticus (principal); I48.92 Unspecified atrial flutter; I25.10 Atherosclerotic heart disease of native coronary artery without angina pectoris; E78.5 Hyperlipidemia, unspecified; I12.9 Hypertensive chronic kidney disease with stage 1 through stage 4 chronic kidney disease, or unspecified chronic kidney disease; E11.22 Type 2 diabetes mellitus with diabetic chronic kidney disease; N18.3 Chronic kidney disease, stage 3 (moderate); N40.0 Benign prostatic hyperplasia without lower urinary tract symptoms; G47.33 Obstructive sleep apnea (adult) (pediatric); I45.10 Unspecified right bundle-branch block; E11.42 Type 2 diabetes mellitus with diabetic polyneuropathy; K21.9 Gastro-esophageal reflux disease without esophagitis; Z95.5 Presence of coronary angioplasty implant and graft; Z79.84 Long term (current) use of oral hypoglycemic drugs; E83.42 Hypomagnesemia; E66.01 Morbid (severe) obesity due to excess calories; Z68.35 Body mass index [BMI] 35.0-35.9, adult
CPT/HCPCS: 36415; 70450; 70551; 71045; 80048; 80053; 82962; 83036; 83735; 84443; 84484; 85025; 85610; 85730; 93005; 94002; 95819; 97161; 97166; 99285; J7030; A4216

== ENCOUNTER → 2019-02-03 14:11 | Outpatient (CLI) | payer MEDICARE, OTHER, SELFPAY ==
[2018-12-23 13:10] VITALS: BMI 35.6
[2019-02-03 14:57] LABS: Absolute Lymphocyte Count 1.31 X10^3/ul (0.83-4.51); Basophil# 0.04 X10^3/uL; Basophil% 0.6 % (0-1); Eosinophil# 0.31 X10^3/uL; Eosinophils% 4.4 % (0-5); Hematocrit 43.6 % (40-54); Hemoglobin 13.9 g/dl (13.0-16.5); Lymphocyte # 1.31 X10^3/ul (4.0); Lymphocyte % 18.6 % (19-41); Mean Corp Hgb Conc 31.9 g/gl (32-36); Mean Corpuscular Hgb 30.2 pg (27.0-32.0); Mean Corpuscular Volume 94.6 fL (80-94); Monocyte# 0.37 X10^3/uL; Monocyte% 5.2 % (0-10); Neutrophil # 5.01 X10^3/uL (2.7-7.7); Neutrophil % 70.9 % (47-70); Platelet Count 182 K/mm3 (150-450); RBC Distribution Width CV 14.3 % (11.6-14.6); RBC Distribution Width SD 48.8 fl (35.1-43.9); Red Blood Count 4.61 M/mm3 (4.6-6.2); White Blood Count 7.1 K/mm3 (4.4-11.0)
[2019-02-03 14:59] LABS: POSITIVE COUNT NO; POSITIVE DIFFERENTIAL NO; POSITIVE MORPHOLOGY NO
[2019-02-03 15:15] LABS: Vitamin D,25 Hydroxy 22.6 ng/mL (29.95-100.01)
[2019-02-03 15:21] LABS: ALB/GLOB Ratio 1.1 RATIO (0.9-2.4); AST(SGOT) 13 U/L (15-37); Alanine Aminotransfer ALT/SGPT 21 U/L (16-61); Albumin, Serum 3.8 g/dL (3.2-5.0); Alkaline Phosphatase 64 U/L (45-117); Anion Gap 6 (5-15); BUN 19 mg/dL (7-18); Calcium,Total 8.8 mg/dL (8.5-10.1); Chloride 104 mmol/L (98-107); Creatinine, Serum 1.36 mg/dL (0.70-1.30); EST Glomerular Filtration Rate 54 mL/min (>60); Est Glom Filt Rate - Afr Amer 65 mL/min (>60); Globulin 3.5 g/dL (2.2-4.2); Glucose 204 mg/dL (74-106); Potassium 4.4 mmol/L (3.5-5.1); Protein, Total 7.3 g/dL (6.4-8.2); Sodium Level 135 mmol/L (136-145); Thyroid Stim Hormone (TSH) 0.57 uIU/mL (0.358-3.74)
== END ==
PROVIDERS: Family Provider Family Medicine Geriatric Medicine; PCP Family Medicine Geriatric Medicine; Visit Provider Family Medicine Geriatric Medicine
DX: E23.6 Other disorders of pituitary gland (principal); E55.9 Vitamin D deficiency, unspecified; I10 Essential (primary) hypertension; I25.10 Atherosclerotic heart disease of native coronary artery without angina pectoris
CPT/HCPCS: 36415; 80053; 82306; 84403; 84443; 85025

== ENCOUNTER 2019-05-07 13:57 | Inpatient (IN) | payer MEDICARE, OTHER, SELFPAY ==
[2018-12-23 13:10] VITALS: BMI 35.6
[2019-05-07] VITALS (18 sets, daily range): BP systolic 125–204; BP diastolic 62–90; PULSE 80–104; RESP 17–27; TEMP 36.4–37.3; O2SAT 95–100; BMI 35.7; BMI 34.0
--- NOTE | 2019-05-07 14:43 | ED.RN ---
pt having mod diff getting words and thoughts out. still seemingly anxious. poa daughter in law called to see about hx and baseling mentation. orders still pending. pt with stuttering and frustration over not being able to get words out
--- NOTE | 2019-05-07 15:20 | EKG12_ITS ---
Test Reason : ADMISSION EKG Blood Pressure : / mmHG Vent. Rate : 087 BPM Atrial Rate : 087 BPM P-R Int : 220 ms QRS Dur : 134 ms QT Int : 408 ms P-R-T Axes : 079 263 -33 degrees QTc Int : 490 ms Sinus rhythm with 1st degree A-V block Right bundle branch block Abnormal ECG When compared with ECG of 07-MAY-2019 13:59, MANUAL COMPARISON REQUIRED, DATA IS UNCONFIRMED Confirmed by SADI REY, PAM ([id number]), associate editor CHUCKIE CRANE ([id number]) on 05/13/2019 1:57:53 PM Referred By: Sara Lindsey Confirmed By:BEVERLY AVITIA MD
--- NOTE | 2019-05-07 15:21 | RAD_ITS ---
STUDY: X-RAY CHEST REASON FOR EXAM: Male, 78 years old. Increasing shortness of breath and chest pain. TECHNIQUE: Single AP portable view of the chest. COMPARISON: Comparison is made with prior study dated December 07, 2018. FINDINGS: EKG electrodes are seen. The lungs are clear and expanded. Scattered calcified granulomas. There is no demonstrated pleural abnormality. There is borderline cardiomegaly. Normal mediastinum and avelina. Normal visualized pulmonary arteries. There is atherosclerotic tortuosity of the aortic arch and descending thoracic aorta. Normal visualized thoracic spine. Normal visualized ribs, clavicles, and shoulders. There is no demonstrated abnormality of the visualized soft tissue structures of the upper abdomen. RAD/Chest 1 View (Portable) IMPRESSION: Borderline cardiac megaly. The lungs are clear. Electronically Signed: Freddie Rodrigez, at 15:46 EDT , Service support ,
[2019-05-07] MEDS: Aspirin 81 MG TAB.CHEW 324 MG PO (15:35)
[2019-05-07 15:37] LABS: Absolute Lymphocyte Count 1.42 X10^3/uL (0.83-4.51); Absolute Neutrophil Count 8.7 X10^3/uL (2.0-7.7); Basophil# 0.03 X10^3/uL; Basophil% 0.3 % (0-1); Eosinophil# 0.01 X10^3/uL; Eosinophils% 0.1 % (0-5); Hematocrit 45.2 % (40-54); Hemoglobin 15.5 g/dL (13.0-16.5); Lymphocyte # 1.42 X10^3/ul (4.0); Lymphocyte % 12.9 % (19-41); Mean Corp Hgb Conc 34.3 g/dL (32-36); Mean Corpuscular Hgb 31.3 pg (27.0-32.0); Mean Corpuscular Volume 91.1 fL (80-94); Mean Platelet Vol. 8.7 fl (6.2-12.0); Monocyte% 7.3 % (0-10); NRBC Flagged by Analyzer 0 % (0-5); Neutrophil # 8.69 X10^3/uL (2.7-7.7); Neutrophil % 78.9 % (47-70); Platelet Count 196 K/mm3 (150-450); RBC Distribution Width CV 13.3 % (11.6-14.6); RBC Distribution Width SD 44.6 fl (35.1-43.9); Red Blood Count 4.96 M/mm3 (4.6-6.2)
[2019-05-07 15:56] LABS: Anion Gap 11 (5-15); BUN 27 mg/dL (7-18); BUN/Creat Ratio 17.3 RATIO (10-20); Calcium,Total 10.1 mg/dL (8.5-10.1); Chloride 108 mmol/L (98-107); Creatinine, Serum 1.56 mg/dL (0.70-1.30); EST Glomerular Filtration Rate 46 mL/min (>60); Est Glom Filt Rate - Afr Amer 55 mL/min (>60); Estimated Creatinine Clearance 43.91 ml/min; Glucose 164 mg/dL (74-106); Potassium 4.1 mmol/L (3.5-5.1); Sodium Level 139 mmol/L (136-145)
[2019-05-07 16:06] LABS: BNP,B-Type NATRIURETIC PEPTIDE 116.2 pg/mL (0-100)
--- NOTE | 2019-05-07 16:29 | ED.DCSUM_ITS ---
- ER Visit Summary Date of Service: 05/07/19 Chief Complaint: Shortness of breath History of Present Illness: The patient is a 78 M who presents with shortness of breath today. Reports occasional chest pain from time to time, but none today. He also feels anxious. Patient has no further complaints. He has a history of anxiety, sleep apnea, a flutter, coronary disease, hyperlipidemia, hypertension. Denies leg swelling, calf pain, or history of DVT or PE. Physical Examination: Afebrile and vital signs unremarkable. 97% on nasal cannula. Patient appears anxious--he is stuttering. He will follow commands. He is not using inappropriate words. Heart regular rate and rhythm. Lungs clear. Abdomen soft. Extremities nontender with no edema. Skin appears normal. Test Results: EKG showed sinus rhythm at a rate of [address] changes. No sign of acute ischemia or infarction pattern. CBC unremarkable. BMP shows a BUN of 27 and creatinine of 1.56. Troponin normal. BNP 116. Chest x-ray shows borderline cardiomegaly but otherwise is n ormal. Emergency Department Course and Treatment: Patient was monitored. He thinks his symptoms are related to anxiety. And I am hesitant to treat him with a benzodiazepine given his age. I am also concerned given his history of heart disease. I did pursue a work-up. His work-up was fairly stable and unremarkable. On reevaluation, he said he was feeling better. He was not having pain. He says his shortness of breath is improved and he would like to go home. Nursing spoke with his daughter, and she is on the way. Nursing was concerned about his speech. I think this might be related to anxiety, but this was discussed with the daughter. She said that he normally speaks fluently. Will reassess when she arrives. I spoke with the patient's daughter. She said that he is confused and cannot go home. When I asked her to describe his confusion, she said he appears anxious and not himself. We will check a CT brain given his confusion. We will also check a urinalysis. He was signed out to the oncoming doctor to check the results. He will likely be in observation pending further results. Treatment Plan: As above Disposition: Pending observation Impression: 1. Dyspnea 2. Altered mental status This note was generated with [employer] software. It may contain incorrect words, spelling, and punctuation that were not noted in review of the chart prior to signing ED Disposition - Plan for ED Patient: Referrals: Antonio Louis Chi, MD [Primary Care Provider] -
--- NOTE | 2019-05-07 16:41 | CT_ITS ---
STUDY: CT BRAIN WITHOUT CONTRAST REASON FOR EXAM: Male, 78 years old. Altered mental status RADIATION DOSAGE (If Supplied By Facility): DLP = ( 897.35 ) mGycm TECHNIQUE: Transaxial CT imaging of the brain was performed without administration of intravenous contrast material. Individualized dose optimization techniques were used for this CT. COMPARISON: CT head December 07, 2018 FINDINGS: There is no acute bleed or infarct. There are chronic ischemic and atrophic changes. The ventricles are normal in configuration. There is no hydrocephalus. Mild bilateral medullary sinus disease is present. Bilateral maxillary sinus surgical changes noted. The mastoid air cells are well aerated. There is no skull fracture. CT/Brain/Head without Contrast IMPRESSION: No acute intracranial abnormality. Chronic ischemic and atrophic changes. Bilateral maxillary sinus disease with surgical changes noted. Electronically Signed: Rajan Carranza, at 17:12 EDT Tel , Service support ,
--- NOTE | 2019-05-07 16:47 | NURSING ---
pt's poa and daughter at bedside and reports that seems very anxious and aggitated and that is not making any sense and it def new problem.
--- NOTE | 2019-05-07 17:43 | HP.PCM_ITS ---
Problem List (1) CVA (cerebral vascular accident) Status: Acute Qualifiers: CVA mechanism: unspecified Qualified Code(s): I63.9 - Cerebral infarction, unspecified (2) Chest pain Status: Acute Qualifiers: Chest pain type: unspecified Qualified Code(s): R07.9 - Chest pain, unspecified (3) Exertional dyspnea Status: Acute (4) Pure hypercholesterolemia Status: Chronic (5) Essential hypertension Status: Chronic (6) Seizure Status: Suspected (7) CKD (chronic kidney disease) stage 3, GFR 30-59 ml/min Status: Chronic (8) Stented coronary artery Status: Chronic Comment: LETICIA to proximal LAD (3.5X16 Promus Synergy) per Dr. Martinez @ [facility] 10/29/2018 LETICIA to Proximal to Mid 2nd diagonal (2.5 X 24 Promus Premier); LETICIA to mid LAD (4.0 X 38 mm Promus Premier)per Dr. Martinez @ [facility] 11/26/2014 LETICIA to mid RCA (3.5 X16 Promus), FFR of LAD + 0.84 on 07/31/[address] Martinez @ [facility] (9) Paroxysmal atrial flutter Status: Chronic (10) Diabetes mellitus Status: Chronic Qualifiers: Diabetes mellitus type: type 2 Diabetes mellitus fdc insulin use: without fdc use Diabetes mellitus complication status: with other specified complication Qualified Code(s): E11.69 - Type 2 diabetes mellitus with other specified complication (11) ARMANDO on CPAP Status: Chronic (12) Neuropathy Status: Chronic (13) Esophageal reflux Status: Chronic Qualifiers: Esophagitis presence: esophagitis presence not specified Qualified Code(s): K21.9 - Gastro-esophageal reflux disease without esophagitis History of Present Illness Date of Admission: 05/07/19 Chief Complaint: Chest pain, dyspnea, expressive aphasia, altered speech The patient is a 78 y/o M w/ PMHx: CKD stage III, CAD s/p PCI x 5, GERD, HTN, HLD, Anxiety and Depression, Dementia unclear type with no behavioral disturbance, Diabetes mellitus type II with neuropathy who presents to the [facility] ED on 05/07/19 with history of several weeks of intermittent exertional chest discomfort, midsternal region, sharp, 3-5 out of 10 when it does occur with associated increased dyspnea and diaphoresis but no nausea or emesis with no radiation associated, improving with rest and not always occurring with activity with onset on day of ED presentation notable significant dyspnea starting in the morning while he was checking his blood sugar, transiently improved and worsened again prompting transition to the ED with then noted per family present stuttered speech and expressive aphasia over the last possibly 72 hours, unable to give any appropriate orientation answers upon evaluation. Family present also notes mild rash on bilateral upper extremities, red, blanching, nonpruritic but patient unable to get good history at this point possibly there for several days, possibly acute on chronic. Work-up in the ED included T 97.5, heart rate 87, BP 150/88, respiratory rate 26, 97% on room air, CBC with WBC 11, hemoglobin 15.5, platelet 196 with mild left shift, BMP with chloride 108, carbon dioxide 20, BUN/Cr 27/1.56, glucose 164, troponin 0 0.032, BNP 116.2, urinalysis recently obtained with pending completion however currently no appearance of infection, chest x-ray with mild cardiomegaly with no acute cardio pony findings, CT brain with no acute intracranial findings, chronic ischemic and atrophic changes, bilateral maxillary sinus disease status post surgical intervention evident, EKG with no acute evidence of ischemia. In the ED patient administered aspirin 324 mg p.o. x1. Prior to admission requested ABG given appearance, CTA chest, CTA head and neck. Past Medical History Past Medical History (Chronic Problems): Chronic Problems (Last Reviewed 12/23/18 @ 13:14 by Renetta wKan) Pure hypercholesterolemia (Chronic) Essential hypertension (Chronic) CKD (chronic kidney disease) stage 3, GFR 30-59 ml/min (Chronic) Stented coronary artery (Chronic 10/29/18) LETICIA to proximal LAD (3.5X16 Promus Synergy) per Dr. Martinez @ [facility] 10/29/2018 LETICIA to Proximal to Mid 2nd diagonal (2.5 X 24 Promus Premier); LETICIA to mid LAD (4.0 X 38 mm Promus Premier)per Dr. Martinez @ [facility] 11/26/2014 LETICIA to mid RCA (3.5 X16 Promus), FFR of LAD + 0.84 on 07/31/[address] 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) Medical History: Medical History (Last Reviewed 12/23/18 @ 13:14 by Renetta Kwan) Pure hypercholesterolemia (Chronic) E78.00 Essential hypertension (Chronic) I10 Atherosclerotic heart disease of [place] coronary artery without angina pectoris (Chronic) I25.10 Dyspnea R06.00 Hyperlipemia (Inactive) E78.5 Hypertension (Inactive) I10 Allergies No Known Allergies Allergy (Verified 05/07/19 14:07) Home Medications: Ambulatory Orders Medication Instructions Recorded Aspirin [Aspirin, Baby] 81 mg PO DAILY@0800 07/18/13 Lorazepam [Ativan] 1 mg PO BID PRN 07/18/13 Meclizine HCl [Antivert] 25 mg PO BID 07/18/13 Rosuvastatin Calcium [Crestor] 20 mg PO DAILY 07/18/13 metFORMIN HCl [Glucophage] 500 mg PO BID 01/03/14 Donepezil HCl [Aricept] 10 mg PO QHS 11/16/14 Magnesium Oxide [Mag-Ox 400] 400 mg PO BID 11/16/14 glimepiride 4 mg tablet 4 mg PO BID tab 01/08/18 acetaminophen 500 mg capsule 1,000 mg PO BID 01/10/18 nitroglycerin 0.4 mg sublingual 0.4 mg SUBLINGUAL Q5M PRN #25 tab 01/10/18 tablet Escitalopram Oxalate [Lexapro] 10 mg PO DAILY 07/12/18 Famotidine [Pepcid] 40 mg PO DAILY 12/08/18 gabapentin 600 mg tablet 1,200 mg PO BID tab 12/23/18 metoprolol tartrate 50 mg tablet 50 mg PO BID #60 tab 01/24/19 isosorbide mononitrate ER 60 mg 60 mg PO BID #60 tab 01/27/19 tablet,extended release 24 hr lisinopril 5 mg tablet 5 mg PO DAILY #60 tab 01/27/19 Clopidogrel Bisulfate [Clopidogrel] 75 mg PO DAILY 05/07/19 Nortriptyline HCl 25 mg PO DAILY 05/07/19 Surgical History: Surgical History (Last Reviewed 12/23/18 @ 13:14 by Renetta Kwan) Stented coronary artery (Chronic) Onset Date: 10/29/18 Z95.5 LETICIA to proximal LAD (3.5X16 Promus Synergy) per Dr. Martinez @ [facility] 10/29/2018 LETICIA to Proximal to Mid 2nd diagonal (2.5 X 24 Promus Premier); LETICIA to mid LAD (4.0 X 38 mm Promus Premier)per Dr. Martinez @ [facility] 11/26/2014 LETICIA to mid RCA (3.5 X16 Promus), FFR of LAD + 0.84 on 07/31/[address] Martinez @ [facility] Surgical History: - - PCI X 5, right total knee replacement, right foot surgery, sinus surgery, L rotator cuff surgery, TURP. Psychiatric History: Anxiety, Depression, - - Agoraphobia Lives: With Family Smoking Status: Never smoker Tobacco Use: Non-smoker Alcohol: None Drugs: None - *Family History Sibling Family History: Family History (Last Reviewed 12/23/18 @ 13:14 by Renetta Kwan) Son CAD (coronary artery disease) Myocardial infarction Mother Heart disease Father Addisons disease History Items: Heart Disease Maternal Family History: Family History (Last Reviewed 12/23/18 @ 13:14 by Renetta Kwan) Son CAD (coronary artery disease) Myocardial infarction Mother Heart disease Father Addisons disease History Items: Diabetes, Heart Disease Offspring Family History: Family History (Last Reviewed 12/23/18 @ 13:14 by Renetta Kwan) Son CAD (coronary artery disease) Myocardial infarction Mother Heart disease Father Addisons disease History Items: Heart Disease, - - Father with also history of [place] disease. Paternal Family History: Family History (Last Reviewed 12/23/18 @ 13:14 by Renetta Kwan) Son CAD (coronary artery disease) Myocardial infarction Mother Heart disease Father Addisons disease History Items: - - [place] disease Review of Systems Constitutional: Reports: Malaise, Weakness, Fatigue. Denies: Chills, Fever, Weight Change HEENT: Denies: Head Aches, Sinus Congestion, Sinus Drainage Cardiovascular: Reports: Chest Pain. Denies: Edema, Light Headedness, Orthopnea, Palpitations, Syncope Respiratory: Reports: Shortness of Breath, Shortness of breath at rest, Shortness of breath upon exertion. Denies: Cough, Sputum production, Wheezing Gastrointestinal: Denies: Abdominal Pain, Nausea, Vomiting Genitourinary: Denies: Dysuria Musculoskeletal: Reports: Joint Pain. Denies: Joint Tenderness Skin: Reports: Skin Changes. Denies: Rash, Wounds Neurological: Reports: Change in Speech, Confusion. Denies: Focal weakness, Numbness, Tingling Psychiatric: Reports: Anxiety, Depression. Denies: Homicidal Ideations, Suicidal Ideations Hematologic/ Lymphatic: Denies: Easy Bruising, Easy Bleeding VTE Information - Inpt Only VTE Present on Admission: No VTE Mechan Device Prophylaxis: SCD's VTE Pharm Prophylaxis ordered?: Yes Patient Problems: Active and Suspected Problems (Last Reviewed 12/23/18 @ 13:14 by Renetta Kwan) CVA (cerebral vascular accident) (Acute) Chest pain (Acute) Exertional dyspnea (Acute) Subjective: Seated upright in ED bed, evident distress, increased respiratory rate, agitation, diaphoretic. Objective: Physical Examination: General: awake, alert, oriented to self and place only, unable to give the correct month, year, president, remains cooperative, seated upright in the ED bed, diaphoretic, agitated, increased respiratory rate, increased effort, evident distress. Skin: normal color, turgor, no icterus, cyanosis except noted occasional ecchymoses to the extremity, blanching papular rash present on the upper extremities, nonpruritic. HEENT: AT/NC, EOMI, PERRLA, moderately dry MM, no carotid bruits or JVD noted. Lungs: Diminished breath sounds bilaterally, greater bases, increased respiratory rate, accessory muscle usage, evident distress, no rales, ronchi or wheezing. Heart: Tachycardic with regular rhythm; no gallop, rub audible. Abdomen: soft, obese, NTTP, ND, normal BS, no HSM; or, habitus makes examination difficult. Extremities: no cyanosis, clubbing, or edema. Neurological: patient awake, alert, oriented as noted, decreased from baseline; cognitive function not baseline intact; pupils equally reactive to light and accomodation; cranial nerves II-XII grossly normal, moving all 4 extremities, no focal deficits, altered speech, mild stuttering, no current expressive aphasia noted but noted prior per family, sensation intact, finger-nose and [id number] difficult to assess but appear intact, negative Babinski, strength severely global decrease secondary to acute presentation and pulmonary status. Psychiatric: affect appears anxious, no acute evidence of depressive feelings. - Physical Exam Vital Signs Temp Pulse Resp BP Pulse Ox 97.5 F L 104 H 25 H 125/74 H 98 05/07/19 14:08 05/07/19 16:00 05/07/19 16:00 05/07/19 16:00 05/07/19 16:00 Oxygen Flow Rate (L/min) 2 Oxygen Delivery Method Nasal Cannula Weight: 278 lb 7.101 oz Body Mass Index (BMI) 35.7 Finger Stick Blood Glucose 150 Laboratory Tests Past 24 Hrs 05/07/19 05/07/19 05/07/19 15:30 15:30 15:30 WBC 11.0 RBC 4.96 Hgb 15.5 Hct 45.2 MCV 91.1 MCH 31.3 MCHC 34.3 RDW Std Deviation 44.6 H RDW Coeff of Liang 13.3 Plt Count 196 MPV 8.7 Immature Gran % (Auto) 0.500 Neut % (Auto) 78.9 H Lymph % (Auto) 12.9 L [place] % (Auto) 7.3 Eos % (Auto) 0.1 Baso % (Auto) 0.3 Absolute Neuts (auto) 8.7 H Absolute Lymphs (auto) 1.42 Nucleated RBC % 0 Sodium 139 Potassium 4.1 Chloride 108 H Carbon Dioxide 20.0 L Anion Gap 11 BUN 27 H Creatinine 1.56 H Estim Creat Clear Calc 43.91 Est GFR (MDRD) Af Amer 55 L Est GFR (MDRD) Non-Af 46 L BUN/Creatinine Ratio 17.3 Glucose 164 H Calcium 10.1 Troponin I 0.032 B-Natriuretic Peptide 116.2 H Assessment/Plan All Active Problems (Last Reviewed 12/23/18 @ 13:14 by Renetta Kwan) CVA (cerebral vascular accident) (Acute) Chest pain (Acute) Exertional dyspnea (Acute) Angina of effort (Resolved) The patient is a 78 y/o M w/ PMHx: CKD stage III, CAD s/p PCI x 5, GERD, HTN, HLD, Anxiety and Depression, Dementia unclear type with no behavioral disturbance, Diabetes mellitus type II with neuropathy who presents to the [facility] ED on 05/07/19 with history of several weeks of intermittent exertional chest discomfort, midsternal region, sharp, 3-5 out of 10 when it does occur with associated increased dyspnea and diaphoresis but no nausea or emesis with no radiation associated, improving with rest and not always occurring with activity with onset on day of ED presentation notable significant dyspnea starting in the morning while he was checking his blood sugar, transiently improved and worsened again prompting transition to the ED with then noted per family present stuttered speech and expressive aphasia over the last possibly 72 hours, unable to give any appropriate orientation answers upon evaluation. 1. Expressive aphasia, altered mental status, stuttering concerning for CVA: Work-up in the ED included T 97.5, heart rate 87, BP 150/88, respiratory rate 26, 97% on room air, CBC with WBC 11, hemoglobin 15.5, platelet 196 with mild left shift, BMP with chloride 108, carbon dioxide 20, BUN/Cr 27/1.56, glucose 164, troponin 0.032, BNP 116.2, urinalysis recently obtained with pending completion however currently no appearance of infection, chest x-ray with mild cardiomegaly with no acute cardio pony findings, CT brain with no acute intracranial findings, chronic ischemic and atrophic changes, bilateral maxillary sinus disease status post surgical intervention evident, EKG with no acute evidence of ischemia. Will admit to the ICU given atypical pulmonary presentation and evident distress currently, will obtain MRI Brain, pending CTA head and Neck, ECHO, PT/OT/Speech/Nutrition evaluation per protocol. Will consult Neurology for evaluation. Will allow permissive HTN, maintain on asa/plavix, statin w/ AM FLP, fall precautions. 2. Acute respiratory distress with dyspnea, exertional chest pain, unclear etiology: EKG in ED with no acute evidence of ischemia, CXR w/ no acute pulmonary findings, initial trop 0.032. Discussed with the ED and will obtain ABG, CTA of the chest given atypical appearance, hydrating, following transition to monitored bed, cycle cardiac enzymes, repeat EKGs, FLP in a.m., mag pending. Given #1, stroke evaluation will defer progressing to cardiac stress testing if CTPA unremarkable until further stroke evaluation performed. ASA, NG, morphine. 3. Diabetes mellitus type II: Hold oral home regimen, hemoglobin A1c pending, ADA diet, accu checks w/ ISS. 4. CAD: Status post PCI x5, continue home regimen asa, Plavix, statin, permissive hypertension currently, continue work-up as noted #2. 5. Chronic Kidney Disease Stage III: Admission BUN/Cr 27/1.56, baseline renal function 1.2-1.4, mildly increased, repeat BMP in AM. Hydrating especially given contrast usage. 6. Hypertension: Maintained on permissive hypertension. 7. Hyperlipidemia: Continue home statin regimen. AM FLP. 8. Dementia unclear type, no behavioral disturbance history:, Cates presentation, continue Aricept regimen. 9. Anxiety and depression, agoraphobia, panic attacks: Likely contributing to current presentation, suspect component of hyperventilation, continue home escitalopram regimen. Given presentation will have PRN low-dose Ativan available. 10. ? Dermatitis, rash: Given current presentation we will continue evaluation #1, #2, continue to evaluate, consider steroid cream if appropriate. 11. DVT prophylaxis: SCDs, heparin pending CTA which is being performed now, if concern for PE will transition to heparin drip versus therapeutic Lovenox. Code Visit Inpatient E&M: 54699 Init Hosp L3
--- NOTE | 2019-05-07 17:56 | CT_ITS ---
STUDY: CTA CHEST REASON FOR EXAM: Male, 78 years old. Shortness of breath RADIATION DOSAGE (If Supplied By Facility): CTDIvol = ( 21.61 ) mGy, DLP = ( 1813.20 ) mGycm TECHNIQUE: The examination was performed with the intravenous administration of 100 IV Isovue 370. Post-processing of the angiographic images was performed, with multiplanar reformation and 3D reconstruction. Individualized dose optimization techniques were used for this CT. COMPARISON: CT chest March 21, 2019 FINDINGS: Evaluation is significantly limited due to streak artifact from arm positioning next to patient and motion artifact. No definite pulmonary filling defects are evident. Normal thoracic aorta and visualized great vessels. There is no demonstrated aortic dissection. Normal heart and pericardium. Coronary artery calcifications are present. Normal mediastinum. Normal hilar regions. Normal visualized trachea and bronchi. The lungs are well expanded. No parenchymal abdomen values are identified although evaluation is limited. Normal pleura. Normal chest wall structures. Normal osseous structures. The gallbladder contains gallstones. CT/CTA Chest W/WO Contrast IMPRESSION: Significantly limited evaluation due to arm positioning bilaterally and motion artifact. No definite pulmonary arterial filling defects to suggest pulmonary embolus. Coronary artery calcifications. Electronically Signed: Rajan Carranza, at 18:41 EDT Tel , Service support ,
--- NOTE | 2019-05-07 17:56 | CT_ITS ---
STUDY: CTA HEAD AND NECK WITH CONTRAST REASON FOR EXAM: Male, 78 years old. CVA RADIATION DOSAGE (If Supplied By Facility): CTDIvol = ( 21.61 ) mGy, DLP = ( 1813.20 ) mGycm TECHNIQUE: CT angiography was performed with a multi-detector CT scanner. Data acquisition was obtained from the skull base through the vertex following intravenous administration of 100 IV Isovue 370. MIP images were reconstructed from the axial data set. Post-processing of the angiographic images was performed, with multiplanar reformation and 3D reconstruction. Individualized dose optimization techniques were used for this CT. COMPARISON: No relevant priors. FINDINGS: Normal bilateral petrous carotid arteries. Calcific plaquing of the right cavernous carotid artery with a normal supraclinoid bifurcation. Calcific plaquing of the left cavernous carotid artery with a normal supraclinoid bifurcation. Diffusely narrowed right A1 segments of the anterior cerebral artery which may represent developmental variant. Normal left A1 segments of the anterior cerebral artery. Normal intact anterior communicating artery (ACOM). Normal bilateral A2 segments of the anterior cerebral arteries. Normal right M1 and M2 segments of the middle cerebral arteries, with a normal M1 bifurcation. Normal left M1 and M2 segments of the middle cerebral arteries, with a normal M1 bifurcation. Normal right posterior communicating artery (PCOM). Normal left posterior communicating artery (PCOM). Normal bilateral vertebral arteries. Normal basilar artery with a normal basilar bifurcation. The visualized bilateral superior cerebellar (SCA) arteries are normal. Normal bilateral P1, P2 and visualized P3 segments of the posterior cerebral arteries. There is no demonstrated aneurysm of the [place] of [place]. There is no demonstrated abnormality of the visualized brain. AORTIC ARCH: Normal visualized aortic arch. Normal origins of the brachiocephalic, left common carotid, and left subclavian arteries. RIGHT CAROTID ARTERIES: Normal right common carotid artery (CCA). Mild calcific plaquing of the right common carotid bulb. Normal origin of the right internal carotid (ICA) artery without a hemodynamically significant stenosis. Normal visualized cervical portion of the right internal carotid artery. Normal origin of the right external carotid artery (ECA). LEFT CAROTID ARTERIES: Normal left common carotid artery (CCA). Mild calcific plaquing of the left common carotid bulb. Mild calcific plaquing of the origin of the left internal carotid (ICA) artery without a hemodynamically significant stenosis. Normal visualized cervical portion of the left internal carotid artery. Normal origin of the left external carotid artery (ECA). VERTEBRAL ARTERIES: Normal bilateral vertebral arteries. CT/CTA Head AND Neck W/ Contrast IMPRESSION: Moderate atherosclerotic disease without evidence for hemodynamically significant stenosis utilizing NASCET criteria Electronically Signed: Rajan Martinez MD at 18:39 EDT , Service support ,
[2019-05-07 17:58] LABS: Bacteria 0 SEEN /hpf (None Seen); Squamous Epithelial Cells - UA 0 SEEN /hpf (0-5); White Blood Cells 0 SEEN /hpf (0-5)
[2019-05-07 18:04] LABS: Color, Urine Yellow (Yellow); Glucose, Dipstick Normal (Normal); Ketone-Dipstick 50 mg/dl (Negative); Leukocyte Esterase-Dipstick 25 /ul (Negative); Nitrite-Dipstick Negative (Negative); Occult Blood-Urine 50 /ul (Negative); Protein-Dipstick 30 mg/dl (Negative); Specific Gravity, Urine 1.015 (1.002-1.030); Urine Bilirubin Dipstick Negative (Negative); Urine Clarity Clear (Clear); Urine Urobilinogen 1 mg/dl (Normal)
--- NOTE | 2019-05-07 18:14 | CPS ---
at 1813, Dr. Lindsey replied to page from [phone]. Critical values from AB were read over the telephone and repeated back.
[2019-05-07 18:15] LABS: Allen Test POS; Base Excess -6 mmol/L (-2 to +2); Bicarbonate 15.1 mmol/L (22-26); Blood Gas Specimen Type ART; O2 Delivery Device Nasal Can; PO2 130 mmHG (75-100); SITE R Radial; SO2 100 % (95-99); Time Given 1800; Total Carbon Dioxide 16 mmol/L; pCO2 14.8 mmHg (35-45); pH 7.62 (7.35-7.45)
[2019-05-07 18:18] LABS: Mucous, Urine 1+ /hpf (<or=2+); Red Blood Cells-Urine 0-5 SEEN /hpf (0-5)
--- NOTE | 2019-05-07 19:33 | EKG12_ITS ---
Test Reason : CP/SOB Blood Pressure : / mmHG Vent. Rate : 088 BPM Atrial Rate : 088 BPM P-R Int : 208 ms QRS Dur : 120 ms QT Int : 366 ms P-R-T Axes : 000 -87 003 degrees QTc Int : 442 ms Normal sinus rhythm Left axis deviation Right bundle branch block Inferior infarct (cited on or before 08-DEC-2018), age undetermined Abnormal ECG Confirmed by RAMIRO SCHRADER ([id number]), map editor CHUCKIE CRANE ([id number]) on 05/08/2019 2:19:03 PM Referred By: Sara Lindsey Confirmed By:RAMIRO SCHRADER
[2019-05-07] MEDS: 0.9% Normal Saline 1,000 ML 100 ML IV (20:18)
[2019-05-07] MEDS: Gabapentin 600 MG Tablet 1200 MG PO (20:18)
[2019-05-07] MEDS: Donepezil HCl 10 MG Tablet PO (20:19)
[2019-05-07] MEDS: Atorvastatin Calcium 40 MG Tablet PO (20:19)
[2019-05-07] MEDS: Magnesium Oxide 400 MG Tablet PO (20:20)
[2019-05-07] MEDS: LORazepam 1 MG Tablet PO (20:21)
[2019-05-07 20:38] LABS: Cholesterol 137 mg/dL (200); High Density Lipoprotein 47 mg/dL; Magnesium 1.9 mg/dL (1.6-2.6); Thyroid Stim Hormone (TSH) 2.17 uIU/mL (0.358-3.74); Triglycerides 133 mg/dL; Very Low Density Lipoprotein 27 mg/dL (5-40)
--- NOTE | 2019-05-07 20:45 | NURSING ---
Attempts made x2 to call Neurology referral. 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
--- NOTE | 2019-05-07 22:19 | NURSING ---
Pt had lg emesis of mostly water content;pt denied having feeling of nausea prior to emesis. Pt and area cleaned, nicole all well.
[2019-05-07] MEDS: Ondansetron ODT 4 MG Tablet PO (22:41)
--- NOTE | 2019-05-07 23:00 | NURSING ---
Pt noted to have brief periods of apnea; oxygen sat drops to 84% on room air, but quickly rebounds to mid-90s. Oxygen via NC applied @2lpm
[2019-05-07] MEDS: Heparin Injection (Vial) 5,000 UNIT/ML VIAL 5000 UNIT SC (23:08)
[2019-05-07] MEDS: 0.9% NaCl Peripheral Flush Adult/Peds IV (23:09)
[2019-05-07] MEDS: Insulin Lispro 100 UNIT/ML INSULN.PEN SC (23:14)
[2019-05-07 23:30] LABS: Bedside Glucose 157 mg/dL (70-110)
[2019-05-08] VITALS (18 sets, daily range): BP systolic 135–193; BP diastolic 59–95; PULSE 67–94; RESP 12–21; TEMP 36.3–36.9; O2SAT 94–99
--- NOTE | 2019-05-08 02:04 | NURSING ---
Pt noted to have increased belching and brief c/o nausea;pt denied abd pain and nausea passed quickly.
[2019-05-08 03:55] LABS: Anion Gap 10 (5-15); BUN 26 mg/dL (7-18); BUN/Creat Ratio 21.3 RATIO (10-20); Calcium,Total 8.7 mg/dL (8.5-10.1); Chloride 109 mmol/L (98-107); Creatinine, Serum 1.22 mg/dL (0.70-1.30); EST Glomerular Filtration Rate 61 mL/min (>60); Est Glom Filt Rate - Afr Amer 73 mL/min (>60); Estimated Creatinine Clearance 56.15 ml/min; Glucose 161 mg/dL (74-106); Potassium 3.7 mmol/L (3.5-5.1); Sodium Level 141 mmol/L (136-145)
[2019-05-08] MEDS: Metoprolol Tartrate 50 MG Tablet PO ×3 (04:15→21:04)
[2019-05-08] MEDS: 0.9% Normal Saline 1,000 ML 100 ML IV (04:15)
[2019-05-08] MEDS: 0.9% NaCl Peripheral Flush Adult/Peds IV (04:16)
[2019-05-08] MEDS: Ondansetron ODT 4 MG Tablet PO (04:22)
[2019-05-08] MEDS: Heparin Injection (Vial) 5,000 UNIT/ML VIAL 5000 UNIT SC ×3 (06:28→21:04)
--- NOTE | 2019-05-08 06:49 | PCM.CON.CC ---
Reason for Consult Date of Consultation: 05/08/19 Reason for Consultation: CVA, CP, atypical dyspnea presentation, notable hyperventilation History of Present Illness: The patient is an 78-year-old male, with a history as outlined below, who presented to the emergency department on May 07 with complaints of shortness of breath, atypical chest pain and anxiety. The patient has a medical history significant for coronary artery disease, chronic kidney disease, hypertension, diabetes, questionable dementia, anxiety and depression. The patient is followed longitudinally by Dr. Pickens in the cardiology clinic. In addition to the aforementioned, the patient also has known obstructive sleep apnea, for which it was recommended that he be on nocturnal BiPAP with a pressure support of 24/20, based upon his polysomnogram completed in 2014. Surface echocardiogram from October 2018 revealed evidence of stage I diastolic dysfunction with an ejection fraction of 65%. Right ventricular systolic pressure was estimated to be 35 mmHg. On presentation to the emergency department, the patient was noted to be afebrile and hemodynamically stable. Although he was tachypneic, he was initially documented to be saturating 97% on room air. Laboratory evaluation revealed no evidence of a leukocytosis. Chemistry profile was notable for a bicarbonate of 20 and elevated creatinine of 1.56. Troponin was negative. BNP was unremarkable. Arterial blood gas obtained on 2 L/min revealed a pH of 7.62 with a corresponding PCO2 of 15 and PO2 of 130. CT head revealed no acute intracranial abnormality. Chronic ischemic changes were noted along with bilateral maxillary sinus disease. A CTA chest was obtained, but was of poor quality due to motion artifact. No definitive pulmonary filling defects were noted. Head/neck CTA revealed moderate atherosclerotic disease without evidence for hemodynamically significant stenosis. The patient's symptoms were initially felt to be related to underlying anxiety. Although the patient was initially going to be discharged home, upon the arrival of the patient's daughter, she was concerned about the patient's confusion and insisted that he be admitted. The patient was then admitted to the medical intensive care unit over concerns for his atypical pulmonary presentation. The patient was monitored overnight and was last noted to have an NIH score of 4. Blood pressures were a bit elevated overnight as well. The patient has remained stable on room air. There is a pending consultation to neurology. Of note, the patient was treated with Ativan last evening. The patient did report to me this morning that his symptoms of shortness of breath that he was experiencing yesterday are chronic in nature and occur intermittently. The patient does not have any current neurological deficits. His speech is fluent. He is alert and oriented to person, place and time. It does appear that the patient is prescribed twice daily as needed Ativan on an outpatient basis. However, the patient is not able to tell me if he routinely takes the medication or not. Past Medical History Past Medical History (Chronic Problems): Chronic Problems (Last Reviewed 12/23/18 @ 13:14 by eRnetta Kwan) Pure hypercholesterolemia (Chronic) Essential hypertension (Chronic) CKD (chronic kidney disease) stage 3, GFR 30-59 ml/min (Chronic) Stented coronary artery (Chronic 10/29/18) LETICIA to proximal LAD (3.5X16 Promus Synergy) per Dr. Martinez @ [facility] 10/29/2018 LETICIA to Proximal to Mid 2nd diagonal (2.5 X 24 Promus Premier); LETICIA to mid LAD (4.0 X 38 mm Promus Premier)per Dr. Martinez @ [facility] 11/26/2014 LETICIA to mid RCA (3.5 X16 Promus), FFR of LAD + 0.84 on 07/31/[address] 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) Medical History: Medical History (Last Reviewed 12/23/18 @ 13:14 by Renetta Kwan) Pure hypercholesterolemia (Chronic) E78.00 Essential hypertension (Chronic) I10 Atherosclerotic heart disease of grayling coronary artery without angina pectoris (Chronic) I25.10 Dyspnea R06.00 Hyperlipemia (Inactive) E78.5 Hypertension (Inactive) I10 Allergies No Known Allergies Allergy (Verified 05/07/19 14:07) Home Medications: Ambulatory Orders Medication Instructions Recorded Aspirin [Aspirin, Baby] 81 mg PO DAILY@0800 07/18/13 Lorazepam [Ativan] 1 mg PO BID PRN 07/18/13 Meclizine HCl [Antivert] 25 mg PO BID 07/18/13 Rosuvastatin Calcium [Crestor] 20 mg PO DAILY 07/18/13 metFORMIN HCl [Glucophage] 500 mg PO BID 01/03/14 Donepezil HCl [Aricept] 10 mg PO QHS 11/16/14 Magnesium Oxide [Mag-Ox 400] 400 mg PO BID 11/16/14 glimepiride 4 mg tablet 4 mg PO BID tab 01/08/18 acetaminophen 500 mg capsule 1,000 mg PO BID 01/10/18 nitroglycerin 0.4 mg sublingual 0.4 mg SUBLINGUAL Q5M PRN #25 tab 01/10/18 tablet Escitalopram Oxalate [Lexapro] 10 mg PO DAILY 07/12/18 Famotidine [Pepcid] 40 mg PO DAILY 12/08/18 gabapentin 600 mg tablet 1,200 mg PO BID tab 12/23/18 metoprolol tartrate 50 mg tablet 50 mg PO BID #60 tab 01/24/19 isosorbide mononitrate ER 60 mg 60 mg PO BID #60 tab 01/27/19 tablet,extended release 24 hr lisinopril 5 mg tablet 5 mg PO DAILY #60 tab 01/27/19 Clopidogrel Bisulfate [Clopidogrel] 75 mg PO DAILY 05/07/19 Nortriptyline HCl 25 mg PO DAILY 05/07/19 Surgical History: Surgical History (Last Reviewed 12/23/18 @ 13:14 by Renetta Kwan) Stented coronary artery (Chronic) Onset Date: 10/29/18 Z95.5 LETICIA to proximal LAD (3.5X16 Promus Synergy) per Dr. Martinez @ [facility] 10/29/2018 LETICIA to Proximal to Mid 2nd diagonal (2.5 X 24 Promus Premier); LETICIA to mid LAD (4.0 X 38 mm Promus Premier)per Dr. Martinez @ [facility] 11/26/2014 LETICIA to mid RCA (3.5 X16 Promus), FFR of LAD + 0.84 on 07/31/[address] Martinez @ [facility] Surgical History: - - PCI X 5, right total knee replacement, right foot surgery, sinus surgery, L rotator cuff surgery, TURP. Psychiatric History: Anxiety, Depression, - - Agoraphobia Lives: With Family Smoking Status: Never smoker Tobacco Use: Non-smoker Alcohol: None Drugs: None - *Family History Sibling Family History: Family History (Last Reviewed 12/23/18 @ 13:14 by Renetta Kwan) Son CAD (coronary artery disease) Myocardial infarction Mother Heart disease Father Addisons disease History Items: Heart Disease Maternal Family History: Family History (Last Reviewed 12/23/18 @ 13:14 by Renetta Kwan) Son CAD (coronary artery disease) Myocardial infarction Mother Heart disease Father Addisons disease History Items: Diabetes, Heart Disease Offspring Family History: Family History (Last Reviewed 12/23/18 @ 13:14 by Renetta Kwan) Son CAD (coronary artery disease) Myocardial infarction Mother Heart disease Father Addisons disease History Items: Heart Disease, - - Father with also history of Desha's disease. Paternal Family History: Family History (Last Reviewed 12/23/18 @ 13:14 by Renetta Kwan) Son CAD (coronary artery disease) Myocardial infarction Mother Heart disease Father Addisons disease History Items: - - Ja's disease Review of Systems Constitutional: Denies: Chills, Fever, Weight Change Eyes: Denies: Blurred vision, Double vision HEENT: Denies: Head Aches, Sinus Congestion, Sinus Drainage Cardiovascular: Denies: Chest Pain Respiratory: Reports: Shortness of Breath. Denies: Cough, Sputum production Gastrointestinal: Denies: Abdominal Pain, Nausea, Vomiting Genitourinary: Denies: Dysuria Musculoskeletal: Denies: Joint Pain, Joint Tenderness Skin: Denies: Rash, Wounds Neurological: Reports: Confusion. Denies: Focal weakness Psychiatric: Reports: Anxiety, Depression Hematologic/ Lymphatic: Denies: Easy Bruising, Easy Bleeding Patient Problems: Active and Suspected Problems (Last Reviewed 12/23/18 @ 13:14 by Renetta Kwan) CVA (cerebral vascular accident) (Acute) Chest pain (Acute) Exertional dyspnea (Acute) Speech disturbance (Suspected) Objective: The patient's most recent lab work, culture data and imaging studies have all been personally reviewed. - Physical Exam General: Alert, Cooperative, No apparent distress, - - Currently resting comfortably in bed. HEENT: Atraumatic, PERRLA, Normocephalic Oral: No Gingival or Mucosal Lesions/ Ulcerations Neck: Supple, No Nodes, Trachea Midline, - - Large neck circumference with redundant soft tissue. Lungs: No rhonchi, No wheeze, No rales, Diminished Cardiovascular: Regular rate, Regular Rhythm, Normal S1, Normal S2 Abdomen: Bowel Sounds Present, Soft, Obese Extremities: No clubbing, No cyanosis, No edema Skin: No breakdown Musculoskeletal: No Muscle Wasting Lymphatic: No Cervical, Supraclavicular, or Inguinal Adenopathy Neurological: Cranial nerves II-XII grossly intact, Neuro grossly intact Psych/Mental Status: Normal Affect, Appropriate Vital Signs Temp Pulse Resp BP Pulse Ox 97.4 F L 88 20 H 164/95 H 97 05/08/19 04:00 05/08/19 06:00 05/08/19 06:00 05/08/19 06:00 05/08/19 06:00 Oxygen Flow Rate (L/min) 2 Oxygen Delivery Method Room Air Weight: 266 lb 12.149 oz Body Mass Index (BMI) 34.0 Finger Stick Blood Glucose 150 Intake and Output for Last 24 Hours 05/06/19 05/07/19 05/08/19 23:59 23:59 23:59 Intake Total 2286 / 2286 Output Total 800 / 800 Balance 1486 / 1486 Laboratory Tests Past 24 Hrs 05/07/19 05/07/19 05/07/19 15:30 15:30 15:30 WBC 11.0 RBC 4.96 Hgb 15.5 Hct 45.2 MCV 91.1 MCH 31.3 MCHC 34.3 RDW Std Deviation 44.6 H RDW Coeff of Liang 13.3 Plt Count 196 MPV 8.7 Immature Gran % (Auto) 0.500 Neut % (Auto) 78.9 H Lymph % (Auto) 12.9 L [place] % (Auto) 7.3 Eos % (Auto) 0.1 Baso % (Auto) 0.3 Absolute Neuts (auto) 8.7 H Absolute Lymphs (auto) 1.42 Nucleated RBC % 0 Specimen Type Sample Site pH Bicarbonate Actual POC Total CO2 Base Excess O2 Saturation ABG pCO2 ABG pO2 Roger Test O2 Delivery Device Liter Flow Blood Gas Notified Whom Blood Gas Notified Time Sodium 139 Potassium 4.1 Chloride 108 H Carbon Dioxide 20.0 L Anion Gap 11 BUN 27 H Creatinine 1.56 H Estim Creat Clear Calc 43.91 Est GFR (MDRD) Af Amer 55 L Est GFR (MDRD) Non-Af 46 L BUN/Creatinine Ratio 17.3 Glucose 164 H Calcium 10.1 Magnesium Troponin I 0.032 B-Natriuretic Peptide 116.2 H Triglycerides Cholesterol LDL Cholesterol VLDL Cholesterol HDL Cholesterol TSH Urine Color Urine Clarity Urine pH Ur Specific [place] Urine Protein Urine Glucose (UA) Urine Ketones Urine Occult Blood Urine Nitrite Urine Bilirubin Urine Urobilinogen Ur Leukocyte Esterase Urine RBC Urine WBC Ur Squamous Epith Cells Urine Bacteria Urine Mucus 05/07/19 05/07/19 05/07/19 17:50 18:08 20:00 WBC RBC Hgb Hct MCV MCH MCHC RDW Std Deviation RDW Coeff of Liang Plt Count MPV Immature Gran % (Auto) Neut % (Auto) Lymph % (Auto) [place] % (Auto) Eos % (Auto) Baso % (Auto) Absolute Neuts (auto) Absolute Lymphs (auto) Nucleated RBC % Specimen Type ART Sample Site R Radial pH 7.62 H* Bicarbonate Actual 15.1 L POC Total CO2 16 Base Excess -6 L O2 Saturation 100 H ABG pCO2 14.8 L* ABG pO2 130 H Roger Test POS O2 Delivery Device Nasal Can Liter Flow 2.0 Blood Gas Notified Whom HOSP Blood Gas Notified Time 1800 Sodium Potassium Chloride Carbon Dioxide Anion Gap BUN Creatinine Estim Creat Clear Calc Est GFR (MDRD) Af Amer Est GFR (MDRD) Non-Af BUN/Creatinine Ratio Glucose Calcium Magnesium 1.9 Troponin I B-Natriuretic Peptide Triglycerides 133 Cholesterol 137 LDL Cholesterol 63 VLDL Cholesterol 27 HDL Cholesterol 47 TSH 2.17 Urine Color Yellow Urine Clarity Clear Urine pH 7.0 Ur Specific [place] 1.015 Urine Protein 30 H Urine Glucose (UA) Normal Urine Ketones 50 H Urine Occult Blood 50 H Urine Nitrite Negative Urine Bilirubin Negative Urine Urobilinogen 1 H Ur Leukocyte Esterase 25 H Urine RBC 0-5 SEEN Urine WBC 0 SEEN Ur Squamous Epith Cells 0 SEEN Urine Bacteria 0 SEEN Urine Mucus 1+ 05/07/19 05/07/19 05/08/19 20:00 23:00 03:20 WBC RBC Hgb Hct MCV MCH MCHC RDW Std Deviation RDW Coeff of Liang Plt Count MPV Immature Gran % (Auto) Neut % (Auto) Lymph % (Auto) [place] % (Auto) Eos % (Auto) Baso % (Auto) Absolute Neuts (auto) Absolute Lymphs (auto) Nucleated RBC % Specimen Type Sample Site pH Bicarbonate Actual POC Total CO2 Base Excess O2 Saturation ABG pCO2 ABG pO2 Roger Test O2 Delivery Device Liter Flow Blood Gas Notified Whom Blood Gas Notified Time Sodium 141 Potassium 3.7 Chloride 109 H Carbon Dioxide 22.0 Anion Gap 10 BUN 26 H Creatinine 1.22 Estim Creat Clear Calc 56.15 Est GFR (MDRD) Af Amer 73 Est GFR (MDRD) Non-Af 61 BUN/Creatinine Ratio 21.3 H Glucose 161 H Calcium 8.7 Magnesium Troponin I 0.030 0.036 B-Natriuretic Peptide Triglycerides Cholesterol LDL Cholesterol VLDL Cholesterol HDL Cholesterol TSH Urine Color Urine Clarity Urine pH Ur Specific [place] Urine Protein Urine Glucose (UA) Urine Ketones Urine Occult Blood Urine Nitrite Urine Bilirubin Urine Urobilinogen Ur Leukocyte Esterase Urine RBC Urine WBC Ur Squamous Epith Cells Urine Bacteria Urine Mucus 05/08/19 03:20 WBC RBC Hgb Hct MCV MCH MCHC RDW Std Deviation RDW Coeff of Liang Plt Count MPV Immature Gran % (Auto) Neut % (Auto) Lymph % (Auto) [place] % (Auto) Eos % (Auto) Baso % (Auto) Absolute Neuts (auto) Absolute Lymphs (auto) Nucleated RBC % Specimen Type Sample Site pH Bicarbonate Actual POC Total CO2 Base Excess O2 Saturation ABG pCO2 ABG pO2 Roger Test O2 Delivery Device Liter Flow Blood Gas Notified Whom Blood Gas Notified Time Sodium Potassium Chloride Carbon Dioxide Anion Gap BUN Creatinine Estim Creat Clear Calc Est GFR (MDRD) Af Amer Est GFR (MDRD) Non-Af BUN/Creatinine Ratio Glucose Calcium Magnesium Troponin I 0.041 B-Natriuretic Peptide Triglycerides Cholesterol LDL Cholesterol VLDL Cholesterol HDL Cholesterol TSH Urine Color Urine Clarity Urine pH Ur Specific [place] Urine Protein Urine Glucose (UA) Urine Ketones Urine Occult Blood Urine Nitrite Urine Bilirubin Urine Urobilinogen Ur Leukocyte Esterase Urine RBC Urine WBC Ur Squamous Epith Cells Urine Bacteria Urine Mucus POC Glucose 05/07/19 23:11 POC Glucose 157 H Clinical Impression(s) from Imaging Studies Chest X-Ray 05/07/19 15:21 IMPRESSION: Borderline cardiac megaly. The lungs are clear. Electronically Signed: Freddie Rodrigez, at 15:46 EDT , Service support , Brain CT 05/07/19 16:41 IMPRESSION: No acute intracranial abnormality. Chronic ischemic and atrophic changes. Bilateral maxillary sinus disease with surgical changes noted. Electronically Signed: Rajan Carranza, at 17:12 EDT Tel , Service support , Chest CTA 05/07/19 17:56 IMPRESSION: Significantly limited evaluation due to arm positioning bilaterally and motion artifact. No definite pulmonary arterial filling defects to suggest pulmonary embolus. Coronary artery calcifications. Electronically Signed: Rajan Carranza, at 18:41 EDT Tel , Service support , Head/Neck CTA 05/07/19 17:56 IMPRESSION: Moderate atherosclerotic disease without evidence for hemodynamically significant stenosis utilizing NASCET criteria Electronically Signed: Rajan Martinez MD at 18:39 EDT , Service support , Assessment/Plan Active and Suspected Problems (Last Reviewed 12/23/18 @ 13:14 by Renetta Kwan) CVA (cerebral vascular accident) (Acute) Chest pain (Acute) Exertional dyspnea (Acute) Speech disturbance (Suspected) RECOMMENDATIONS: 1. We will need to clarify home Ativan use with the patient's family. 2. Encourage incentive spirometer use while in bed. 3. Mobilize patient as tolerated. Physical therapy to evaluate the patient. 4. Consider starting BiPAP nightly and with naps. IMPRESSIONS: 1. Shortness of breath/hyperventilation The patient reported to me intermittent episodes of shortness of breath which are transient in nature. It is certainly possible that the patient's presenting dyspnea and tachypnea may have been secondary to underlying anxiety or an acute panic attack leading to hyperventilation. The patient was treated with Ativan last evening, and as of this morning, has no further respiratory symptoms. CTA chest did not reveal evidence of PE. No other parenchymal lung abnormality was identified. He is maintaining appropriate oxygen saturations on room air. 2. Altered mentation There is some note in the patient's medical records of a history of dementia. The patient is currently prescribed Aricept. While he was initially noted to be confused on presentation, the patient is alert and appropriately interactive this morning. CT of the head was unremarkable. The patient does appear to be at his baseline from a mentation standpoint without focal neurological deficits. 3. Acute on chronic kidney disease Likely prerenal in etiology, as the patient responded to gentle IV fluid hydration. We will continue to monitor urine output. No indication for renal replacement therapy. 4. Coronary artery disease status post PCI/paroxysmal atrial fibrillation/heart failure with preserved ejection fraction Continue outpatient medication regimen. 5. History of obstructive sleep apnea The patient does have a history of obstructive sleep apnea and is supposed to be utilizing BiPAP nightly. It is unclear how compliant the patient is with his home nocturnal Pap therapy. However, I strongly suspect that he is not utilizing his BiPAP on a regular basis. 6. Obesity/diabetes mellitus/neuropathy/chronic hypomagnesemia/BPH/GERD/depression/anxiety Complicates care, management, recovery and prognosis. Continue sliding scale insulin regimen for now. Physical therapy to evaluate the patient. This note was generated with [employer] dictation software. It may contain incorrect words, spelling, and punctuation that were not noted in checking the note before signing. DISPOSITION: The patient is medically stable for transfer out of the intensive care unit. Code Visit Inpatient E&M: 12070 Init Hosp L3
--- NOTE | 2019-05-08 07:18 | PCM.PN.HOSP ---
Patient Problems: Active and Suspected Problems (Last Reviewed 12/23/18 @ 13:14 by Renetta Kwan) CVA (cerebral vascular accident) (Acute) Chest pain (Acute) Exertional dyspnea (Acute) Subjective: Patient is an 78-year-old gentleman with past medical history significant for dementia diabetes mellitus type 2 who was brought to the emergency department with shortness of breath. Patient was found to have significant acute respiratory alkalosis attributed to hyperventilation admitted to monitored bed for subsequent management. Objective: GENERAL: cooperative HEENT: Atraumatic; EYES; Anicteric, Normal Conjunctiva NECK; supple, normal thyroid, RESPIRATORY: Diminished to auscultation CARDIOVASCULAR: Regular S1 S2, GI: soft, non-tender, normoactive bowel sounds, : No Renal angle tenderness; EXTREMITIES: No edema, no clubbing, MUSCULOSKELETAL: No Joint Tenderness; NEURO: Awake; no lateralizing signs. SKIN: No Rash PSYCH; Normal affect Vitals/I&O's: Vital Signs Temp Pulse Resp BP Pulse Ox 97.4 F L 88 20 H 164/95 H 97 05/08/19 04:00 05/08/19 06:00 05/08/19 06:00 05/08/19 06:00 05/08/19 06:00 Oxygen Flow Rate (L/min) 2 Oxygen Delivery Method Room Air Weight: 121 kg Body Mass Index (BMI) 34.0 Finger Stick Blood Glucose 150 Intake and Output for Last 24 Hours 05/06/19 05/07/19 05/08/19 23:59 23:59 23:59 Intake Total 2286 / 2286 Output Total 800 / 800 Balance 1486 / 1486 Laboratory Results 05/07/19 15:30: WBC 11.0, RBC 4.96, Hgb 15.5, Hct 45.2, MCV 91.1, MCH 31.3, MCHC 34.3, RDW Std Deviation 44.6 H, RDW Coeff of Liang 13.3, Plt Count 196, MPV 8.7, Immature Gran % (Auto) 0.500, Neut % (Auto) 78.9 H, Lymph % (Auto) 12.9 L, [place] % (Auto) 7.3, Eos % (Auto) 0.1, Baso % (Auto) 0.3, Absolute Neuts (auto) 8.7 H, Absolute Lymphs (auto) 1.42, Nucleated RBC % 0 05/07/19 15:30: Sodium 139, Potassium 4.1, Chloride 108 H, Carbon Dioxide 20.0 L, Anion Gap 11, BUN 27 H, Creatinine 1.56 H, Estim Creat Clear Calc 43.91, Est GFR (MDRD) Af Amer 55 L, Est GFR (MDRD) Non-Af 46 L, BUN/Creatinine Ratio 17.3, Glucose 164 H, Calcium 10.1, Troponin I 0.032 05/07/19 15:30: B-Natriuretic Peptide 116.2 H 05/07/19 17:50: Urine Color Yellow, Urine Clarity Clear, Urine pH 7.0, Ur Specific [place] 1.015, Urine Protein 30 H, Urine Glucose (UA) Normal, Urine Ketones 50 H, Urine Occult Blood 50 H, Urine Nitrite Negative, Urine Bilirubin Negative, Urine Urobilinogen 1 H, Ur Leukocyte Esterase 25 H, Urine RBC 0-5 SEEN, Urine WBC 0 SEEN, Ur Squamous Epith Cells 0 SEEN, Urine Bacteria 0 SEEN, Urine Mucus 1+ 05/07/19 18:08: Specimen Type ART, Sample Site R Radial, pH 7.62 H*, Bicarbonate Actual 15.1 L, POC Total CO2 16, Base Excess -6 L, O2 Saturation 100 H, ABG pCO2 14.8 L*, ABG pO2 130 H, Roger Test POS, O2 Delivery Device Nasal Can, Liter Flow 2.0, Blood Gas Notified Whom [facility] , Blood Gas Notified Time 1800 05/07/19 20:00: Magnesium 1.9, Triglycerides 133, Cholesterol 137, LDL Cholesterol 63, VLDL Cholesterol 27, HDL Cholesterol 47, TSH 2.17 05/07/19 20:00: Troponin I 0.030 05/07/19 23:00: Troponin I 0.036 05/07/19 23:11: POC Glucose 157 H 05/08/19 03:20: Sodium 141, Potassium 3.7, Chloride 109 H, Carbon Dioxide 22.0, Anion Gap 10, BUN 26 H, Creatinine 1.22, Estim Creat Clear Calc 56.15, Est GFR (MDRD) Af Amer 73, Est GFR (MDRD) Non-Af 61, BUN/Creatinine Ratio 21.3 H, Glucose 161 H, Calcium 8.7 05/08/19 03:20: Troponin I 0.041 Current Medications Acetaminophen (Tylenol) 650 mg PO Q6H PRN PRN PRN Reason: PAIN Aspirin (Aspirin, Baby) 81 mg PO DAILY@0800 [facility] Atorvastatin Calcium (Lipitor) 40 mg PO QHS [facility] Last Admin: 05/07/19 20:19 Dose: 40 mg Documented by: Clopidogrel Bisulfate (Plavix) 75 mg PO DAILY [facility] Dextrose (D50w Syringe) 0 gm IV X1 PRN; Protocol PRN Reason: Hypoglycemia Donepezil HCl (Aricept) 10 mg PO QHS [facility] Last Admin: 05/07/19 20:19 Dose: 10 mg Documented by: Escitalopram Oxalate (Lexapro) 10 mg PO DAILY [facility] Gabapentin (Neurontin) 1,200 mg PO BID [facility] Last Admin: 05/07/19 20:18 Dose: 1,200 mg Documented by: Glucagon () 1 mg IM .X1 PRN PRN Reason: Hypoglycemia Heparin Sodium (Porcine) (Heparin Na) 5,000 unit SC Q8 [facility] Last Admin: 05/08/19 06:28 Dose: 5,000 unit Documented by: Sodium Chloride () 250 mls @ 15 mls/hr IV .[id number] PRN PRN Reason: SALINE FLUSH Sodium Chloride () 1,000 mls @ 100 mls/hr IV .Q10H [facility] Last Admin: 05/08/19 04:15 Dose: 100 mls/hr Documented by: Insulin Human Lispro (Humalog Kwikpen (Bkc)) 0 unit SC ACHS [facility]; Protocol Last Admin: 05/07/19 23:14 Dose: 1 u Documented by: Lorazepam (Ativan) 1 mg PO BID PRN PRN Reason: ANXIETY Last Admin: 05/07/19 20:21 Dose: 1 mg Documented by: Lorazepam (Ativan) 0.5 mg PO Q4H PRN PRN PRN Reason: ANXIETY Magnesium Oxide (Mag-Ox 400) 400 mg PO BID [facility] Last Admin: 05/07/19 20:20 Dose: 400 mg Documented by: Meclizine HCl (Antivert) 25 mg PO BID PRN PRN PRN Reason: Vertigo Metoprolol Tartrate (Lopressor (Beta Chyna)) 50 mg PO BID [facility] Last Admin: 05/08/19 04:15 Dose: 50 mg Documented by: Nortriptyline HCl (Pamelor) 25 mg PO DAILY [facility] Ondansetron HCl (Zofran Odt) 4 mg PO Q6H PRN PRN PRN Reason: NAUSEA Last Admin: 05/08/19 04:22 Dose: 4 mg Documented by: Sodium Chloride () 10 - 40 ml IV UD PRN PRN Reason: SALINE FLUSH Last Admin: 05/08/19 04:16 Dose: 10 ml Documented by: Medical Necessity - Tobacco Use Smoking Status: Never smoker Tobacco Use: Non-smoker Assessment/Plan All Active Problems (Last Reviewed 12/23/18 @ 13:14 by Renetta Kwan) CVA (cerebral vascular accident) (Acute) Chest pain (Acute) Exertional dyspnea (Acute) Angina of effort (Resolved) Patient is an 78-year-old gentleman with past medical history significant for dementia diabetes mellitus type 2 who was brought to the emergency department with shortness of breath. Patient was found to have significant acute respiratory alkalosis attributed to hyperventilation admitted to monitored bed for subsequent management. 1. Acute respiratory alkalosis attributed to hyperventilation. Letter to be secondary to panic attack. Patient work-up is so far remain negative to date 2. Acute metabolic encephalopathy attributed to #1 patient confusion has since improved CT of the head obtained was negative for acute CVA 3. Diabetes mellitus type 2 patient oral diabetic medications held please on Accu-Cheks before meals and at bedtime with sliding scale coverage 4. Coronary artery disease with previous PCI to his LAD 5. Hypertension-blood pressure controlled, home medications continued with dose adjustment as needed 6. Obstructive sleep apnea 7. Depression with anxiety and is on Lexapro resumed 8. Dementia unspecified patient is on Aricept 9. DVT prophylaxis Sc heparin Active Medications Acetaminophen (Tylenol) 650 mg PO Q6H PRN PRN PRN Reason: PAIN Aspirin (Aspirin, Baby) 81 mg PO DAILY@0800 [facility] Last Admin: 05/08/19 10:20 Dose: 81 mg Documented by: Atorvastatin Calcium (Lipitor) 40 mg PO QHS [facility] Last Admin: 05/07/19 20:19 Dose: 40 mg Documented by: Clopidogrel Bisulfate (Plavix) 75 mg PO DAILY [facility] Last Admin: 05/08/19 10:21 Dose: 75 mg Documented by: Dextrose (D50w Syringe) 0 gm IV X1 PRN; Protocol PRN Reason: Hypoglycemia Donepezil HCl (Aricept) 10 mg PO QHS [facility] Last Admin: 05/07/19 20:19 Dose: 10 mg Documented by: Escitalopram Oxalate (Lexapro) 10 mg PO DAILY [facility] Last Admin: 05/08/19 10:20 Dose: 10 mg Documented by: Gabapentin (Neurontin) 1,200 mg PO BID [facility] Last Admin: 05/08/19 10:21 Dose: 1,200 mg Documented by: Glucagon () 1 mg IM .X1 PRN PRN Reason: Hypoglycemia Heparin Sodium (Porcine) (Heparin Na) 5,000 unit SC Q8 [facility] Last Admin: 05/08/19 06:28 Dose: 5,000 unit Documented by: Sodium Chloride () 250 mls @ 15 mls/hr IV .[id number] PRN PRN Reason: SALINE FLUSH Insulin Human Lispro (Humalog Kwikpen (Bkc)) 0 unit SC ACHS [facility]; Protocol Last Admin: 05/08/19 08:25 Dose: Not Given Documented by: Isosorbide Mononitrate (Imdur) 60 mg PO BID [facility] Lisinopril (Zestril) 5 mg PO DAILY [facility] Lorazepam (Ativan) 1 mg PO BID PRN PRN Reason: ANXIETY Last Admin: 05/07/19 20:21 Dose: 1 mg Documented by: Lorazepam (Ativan) 0.5 mg PO Q4H PRN PRN PRN Reason: ANXIETY Magnesium Oxide (Mag-Ox 400) 400 mg PO BID [facility] Last Admin: 05/08/19 10:20 Dose: 400 mg Documented by: Meclizine HCl (Antivert) 25 mg PO BID PRN PRN PRN Reason: Vertigo Metoprolol Tartrate (Lopressor (Beta Chyna)) 50 mg PO BID [facility] Last Admin: 05/08/19 10:20 Dose: 50 mg Documented by: Nortriptyline HCl (Pamelor) 25 mg PO DAILY [facility] Last Admin: 05/08/19 10:21 Dose: 25 mg Documented by: Ondansetron HCl (Zofran Odt) 4 mg PO Q6H PRN PRN PRN Reason: NAUSEA Last Admin: 05/08/19 04:22 Dose: 4 mg Documented by: Sodium Chloride () 10 - 40 ml IV UD PRN PRN Reason: SALINE FLUSH Last Admin: 05/08/19 04:16 Dose: 10 ml Documented by: Clinical Impression(s) from Imaging Studies Chest X-Ray 05/07/19 15:21 IMPRESSION: Borderline cardiac megaly. The lungs are clear. Electronically Signed: Freddie Rodrigez, at 15:46 EDT , Service support , Brain CT 05/07/19 16:41 IMPRESSION: No acute intracranial abnormality. Chronic ischemic and atrophic changes. Bilateral maxillary sinus disease with surgical changes noted. Electronically Signed: Rajan Carranza, at 17:12 EDT Tel , Service support , Chest CTA 05/07/19 17:56 IMPRESSION: Significantly limited evaluation due to arm positioning bilaterally and motion artifact. No definite pulmonary arterial filling defects to suggest pulmonary embolus. Coronary artery calcifications. Electronically Signed: Rajan Carranza, at 18:41 EDT Tel , Service support , Head/Neck CTA 05/07/19 17:56 IMPRESSION: Moderate atherosclerotic disease without evidence for hemodynamically significant stenosis utilizing NASCET criteria Electronically Signed: Rajan Martinez MD at 18:39 EDT , Service support , Code Visit Inpatient E&M: [id number] [facility] L3
--- NOTE | 2019-05-08 08:00 | CASEMGMT ---
As per admitting assistant technician, pt has LW/POA but they are not on file, but the forms can be brought in. ARIELLA Owen
[2019-05-08 08:26] LABS: Bedside Glucose 149 mg/dL (70-110)
[2019-05-08] MEDS: Escitalopram Oxalate 10 MG Tablet PO (10:20)
[2019-05-08] MEDS: Magnesium Oxide 400 MG Tablet PO ×2 (10:20→21:04)
[2019-05-08] MEDS: Aspirin 81 MG TAB.CHEW PO (10:20)
[2019-05-08] MEDS: Nortriptyline 25 MG Capsule PO (10:21)
[2019-05-08] MEDS: Clopidogrel Bisulfate 75 MG Tablet PO (10:21)
[2019-05-08] MEDS: Gabapentin 600 MG Tablet 1200 MG PO ×2 (10:21→21:04)
[2019-05-08] MEDS: Lisinopril 5 MG Tablet PO (11:39)
[2019-05-08] MEDS: Isosorbide Mononitrate 60 MG Tablet PO ×2 (11:39→21:04)
[2019-05-08] MEDS: Insulin Lispro 100 UNIT/ML INSULN.PEN SC ×2 (11:39→21:04)
[2019-05-08 11:45] LABS: Bedside Glucose 167 mg/dL (70-110)
--- NOTE | 2019-05-08 11:50 | CON.PCM_ITS ---
Problem List (1) Speech disturbance Status: Suspected Reason for Consult Date of Consultation: 05/08/19 Reason for Consultation: Questionable speech disturbance History of Present Illness: The patient is a 78 year old M with PMH HTN, HLD, DM, DM neuropathy, dementia, anxiety/depression, CKD, CAD status post stent admitted with shortness of breath and chest pain. History is obtained from the medical records and patient. Neur ology consulted as per documentation there was some concern of speech disturbance on presentation to the ED as there was concern per the family that he had speech disturbance over the last 72 hours possibly, but on examination documentation per the hospitalist there is no expressive aphasia on admission but per documentation there was some confusion on admission. Per patient he lives alone with his dog, uses walker to ambulate, denies any frequent falls, he is on aspirin and Plavix for many years from cardiology point of view per patient, patient himself denies any speech disturbances, focal motor weakness, visual disturbances, headache, dizziness or sensory loss. At present patient is awake, alert and oriented. CT head did not show any acute changes, CTA head/neck did not show any hemodynamically significant stenosis or occlusion. Labs?creatinine 1.5, UA?LE 25, nitrate negative, bacteria 0, WBC 0. [] Past Medical History Past Medical History (Chronic Problems): Chronic Problems (Last Reviewed 12/23/18 @ 13:14 by Renetta Kwan) Pure hypercholesterolemia (Chronic) Essential hypertension (Chronic) CKD (chronic kidney disease) stage 3, GFR 30-59 ml/min (Chronic) Stented coronary artery (Chronic 10/29/18) LETICIA to proximal LAD (3.5X16 Promus Synergy) per Dr. Martinez @ [facility] 10/29/2018 LETICIA to Proximal to Mid 2nd diagonal (2.5 X 24 Promus Premier); LETICIA to mid LAD (4.0 X 38 mm Promus Premier)per Dr. Martinez @ [facility] 11/26/2014 LETICIA to mid RCA (3.5 X16 Promus), FFR of LAD + 0.84 on 07/31/[address] 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) Medical History: Medical History (Last Reviewed 12/23/18 @ 13:14 by Renetta Kwan) Pure hypercholesterolemia (Chronic) E78.00 Essential hypertension (Chronic) I10 Atherosclerotic heart disease of [place] coronary artery without angina pectoris (Chronic) I25.10 Dyspnea R06.00 Hyperlipemia (Inactive) E78.5 Hypertension (Inactive) I10 Allergies No Known Allergies Allergy (Verified 05/07/19 14:07) Home Medications: Ambulatory Orders Medication Instructions Recorded Aspirin [Aspirin, Baby] 81 mg PO DAILY@0800 07/18/13 Lorazepam [Ativan] 1 mg PO BID PRN 07/18/13 Meclizine HCl [Antivert] 25 mg PO BID 07/18/13 Rosuvastatin Calcium [Crestor] 20 mg PO DAILY 07/18/13 metFORMIN HCl [Glucophage] 500 mg PO BID 01/03/14 Donepezil HCl [Aricept] 10 mg PO QHS 11/16/14 Magnesium Oxide [Mag-Ox 400] 400 mg PO BID 11/16/14 glimepiride 4 mg tablet 4 mg PO BID tab 01/08/18 acetaminophen 500 mg capsule 1,000 mg PO BID 01/10/18 nitroglycerin 0.4 mg sublingual 0.4 mg SUBLINGUAL Q5M PRN #25 tab 01/10/18 tablet Escitalopram Oxalate [Lexapro] 10 mg PO DAILY 07/12/18 Famotidine [Pepcid] 40 mg PO DAILY 12/08/18 gabapentin 600 mg tablet 1,200 mg PO BID tab 12/23/18 metoprolol tartrate 50 mg tablet 50 mg PO BID #60 tab 01/24/19 isosorbide mononitrate ER 60 mg 60 mg PO BID #60 tab 01/27/19 tablet,extended release 24 hr lisinopril 5 mg tablet 5 mg PO DAILY #60 tab 01/27/19 Clopidogrel Bisulfate [Clopidogrel] 75 mg PO DAILY 05/07/19 Nortriptyline HCl 25 mg PO DAILY 05/07/19 Surgical History: Surgical History (Last Reviewed 12/23/18 @ 13:14 by Renetta Kwan) Stented coronary artery (Chronic) Onset Date: 10/29/18 Z95.5 LETICIA to proximal LAD (3.5X16 Promus Synergy) per Dr. Martinez @ [facility] 10/29/2018 LETICIA to Proximal to Mid 2nd diagonal (2.5 X 24 Promus Premier); LETICIA to mid LAD (4.0 X 38 mm Promus Premier)per Dr. Martinez @ [facility] 11/26/2014 LETICIA to mid RCA (3.5 X16 Promus), FFR of LAD + 0.84 on 07/31/[address] Martinez @ [facility] Surgical History: - - PCI X 5, right total knee replacement, right foot surgery, sinus surgery, L rotator cuff surgery, TURP. Psychiatric History: Anxiety, Depression, - - Agoraphobia Lives: With Family Smoking Status: Never smoker Tobacco Use: Non-smoker Alcohol: None Drugs: None - *Family History Sibling Family History: Family History (Last Reviewed 12/23/18 @ 13:14 by Renetta Kwan) Son CAD (coronary artery disease) Myocardial infarction Mother Heart disease Father Addisons disease History Items: Heart Disease Maternal Family History: Family History (Last Reviewed 12/23/18 @ 13:14 by Renetta Kwan) Son CAD (coronary artery disease) Myocardial infarction Mother Heart disease Father Addisons disease History Items: Diabetes, Heart Disease Offspring Family History: Family History (Last Reviewed 12/23/18 @ 13:14 by Renetta Kwan) Son CAD (coronary artery disease) Myocardial infarction Mother Heart disease Father Addisons disease History Items: Heart Disease, - - Father with also history of Ja's disease. Paternal Family History: Family History (Last Reviewed 12/23/18 @ 13:14 by Renetta Kwan) Son CAD (coronary artery disease) Myocardial infarction Mother Heart disease Father Addisons disease History Items: - - Ja's disease Review of Systems Constitutional: Reports: - - Complete ROS negative except as documented in HPI Patient Problems: Active and Suspected Problems (Last Reviewed 12/23/18 @ 13:14 by Renetta Kwan) CVA (cerebral vascular accident) (Acute) Chest pain (Acute) Exertional dyspnea (Acute) Speech disturbance (Suspected) - Physical Exam General: Alert HEENT: Normocephalic Neck: Supple Lungs: Normal air movement Cardiovascular: Normal S1, Normal S2 Abdomen: Bowel Sounds Present Extremities: No cyanosis Neurological: - - Conscious, alert, CN II through XII grossly intact, power 5 x 5 both upper and lower extremities, no sensory loss, no cerebellar signs, speech normal at present, gait deferred, reflexes + B/L B/S/T/K/A Psych/Mental Status: Normal Affect Vital Signs Temp Pulse Resp BP Pulse Ox 98.2 F 78 15 155/71 H 98 05/08/19 10:00 05/08/19 10:20 05/08/19 10:00 05/08/19 10:00 05/08/19 10:00 Oxygen Flow Rate (L/min) 2 Oxygen Delivery Method Room Air Weight: 121 kg Body Mass Index (BMI) 34.0 Finger Stick Blood Glucose 150 Intake and Output for Last 24 Hours 05/06/19 05/07/19 05/08/19 23:59 23:59 23:59 Intake Total 2286 / 2286 Output Total 800 / 800 Balance 1486 / 1486 Laboratory Tests Past 24 Hrs 05/07/19 05/07/19 05/07/19 15:30 15:30 15:30 WBC 11.0 RBC 4.96 Hgb 15.5 Hct 45.2 MCV 91.1 MCH 31.3 MCHC 34.3 RDW Std Deviation 44.6 H RDW Coeff of Liang 13.3 Plt Count 196 MPV 8.7 Immature Gran % (Auto) 0.500 Neut % (Auto) 78.9 H Lymph % (Auto) 12.9 L Thurston % (Auto) 7.3 Eos % (Auto) 0.1 Baso % (Auto) 0.3 Absolute Neuts (auto) 8.7 H Absolute Lymphs (auto) 1.42 Nucleated RBC % 0 Specimen Type Sample Site pH Bicarbonate Actual POC Total CO2 Base Excess O2 Saturation ABG pCO2 ABG pO2 Roger Test O2 Delivery Device Liter Flow Blood Gas Notified Whom Blood Gas Notified Time Sodium 139 Potassium 4.1 Chloride 108 H Carbon Dioxide 20.0 L Anion Gap 11 BUN 27 H Creatinine 1.56 H Estim Creat Clear Calc 43.91 Est GFR (MDRD) Af Amer 55 L Est GFR (MDRD) Non-Af 46 L BUN/Creatinine Ratio 17.3 Glucose 164 H Calcium 10.1 Magnesium Troponin I 0.032 B-Natriuretic Peptide 116.2 H Triglycerides Cholesterol LDL Cholesterol VLDL Cholesterol HDL Cholesterol TSH Urine Color Urine Clarity Urine pH Ur Specific Meherrin Urine Protein Urine Glucose (UA) Urine Ketones Urine Occult Blood Urine Nitrite Urine Bilirubin Urine Urobilinogen Ur Leukocyte Esterase Urine RBC Urine WBC Ur Squamous Epith Cells Urine Bacteria Urine Mucus 05/07/19 05/07/19 05/07/19 17:50 18:08 20:00 WBC RBC Hgb Hct MCV MCH MCHC RDW Std Deviation RDW Coeff of Liang Plt Count MPV Immature Gran % (Auto) Neut % (Auto) Lymph % (Auto) Thurston % (Auto) Eos % (Auto) Baso % (Auto) Absolute Neuts (auto) Absolute Lymphs (auto) Nucleated RBC % Specimen Type ART Sample Site R Radial pH 7.62 H* Bicarbonate Actual 15.1 L POC Total CO2 16 Base Excess -6 L O2 Saturation 100 H ABG pCO2 14.8 L* ABG pO2 130 H Roger Test POS O2 Delivery Device Nasal Can Liter Flow 2.0 Blood Gas Notified Whom [facility] Blood Gas Notified Time 1800 Sodium Potassium Chloride Carbon Dioxide Anion Gap BUN Creatinine Estim Creat Clear Calc Est GFR (MDRD) Af Amer Est GFR (MDRD) Non-Af BUN/Creatinine Ratio Glucose Calcium Magnesium 1.9 Troponin I B-Natriuretic Peptide Triglycerides 133 Cholesterol 137 LDL Cholesterol 63 VLDL Cholesterol 27 HDL Cholesterol 47 TSH 2.17 Urine Color Yellow Urine Clarity Clear Urine pH 7.0 Ur Specific Meherrin 1.015 Urine Protein 30 H Urine Glucose (UA) Normal Urine Ketones 50 H Urine Occult Blood 50 H Urine Nitrite Negative Urine Bilirubin Negative Urine Urobilinogen 1 H Ur Leukocyte Esterase 25 H Urine RBC 0-5 SEEN Urine WBC 0 SEEN Ur Squamous Epith Cells 0 SEEN Urine Bacteria 0 SEEN Urine Mucus 1+ 05/07/19 05/07/19 05/08/19 20:00 23:00 03:20 WBC RBC Hgb Hct MCV MCH MCHC RDW Std Deviation RDW Coeff of Liang Plt Count MPV Immature Gran % (Auto) Neut % (Auto) Lymph % (Auto) Thurston % (Auto) Eos % (Auto) Baso % (Auto) Absolute Neuts (auto) Absolute Lymphs (auto) Nucleated RBC % Specimen Type Sample Site pH Bicarbonate Actual POC Total CO2 Base Excess O2 Saturation ABG pCO2 ABG pO2 Roger Test O2 Delivery Device Liter Flow Blood Gas Notified Whom Blood Gas Notified Time Sodium 141 Potassium 3.7 Chloride 109 H Carbon Dioxide 22.0 Anion Gap 10 BUN 26 H Creatinine 1.22 Estim Creat Clear Calc 56.15 Est GFR (MDRD) Af Amer 73 Est GFR (MDRD) Non-Af 61 BUN/Creatinine Ratio 21.3 H Glucose 161 H Calcium 8.7 Magnesium Troponin I 0.030 0.036 B-Natriuretic Peptide Triglycerides Cholesterol LDL Cholesterol VLDL Cholesterol HDL Cholesterol TSH Urine Color Urine Clarity Urine pH Ur Specific Meherrin Urine Protein Urine Glucose (UA) Urine Ketones Urine Occult Blood Urine Nitrite Urine Bilirubin Urine Urobilinogen Ur Leukocyte Esterase Urine RBC Urine WBC Ur Squamous Epith Cells Urine Bacteria Urine Mucus 05/08/19 03:20 WBC RBC Hgb Hct MCV MCH MCHC RDW Std Deviation RDW Coeff of Liang Plt Count MPV Immature Gran % (Auto) Neut % (Auto) Lymph % (Auto) Thurston % (Auto) Eos % (Auto) Baso % (Auto) Absolute Neuts (auto) Absolute Lymphs (auto) Nucleated RBC % Specimen Type Sample Site pH Bicarbonate Actual POC Total CO2 Base Excess O2 Saturation ABG pCO2 ABG pO2 Roger Test O2 Delivery Device Liter Flow Blood Gas Notified Whom Blood Gas Notified Time Sodium Potassium Chloride Carbon Dioxide Anion Gap BUN Creatinine Estim Creat Clear Calc Est GFR (MDRD) Af Amer Est GFR (MDRD) Non-Af BUN/Creatinine Ratio Glucose Calcium Magnesium Troponin I 0.041 B-Natriuretic Peptide Triglycerides Cholesterol LDL Cholesterol VLDL Cholesterol HDL Cholesterol TSH Urine Color Urine Clarity Urine pH Ur Specific Meherrin Urine Protein Urine Glucose (UA) Urine Ketones Urine Occult Blood Urine Nitrite Urine Bilirubin Urine Urobilinogen Ur Leukocyte Esterase Urine RBC Urine WBC Ur Squamous Epith Cells Urine Bacteria Urine Mucus POC Glucose 05/08/19 05/08/19 05/07/19 11:37 08:21 23:11 POC Glucose 167 H 149 H 157 H Assessment/Plan All Active Problems (Last Reviewed 12/23/18 @ 13:14 by Renetta Kwan) CVA (cerebral vascular accident) (Acute) Chest pain (Acute) Exertional dyspnea (Acute) Angina of effort (Resolved) The patient is a 78 year old M with PMH HTN, HLD, DM, DM neuropathy, dementia, anxiety/depression, CKD, CAD status post stent admitted with shortness of breath and chest pain. History is obtained from the medical records and patient. Neurology consulted as per documentation there was some concern of speech disturbance on presentation to the ED as there was concern per the family that h e had speech disturbance over the last 72 hours possibly, but on examination documentation per the hospitalist there is no expressive aphasia on admission, per documentation there was some confusion on admission. Per patient he lives alone with his dog, uses walker to ambulate, denies any frequent falls, he is on aspirin and Plavix for many years from cardiology point of view per patient, patient himself denies any speech disturbances, focal motor weakness, visual disturbances, headache, dizziness or sensory loss. At present patient is awake, alert and oriented. CT head did not show any acute changes, CTA head/neck did not show any hemodynamically significant stenosis or occlusion. Labs?creatinine 1.5, UA?LE 25, nitrate negative, bacteria 0, WBC 0. Impression Likely metabolic encephalopathy Unlikely to be TIA at present, rule out stroke?less likely Dementia Plan ?MRI brain pending ?CTA head/neck no hemodynamically significant stenosis or occlusion ?On aspirin and Plavix for many years per cardiology per patient, bleeding risk discussed in detail ?On statins ?Stroke risk factors discussed in detail and stroke education provided ?TTE ?LDL 63, HbA1c?pending ?On Aricept for possible dementia. On nortriptyline which may worsen memory issues/dementia. Should be tapered off and discontinued, but will defer to hospitalist and PCP. Avoid benzodiazepines. ?PT/OT/ST ?Fall precaution ?GI/DVT prophylaxis ?Further medical management per hospitalist team and ICU team ?Please call with questions if any ?Follow-up with neurology as outpatient in 6 weeks ?Thank you for allowing us to participate in patient's care and management This note has been generated using [employer] dictation software. It may contain incorrect words, spellings and punctuation that were not noted in the review of the note prior to signing. Code Visit Inpatient E&M: 81705 Init Hosp L3
--- NOTE | 2019-05-08 14:39 | CASEMGMT ---
KAREN CM Assessment Presentation: Metabolic Encephalopathy Pt is @ MRI, unable to participate in assessment at this time. Chart reviewed, pt has been alert, oriented ;and able to follow instructions. PCP: Dr. Louis Specialists: Dr. Perez, neuro; Dr. Pickens, cardiology Preferred Pharmacy: [facility] Insurance: [facility] LNOK: Daughter, Mary Beth Zelaya is DPOA Elyse is listed to be staying @ [facility]. Living Arrangements: Pt lives alone in apartment with his dog. Uses walker to ambulate, was independent in ADL per OT evaluation. No further OT recommended. Pt ambulated 200' SBA for PT. DME: Walker, cane, toilet side rails, grab bars HHC: none Patient DC goals: Home DC PLAN: Anticipate home on discharge. Will follow PT for further recommendations. Anisa VILLALOBOS RN ACM
--- NOTE | 2019-05-08 15:15 | MRI_ITS ---
STUDY: MRI BRAIN WITHOUT CONTRAST REASON FOR EXAM: Male, 78 years old. CVA TECHNIQUE: Standardized multiplanar fat and water weighted pulse sequences were obtained. COMPARISON: December 08, 2018 FINDINGS: Mild atrophy and minor periventricular white matter ischemic change without evidence for acute infarct. Normal bilateral basal ganglia. Normal thalami. There is no extra-axial fluid accumulation. Normal flow voids within the major intracranial circulation suggesting patency by spin echo criteria. Normal sella turcica, pituitary gland, infundibular stalk, optic chiasm and hypothalamus. Normal tectal plate and pineal gland. Normal midbrain, kiara and medulla. Normal cerebellum. Normal basal cisterns. Normal bilateral temporal bones. Normal bilateral internal auditory canals. No demonstrated orbital abnormality, within the constraints of a routine brain study. Mild mucosal thickening of the maxillary sinuses.. Normal calvarium and skull base. Normal visualized soft tissue structures. Normal visualized upper cervical spine. No significant change since prior exam MRI/Brain without Contrast IMPRESSION: Mild atrophy and minor periventricular white matter ischemic changes without evidence for acute infarct. Electronically Signed: Rajan Martinez MD at 15:57 EDT , Service support ,
[2019-05-08 16:46] LABS: Bedside Glucose 122 mg/dL (70-110)
--- NOTE | 2019-05-08 16:48 | CHAPLAIN ---
Type of Pastoral Visit _x__ Initial Visit ___ Follow-up Visit ___ On-call Visit ___ General Patient Visit ___ Spiritual Assessment ___ Family Conference ___ Bereavement ___ Rapid Response ___ Code Blue ___ Other (describe below) Pastoral Care Referral From _x__ Patient ___ Family ___ Nurse ___ Physician ___ Multicultural Internship ___ Decision Analyst ___ Other (describe below) Sacrament/Intervention _x__ Active listening ___ Anointing ___ Mandaen ___ Bereavement ___ Communion ___ Yvette exploration ___ _x__ Life review _x__ Prayer ___ Reconciliation ___ Sacrament of Sick _x__ Supportive presence ___ Wedding ___ Other (describe below) Pastoral Comments
[2019-05-08] MEDS: LORazepam 1 MG Tablet PO (21:01)
[2019-05-08] MEDS: Atorvastatin Calcium 40 MG Tablet PO (21:04)
[2019-05-08] MEDS: Donepezil HCl 10 MG Tablet PO (21:04)
[2019-05-08 21:11] LABS: Bedside Glucose 169 mg/dL (70-110)
[2019-05-09] VITALS (7 sets, daily range): BP systolic 97–139; BP diastolic 53–71; PULSE 58–78; RESP 16–18; TEMP 36.1–37.6; O2SAT 94–100
[2019-05-09] MEDS: Heparin Injection (Vial) 5,000 UNIT/ML VIAL 5000 UNIT SC ×3 (06:03→21:10)
--- NOTE | 2019-05-09 06:44 | PN_ITS ---
Patient Problems: Active and Suspected Problems (Last Reviewed 12/23/18 @ 13:14 by Renetta Kwan) CVA (cerebral vascular accident) (Acute) Chest pain (Acute) Exertional dyspnea (Acute) Speech disturbance (Suspected) Subjective: The patient was seen and examined at the bedside this morning. Events from the last 24 hours have been reviewed. The patient is currently afebrile, hemodynamically stable and maintaining appropriate oxygen saturations on room air. The patient was evaluated by neurology yesterday and an MRI was obtained. That imaging study only demonstrated mild atrophy and minor periventricular white matter ischemic changes without an acute infarct. The patient is stable this morning, talking with his on the telephone. Objective: The patient's most recent lab work, culture data and imaging studies have all been personally reviewed. Surface echocardiogram from October 2018 revealed evidence of stage I diastolic dysfunction with an ejection fraction of 65%. Right ventricular systolic pressure was estimated to be [address] head revealed no acute intracranial abnormality. Chronic ischemic changes were noted along with bilateral maxillary sinus disease. A CTA chest was obtained, but was of poor quality due to motion artifact. No definitive pulmonary filling defects were noted. Head/neck CTA revealed moderate atherosclerotic disease without evidence for hemodynamically significant stenosis. - Physical Exam General: Alert, Cooperative, No apparent distress HEENT: Atraumatic, PERRLA, Normocephalic Oral: No Gingival or Mucosal Lesions/ Ulcerations Neck: Supple, No Nodes, Trachea Midline Lungs: No rhonchi, No wheeze, No rales, Diminished Cardiovascular: Regular rate, Regular Rhythm, Normal S1, Normal S2, - - Distant heart tones secondary to body habitus. Abdomen: Bowel Sounds Present, Soft, Obese Extremities: No clubbing, No cyanosis, No edema Skin: No breakdown Musculoskeletal: No Tenderness to Palpation of Joints or Extremities Lymphatic: No Cervical, Supraclavicular, or Inguinal Adenopathy Neurological: Cranial nerves II-XII grossly intact, Neuro grossly intact Psych/Mental Status: Normal Affect, Appropriate Vital Signs Temp Pulse Resp BP Pulse Ox 97.0 F L 58 L 16 97/53 L 100 05/09/19 03:00 05/09/19 03:00 05/09/19 03:00 05/09/19 03:00 05/09/19 03:00 Oxygen Flow Rate (L/min) 2 Oxygen Delivery Method Room Air Weight: 267 lb 3.204 oz Body Mass Index (BMI) 34.0 Finger Stick Blood Glucose 150 Intake and Output for Last 24 Hours 05/07/19 05/08/19 05/09/19 23:59 23:59 23:59 Intake Total 3806 / 3806 50 / 50 Output Total 1275 / 1275 Balance 2531 / 2531 50 / 50 POC Glucose 05/08/19 05/08/19 05/08/19 21:00 16:41 11:37 POC Glucose 169 H 122 H 167 H 05/08/19 08:21 POC Glucose 149 H Labs (Last 48 Hours) 05/07/19 05/07/19 05/07/19 15:30 15:30 15:30 WBC 11.0 RBC 4.96 Hgb 15.5 Hct 45.2 MCV 91.1 MCH 31.3 MCHC 34.3 RDW Std Deviation 44.6 H RDW Coeff of Liang 13.3 Plt Count 196 MPV 8.7 Immature Gran % (Auto) 0.500 Neut % (Auto) 78.9 H Lymph % (Auto) 12.9 L [place] % (Auto) 7.3 Eos % (Auto) 0.1 Baso % (Auto) 0.3 Absolute Neuts (auto) 8.7 H Absolute Lymphs (auto) 1.42 Nucleated RBC % 0 Specimen Type Sample Site pH Bicarbonate Actual POC Total CO2 Base Excess O2 Saturation ABG pCO2 ABG pO2 Roger Test O2 Delivery Device Liter Flow Blood Gas Notified Whom Blood Gas Notified Time Sodium 139 Potassium 4.1 Chloride 108 H Carbon Dioxide 20.0 L Anion Gap 11 BUN 27 H Creatinine 1.56 H Estim Creat Clear Calc 43.91 Est GFR (MDRD) Af Amer 55 L Est GFR (MDRD) Non-Af 46 L BUN/Creatinine Ratio 17.3 Glucose 164 H Calcium 10.1 Magnesium Troponin I 0.032 B-Natriuretic Peptide 116.2 H Triglycerides Cholesterol LDL Cholesterol VLDL Cholesterol HDL Cholesterol TSH Urine Color Urine Clarity Urine pH Ur Specific [place] Urine Protein Urine Glucose (UA) Urine Ketones Urine Occult Blood Urine Nitrite Urine Bilirubin Urine Urobilinogen Ur Leukocyte Esterase Urine RBC Urine WBC Ur Squamous Epith Cells Urine Bacteria Urine Mucus POC Glucose 05/07/19 05/07/19 05/07/19 17:50 18:08 20:00 WBC RBC Hgb Hct MCV MCH MCHC RDW Std Deviation RDW Coeff of Liang Plt Count MPV Immature Gran % (Auto) Neut % (Auto) Lymph % (Auto) [place] % (Auto) Eos % (Auto) Baso % (Auto) Absolute Neuts (auto) Absolute Lymphs (auto) Nucleated RBC % Specimen Type ART Sample Site R Radial pH 7.62 H* Bicarbonate Actual 15.1 L POC Total CO2 16 Base Excess -6 L O2 Saturation 100 H ABG pCO2 14.8 L* ABG pO2 130 H Roger Test POS O2 Delivery Device Nasal Can Liter Flow 2.0 Blood Gas Notified Whom [facility] Blood Gas Notified Time 1800 Sodium Potassium Chloride Carbon Dioxide Anion Gap BUN Creatinine Estim Creat Clear Calc Est GFR (MDRD) Af Amer Est GFR (MDRD) Non-Af BUN/Creatinine Ratio Glucose Calcium Magnesium 1.9 Troponin I B-Natriuretic Peptide Triglycerides 133 Cholesterol 137 LDL Cholesterol 63 VLDL Cholesterol 27 HDL Cholesterol 47 TSH 2.17 Urine Color Yellow Urine Clarity Clear Urine pH 7.0 Ur Specific [place] 1.015 Urine Protein 30 H Urine Glucose (UA) Normal Urine Ketones 50 H Urine Occult Blood 50 H Urine Nitrite Negative Urine Bilirubin Negative Urine Urobilinogen 1 H Ur Leukocyte Esterase 25 H Urine RBC 0-5 SEEN Urine WBC 0 SEEN Ur Squamous Epith Cells 0 SEEN Urine Bacteria 0 SEEN Urine Mucus 1+ POC Glucose 05/07/19 05/07/19 05/07/19 20:00 23:00 23:11 WBC RBC Hgb Hct MCV MCH MCHC RDW Std Deviation RDW Coeff of Liang Plt Count MPV Immature Gran % (Auto) Neut % (Auto) Lymph % (Auto) [place] % (Auto) Eos % (Auto) Baso % (Auto) Absolute Neuts (auto) Absolute Lymphs (auto) Nucleated RBC % Specimen Type Sample Site pH Bicarbonate Actual POC Total CO2 Base Excess O2 Saturation ABG pCO2 ABG pO2 Roger Test O2 Delivery Device Liter Flow Blood Gas Notified Whom Blood Gas Notified Time Sodium Potassium Chloride Carbon Dioxide Anion Gap BUN Creatinine Estim Creat Clear Calc Est GFR (MDRD) Af Amer Est GFR (MDRD) Non-Af BUN/Creatinine Ratio Glucose Calcium Magnesium Troponin I 0.030 0.036 B-Natriuretic Peptide Triglycerides Cholesterol LDL Cholesterol VLDL Cholesterol HDL Cholesterol TSH Urine Color Urine Clarity Urine pH Ur Specific [place] Urine Protein Urine Glucose (UA) Urine Ketones Urine Occult Blood Urine Nitrite Urine Bilirubin Urine Urobilinogen Ur Leukocyte Esterase Urine RBC Urine WBC Ur Squamous Epith Cells Urine Bacteria Urine Mucus POC Glucose 157 H 05/08/19 05/08/19 05/08/19 03:20 03:20 08:21 WBC RBC Hgb Hct MCV MCH MCHC RDW Std Deviation RDW Coeff of Liang Plt Count MPV Immature Gran % (Auto) Neut % (Auto) Lymph % (Auto) [place] % (Auto) Eos % (Auto) Baso % (Auto) Absolute Neuts (auto) Absolute Lymphs (auto) Nucleated RBC % Specimen Type Sample Site pH Bicarbonate Actual POC Total CO2 Base Excess O2 Saturation ABG pCO2 ABG pO2 Roger Test O2 Delivery Device Liter Flow Blood Gas Notified Whom Blood Gas Notified Time Sodium 141 Potassium 3.7 Chloride 109 H Carbon Dioxide 22.0 Anion Gap 10 BUN 26 H Creatinine 1.22 Estim Creat Clear Calc 56.15 Est GFR (MDRD) Af Amer 73 Est GFR (MDRD) Non-Af 61 BUN/Creatinine Ratio 21.3 H Glucose 161 H Calcium 8.7 Magnesium Troponin I 0.041 B-Natriuretic Peptide Triglycerides Cholesterol LDL Cholesterol VLDL Cholesterol HDL Cholesterol TSH Urine Color Urine Clarity Urine pH Ur Specific [place] Urine Protein Urine Glucose (UA) Urine Ketones Urine Occult Blood Urine Nitrite Urine Bilirubin Urine Urobilinogen Ur Leukocyte Esterase Urine RBC Urine WBC Ur Squamous Epith Cells Urine Bacteria Urine Mucus POC Glucose 149 H 05/08/19 05/08/19 05/08/19 11:37 16:41 21:00 WBC RBC Hgb Hct MCV MCH MCHC RDW Std Deviation RDW Coeff of Liang Plt Count MPV Immature Gran % (Auto) Neut % (Auto) Lymph % (Auto) [place] % (Auto) Eos % (Auto) Baso % (Auto) Absolute Neuts (auto) Absolute Lymphs (auto) Nucleated RBC % Specimen Type Sample Site pH Bicarbonate Actual POC Total CO2 Base Excess O2 Saturation ABG pCO2 ABG pO2 Roger Test O2 Delivery Device Liter Flow Blood Gas Notified Whom Blood Gas Notified Time Sodium Potassium Chloride Carbon Dioxide Anion Gap BUN Creatinine Estim Creat Clear Calc Est GFR (MDRD) Af Amer Est GFR (MDRD) Non-Af BUN/Creatinine Ratio Glucose Calcium Magnesium Troponin I B-Natriuretic Peptide Triglycerides Cholesterol LDL Cholesterol VLDL Cholesterol HDL Cholesterol TSH Urine Color Urine Clarity Urine pH Ur Specific [place] Urine Protein Urine Glucose (UA) Urine Ketones Urine Occult Blood Urine Nitrite Urine Bilirubin Urine Urobilinogen Ur Leukocyte Esterase Urine RBC Urine WBC Ur Squamous Epith Cells Urine Bacteria Urine Mucus POC Glucose 167 H 122 H 169 H Clinical Impression(s) from Imaging Studies Chest X-Ray 05/07/19 15:21 IMPRESSION: Borderline cardiac megaly. The lungs are clear. Electronically Signed: Freddie Rain, at 15:46 EDT , Service support , Brain CT 05/07/19 16:41 IMPRESSION: No acute intracranial abnormality. Chronic ischemic and atrophic changes. Bilateral maxillary sinus disease with surgical changes noted. Electronically Signed: Rajan Carranza, at 17:12 EDT Tel , Service support , Chest CTA 05/07/19 17:56 IMPRESSION: Significantly limited evaluation due to arm positioning bilaterally and motion artifact. No definite pulmonary arterial filling defects to suggest pulmonary embolus. Coronary artery calcifications. Electronically Signed: Rajan Carranza, at 18:41 EDT Tel , Service support , Head/Neck CTA 05/07/19 17:56 IMPRESSION: Moderate atherosclerotic disease without evidence for hemodynamically significant stenosis utilizing NASCET criteria Electronically Signed: Rajan Martinez MD at 18:39 EDT , Service support , Brain MRI 05/08/19 15:15 IMPRESSION: Mild atrophy and minor periventricular white matter ischemic changes without evidence for acute infarct. Electronically Signed: Rajan Martinez MD at 15:57 EDT , Service support , Medical Necessity - Tobacco Use Smoking Status: Never smoker Tobacco Use: Non-smoker Assessment/Plan All Active Problems (Last Reviewed 12/23/18 @ 13:14 by Renetta Kwan) CVA (cerebral vascular accident) (Acute) Chest pain (Acute) Exertional dyspnea (Acute) Angina of effort (Resolved) RECOMMENDATIONS: 1. Continue to encourage incentive spirometer use while in bed. 2. Mobilize patient as tolerated. 3. Consider initiation of nocturnal BiPAP therapy. IMPRESSIONS: 1. Shortness of breath/hyperventilation Resolved. The patient reported to me intermittent episodes of shortness of breath which are transient in nature. It is certainly possible that the patient's presenting dyspnea and tachypnea may have been secondary to underlying anxiety or an acute panic attack leading to hyperventilation. The patient does appear to use Ativan on an as-needed basis in his home environment. His r espiratory symptoms have resolved at this time. CTA chest did not reveal evidence of PE. No other parenchymal lung abnormality was identified. He is maintaining appropriate oxygen saturations on room air. 2. Altered mentation Resolved. There is some note in the patient's medical records of a history of dementia. The patient is currently prescribed Aricept. While he was initially noted to be confused on presentation, the patient is alert and appropriately interactive this morning. CT of the head was unremarkable. The patient does appear to be at his baseline from a mentation standpoint without focal neurological deficits. 3. Acute on chronic kidney disease Resolved. Likely prerenal in etiology, as the patient responded to gentle IV fluid hydration. We will continue to monitor urine output. No indication for renal replacement therapy. 4. Coronary artery disease status post PCI/paroxysmal atrial fibrillation/heart failure with preserved ejection fraction Continue outpatient medication regimen. 5. History of obstructive sleep apnea The patient does have a history of obstructive sleep apnea and is supposed to be utilizing BiPAP nightly. It is unclear how compliant the patient is with his home nocturnal Pap therapy. However, I strongly suspect that he is not uti lizing his BiPAP on a regular basis. 6. Obesity/diabetes mellitus/neuropathy/chronic hypomagnesemia/BPH/GERD/depression/anxiety Complicates care, management, recovery and prognosis. Continue sliding scale insulin regimen for now. This note was generated with [employer] dictation software. It may contain incorrect words, spelling, and punctuation that were not noted in checking the note before signing. DISPOSITION: As the patient is without further ICU or pulmonary needs, will sign off. Please call with any additional questions. Code Visit Inpatient E&M: 98002 Subs Hosp L2
--- NOTE | 2019-05-09 07:27 | PN_ITS ---
Patient Problems: Active and Suspected Problems (Last Reviewed 12/23/18 @ 13:14 by Renetta Kwan) CVA (cerebral vascular accident) (Acute) Chest pain (Acute) Exertional dyspnea (Acute) Speech disturbance (Suspected) Subjective: Patient seen. Patient had a restful night. Plan is for patient to be transferred to group home facility versus assisted living facility. Discussed with case management regarding disposition ; per patient had a relatively uneventful night Objective: GENERAL: cooperative HEENT: Atraumatic; EYES; Anicteric, Normal Conjunctiva NECK; supple, normal thyroid, RESPIRATORY: Diminished to auscultation CARDIOVASCULAR: Regular S1 S2, GI: soft, non-tender, normoactive bowel sounds, : No Renal angle tenderness; EXTREMITIES: No edema, no clubbing, MUSCULOSKELETAL: No Joint Tenderness; NEURO: Awake; no lateralizing signs. SKIN: No Rash PSYCH; Normal affect Vitals/I&O's: Vital Signs Temp Pulse Resp BP Pulse Ox 97.0 F L 58 L 16 97/53 L 100 05/09/19 03:00 05/09/19 03:00 05/09/19 03:00 05/09/19 03:00 05/09/19 03:00 Oxygen Flow Rate (L/min) 2 Oxygen Delivery Method Room Air Weight: 121.2 kg Body Mass Index (BMI) 34.0 Finger Stick Blood Glucose 150 Intake and Output for Last 24 Hours 05/07/19 05/08/19 05/09/19 23:59 23:59 23:59 Intake Total 3806 / 3806 50 / 50 Output Total 1275 / 1275 300 / 300 Balance 2531 / 2531 -250 / -250 Laboratory Results 05/08/19 08:21: POC Glucose 149 H 05/08/19 11:37: POC Glucose 167 H 05/08/19 16:41: POC Glucose 122 H 05/08/19 21:00: POC Glucose 169 H Current Medications Acetaminophen (Tylenol) 650 mg PO Q6H PRN PRN PRN Reason: PAIN Aspirin (Aspirin, Baby) 81 mg PO DAILY@0800 [facility] Last Admin: 05/08/19 10:20 Dose: 81 mg Documented by: Atorvastatin Calcium (Lipitor) 40 mg PO QHS [facility] Last Admin: 05/08/19 21:04 Dose: 40 mg Documented by: Clopidogrel Bisulfate (Plavix) 75 mg PO DAILY [facility] Last Admin: 05/08/19 10:21 Dose: 75 mg Documented by: Dextrose (D50w Syringe) 0 gm IV X1 PRN; Protocol PRN Reason: Hypoglycemia Donepezil HCl (Aricept) 10 mg PO QHS [facility] Last Admin: 05/08/19 21:04 Dose: 10 mg Documented by: Escitalopram Oxalate (Lexapro) 10 mg PO DAILY [facility] Last Admin: 05/08/19 10:20 Dose: 10 mg Documented by: Gabapentin (Neurontin) 1,200 mg PO BID [facility] Last Admin: 05/08/19 21:04 Dose: 1,200 mg Documented by: Glucagon () 1 mg IM .X1 PRN PRN Reason: Hypoglycemia Heparin Sodium (Porcine) (Heparin Na) 5,000 unit SC Q8 [facility] Last Admin: 05/09/19 06:03 Dose: 5,000 unit Documented by: Sodium Chloride () 250 mls @ 15 mls/hr IV .[id number] PRN PRN Reason: SALINE FLUSH Insulin Human Lispro (Humalog Kwikpen (Bkc)) 0 unit SC ACHS [facility]; Protocol Last Admin: 05/08/19 21:04 Dose: 1 u Documented by: Isosorbide Mononitrate (Imdur) 60 mg PO BID [facility] Last Admin: 05/08/19 21:04 Dose: 60 mg Documented by: Lisinopril (Zestril) 5 mg PO DAILY [facility] Last Admin: 05/08/19 11:39 Dose: 5 mg Documented by: Lorazepam (Ativan) 1 mg PO BID PRN PRN Reason: ANXIETY Last Admin: 05/08/19 21:01 Dose: 1 mg Documented by: Lorazepam (Ativan) 0.5 mg PO Q4H PRN PRN PRN Reason: ANXIETY Magnesium Oxide (Mag-Ox 400) 400 mg PO BID [facility] Last Admin: 05/08/19 21:04 Dose: 400 mg Documented by: Meclizine HCl (Antivert) 25 mg PO BID PRN PRN PRN Reason: Vertigo Metoprolol Tartrate (Lopressor (Beta Chyna)) 50 mg PO BID [facility] Last Admin: 05/08/19 21:04 Dose: 50 mg Documented by: Nortriptyline HCl (Pamelor) 25 mg PO DAILY [facility] Last Admin: 05/08/19 10:21 Dose: 25 mg Documented by: Ondansetron HCl (Zofran Odt) 4 mg PO Q6H PRN PRN PRN Reason: NAUSEA Last Admin: 05/08/19 04:22 Dose: 4 mg Documented by: Sodium Chloride () 10 - 40 ml IV UD PRN PRN Reason: SALINE FLUSH Last Admin: 05/08/19 04:16 Dose: 10 ml Documented by: Medical Necessity - Tobacco Use Smoking Status: Never smoker Tobacco Use: Non-smoker Assessment/Plan All Active Problems (Last Reviewed 12/23/18 @ 13:14 by Renetta Kwan) CVA (cerebral vascular accident) (Acute) Chest pain (Acute) Exertional dyspnea (Acute) Angina of effort (Resolved) Patient is an 78-year-old gentleman with past medical history significant for dementia diabetes mellitus type 2 who was brought to the emergency department with shortness of breath. Patient was found to have significant acute respiratory alkalosis attributed to hyperventilation admitted to monitored bed for subsequent management. 1. Acute respiratory alkalosis attributed to hyperventilation. Letter to be secondary to panic attack. Patient work-up is so far remain negative to date 2. Acute metabolic encephalopathy attributed to #1 patient confusion has since improved CT of the head obtained was negative for acute CVA 3. Diabetes mellitus type 2 patient oral diabetic medications held please on Accu-Cheks before meals and at bedtime with sliding scale coverage 4. Coronary artery disease with previous PCI to his LAD 5. Hypertension-blood pressure controlled, home medications continued with dose adjustment as needed 6. Obstructive sleep apnea 7. Depression with anxiety and is on Lexapro resumed 8. Dementia unspecified patient is on Aricept 9. DVT prophylaxis Sc heparin 10. Physical deconditioning requested for PT OT eval and social worker delinquency prevention to assist with discharge planning Code Visit Inpatient E&M: 99905 Subs Hosp L2
[2019-05-09] MEDS: Insulin Lispro 100 UNIT/ML INSULN.PEN SC ×3 (08:29→21:11)
[2019-05-09] MEDS: Escitalopram Oxalate 10 MG Tablet PO (08:30)
[2019-05-09] MEDS: Aspirin 81 MG TAB.CHEW PO (08:30)
[2019-05-09] MEDS: Isosorbide Mononitrate 60 MG Tablet PO ×2 (08:30→21:10)
[2019-05-09] MEDS: Metoprolol Tartrate 50 MG Tablet PO ×2 (08:30→21:10)
[2019-05-09 08:31] LABS: Bedside Glucose 159 mg/dL (70-110)
[2019-05-09] MEDS: Gabapentin 600 MG Tablet 1200 MG PO ×2 (08:32→21:11)
[2019-05-09] MEDS: Magnesium Oxide 400 MG Tablet PO ×2 (08:32→21:10)
[2019-05-09] MEDS: Clopidogrel Bisulfate 75 MG Tablet PO (08:33)
[2019-05-09] MEDS: Lisinopril 5 MG Tablet PO (08:33)
[2019-05-09] MEDS: Nortriptyline 25 MG Capsule PO (08:33)
--- NOTE | 2019-05-09 08:53 | CASEMGMT ---
PHQ-9 was not completed as pt has dementia and stroke has been ruled out. ARIELLA Owen
--- NOTE | 2019-05-09 09:29 | CASEMGMT ---
Addendum entered by Minnie Snyder 05/09/19 10:11: SW called [facility], faxed letter stating pt is in the hospital and going to a skilled nursing, cannot be in court Sunday. SW completed hospital exemption in the [facility] system. SW did give pt a list of nursing homes in [facility], pt still wants [facility]. SW explained did send the referral, waiting for a return call. SW gave pt the letter DESIRAE faxed to the court along with the confirmation, stating the letter did go through. Once SW hears back from [facility], will let pt know and call pt's step daughter letting her know pt can to go [facility] tomorrow. ARIELLA Owen Original Note: SW met w/pt in room in regard to discharge plan. Pt explained his is at [facility], he would like to go there for rehab. Pt went on to speak about his , explained they just got in July ( or , he can't remember which day), had started dating in February. He explained he had known her since 1960 and their paths had crossed multiple times over the years. SW listened as pt reflected on his life. SW explained will make referral to [facility] and let him know if they can take him. Pt also said he has a court case on Sunday and asked about how to let them know he is here. SW explained will write a letter and fax it to the courts for him. SW inquired if there is anyone SW should check in with in his family in regard to this. Pt states SW to check in w/step daughter Mary Beth Zelaya, who he states is his POA. SW will call her shortly. DESIRAE called [facility], faxed referral. Adali to call SW back and let SW know if they can take pt. DESIRAE will continue to follow. ARIELLA Owen
--- NOTE | 2019-05-09 10:04 | PN.NEURO_ITS ---
Patient Problems: Active and Suspected Problems (Last Reviewed 12/23/18 @ 13:14 by Renetta Kwan) CVA (cerebral vascular accident) (Acute) Chest pain (Acute) Exertional dyspnea (Acute) Speech disturbance (Suspected) Subjective: No issues overnight. MRI brain did not show any acute stroke. At present patient is conscious alert oriented denies any speech disturbances. Has been on aspirin and Plavix for many years per patient. - Physical Exam General: Alert HEENT: Normocephalic Neck: Supple Lungs: Normal air movement Cardiovascular: Normal S1, Normal S2 Abdomen: Bowel Sounds Present Extremities: No cyanosis Neurological: - - Conscious, alert, CN II through XII grossly intact, power 5 x 5 both upper and lower extremities, no sensory loss, no cerebellar signs, speech normal at present, gait deferred, reflexes + B/L B/S/T/K/A Psych/Mental Status: Normal Affect Vital Signs Temp Pulse Resp BP Pulse Ox 97 F L 78 16 139/60 H 94 05/09/19 08:34 05/09/19 08:34 05/09/19 08:34 05/09/19 08:34 05/09/19 08:34 Oxygen Flow Rate (L/min) 2 Oxygen Delivery Method Room Air Weight: 121.2 kg Body Mass Index (BMI) 34.0 Finger Stick Blood Glucose 150 Intake and Output for Last 24 Hours 05/07/19 05/08/19 05/09/19 23:59 23:59 23:59 Intake Total 3806 / 3806 50 / 50 Output Total 1275 / 1275 300 / 300 Balance 2531 / 2531 -250 / -250 POC Glucose 05/09/19 05/08/19 05/08/19 08:26 21:00 16:41 POC Glucose 159 H 169 H 122 H 05/08/19 11:37 POC Glucose 167 H Medical Necessity - Tobacco Use Smoking Status: Never smoker Tobacco Use: Non-smoker Assessment/Plan All Active Problems (Last Reviewed 12/23/18 @ 13:14 by Renetta Kwan) CVA (cerebral vascular accident) (Acute) Chest pain (Acute) Exertional dyspnea (Acute) Angina of effort (Resolved) The patient is a 78 year old M with PMH HTN, HLD, DM, DM neuropathy, dementia, anxiety/depression, CKD, CAD status post stent admitted with shortness of breath and chest pain. History is obtained from the medical records and patient. Neurology consulted as per documentation there was some concern of speech disturbance on presentation to the ED as there was concern per the family that he had speech disturbance over the last 72 hours possibly, but on examination documentation per the hospitalist note there is no expressive aphasia on admission, per documentation there was some confusion on admission. Per patient he lives alone with his dog, per patient his is in a detention, uses walker to ambulate, denies any frequent falls, he is on aspirin and Plavix for many years from cardiology point of view per patient, patient himself denies any speech disturbances, focal motor weakness, visual disturbances, headache, dizziness or sensory loss. At present patient is awake, alert and oriented. CT head did not show any acute changes, CTA head/neck did not show any hemodynamically significant stenosis or occlusion. Labs?creatinine 1.5, UA?LE 25, nitrate negative, bacteria 0, WBC 0. Impression Likely metabolic encephalopathy Unlikely to be TIA at present Dementia Plan ?MRI brain-no acute stroke ?CTA head/neck no hemodynamically significant stenosis or occlusion ?On aspirin and Plavix for many years per cardiology per patient, bleeding risk discussed in detail ?On statins ?Stroke risk factors discussed in detail and stroke education provided ?TTE ?LDL 63, HbA1c?pending ?On Aricept for possible dementia. On nortriptyline which may worsen memory issues/dementia. Should be tapered off and discontinued, but will defer to hospitalist and PCP. Avoid benzodiazepines. ?PT/OT/ST ?Fall precaution ?GI/DVT prophylaxis ?Further medical management per hospitalist team and ICU team ?Please call with questions if any ?Follow-up with neurology as outpatient in 6 weeks ?Thank you for allowing us to participate in patient's care and management This note has been generated using [employer] dictation software. It may contain incorrect words, spellings and punctuation that were not noted in the review of the note prior to signing.
--- NOTE | 2019-05-09 10:58 | NURSING ---
PT TRANSFERRED FROM ICU
--- NOTE | 2019-05-09 11:12 | CASEMGMT ---
[facility] can take pt tomorrow. SW called Mary Beth Zelaya, pt's step daughter, let her know pt can go to [facility] tomorrow. She will be able to transport pt tomorrow. SW let pt know that he was accepted and can go to [facility] tomorrow. SW let pt know that SW called Mary Beth Zelaya and she is aware of the plan, and she will transport him tomorrow. Pt states understanding. SW placed green sheet along w/hospital exemption form on the chart, SW on MS3 aware of plan. No further social service needs anticipated at this time. ARIELLA Owen
[2019-05-09 11:35] LABS: Bedside Glucose 182 mg/dL (70-110)
[2019-05-09 16:40] LABS: Bedside Glucose 144 mg/dL (70-110)
[2019-05-09 21:10] LABS: Bedside Glucose 171 mg/dL (70-110)
[2019-05-09] MEDS: Donepezil HCl 10 MG Tablet PO (21:10)
[2019-05-09] MEDS: Atorvastatin Calcium 40 MG Tablet PO (21:10)
[2019-05-09] MEDS: LORazepam 1 MG Tablet PO (21:11)
[2019-05-10 03:00] VITALS: BP 123/75; PULSE 72; RESP 18; TEMP 36.9; O2SAT 97
[2019-05-10] MEDS: 0.9% NaCl Peripheral Flush Adult/Peds IV (03:06)
[2019-05-10] MEDS: Insulin Lispro 100 UNIT/ML INSULN.PEN SC (06:34)
[2019-05-10] MEDS: Heparin Injection (Vial) 5,000 UNIT/ML VIAL 5000 UNIT SC (06:35)
[2019-05-10 06:40] LABS: Bedside Glucose 168 mg/dL (70-110)
--- NOTE | 2019-05-10 07:25 | PCM.TXEXTCAR ---
- Diet 05/08/19 16:44 Diet: Cardiac: Calorie-Controlled Is pt able to select menu?: Yes How many daily calories?: 2000 calorie - Allergies/Procedures Done in Hospital Allergies/Adverse Reactions: Allergies No Known Allergies Allergy (Verified 05/07/19 14:07) - Type of Care/Length of Stay Estimated LOS: Convalescent Care Less Than 30 days Type of Care Needed: Skilled Rehab Potential: Good Prognosis: Good - Additional Orders/Day of Discharge Day of Discharge: 05/10/19 - Dietary and Speech Recommendations Speech Linguistic Eval Summary: The patient is a 78 year old male with a past medical history significant for Pure hypercholesterolemia, Essential hypertension, CKD (chronic kidney disease) stage 3, Stented coronary artery, Morbid obesity, RBBB, 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 Earline RN reports patient to be tolerating PO intake/meds well and speech to be clear/intelligible w/ no concerns identified at this time. Chest x-ray 05/07/2019 IMPRESSION: Borderline cardiac megaly. The lungs are clear. CT Brain 05/07/2019 IMPRESSION: No acute intracranial abnormality. Chronic ischemic and atrophic changes. Bilateral maxillary sinus disease with surgical changes noted. MRI Brain 05/08/2019 IMPRESSION: Mild atrophy and minor periventricular white matter ischemic changes without evidence for acute infarct. 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 Admits to overdrawqing checking account once d/t math error, but reports that he is much more careful w/ his finances and hasn't done that again since. The patient denies any changes in speech at this time and additionall reports that his daughter was in earlier and also felt that his speech was at baseline. Informal measures were used to assess cognitive-communicative function. The patient was fully oriented. No apraxia, anomia, aphasia or dysarthria evident. Auditory comprehension was WNL. Able to express wants/needs w/out difficulty. Adequate immediate recall. Mild deficit in memory/retnetion appreciated, although the pateint has a hx of dementia, on aricept. Able to read adn demonstrate comprehension at the sentence level w/out difficulty. Problem solving/reasoning grossly WNL. No new/acute deficits in cognitive-linguistic function identified. Patient agrees that he is at his baseline. No further skilled ST intervention warrated. Please reconsult if condition changes and further evaluation is warranted. - Follow Up Care Primary Care Physician: Antonio Louis Chi, MD [Primary Care Provider] - Please follow up with your Primary Care Physician in: in 1-2 weeks
[2019-05-10 07:26] VITALS: BP 135/81; PULSE 69; RESP 18; TEMP 37.3; O2SAT 98
--- NOTE | 2019-05-10 07:26 | PCM.DC.SUM ---
Discharge Date and Diagnosis - Problem List Patient Problems: Active and Suspected Problems (Last Reviewed 12/23/18 @ 13:14 by Renetta Kwan) Hyperventilation (Acute) Acute respiratory alkalosis (Acute) Exertional dyspnea (Acute) Speech disturbance (Suspected) Date of Admission: 05/07/19 Date of Discharge: 05/10/19 - Primary Discharge Diagnosis Active and Suspected Problems (Last Reviewed 12/23/18 @ 13:14 by Renetta Kwan) CVA (cerebral vascular accident) (Acute) Chest pain (Acute) Exertional dyspnea (Acute) Speech disturbance (Suspected) - Secondary Discharge Diagnosis Chronic Problems (Last Reviewed 12/23/18 @ 13:14 by Renetta Kwan) Pure hypercholesterolemia (Chronic) Essential hypertension (Chronic) CKD (chronic kidney disease) stage 3, GFR 30-59 ml/min (Chronic) Stented coronary artery (Chronic 10/29/18) LETICIA to proximal LAD (3.5X16 Promus Synergy) per Dr. Martinez @ [facility] 10/29/2018 LETICIA to Proximal to Mid 2nd diagonal (2.5 X 24 Promus Premier); LETICIA to mid LAD (4.0 X 38 mm Promus Premier)per Dr. Martinez @ [facility] 11/26/2014 LETICIA to mid RCA (3.5 X16 Promus), FFR of LAD + 0.84 on 07/31/[address] 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 The lungs are clear. Electronically Signed: Freddie Rodrigez, at 15:46 EDT , Service support , Brain CT 05/07/19 16:41 IMPRESSION: No acute intracranial abnormality. Chronic ischemic and atrophic changes. Bilateral maxillary sinus disease with surgical changes noted. Electronically Signed: Rajan Carranza, at 17:12 EDT Tel , Service support , Chest CTA 05/07/19 17:56 IMPRESSION: Significantly limited evaluation due to arm positioning bilaterally and motion artifact. No definite pulmonary arterial filling defects to suggest pulmonary embolus. Coronary artery calcifications. Electronically Signed: Rajan Carranza, at 18:41 EDT Tel , Service support , Head/Neck CTA 05/07/19 17:56 IMPRESSION: Moderate atherosclerotic disease without evidence for hemodynamically significant stenosis utilizing NASCET criteria Electronically Signed: Rajan Martinez MD at 18:39 EDT , Service support , Brain MRI 05/08/19 15:15 IMPRESSION: Mild atrophy and minor periventricular white matter ischemic changes without evidence for acute infarct. Electronically Signed: Rajan Martinez MD at 15:57 EDT , Service support , Operations: None Summary of Care Provided: Patient is an 78-year-old gentleman with past medical history significant for dementia diabetes mellitus type 2 who was brought to the emergency department with shortness of breath. Patient was found to have significant acute respiratory alkalosis attributed to hyperventilation admitted to monitored bed for subsequent management. 1. Acute respiratory alkalosis attributed to hyperventilation; secondary to panic attack. Patient work-up is so far remain negative to date 2. Acute metabolic encephalopathy attributed to #1 patient confusion has since improved CT of the head obtained was negative for acute CVA 3. Diabetes mellitus type 2 patient oral diabetic medications held please on Accu-Cheks before meals and at bedtime with sliding scale coverage 4. Coronary artery disease with previous PCI to his LAD 5. Hypertension-blood pressure controlled, home medications continued with dose adjustment as needed 6. Obstructive sleep apnea 7. Depression with anxiety and is on Lexapro resumed 8. Dementia unspecified patient is on Aricept 9. DVT prophylaxis Sc heparin 10. Physical deconditioning requested for PT OT eval and social worker clinical to assist with discharge planning Patient Problems: Active and Suspected Problems (Last Reviewed 12/23/18 @ 13:14 by Renetta Kwan) Hyperventilation (Acute) Acute respiratory alkalosis (Acute) Exertional dyspnea (Acute) Speech disturbance (Suspected) Subjective: GENERAL: cooperative HEENT: Atraumatic; EYES; Anicteric, Normal Conjunctiva NECK; supple, normal thyroid, RESPIRATORY: Diminished to auscultation CARDIOVASCULAR: Regular S1 S2, GI: soft, non-tender, normoactive bowel sounds, : No Renal angle tenderness; EXTREMITIES: No edema, no clubbing, MUSCULOSKELETAL: No Joint Tenderness; NEURO: Awake; no lateralizing signs. SKIN: No Rash PSYCH; Normal affect - Physical Exam Vital Signs Temp Pulse Resp BP Pulse Ox 98.4 F 72 18 123/75 H 97 05/10/19 03:00 05/10/19 03:00 05/10/19 03:00 05/10/19 03:00 05/10/19 03:00 Oxygen Flow Rate (L/min) 2 Oxygen Delivery Method Room Air Weight: 121.2 kg Body Mass Index (BMI) 34.0 Finger Stick Blood Glucose 150 Intake and Output for Last 24 Hours 05/08/19 05/09/19 05/10/19 23:59 23:59 23:59 Intake Total 3806 / 3806 770 / 770 60 / 60 Output Total 1275 / 1275 500 / 500 650 / 650 Balance 2531 / 2531 270 / 270 -590 / -590 POC Glucose 05/10/19 05/09/19 05/09/19 06:32 21:06 16:36 POC Glucose 168 H 171 H 144 H 05/09/19 05/09/19 11:16 08:26 POC Glucose 182 H 159 H Discharge Diet: 1800 Calorie Control Diet Discharge Activity: Return to Normal Activity Home Medications: Medications to take at Discharge Aspirin [Aspirin, Baby] 81 mg PO DAILY@0800 07/18/13 Rosuvastatin Calcium [Crestor] 20 mg PO DAILY 07/18/13 metFORMIN HCl [Glucophage] 500 mg PO BID 01/03/14 Donepezil HCl [Aricept] 10 mg PO QHS 11/16/14 Magnesium Oxide [Mag-Ox 400] 400 mg PO BID 11/16/14 acetaminophen 500 mg capsule 1,000 mg PO BID 01/10/18 nitroglycerin 0.4 mg sublingual tablet 0.4 mg SUBLINGUAL Q5M PRN #25 tab 01/10/18 Escitalopram Oxalate [Lexapro] 10 mg PO DAILY 07/12/18 Famotidine [Pepcid] 40 mg PO DAILY 12/08/18 gabapentin 600 mg tablet 1,200 mg PO BID tab 12/23/18 metoprolol tartrate 50 mg tablet 50 mg PO BID #60 tab 01/24/19 isosorbide mononitrate ER 60 mg tablet,extended release 24 hr 60 mg PO BID #60 tab 01/27/19 lisinopril 5 mg tablet 5 mg PO DAILY #60 tab 01/27/19 Clopidogrel Bisulfate [Clopidogrel] 75 mg PO DAILY 05/07/19 Nortriptyline HCl 25 mg PO DAILY 05/07/19 Insulin Lispro [Humalog KwikPen] See Protocol SUBCUT ACHS insuln.pen 05/10/19 Lorazepam [Ativan] 1 mg PO BID PRN #14 tab 05/10/19 Meclizine HCl [Antivert] 25 mg PO BID PRN PRN tab 05/10/19 Following Prescrptions Were Given to Patient: Lorazepam [Ativan] 1 mg PO BID PRN #14 tab PRN Reason: Anxiety Prescription Printed Primary Care Physician: Antonio Louis Chi, MD [Primary Care Provider] - Please follow up with your Primary Care Physician in: in 1-2 weeks Disposition: Detention facility Minutes spent on discharge:: 35 Patient Condition:: Stable Medical Necessity - Tobacco Use Smoking Status: Never smoker Tobacco Use: Non-smoker Meaningful Use Info Meaningful Use Diagnoses (Choose all that apply): None applicable Code Visit Inpatient E&M: 91511 Disch Hosp
[2019-05-10] MEDS: Aspirin 81 MG TAB.CHEW PO (07:58)
[2019-05-10 08:25] VITALS: PULSE 70; O2SAT 98
[2019-05-10 10:06] VITALS: PULSE 80
[2019-05-10] MEDS: Lisinopril 5 MG Tablet PO (10:06)
[2019-05-10] MEDS: Escitalopram Oxalate 10 MG Tablet PO (10:06)
[2019-05-10] MEDS: Metoprolol Tartrate 50 MG Tablet PO (10:06)
[2019-05-10] MEDS: Magnesium Oxide 400 MG Tablet PO (10:06)
[2019-05-10] MEDS: Clopidogrel Bisulfate 75 MG Tablet PO (10:07)
[2019-05-10] MEDS: Isosorbide Mononitrate 60 MG Tablet PO (10:07)
[2019-05-10] MEDS: Nortriptyline 25 MG Capsule PO (10:07)
[2019-05-10] MEDS: Gabapentin 600 MG Tablet 1200 MG PO (10:07)
[2019-05-10] MEDS: LORazepam 1 MG Tablet PO (10:11)
--- NOTE | 2019-05-10 11:17 | NURSING ---
report given to nurse @ [facility]
== END 2019-05-10 11:20 | disposition skilled nursing facility (03) | DRG 640 ==
LOC: ED 14:51 → ICU 05-08 06:23 → MS3 05-09 10:41
PROVIDERS: Physician Assistant; Admitting Provider Family Medicine; Emergency Provider Emergency Medicine; Family Provider Family Medicine Geriatric Medicine; PCP Family Medicine Geriatric Medicine; Referring Provider Family Medicine; Visit Provider Internal Medicine
DX: E87.3 Alkalosis (principal); G93.41 Metabolic encephalopathy; I48.92 Unspecified atrial flutter; I50.32 Chronic diastolic (congestive) heart failure; I13.0 Hypertensive heart and chronic kidney disease with heart failure and stage 1 through stage 4 chronic kidney disease, or unspecified chronic kidney disease; R06.09 Other forms of dyspnea; E11.22 Type 2 diabetes mellitus with diabetic chronic kidney disease; N18.3 Chronic kidney disease, stage 3 (moderate); E78.00 Pure hypercholesterolemia, unspecified; Z79.899 Other long term (current) drug therapy; E66.01 Morbid (severe) obesity due to excess calories; I48.0 Paroxysmal atrial fibrillation; I25.10 Atherosclerotic heart disease of native coronary artery without angina pectoris; N40.0 Benign prostatic hyperplasia without lower urinary tract symptoms; G47.33 Obstructive sleep apnea (adult) (pediatric); K21.9 Gastro-esophageal reflux disease without esophagitis; E11.40 Type 2 diabetes mellitus with diabetic neuropathy, unspecified; E78.5 Hyperlipidemia, unspecified; Z95.5 Presence of coronary angioplasty implant and graft; F03.90 Unspecified dementia, unspecified severity, without behavioral disturbance, psychotic disturbance, mood disturbance, and anxiety; Z79.84 Long term (current) use of oral hypoglycemic drugs; Z68.35 Body mass index [BMI] 35.0-35.9, adult; R06.03 Acute respiratory distress; F41.0 Panic disorder [episodic paroxysmal anxiety]; F40.00 Agoraphobia, unspecified; F41.9 Anxiety disorder, unspecified; F32.9 Major depressive disorder, single episode, unspecified; L30.9 Dermatitis, unspecified; E83.42 Hypomagnesemia; Z79.4 Long term (current) use of insulin; Z79.02 Long term (current) use of antithrombotics/antiplatelets; Z79.82 Long term (current) use of aspirin; R06.02 Shortness of breath
CPT/HCPCS: 36600; 70450; 70496; 70498; 70551; 71045; 71275; 80048; 80061; 81001; 82803; 82962; 83735; 83880; 84443; 84484; 85025; 92523; 93005; 97162; 97166; 97530; 97802; 99285; J7030; Q9967; A4216

== ENCOUNTER → 2019-11-10 09:19 | Outpatient (CLI) | payer MEDICARE, OTHER, SELFPAY ==
[2019-06-30 08:47] VITALS: BMI 35.9
[2019-11-10 12:39] LABS: Absolute Lymphocyte Count 1.41 X10^3/uL (0.83-4.51); Absolute Neutrophil Count 4.9 X10^3/uL (2.0-7.7); Basophil# 0.06 X10^3/uL; Basophil% 0.8 % (0-1); Eosinophil# 0.26 X10^3/uL; Eosinophils% 3.6 % (0-5); Hematocrit 45.5 % (40-54); Hemoglobin 14.4 g/dL (13.0-16.5); Lymphocyte # 1.41 X10^3/ul (4.0); Lymphocyte % 19.5 % (19-41); Mean Corp Hgb Conc 31.6 g/dL (32-36); Mean Corpuscular Hgb 30.6 pg (27.0-32.0); Mean Corpuscular Volume 96.6 fL (80-94); Mean Platelet Vol. 9.5 fl (6.2-12.0); Monocyte# 0.53 X10^3/uL; Monocyte% 7.3 % (0-10); NRBC Flagged by Analyzer 0 % (0-5); Neutrophil # 4.94 X10^3/uL (2.7-7.7); Neutrophil % 68.4 % (47-70); Platelet Count 187 K/mm3 (150-450); RBC Distribution Width CV 13.1 % (11.6-14.6); RBC Distribution Width SD 46.5 fl (35.1-43.9); Red Blood Count 4.71 M/mm3 (4.6-6.2); White Blood Count 7.2 K/mm3 (4.4-11.0)
[2019-11-10 13:14] LABS: ALB/GLOB Ratio 1.1 RATIO (0.9-2.4); AST(SGOT) 14 U/L (15-37); Alanine Aminotransfer ALT/SGPT 24 U/L (16-61); Albumin, Serum 3.8 g/dL (3.2-5.0); Alkaline Phosphatase 64 U/L (45-117); Anion Gap 6 (5-15); BUN 22 mg/dL (7-18); BUN/Creat Ratio 14.8 RATIO (10-20); Calcium,Total 8.9 mg/dL (8.5-10.1); Chloride 106 mmol/L (98-107); Creatinine, Serum 1.49 mg/dL (0.70-1.30); EST Glomerular Filtration Rate 48 mL/min (>60); Est Glom Filt Rate - Afr Amer 58 mL/min (>60); Globulin 3.4 g/dL (2.2-4.2); Glucose 222 mg/dL (74-106); Potassium 4.8 mmol/L (3.5-5.1); Protein, Total 7.2 g/dL (6.4-8.2); Sodium Level 138 mmol/L (136-145)
== END ==
PROVIDERS: PCP Family Medicine Geriatric Medicine; Visit Provider Family Medicine Geriatric Medicine
DX: E11.9 Type 2 diabetes mellitus without complications (principal); E23.6 Other disorders of pituitary gland; E55.9 Vitamin D deficiency, unspecified
CPT/HCPCS: 36415; 80053; 82306; 84403; 84443; 85025

== ENCOUNTER → 2020-04-14 14:47 | Outpatient (CLI) | payer MEDICARE, OTHER, SELFPAY ==
[2020-01-01 13:47] VITALS: BMI 35.6
[2020-04-14 16:27] LABS: AST(SGOT) 12 U/L (15-37); Alanine Aminotransfer ALT/SGPT 20 U/L (16-61); Albumin, Serum 3.9 g/dL (3.2-5.0); Alkaline Phosphatase 61 U/L (45-117); Bilirubin, Direct 0.39 mg/dL (0.00-0.30); Globulin 3.5 g/dL (2.2-4.2); Protein, Total 7.4 g/dL (6.4-8.2)
[2020-04-15 17:04] LABS: Cholesterol 139 mg/dL (200); High Density Lipoprotein 50 mg/dL; Triglycerides 166 mg/dL; Very Low Density Lipoprotein 33 mg/dL (5-40)
== END ==
PROVIDERS: PCP Family Medicine Geriatric Medicine; Visit Provider Internal Medicine Cardiovascular Disease
DX: E78.00 Pure hypercholesterolemia, unspecified (principal)
CPT/HCPCS: 36415; 80061; 80076

== ENCOUNTER → 2020-05-10 09:35 | Outpatient (CLI) | payer MEDICARE, OTHER, SELFPAY ==
[2020-04-21 10:42] VITALS: BMI 36.8
[2020-05-10 12:44] LABS: Absolute Neutrophil Count 4.1 X10^3/uL (2.0-7.7); Basophil# 0.06 X10^3/uL; Basophil% 0.9 % (0-1); Eosinophils% 6.3 % (0-5); Hematocrit 43.7 % (40-54); Hemoglobin 13.8 g/dL (13.0-16.5); Lymphocyte % 20.4 % (19-41); Mean Corp Hgb Conc 31.6 g/dL (32-36); Mean Corpuscular Hgb 30.3 pg (27.0-32.0); Mean Platelet Vol. 9.2 fl (6.2-12.0); Monocyte# 0.47 X10^3/uL; Monocyte% 7.4 % (0-10); NRBC Flagged by Analyzer 0 % (0-5); Neutrophil # 4.07 X10^3/uL (2.7-7.7); Neutrophil % 64.1 % (47-70); Platelet Count 226 K/mm3 (150-450); RBC Distribution Width CV 12.8 % (11.6-14.6); RBC Distribution Width SD 45.2 fl (35.1-43.9); Red Blood Count 4.55 M/mm3 (4.6-6.2); White Blood Count 6.4 K/mm3 (4.4-11.0)
[2020-05-10 12:55] LABS: Vitamin D,25 Hydroxy 27.3 ng/mL
[2020-05-10 13:07] LABS: ALB/GLOB Ratio 1.1 RATIO (0.9-2.4); AST(SGOT) 13 U/L (15-37); Alanine Aminotransfer ALT/SGPT 22 U/L (16-61); Albumin, Serum 3.6 g/dL (3.2-5.0); Alkaline Phosphatase 55 U/L (45-117); Anion Gap 6 (5-15); BUN 17 mg/dL (7-18); BUN/Creat Ratio 14.5 RATIO (10-20); Calcium,Total 8.8 mg/dL (8.5-10.1); Chloride 105 mmol/L (98-107); Creatinine, Serum 1.17 mg/dL (0.70-1.30); EST Glomerular Filtration Rate 64 mL/min (>60); Est Glom Filt Rate - Afr Amer 77 mL/min (>60); Globulin 3.4 g/dL (2.2-4.2); Glucose 186 mg/dL (74-106); Potassium 4.5 mmol/L (3.5-5.1); Sodium Level 137 mmol/L (136-145); Thyroid Stim Hormone (TSH) 1.12 uIU/mL (0.358-3.74)
== END ==
PROVIDERS: PCP Family Medicine Geriatric Medicine; Visit Provider Family Medicine Geriatric Medicine
DX: E11.9 Type 2 diabetes mellitus without complications (principal); E23.6 Other disorders of pituitary gland; E55.9 Vitamin D deficiency, unspecified; I10 Essential (primary) hypertension
CPT/HCPCS: 36415; 80053; 82306; 84403; 84443; 85025

== ENCOUNTER → 2020-07-09 09:30 | Outpatient (CLI) | payer MEDICARE, OTHER, SELFPAY ==
[2020-04-21 10:42] VITALS: BMI 36.8
--- NOTE | 2020-07-09 09:33 | ART_ITS ---
Reason For Study: PAD Procedure A bilateral lower extremity continuous wave Doppler with analog waveform analysis and ankle brachial indexes. Left Segmental Pressures Left brachial= 135mmHg. Left posterior tibial artery = 175mmHg. Left dorsalis pedis artery = 125mmHg. The left dorsalis pedis waveforms are biphasic. The left posterior tibial artery waveforms are biphasic. Right Segmental Pressures Right brachial= 139mmHg. Right posterior tibial artery = NCmmHg. Right dorsalis pedis artery = NCmmHg. The right dorsalis pedis waveforms are monophasic. The right posterior tibial artery waveforms are triphasic. Indices The right ankle brachial index by the dorsalis pedis is N/A. The right ankle brachial index by the posterior tibial artery is N/A. The left ankle brachial index by the dorsalis pedis is .9. The left ankle brachial index by the posterior tibial artery is 1.26. Interpretation Summary Triphasic and monophasic Doppler waveforms are noted at ankle level on the right. Biphasic Doppler waveforms are noted at ankle level on the left. The resting right ankle-brachial index could not be determined due to the non-compressibility of the vasculature at ankle level. The resting left ankle- brachial index is normal. There is evidence of arterial calcification at ankle level on the right. Although a limited resting study, there is no evidence of significant arterial occlusive disease in the lower extremities bilaterally. Ordering Physician: Antonio Louis Referring Physician: Antonio Louis Chi Performed By: CHRIS ROWAN JOSIAS
== END ==
PROVIDERS: PCP Family Medicine Geriatric Medicine; Referring Provider Family Medicine Geriatric Medicine; Visit Provider Family Medicine Geriatric Medicine
DX: I73.9 Peripheral vascular disease, unspecified (principal)
CPT/HCPCS: 93922

== ENCOUNTER → 2020-07-13 17:29 | Outpatient (CLI) | payer MEDICARE, OTHER, SELFPAY ==
[2020-04-21 10:42] VITALS: BMI 36.8
== END ==
PROVIDERS: PCP Family Medicine Geriatric Medicine; Referring Provider Family Medicine Geriatric Medicine; Visit Provider Family Medicine Geriatric Medicine
DX: R06.89 Other abnormalities of breathing (principal)
CPT/HCPCS: 87633; 87635; C9803; U0003

== ENCOUNTER → 2020-11-11 08:58 | Outpatient (CLI) | payer MEDICARE, OTHER, SELFPAY ==
[2020-10-12 09:26] VITALS: BMI 37.8
[2020-11-11 11:14] LABS: Absolute Lymphocyte Count 1.51 X10^3/uL (0.83-4.51); Absolute Neutrophil Count 5.9 X10^3/uL (2.0-7.7); Basophil# 0.07 X10^3/uL; Basophil% 0.8 % (0-1); Eosinophil# 0.35 X10^3/uL; Eosinophils% 4.1 % (0-5); Hematocrit 47.8 % (40-54); Hemoglobin 15.3 g/dL (13.0-16.5); Lymphocyte # 1.51 X10^3/ul (4.0); Lymphocyte % 17.8 % (19-41); Mean Corpuscular Hgb 30.9 pg (27.0-32.0); Mean Corpuscular Volume 96.6 fL (80-94); Mean Platelet Vol. 9.2 fl (6.2-12.0); Monocyte# 0.54 X10^3/uL; Monocyte% 6.4 % (0-10); NRBC Flagged by Analyzer 0 % (0-5); Neutrophil # 5.93 X10^3/uL (2.7-7.7); Neutrophil % 70.1 % (47-70); Platelet Count 225 K/mm3 (150-450); RBC Distribution Width CV 12.4 % (11.6-14.6); RBC Distribution Width SD 43.3 fl (35.1-43.9); Red Blood Count 4.95 M/mm3 (4.6-6.2); White Blood Count 8.5 K/mm3 (4.4-11.0)
[2020-11-11 11:29] LABS: Vitamin D,25 Hydroxy 12.8 ng/mL
[2020-11-11 11:38] LABS: ALB/GLOB Ratio 1.2 RATIO (0.9-2.4); AST(SGOT) 16 U/L (15-37); Alanine Aminotransfer ALT/SGPT 25 U/L (16-61); Alkaline Phosphatase 65 U/L (45-117); Anion Gap 4 (5-15); BUN 19 mg/dL (7-18); BUN/Creat Ratio 15.3 RATIO (10-20); Calcium,Total 9.4 mg/dL (8.5-10.1); Chloride 105 mmol/L (98-107); Creatinine, Serum 1.24 mg/dL (0.70-1.30); EST Glomerular Filtration Rate 59 mL/min (>60); Est Glom Filt Rate - Afr Amer 72 mL/min (>60); Globulin 3.4 g/dL (2.2-4.2); Glucose 238 mg/dL (74-106); Potassium 4.9 mmol/L (3.5-5.1); Protein, Total 7.4 g/dL (6.4-8.2); Sodium Level 138 mmol/L (136-145); Thyroid Stim Hormone (TSH) 1.03 uIU/mL (0.358-3.74)
== END ==
PROVIDERS: PCP Family Medicine Geriatric Medicine; Visit Provider Family Medicine Geriatric Medicine
DX: E11.9 Type 2 diabetes mellitus without complications (principal); E23.6 Other disorders of pituitary gland; E55.9 Vitamin D deficiency, unspecified; I10 Essential (primary) hypertension
CPT/HCPCS: 36415; 80053; 82306; 84403; 84443; 85025

== ENCOUNTER → 2021-02-01 07:04 | Outpatient (CLI) | payer MEDICARE, OTHER, SELFPAY ==
[2020-10-12 09:26] VITALS: BMI 37.8
--- NOTE | 2021-02-01 07:07 | CT_ITS ---
STUDY: CT ABDOMEN AND PELVIS WITH AND WITHOUT CONTRAST REASON FOR EXAM: Male, 80 years old. GROSS HEMATURIA RADIATION DOSAGE (If Supplied By Facility): CTDIvol = ( 29.58 ) mGy, DLP = ( 4024.53 ) mGycm TECHNIQUE: Transaxial images were obtained from the dome of the diaphragm to the symphysis pubis without oral contrast. IV 100mL Isovue-300 was administered. Sagittal and coronal images were reconstructed. Individualized dose optimization techniques were used for this CT. COMPARISON: None. FINDINGS: There is a 4.9 mm noncalcified nodule in the left lower lobe. Coronary artery calcification. There is decreased attenuation of the liver consistent with steatosis. There are multiple gallstones. Normal spleen. 51.5 cm x 1.6 m cyst in the uncinate process of the pancreas. A similar-appearing cyst measuring 1.3 cm is seen along the posterior aspect of the body of the pancreas. A 1 cm cyst is also seen in the junction of the tail and body portion of the pancreas. Normal bilateral adrenal glands. Normal right kidney. Normal left kidney. Normal visualized stomach. Normal small intestine. There are multiple colonic diverticula consistent with diverticulosis. The appendix is visualized and appears normal. There is diffuse atherosclerotic calcification of the abdominal aorta and the major visceral branches, without a demonstrated aneurysm. Normal inferior vena cava. Normal retroperitoneum. Diffuse bladder wall thickening. The bladder is of small capacity. Normal abdominal wall. There are diffuse degenerative changes of the visualized lumbar spine. Loss of the normal lumbar lordosis. CT/CT Abd/Pelvis W/WO Contrast IMPRESSION: 4.9 mm noncalcified nodule in the left lower lobe. Diffuse fatty infiltration of the liver. Multiple gallstones. Cysts are seen in the pancreas as described. Diffuse bladder wall thickening. Sigmoid diverticulosis. Electronically Signed: Freddie Rodrigez MD at 13:36 EDT , Service support ,
[2021-02-01 07:26] LABS: CREATININE FINGERSTICK 1.6 mg/dL (0.70-1.30)
== END ==
PROVIDERS: PCP Family Medicine Geriatric Medicine; Referring Provider Nurse Practitioner Adult Health; Visit Provider Nurse Practitioner Adult Health
DX: R31.0 Gross hematuria (principal)
CPT/HCPCS: 74178; Q9967

== ENCOUNTER → 2021-05-19 09:19 | Outpatient (CLI) | payer MEDICARE, OTHER, SELFPAY ==
[2021-05-19 12:39] LABS: Absolute Neutrophil Count 5.8 X10^3/uL (2.0-7.7); Basophil# 0.07 X10^3/uL; Basophil% 0.8 % (0-1); Eosinophil# 0.34 X10^3/uL; Eosinophils% 4.1 % (0-5); Hematocrit 42.5 % (40-54); Hemoglobin 13.8 g/dL (13.0-16.5); Lymphocyte % 16.9 % (19-41); Mean Corp Hgb Conc 32.5 g/dL (32-36); Mean Corpuscular Hgb 31.3 pg (27.0-32.0); Mean Corpuscular Volume 96.4 fL (80-94); Mean Platelet Vol. 9.7 fl (6.2-12.0); Monocyte# 0.61 X10^3/uL; Monocyte% 7.4 % (0-10); NRBC Flagged by Analyzer 0 % (0-5); Neutrophil % 70.3 % (47-70); Platelet Count 205 K/mm3 (150-450); RBC Distribution Width CV 13.1 % (11.6-14.6); RBC Distribution Width SD 46.5 fl (35.1-43.9); Red Blood Count 4.41 M/mm3 (4.6-6.2); White Blood Count 8.3 K/mm3 (4.4-11.0)
[2021-05-19 12:47] LABS: Vitamin D,25 Hydroxy 19.2 ng/mL
[2021-05-19 13:05] LABS: ALB/GLOB Ratio 1.1 RATIO (0.9-2.4); AST(SGOT) 19 U/L (15-37); Alanine Aminotransfer ALT/SGPT 26 U/L (16-61); Albumin, Serum 3.8 g/dL (3.2-5.0); Alkaline Phosphatase 58 U/L (45-117); Anion Gap 7 (5-15); BUN 18 mg/dL (7-18); BUN/Creat Ratio 15.8 RATIO (10-20); Calcium,Total 8.6 mg/dL (8.5-10.1); Chloride 105 mmol/L (98-107); Creatinine, Serum 1.14 mg/dL (0.70-1.30); EST Glomerular Filtration Rate 65 mL/min (>60); Est Glom Filt Rate - Afr Amer 79 mL/min (>60); Globulin 3.4 g/dL (2.2-4.2); Glucose 253 mg/dL (74-106); Potassium 4.7 mmol/L (3.5-5.1); Protein, Total 7.2 g/dL (6.4-8.2); Sodium Level 138 mmol/L (136-145); Thyroid Stim Hormone (TSH) 0.59 uIU/mL (0.358-3.74); Uric Acid 6.2 mg/dL (3.5-7.2)
== END ==
PROVIDERS: PCP Family Medicine Geriatric Medicine; Visit Provider Family Medicine Geriatric Medicine
DX: E11.9 Type 2 diabetes mellitus without complications (principal); E55.9 Vitamin D deficiency, unspecified; I10 Essential (primary) hypertension; M10.9 Gout, unspecified
CPT/HCPCS: 36415; 80053; 82306; 84443; 84550; 85025

== ENCOUNTER 2021-05-28 18:10 | Emergency (ER) | payer MEDICARE, OTHER, SELFPAY ==
[2021-05-28] VITALS (7 sets, daily range): BP systolic 133–178; BP diastolic 66–77; PULSE 84–96; RESP 14–24; TEMP 37.1–37.7; O2SAT 88–100; BMI 36.9
--- NOTE | 2021-05-28 18:33 | EKG12_ITS ---
Test Reason : SOB Blood Pressure : / mmHG Vent. Rate : 111 BPM Atrial Rate : 111 BPM P-R Int : 224 ms QRS Dur : 126 ms QT Int : 320 ms P-R-T Axes : 105 253 026 degrees QTc Int : 435 ms Suspect arm lead reversal, interpretation assumes no reversal Sinus tachycardia with 1st degree A-V block Right bundle branch block Inferior infarct , age undetermined Abnormal ECG Confirmed by SADI REY, PAM ([id number]), sports editor CHUCKIE CRANE ([id number]) on 05/31/2021 8:09:12 AM Referred By: ARIANNA Confirmed By:BEVERLY AVITIA MD
--- NOTE | 2021-05-28 19:00 | RAD_ITS ---
STUDY: X-RAY CHEST REASON FOR EXAM: Male, 80 years old. SOB TECHNIQUE: 2 AP portable view of the chest. COMPARISON: May 07, 2019 FINDINGS: The lungs are clear and expanded. There is no demonstrated pleural abnormality. Normal size heart. Normal mediastinum and avelina. Normal visualized pulmonary arteries. There is atherosclerotic calcification of the aortic arch with tortuosity. There is demineralization of the osseous structures. Normal visualized ribs, clavicles, and shoulders. There is no demonstrated abnormality of the visualized soft tissue structures of the upper abdomen. RAD/Chest 1 View (Portable) IMPRESSION: No acute process Electronically Signed: Todd Mensah MD at 20:18 EDT , Service support ,
[2021-05-28 19:20] LABS: Absolute Lymphocyte Count 1.36 X10^3/uL (0.83-4.51); Absolute Neutrophil Count 3.5 X10^3/uL (2.0-7.7); Basophil# 0.04 X10^3/uL; Basophil% 0.6 % (0-1); Eosinophil# 0.41 X10^3/uL; Eosinophils% 6.6 % (0-5); Hematocrit 44.4 % (40-54); Hemoglobin 14.5 g/dL (13.0-16.5); Lymphocyte # 1.36 X10^3/ul (0.83-4.51); Mean Corp Hgb Conc 32.7 g/dL (32-36); Mean Corpuscular Hgb 31.5 pg (27.0-32.0); Mean Corpuscular Volume 96.3 fL (80-94); Mean Platelet Vol. 9.1 fl (6.2-12.0); Monocyte# 0.83 X10^3/uL; Monocyte% 13.5 % (0-10); NRBC Flagged by Analyzer 0 % (0-5); Neutrophil % 56.8 % (47-70); Platelet Count 168 K/mm3 (150-450); RBC Distribution Width CV 13.3 % (11.6-14.6); RBC Distribution Width SD 47.2 fl (35.1-43.9); Red Blood Count 4.61 M/mm3 (4.6-6.2); White Blood Count 6.2 K/mm3 (4.4-11.0)
[2021-05-28 19:38] LABS: Anion Gap 6 (5-15); BUN 22 mg/dL (7-18); BUN/Creat Ratio 18.2 RATIO (10-20); Calcium,Total 8.8 mg/dL (8.5-10.1); Chloride 104 mmol/L (98-107); Creatinine, Serum 1.21 mg/dL (0.70-1.30); EST Glomerular Filtration Rate 61 mL/min (>60); Est Glom Filt Rate - Afr Amer 74 mL/min (>60); Estimated Creatinine Clearance 54.72 ml/min; Glucose 219 mg/dL (74-106); Potassium 4.7 mmol/L (3.5-5.1); Sodium Level 135 mmol/L (136-145); Troponin-I HS 42 pg/mL (3.0-78.0)
[2021-05-28] MEDS: dexAMETHasone 10 MG/ML Vial IV (21:56)
--- NOTE | 2021-05-28 22:19 | ED.VIS.DYS ---
HPI History of Present Illness Chief Complaint: Shortness of Breath Narrative Narrative: Patient states for the last 3 to 4 days has had mild congestion and cough. He states that time his past he is noticed that he has had increased shortness of breath with exertion. He reports today he had subjective fevers and chills and therefore as he feels symptoms are worsening he has concern for possible infection and therefore comes in for evaluation. Patient states he is fully vaccinated against Covid and he denies having any chest pain associated with this [facility] Medical History (Updated 05/28/21 @ 22:[address] Nazario Ramírez, DO) Atherosclerotic heart disease of [place] coronary artery without angina pectoris Dyspnea Essential hypertension Hyperlipemia Hypertension Pure hypercholesterolemia Home Medications aspirin 81 mg PO DAILY@0800 07/18/13 [History Last Taken 1 Day Ago ~12/07/18] rosuvastatin 20 mg PO DAILY 07/18/13 [History Last Taken 1 Day Ago ~12/07/18] acetaminophen 500 mg capsule 1,000 mg PO BID 01/10/18 [History Last Taken Unknown] escitalopram oxalate 10 mg PO DAILY 07/12/18 [History Last Taken 1 Day Ago ~12/07/18] gabapentin 600 mg tablet 1,200 mg PO BID tab 12/23/18 [History Last Taken Unknown] lorazepam 1 mg PO BID PRN #14 tab 05/10/19 [Rx Last Taken Unknown] meclizine 25 mg PO BID PRN PRN tab 05/10/19 [Rx Last Taken Unknown] nitroglycerin 0.4 mg sublingual tablet 0.4 mg SUBLINGUAL Q5M PRN #25 tab 01/01/20 [Rx Last Taken Unknown] glimepiride 4 mg tablet 4 mg PO QAM 04/21/20 [History Last Taken Unknown] duloxetine 30 mg capsule,delayed release 30 mg PO DAILY 10/12/20 [History Last Taken Unknown] metformin 500 mg tablet 500 mg PO BID tab 10/12/20 [History Last Taken Unknown] clopidogrel 75 mg tablet 75 mg PO DAILY #30 tab 12/16/20 [Rx Last Taken Unknown] isosorbide mononitrate 60 mg tablet,extended release 24 hr 60 mg PO BID #60 tablet 12/16/20 [Rx Last Taken Unknown] lisinopril 5 mg tablet 5 mg PO DAILY #30 tablet 12/16/20 [Rx Last Taken Unknown] metoprolol tartrate 50 mg tablet 50 mg PO BID #60 tab 12/16/20 [Rx Last Taken Unknown] albuterol sulfate [Ventolin HFA] 1 - 2 puff INHALATION Q4H PRN PRN #1 device 05/28/21 [Rx Last Taken Unknown] dexamethasone [Decadron] 6 mg PO DAILY 7 Days #7 tab 05/28/21 [Rx Last Taken Unknown] Allergy/AdvReac Type Severity Reaction Status Date / Time No Known Allergies Allergy Verified 05/28/21 19:32 Family History Son CAD (coronary artery disease) Myocardial infarction Mother Heart disease Father Addisons disease Surgical History Stented coronary artery (10/29/18) Social History (Updated 10/12/20 @ 10:26 by Feliz Brand [employer], [employer]) Smoking Status: Never smoker alcohol intake: never substance use type: does not use caffeine: Yes Type: carbonated beverages Number of servings: 3 what type of physical activity do you participate in: none seatbelt use: always do you feel safe at home: Yes ROS ROS ED Constitutional Constitutional ED: Reports chills and fever(s) Eyes Eyes: Denies change in vision ENT ENT ED: Reports rhinorrhea; Denies sore throat Cardiovascular Cardiovascular: Denies chest pain Respiratory/Chest Respiratory/Chest: Reports cough and dyspnea Gastrointestinal Gastrointestinal: Denies abdominal pain, nausea or vomiting Genitourinary Genitourinary ED: Denies dysuria Musculoskeletal Musculoskeletal: Denies myalgias Integumentary Denies rash Neurologic Neurologic: Denies headache(s) Psychiatric Psychiatric: Denies anxiety Allergic/Immunologic Allergic/Immunologic ED: Denies mouth swelling or tongue swelling EXAM Physical Exam Const Vital Signs: 05/28/21 18:11 05/28/21 19:31 05/28/21 19:32 Temperature 99.8 F H Temperature Source Temporal Pulse Rate 84 Respiratory Rate 24 H Respiratory Effort Short of Breath Respiratory Depth Normal Respiratory Pattern Normal Blood Pressure 178/66 H Blood Pressure Mean 103 Pulse Ox 98 96 Oxygen Delivery Method Room Air Room Air Room Air 05/28/21 19:33 05/28/21 20:57 Temperature 98.7 F 98.9 F Temperature Source Oral Temporal Pulse Rate 96 89 Respiratory Rate 14 23 H Respiratory Effort Respiratory Depth Respiratory Pattern Blood Pressure 176/77 H 133/74 H Blood Pressure Mean 110 93 Pulse Ox 98 100 Oxygen Delivery Method Room Air Room Air Positive well nourished and well developed General Appearance ED: well developed HEENT HEENT Narrative: There is cobblestoning the posterior pharynx consistent with sinus drainage but no airway edema or compromise Eyes PERRL and EOMs intact bilaterally Neck supple and no JVD Neck Narrative: Positive anterior cervical lymphadenopathy noted Resp Resp Narrative: Breath sounds are diminished throughout with faint expiratory wheeze greatest on the right but no nasal flaring retractions tachypnea or accessory muscle use Cardio Cardio Narrative: Slightly tachycardic rate with regular rhythm radial pulses are plus 2 out of 4 bilaterally they are equal and symmetric GI non-tender and non-distended GI Narrative: No voluntary guarding or rigidity no pulsatile mass Auscultation: normoactive bowel sounds Palpation: soft Extremity Extremity Narrative: No asymmetric edema no pitting edema negative Homans' sign bilaterally Neuro oriented x3 and CN's II-XII intact bilaterally Sensorium / Orientation: alert Psych mental status grossly normal Skin Rashes: no rashes MDM MDM MDM Narrative Medical decision making narrative: Patient presented to the ER satting 98 to 100% on room air. His history is concerning for underlying infection with his subjective fevers and chills and worsening symptoms. Also based on his age and risk factors a cardiac work-up was obtained. The patient's EKG shows sinus tachycardia with right bundle branch block but no acute current of injury or dysrhythmia changes. The patient was not having chest pain associate with this and his troponin was not elevated as it was at 42. Chest x-ray also revealed no acute fluid or infectious process. Covid test was positive indicating breakthrough Covid. The patient was ambulated and his pulse ox went from 98% on room air down to 89/90 but quickly improved back to the high 90s when he was at rest. Therefore this time as he is not requiring oxygen at rest and with ambulation he barely drops below 90 I do not feel there is need to keep in the hospital. Patient replaced on Decadron for home because of the inflammatory process as well as an albuterol inhaler to help with her lung inflammation. Patient was advised to return if symptoms are worsening states he is agreeable with this plan and therefore be discharged at this time Lab Data Labs: Laboratory Results - last 24 hr 05/28/21 05/28/21 19:15 19:15 WBC 6.2 RBC 4.61 Hgb 14.5 Hct 44.4 MCV 96.3 H MCH 31.5 MCHC 32.7 RDW Std Deviation 47.2 H RDW Coeff of Liang 13.3 Plt Count 168 MPV 9.1 Immature Gran % (Auto) 0.500 Neut % (Auto) 56.8 Lymph % (Auto) 22.0 [place] % (Auto) 13.5 H Eos % (Auto) 6.6 H Baso % (Auto) 0.6 Absolute Neuts (auto) 3.5 Absolute Lymphs (auto) 1.36 Nucleated RBC % 0 Sodium 135 L Potassium 4.7 Chloride 104 Carbon Dioxide 25.0 Anion Gap 6 BUN 22 H Creatinine 1.21 Estim Creat Clear Calc 54.72 Est GFR (MDRD) Af Amer 74 Est GFR (MDRD) Non-Af 61 BUN/Creatinine Ratio 18.2 Glucose 219 H Calcium 8.8 Troponin I High Sens 42 Radiography Diagnostic Testing: Radiology Impression Chest X-Ray 05/28/21 19:00 IMPRESSION: No acute process Electronically Signed: Todd Mensah MD at 20:18 EDT , Service support , Discharge Plan Triage Chief Complaint: Shortness of Breath ED Provider: Nazario Ramírez Dx/Rx/DC Orders Clinical Impression: COVID-19 Instructions: Coronavirus Disease 2019 (COVID-19): Caring for Yourself or Others Prescriptions: New dexamethasone [Decadron] 6 mg tablet 6 mg PO DAILY 7 Days Qty: 7 RF: 0 albuterol sulfate [Ventolin HFA] 90 mcg/actuation HFA aerosol inhaler 1 - 2 puff inhalation Q4H PRN PRN (Reason: Wheezing) Qty: 1 RF: 0 No Action acetaminophen 500 mg capsule 1,000 mg PO BID RF: 0 nitroglycerin 0.4 mg tablet, sublingual 0.4 mg SUBLINGUAL Q5M PRN (Reason: Chest Pain) Qty: 25 RF: 3 glimepiride 4 mg tablet 4 mg PO QAM RF: 0 metformin 500 mg tablet 500 mg PO BID RF: 0 duloxetine 30 mg capsule,delayed release(DR/EC) 30 mg PO DAILY RF: 0 aspirin 81 MG tablet,chewable 81 mg PO DAILY@0800 RF: 0 rosuvastatin 20 MG tablet 20 mg PO DAILY RF: 0 gabapentin 600 mg tablet 1,200 mg PO BID RF: 0 escitalopram oxalate 10 MG tablet 10 mg PO DAILY RF: 0 lorazepam 1 MG tablet 1 mg PO BID PRN (Reason: Anxiety) Qty: 14 RF: 0 meclizine 25 MG tablet 25 mg PO BID PRN PRN (Reason: Vertigo) RF: 0 lisinopril 5 mg tablet 5 mg PO DAILY Qty: 30 RF: 12 isosorbide mononitrate 60 mg tablet extended release 24 hr 60 mg PO BID Qty: 60 RF: 12 clopidogrel 75 mg tablet 75 mg PO DAILY Qty: 30 RF: 12 metoprolol tartrate 50 mg tablet 50 mg PO BID Qty: 60 RF: 12 Primary Care Provider: Antonio Louis Chi Referrals: Antonio Louis Chi, MD [Primary Care Provider] - Disposition Disposition: Home, Self Care
--- NOTE | 2021-05-28 23:22 | ED.RN ---
PT REQUESTING TO BE ADMITTED. PT BECOMES MORE ANXIOUS HE TALKS ABOUT BEING ADMITTED VS BEING DISCHARGED HOME WITH O2
[2021-05-28] MEDS: LORazepam 0.5 MG Tablet PO (23:26)
--- NOTE | 2021-05-28 23:31 | ED.RN ---
PT NOW WISHES TO GO HOME WITH OXYGEN
[2021-05-29 00:18] VITALS: BP 163/100; PULSE 79; RESP 20; O2SAT 98
--- NOTE | 2021-05-31 11:02 | CASEMGMT ---
KAREN LEACH Home O2 Follow-up Call: This KAREN CAMPA contacted pt in follow-up to home O2 set-up. Pt states he has been doing ok since being discharged from the ED. Pt states he did receive his concentrator from [facility]. Pt states his PO has been running around 92% without O2 during the day and if he puts on his CPAP he is 94%. Pt states he is using the O2 at hs only at this time. Pt denies any difficulty with breathing. States he did feel wheezy this morning for which he used his inhaler. This resolved the wheezing. Pt states he has been using his exercise bike and his PO remained 92%. Pt states he lives alone and is isolating from others. States he has enough food and his daughter will assist him with groceries when needed. Pt states he is in the [facility] program and has notified them of his diagnosis and to not visit at this time. Discussed isolation period of ten days which will be next Thursday 06/07. Pt expressed understanding. Pt states he has not called Dr. Louis yet but will later this afternoon for follow-up appointment. Pt states his is in the half-way and he will suspend his visits to her at this time. Pt denies any further questions or concerns at this time. Jacquelyn Hooper RN CM
--- NOTE | 2021-06-01 11:31 | CASEMGMT ---
KAREN LEACH Follow-up: This RN KATHERYN phoned pt in follow-up to home O2 from the ED. Pt states he is doing well. PO 92% on RA at rest and 95% on CPAP. Pt states he did call Dr. Louis's office to schedule a follow-up appointment but had to leave a message. They have not yet returned his call at this time. Pt states he is making a grocery list for his daughter to get his groceries. States he is preparing his own meals and denies any difficulties. Pt looking forward to the end of his quarantine period so he can visit his . Pt denies any questions or concerns at this time. Pt with supportive family and without needs. Pt aware of who to contact if symptoms worsen. Jacquelyn Hooper RN CM
--- NOTE | 2021-06-02 17:20 | CASEMGMT ---
KAREN CAMPA COVID Home O2 follow-up This KAREN CAMPA contacted pt via phone. Pt states he is doing. Pt sounded out of breath but pt states he had to walk across the room from the kitchen to get the phone. States his PO has been running 92-93% and states I will be wearing my O2 again tonight. Pt denies any questions or concerns at this time. Jacquelyn Hooper RN CM
== END 2021-05-29 00:18 | disposition home or self-care (01) ==
PROVIDERS: Student in an Organized Health Care Education/Training Program; Emergency Provider Emergency Medicine; PCP Family Medicine Geriatric Medicine
DX: U07.1 COVID-19 (principal); I25.10 Atherosclerotic heart disease of native coronary artery without angina pectoris
CPT/HCPCS: 71045; 80048; 84484; 85025; 87426; 93005; 94760; 96374; 99283; A4216

== ENCOUNTER 2021-11-17 08:59 | Outpatient (CLI) | payer MEDICARE, OTHER, SELFPAY ==
[2021-11-17 12:25] LABS: Absolute Lymphocyte Count 1.46 X10^3/uL (0.83-4.51); Absolute Neutrophil Count 4.5 X10^3/uL (2.0-7.7); Basophil# 0.08 X10^3/uL; Basophil% 1.1 % (0-1); Eosinophil# 0.39 X10^3/uL; Eosinophils% 5.5 % (0-5); Hematocrit 42.7 % (40-54); Hemoglobin 13.9 g/dL (13.0-16.5); Lymphocyte # 1.46 X10^3/ul (0.83-4.51); Lymphocyte % 20.6 % (19-41); Mean Corp Hgb Conc 32.6 g/dL (32-36); Mean Corpuscular Hgb 30.8 pg (27.0-32.0); Mean Corpuscular Volume 94.7 fL (80-94); Mean Platelet Vol. 9.5 fl (6.2-12.0); Monocyte% 8.5 % (0-10); NRBC Flagged by Analyzer 0 % (0-5); Neutrophil # 4.52 X10^3/uL (2.7-7.7); Neutrophil % 63.9 % (47-70); Platelet Count 217 K/mm3 (150-450); RBC Distribution Width CV 13.2 % (11.6-14.6); RBC Distribution Width SD 45.7 fl (35.1-43.9); Red Blood Count 4.51 M/mm3 (4.6-6.2); White Blood Count 7.1 K/mm3 (4.4-11.0)
[2021-11-17 12:43] LABS: Vitamin D,25 Hydroxy 11.6 ng/mL
[2021-11-17 12:53] LABS: AST(SGOT) 18 U/L (15-37); Alanine Aminotransfer ALT/SGPT 20 U/L (16-61); Albumin, Serum 3.6 g/dL (3.2-5.0); Alkaline Phosphatase 57 U/L (45-117); Anion Gap 7 (5-15); BUN 19 mg/dL (7-18); BUN/Creat Ratio 15.3 RATIO (10-20); Calcium,Total 9.1 mg/dL (8.5-10.1); Chloride 106 mmol/L (98-107); Creatinine, Serum 1.24 mg/dL (0.70-1.30); EST Glomerular Filtration Rate 59 mL/min (>60); Est Glom Filt Rate - Afr Amer 72 mL/min (>60); Globulin 3.5 g/dL (2.2-4.2); Glucose 271 mg/dL (74-106); Potassium 4.6 mmol/L (3.5-5.1); Protein, Total 7.1 g/dL (6.4-8.2); Sodium Level 137 mmol/L (136-145); Thyroid Stim Hormone (TSH) 0.98 uIU/mL (0.358-3.74)
== END 2021-11-17 23:59 | disposition home or self-care (01) ==
LOC: POLAB3 09:01
PROVIDERS: PCP Family Medicine Geriatric Medicine; Visit Provider Family Medicine Geriatric Medicine
DX: E11.9 Type 2 diabetes mellitus without complications (principal); E23.6 Other disorders of pituitary gland; E55.9 Vitamin D deficiency, unspecified; I10 Essential (primary) hypertension
CPT/HCPCS: 36415; 80053; 82306; 84403; 84443; 85025

== ENCOUNTER → 2022-05-18 | Outpatient (CLI) | payer MEDICARE, OTHER, SELFPAY ==
[2022-05-18 12:21] LABS: Absolute Lymphocyte Count 1.72 X10^3/uL (0.83-4.51); Absolute Neutrophil Count 5.2 X10^3/uL (2.0-7.7); Basophil# 0.08 X10^3/uL; Eosinophil# 0.34 X10^3/uL; Eosinophils% 4.2 % (0-5); Hematocrit 44.7 % (40-54); Hemoglobin 14.3 g/dL (13.0-16.5); Lymphocyte # 1.72 X10^3/ul (0.83-4.51); Lymphocyte % 21.5 % (19-41); Mean Corpuscular Hgb 30.9 pg (27.0-32.0); Mean Corpuscular Volume 96.5 fL (80-94); Mean Platelet Vol. 9.5 fl (6.2-12.0); Monocyte# 0.61 X10^3/uL; Monocyte% 7.6 % (0-10); NRBC Flagged by Analyzer 0 % (0-5); Platelet Count 210 K/mm3 (150-450); RBC Distribution Width CV 12.7 % (11.6-14.6); Red Blood Count 4.63 M/mm3 (4.6-6.2)
[2022-05-18 12:41] LABS: Vitamin D,25 Hydroxy 15.8 ng/mL
[2022-05-18 12:46] LABS: ALB/GLOB Ratio 1.1 RATIO (0.9-2.4); AST(SGOT) 14 U/L (15-37); Alanine Aminotransfer ALT/SGPT 24 U/L (16-61); Albumin, Serum 3.8 g/dL (3.2-5.0); Alkaline Phosphatase 54 U/L (45-117); Anion Gap 6 (5-15); BUN 24 mg/dL (7-18); BUN/Creat Ratio 18.5 RATIO (10-20); Calcium,Total 9.1 mg/dL (8.5-10.1); Chloride 104 mmol/L (98-107); EST Glomerular Filtration Rate 56 mL/min (>60); Est Glom Filt Rate - Afr Amer 68 mL/min (>60); Globulin 3.5 g/dL (2.2-4.2); Glucose 212 mg/dL (74-106); Potassium 4.8 mmol/L (3.5-5.1); Protein, Total 7.3 g/dL (6.4-8.2); Sodium Level 138 mmol/L (136-145); Uric Acid 6.7 mg/dL (3.5-7.2)
== END | disposition home or self-care (01) ==
LOC: POLAB3 09:23
PROVIDERS: PCP Family Medicine Geriatric Medicine; Visit Provider Family Medicine Geriatric Medicine
DX: E11.9 Type 2 diabetes mellitus without complications (principal); E23.6 Other disorders of pituitary gland; E55.9 Vitamin D deficiency, unspecified; I10 Essential (primary) hypertension; M10.9 Gout, unspecified
CPT/HCPCS: 36415; 80053; 82306; 84403; 84443; 84550; 85025

== ENCOUNTER 2022-07-06 09:33 | Emergency (ER) | payer MEDICARE, OTHER, SELFPAY ==
[2022-07-06 09:34] VITALS: BP 153/75; PULSE 68; RESP 18; TEMP 35.9; O2SAT 96; BMI 35.9
--- NOTE | 2022-07-06 10:22 | VDLE_ITS ---
Reason For Study: LEG PAIN RIGHT LEFT CFV is compressible, spontaneous, phasic, GSV is normal. competent and demonstrates normal CFV is compressible, spontaneous, phasic, augmentation. competent, and demonstrates normal Procedure augmentation. This is a venous duplex using B-mode, color FV is compressible, spontaneous, phasic, flow and spectral Doppler. competent and demonstrates normal Exam performed portable in ED. augmentation. The exam was diagnostic. POP V is compressible, spontaneous, phasic, A preliminary report was called and/or faxed competent and demonstrates normal to Dr. Pang. augmentation. T/P Trunk is compressible. PTV is compressible. LT PerV is compressible. Area of mixed echogenicity noted in the left popliteal fossa measuring 3.59cm x 1.01cm was noted. No flow was seen in color or doppler. VL/Venous Duplex US, Unilateral Interpretation Summary There is no evidence of left lower extremity deep vein thrombosis. Left great s aphenous vein appears patent and compressible segmentally. Vague left popliteal fossa heterogenous no nvascular 3.59 x 1.01 cm structure. Possibly consistent with a Minaya's cyst with hemorrhage. Clinical correlation would be appropriate. Normal flow patterns right common femoral vein Ordering Physician: Walt Pang Referring Physician: Antonio Louis Chi Performed By: Hector Orona RVT
--- NOTE | 2022-07-06 11:06 | EDS_ITS ---
HPI History of Present Illness HPI Narrative: Patient presents with pain and swelling to his left lower leg that has been getting worse over the past 2 days. Patient describes his pain as cramping. Patient states nothing makes it better and nothing makes it worse. Patient states it has been constant. Patient denies any trauma or injury. Patient denies any paresthesias or weakness. Patient states he has a history of neuropathy and had his Lyrica increased recently. Patient states this has not been helping with the pain. Chief Complaint: Lower Extremity Injury Informant: patient Onset/Context/Timing Onset: Days (2) Context: Gradual Onset Timing: Continuous Quality of Pain: - (Cramping) Location: Left lower leg Worsened by: Nothing Relieved by: Nothing Associated Symptoms Associated Symptoms: Negative for Parasthesia or Weakness [facility] Medical History (Updated 07/06/22 @ 11:[address] Walt Pang, DO) Atherosclerotic heart disease of [place] coronary artery without angina pectoris Dyspnea Essential hypertension Hyperlipemia Hypertension Pure hypercholesterolemia Home Medications aspirin 81 mg chewable tablet 81 mg PO DAILY@0800 heart 07/18/13 [History Last Taken 1 Day Ago ~12/07/18] rosuvastatin 20 mg tablet 20 mg PO DAILY cholesterol 07/18/13 [History Last Taken 1 Day Ago ~12/07/18] acetaminophen 500 mg capsule 1,000 mg PO BID pain 01/10/18 [History Last Taken Unknown] escitalopram oxalate 10 mg tablet 10 mg PO DAILY mood 07/12/18 [History Last Taken 1 Day Ago ~12/07/18] gabapentin 600 mg tablet 1,200 mg PO BID pain 12/23/18 [History Last Taken Unknown] lorazepam 1 mg tablet 1 mg PO BID PRN Anxiety #14 tabs 05/10/19 [Rx Last Taken Unknown] meclizine 25 mg tablet 25 mg PO BID PRN PRN Vertigo 05/10/19 [Rx Last Taken Unknown] glimepiride 4 mg tablet 4 mg PO QAM 04/21/20 [History Last Taken Unknown] metformin 500 mg tablet 500 mg PO BID 10/12/20 [History Last Taken Unknown] albuterol sulfate 90 mcg/actuation aerosol inhaler (Ventolin HFA) 1 - 2 puff inhalation Q4H PRN PRN Wheezing #1 device 05/28/21 [Rx Last Taken Unknown] clopidogrel 75 mg tablet 75 mg PO DAILY #30 tabs 02/24/22 [Rx Last Taken Unknown] isosorbide mononitrate 60 mg tablet,extended release 24 hr 60 mg PO BID #60 tabs 11/17/21 [Rx Last Taken Unknown] lisinopril 5 mg tablet 5 mg PO DAILY BP #30 tabs 11/17/21 [Rx Last Taken Unknown] metoprolol tartrate 50 mg tablet 50 mg PO BID blood pressure #60 tabs 11/17/21 [Rx Last Taken Unknown] duloxetine 30 mg capsule,delayed release 60 mg PO DAILY 02/22/22 [History Last Taken Unknown] nitroglycerin 0.4 mg sublingual tablet 0.4 mg sublingual Q5M PRN Chest Pain #25 tabs 02/22/22 [Rx Last Taken Unknown] Allergy/AdvReac Type Severity Reaction Status Date / Time No Known Allergies Allergy Verified 07/06/22 09:34 Family History Son CAD (coronary artery disease) Myocardial infarction Mother Heart disease Father Addisons disease Surgical History Stented coronary artery (10/29/18) Social History Smoking Status: Never smoker alcohol intake: never substance use type: does not use caffeine: Yes Type: carbonated beverages Number of servings: 3 what type of physical activity do you participate in: none seatbelt use: always do you feel safe at home: Yes ROS ROS ED Constitutional Constitutional ED: Denies chills or fever(s) Eyes Eyes: Denies blurry vision or change in vision ENT ENT ED: Denies rhinorrhea or sore throat Cardiovascular Cardiovascular: Denies chest pain or palpitations Respiratory/Chest Respiratory/Chest: Reports dyspnea; Denies cough Gastrointestinal Gastrointestinal: Denies nausea or vomiting Genitourinary Genitourinary ED: Denies dysuria or hematuria Musculoskeletal Musculoskeletal: Denies back pain or neck pain Integumentary Denies abscess or rash Neurologic Neurologic: Denies headache(s) or weakness Allergic/Immunologic Allergic/Immunologic ED: Denies mouth swelling or urticaria EXAM Physical Exam Const Vital Signs: 07/06/22 09:34 Temperature 96.6 F L Temperature Source Temporal Pulse Rate 68 Respiratory Rate 18 Blood Pressure 153/75 H Blood Pressure Mean 101 Pulse Ox 96 Oxygen Delivery Method Room Air Positive well nourished and well developed General Appearance ED: well developed HEENT Reports moist mucous membranes Neck supple and no JVD Resp normal respiratory effort and clear to auscultation bilaterally Cardio regular rate, regular rhythm and no murmurs GI normal to inspection, nondistended, normoactive bowel sounds and non-tender Palpation: soft Extremity normal to inspection General Extremety ED: Yes edema; Negative for tenderness General Extremity: edema left lower extremity (There is some nonpitting edema of the left lower extremity. It just appears larger than the right.) Neuro oriented x3, CN's II-XII intact bilaterally and no sensory deficits noted Sensorium / Orientation: alert Motor Exam: strength 5/5 throughout Psych mental status grossly normal Skin no rashes or lesions noted MDM MDM MDM Narrative Medical decision making narrative: Venous duplex of the left lower extremity was obtained. There is no evidence of DVT. Patient was advised of his findings. Patient was instructed to keep the leg elevated. Patient was instructed to continue his Lyrica as needed for pain. Patient understood and was agreeable with the plan. All questions were answered. Discharge Plan Triage Chief Complaint: Lower Extremity Injury ED Provider: Walt Pang Dx/Rx/DC Orders Clinical Impression: Left leg pain, Neuropathy Instructions: ED Pain, Acute, Uncertain Cause Prescriptions: No Action acetaminophen 500 mg capsule 1,000 mg PO BID glimepiride 4 mg tablet 4 mg PO QAM Rx Instructions: administer with breakfast metformin 500 mg tablet 500 mg PO BID duloxetine 30 mg capsule,delayed release(DR/EC) 60 mg PO DAILY nitroglycerin 0.4 mg tablet, sublingual 0.4 mg sublingual Q5M PRN (Reason: Chest Pain) Qty: 25 3RF aspirin 81 MG tablet,chewable 81 mg PO DAILY@0800 Label Comments: anticoagulation rosuvastatin 20 MG tablet 20 mg PO DAILY Label Comments: cholesterol lowering gabapentin 600 mg tablet 1,200 mg PO BID Label Comments: NEUROPATHY escitalopram oxalate 10 MG tablet 10 mg PO DAILY lorazepam 1 MG tablet 1 mg PO BID PRN (Reason: Anxiety) Qty: 14 0RF meclizine 25 MG tablet 25 mg PO BID PRN PRN (Reason: Vertigo) 0RF albuterol sulfate [Ventolin HFA] 90 mcg/actuation HFA aerosol inhaler 1 - 2 puff inhalation Q4H PRN PRN (Reason: Wheezing) Qty: 1 0RF clopidogrel 75 mg tablet 75 mg PO DAILY Qty: 30 12RF isosorbide mononitrate 60 mg tablet extended release 24 hr 60 mg PO BID Qty: 60 12RF lisinopril 5 mg tablet 5 mg PO DAILY Qty: 30 12RF metoprolol tartrate 50 mg tablet 50 mg PO BID Qty: 60 12RF Primary Care Provider: Antonio Louis Chi Referrals: Antonio Louis Chi, MD [Primary Care Provider] - 5-7 Days Disposition Disposition: Home, Self Care
== END 2022-07-06 11:31 | disposition home or self-care (01) ==
PROVIDERS: Emergency Provider Emergency Medicine; PCP Family Medicine Geriatric Medicine; Visit Provider Emergency Medicine
DX: M79.605 Pain in left leg (principal); G62.9 Polyneuropathy, unspecified; I25.10 Atherosclerotic heart disease of native coronary artery without angina pectoris; Z95.5 Presence of coronary angioplasty implant and graft
CPT/HCPCS: 93971; 99282

== ENCOUNTER → 2024-01-11 | Outpatient (CLI) | payer MEDICARE, OTHER, SELFPAY ==
--- NOTE | 2024-01-11 10:39 | STRESSREP ---
Stress Test Report Pharmacologic myocardial perfusion stress test. 83-year-old male with a history of coronary artery disease Resting EKG demonstrates sinus rhythm with a rate of 83 and a right bundle branch block. Resting blood pressure is 150/72 mmHg. 0.4 mg of regadenoson was infused per usual protocol followed by rapid intravenous saline flush injection. Continuous EKG monitoring was performed. The maximum heart rate was 100 bpm which was 74% of max impacted heart rate the maximum workload was 1 metabolic equivalent. At rest there were no ST or T wave changes noted to suggest ischemia and at peak infusion nonspecific ST changes were noted which did not meet the criteria for ischemia. No clinical angina is noted. The final blood pressure was 128/70 mmHg. Myocardial perfusion protocol. 14 mCi of technetium 99m sestamibi was injected at rest. 0.4 mg of regadenoson was infused per usual protocol. At peak infusion 35 point mCi of technetium 99m sestamibi was injected stress images were obtained stress and rest images were reconstructed and compared in the short axis vertical long and horizontal long axis. Gated images were also obtained. Perfusion SPECT analysis: Review of the stress images demonstrate normal uptake of tracer noted in all areas of the myocardium. There is a defect noted in the inferior wall of medium size. The resting images similar demonstrated normal uptake of tracer noted in all areas of the myocardium. Persistent defect is noted in the basal to mid inferior wall suggestive of a previous basal to mid inferior infarct. No reversibility is noted suggest ischemia. Gated SPECT analysis: The gated ejection fraction is 63%. Conclusion: Normal pharmacologic myocardial perfusion stress test. Preserved ejection fraction. Previous basal inferior infarct present.
== END | disposition home or self-care (01) ==
LOC: CVS 07:06
PROVIDERS: PCP Clinical Nurse Specialist; Referring Provider Physician Assistant Medical; Visit Provider Physician Assistant Medical
DX: I25.10 Atherosclerotic heart disease of native coronary artery without angina pectoris (principal)
CPT/HCPCS: 78452; 93017; A9500; A4216; J2785